=== PATIENT | male | born 1945 | race American Indian/Alaskan Native ===

== ENCOUNTER 2020-10-22 08:11 | Inpatient (IN) | payer MEDICARE ==
[2020-10-22] MEDS ORDERED: SODIUM CHLORIDE 0.9% 500 ML 500 ML IV SCH (09:00)
[2020-10-22 09:12] LABS: Basophils % (Auto) 0.3 % (0.0-1.8); Eosinophils # (Auto) 0.2 K/mm3 (0.0-0.4); Eosinophils % (Auto) 1.9 % (0.0-4.3); Hemoglobin 11.7 gm/dl (11.8-15.2); Lymphocytes # (Auto) 0.9 K/mm3 (1.2-5.4); Lymphocytes % (Auto) 7.6 % (13.4-35.0); Mean Corpuscular HGB Conc 33 % (32-34); Mean Corpuscular Volume 90 fl (84-94); Monocytes # (Auto) 0.9 K/mm3 (0.0-0.8); Monocytes % (Auto) 7.5 % (0.0-7.3); Platelet Count 417 K/mm3 (140-440); Red Blood Count 3.88 M/mm3 (3.65-5.03); Red Cell Distribution Width 15.5 % (13.2-15.2)
[2020-10-22 09:35] LABS: Calcium 10.4 mg/dL (8.4-10.2)
[2020-10-22 09:44] LABS: INR 1.1 (0.87-1.13)
[2020-10-22 09:45] LABS: Partial Thromboplastin Time 30.7 Sec. (24.2-36.6)
[2020-10-22] MEDS ORDERED: LIDOCAINE 1%/EPINEPHRINE 1:100,000 VIAL (20 ML) INFILTRATI ONE (09:55)
[2020-10-22] MEDS ORDERED: HEPARIN/NS 5000 UNIT/500ML 0 ML IR ONE (09:55)
[2020-10-22] MEDS ORDERED: HEPARIN 10,000 UNITS/10 ML VIAL ONE (09:55)
[2020-10-22] MEDS ORDERED: MIDAZOLAM 2 MG/2 ML INJ ONE (09:56)
[2020-10-22] MEDS ORDERED: fentaNYL 100 MCG/2 ML INJ ONE (09:56)
[2020-10-22] MEDS ORDERED: ONDANSETRON 4 MG/2 ML INJ IV PRN (10:30)
[2020-10-22] MEDS ORDERED: SODIUM CHLORIDE 0.9% 1000 ML 1,000 ML IV SCH (10:30)
[2020-10-22] MEDS ORDERED: ALBUTEROL 2.5 MG/3 ML NEBU IH PRN (10:30)
[2020-10-22] MEDS ORDERED: ALBUTEROL 8.5 GM MDI INHALATION IH PRN (10:40)
--- NOTE | 2020-10-22 10:54 | Consultation ---
History of Present Illness - Reason for Consult Consult date: 10/22/20 LLE Requesting physician: JENNA REED - History of Present Illness 75-year-old male with COPD, hypertension, and severe peripheral vascular disease status post bypass x2 at [facility] who has left lower extremity cellulitis/ulceration and rest pain for the last 2 weeks. Arterial ultrasound demonstrates occluded femoral-popliteal bypass. Patient presented today for thrombolysis of the left lower extremity. Unfortunately, found to have leukocytosis with acute renal failure. Admitted for hydration and antibiotics. Plan will be for revascularization tomorrow with thrombolysis of the left lower extremity. Afterwards, he will need to return to the [facility] on Thursday for thrombolytic catheter removal. Past History Past Medical History: COPD, hypertension, PVD Past Surgical History: Other (Bypasses) Social history: smoking Family history: hypertension Medications and Allergies Allergies Allergy/AdvReac Type Severity Reaction Status Date / Time No Known Allergies Allergy Verified 10/22/20 08:47 Home Medications Medication Instructions Recorded Confirmed Last Taken Type Albuterol Mdi (or & Nicu Only) 2 puff IH QID PRN #1 inhalation 08/08/15 10/22/20 Unknown Rx [ProAir HFA Inhaler] Ciprofloxacin [Ciprofloxacin ORAL 500 mg PO Q12H #14 ml 08/08/15 10/22/20 1 12/21/19 Rx LIQ] 1 tab Amoxicillin/Potassium Clav 1 each PO BID 10/22/20 10/22/20 10/21/20 History [Amox-Clav 250-125 mg Tablet] 1 tab Aspirin [Aspirin BABY CHEW TAB] 81 mg PO QDAY 10/22/20 10/22/20 10/21/20 History 1 tab AtorvaSTATin [Lipitor] 20 mg PO QHS 10/22/20 10/22/20 10/21/20 History 1 tab Clopidogrel [Plavix] 75 mg PO QDAY 10/22/20 10/22/20 10/21/20 History 1 tab Metoprolol Xl [Metoprolol 25 mg PO QDAY 10/22/20 10/22/20 10/21/20 History SUCCINATE ER TAB] 1 tab Multivit-Min/FA/Lycopen/Lutein 1 each PO DAILY 10/22/20 10/22/20 10/21/20 History [Centrum Silver Tablet] 1 tab Oxycodon-Acetaminophen 2.5-325 5 - 325 mg PO Q6HR PRN 10/22/20 10/22/20 Unknown History Pentoxifylline 400 mg PO BID 10/22/20 10/22/20 10/21/20 History 1 tab Active Meds: Active Medications Acetaminophen (Tylenol) 650 mg PO Q4H PRN PRN Reason: Pain MILD(1-3)/Fever >100.5/RUANO Albuterol (Proventil) 2.5 mg IH Q4HRT PRN PRN Reason: Shortness Of Breath Albuterol (Proair) 2 puff IH QID PRN PRN Reason: Shortness Of Breath Atorvastatin Calcium (Lipitor) 20 mg PO QHS SONYA Clopidogrel Bisulfate (Plavix) 75 mg PO QDAY SONYA Docusate Sodium (Colace) 100 mg PO BID SONYA Sodium Chloride (Nacl 0.9% 1000 Ml) 1,000 mls @ 150 mls/hr IV DIRECT SONYA Heparin Sodium/Sodium Chloride (Heparin/ 0.45% Nacl-25,000 Unit/500 Ml) 25,000 unit in 500 mls @ 12.247 mls/hr IV TITR SONYA; Protocol Metoprolol Succinate (Metoprolol Xl) 25 mg PO QDAY SONYA Miscellaneous Medication (Multivit-Min/Fa/Lycopen/Lutein [Centrum Silver Tablet]) 1 each PO DAILY SONYA Ondansetron HCl (Zofran) 4 mg IV Q8H PRN PRN Reason: Nausea Pantoprazole Sodium (Protonix) 40 mg PO QDAC SONYA Pentoxifylline (Trental) 400 mg PO BID SONYA Senna (Senokot) 8.6 mg PO Q12HR SONYA Sodium Chloride (Sodium Chloride Flush Syringe 10 Ml) 10 ml IV BID SONYA Sodium Chloride (Sodium Chloride Flush Syringe 10 Ml) 10 ml IV PRN PRN PRN Reason: LINE FLUSH Review of Systems All systems: negative (see HPI) Exam - Constitutional Vitals: Temp Pulse Resp BP Pulse Ox 97.8 F 68 16 154/98 100 10/22/20 09:16 10/22/20 09:16 10/22/20 09:43 10/22/20 09:16 10/22/20 09:16 General appearance: Present: mild distress (Left lower extremity rest pain) - EENT Eyes: Present: EOM intact ENT: hearing intact - Neck Neck: Present: supple - Respiratory Respiratory effort: labored (Baseline COPD 2 L oxygen dependence) - Extremities Extremities: abnormal (Left lower extremity rest pain) - Abdominal General gastrointestinal: Present: soft, non-tender - Psychiatric Psychiatric: appropriate mood/affect, cooperative Results - Labs CBC & Chem 7: 10/22/20 09:04 10/22/20 09:04 Labs: Abnormal lab results 10/22/20 10/22/20 10/22/20 Range/Units 09:04 09:04 09:04 WBC 12.0 H (4.5-11.0) K/mm3 Hgb 11.7 L (11.8-15.2) gm/dl Hct 35.0 L (35.5-45.6) % RDW 15.5 H (13.2-15.2) % Lymph % (Auto) 7.6 L (13.4-35.0) % [place] % (Auto) 7.5 H (0.0-7.3) % Lymph # (Auto) 0.9 L (1.2-5.4) K/mm3 [place] # (Auto) 0.9 H (0.0-0.8) K/mm3 Seg Neutrophils % 82.7 H (40.0-70.0) % Seg Neutrophils # 9.9 H (1.8-7.7) K/mm3 Fibrinogen 708 H (211-480) mg/dl BUN 29 H (9-20) mg/dL Creatinine 2.2 H (0.8-1.3) mg/dL Glucose 114 H (75-100) mg/dL Calcium 10.4 H (8.4-10.2) mg/dL Assessment and Plan 75 year old male with COPD on home oxygen, chronic anorexia and cachexia, cellulitis of the left lower extremity, and recent left lower extremity fem pop occlusion. Presented for thrombolysis but in ARF due to dehydration and cellulitis, this was cancelled for today. Hydration overnight, overnight antibiotics, heparin drip. Will plan for revascularization tomorrow. Medicine will admit. Consult ID and vascular.
[2020-10-22] MEDS ORDERED: HEPARIN/ 0.45% NACL DRIP 25,000 UNIT/500 ML BAG ONE (10:58)
[2020-10-22] MEDS ORDERED: ASPIRIN 81 MG TAB CHEW PO SCH (11:00)
[2020-10-22] MEDS ORDERED: HEPARIN/ 0.45% NACL DRIP 25,000 UNIT/500 ML BAG IV SCH (11:00)
[2020-10-22] MEDS ORDERED: CLOPIDOGREL 75 MG TAB PO SCH (11:00)
[2020-10-22] MEDS ORDERED: HEPARIN 10,000 UNIT/1 ML VIAL ONE (11:23)
[2020-10-22] MEDS ORDERED: SODIUM CHLORIDE 0.9% 1000 ML 1,000 ML ONE ×2 (11:39→17:01)
[2020-10-22] MEDS ORDERED: oxyCODONE /ACETAMINOPHEN 5-325MG TAB ONE ×2 (11:40→16:04)
[2020-10-22] MEDS: oxyCODONE /ACETAMINOPHEN 5-325MG TAB PO PRN ×3 (12:00→21:20)
[2020-10-22] MEDS ORDERED: CLOPIDOGREL 75 MG TAB ONE (12:20)
[2020-10-22] MEDS: SENNOSIDES 8.6 MG TAB PO SCH ×2 (12:36→21:20)
[2020-10-22] MEDS: PENTOXIFYLLINE ER 400 MG TAB PO SCH (12:36)
[2020-10-22] MEDS: MULTIVITAMINS,THER W-MINERALS TAB PO SCH (12:36)
[2020-10-22] MEDS: DOCUSATE SODIUM 100 MG CAP PO SCH ×2 (12:37→21:20)
[2020-10-22] MEDS: METOPROLOL SUCCINATE XL 25 MG TAB PO SCH (12:37)
[2020-10-22] MEDS: CLOPIDOGREL 75 MG TAB PO SCH (12:37)
[2020-10-22] MEDS: PANTOPRAZOLE 40 MG TAB PO SCH (12:37)
--- NOTE | 2020-10-22 17:07 | Consultation ---
History of Present Illness - Reason for Consult Consult date: 10/22/20 - History of Present Illness 75-year-old man past medical history COPD, hypertension, peripheral vascular disease admitted to the hospital by vascular surgery for thrombolysis of the left lower extremity. Patient has a history of 2 bypasses at [facility]. On presentation he was found to have a leukocytosis as well as an JOSHUA. He was admitted for treatment as such along with his planned revascularization and thrombolysis. It is noted that he had a left lower extremity cellulitis and ulceration and this has been painful for the past 2 weeks. Afebrile since admission with a white count of 12. Currently receiving daptomycin. No cultures available for review. Imaging personally reviewed: None Review of Systems: Bold if positive, otherwise negative General: fevers, chills, rigors HEENT: visual disturbance, diplopia, eye pain Respiratory: cough, sputum, hemoptysis, shortness of breath Cardiovascular: chest pain, syncope Gastrointestinal: nausea, vomiting, diarrhea, abdominal pain Genitourinary: dysuria, hematuria, flank pain Musculoskeletal: neck pain, back pain, joint pain, edema Neurologic: headaches, seizures Hematologic: easy bruising or bleeding Endocrine: night sweats, acute weight loss Skin: rash, jaundice, redness Psychiatric: suicidal, homicidal ideation Past History Past Medical History: COPD, hypertension, PVD Past Surgical History: Other (Bypasses) Social history: smoking Family history: hypertension Medications and Allergies Allergies Allergy/AdvReac Type Severity Reaction Status Date / Time No Known Allergies Allergy Verified 10/22/20 08:47 Home Medications Medication Instructions Recorded Confirmed Last Taken Type Albuterol Mdi (or & Nicu Only) 2 puff IH QID PRN #1 inhalation 08/08/15 10/22/20 Unknown Rx [ProAir HFA Inhaler] Ciprofloxacin [Ciprofloxacin ORAL 500 mg PO Q12H #14 ml 08/08/15 10/22/20 10/21/20 Rx LIQ] 1 tab Amoxicillin/Potassium Clav 1 each PO BID 10/22/20 10/22/20 10/21/20 History [Amox-Clav 250-125 mg Tablet] 1 tab Aspirin [Aspirin BABY CHEW TAB] 81 mg PO QDAY 10/22/20 10/22/20 10/21/20 History 1 tab AtorvaSTATin [Lipitor] 20 mg PO QHS 10/22/20 10/22/20 10/21/20 History 1 tab Clopidogrel [Plavix] 75 mg PO QDAY 10/22/20 10/22/20 10/21/20 History 1 tab Metoprolol Xl [Metoprolol 25 mg PO QDAY 10/22/20 10/22/20 10/21/20 History SUCCINATE ER TAB] 1 tab Multivit-Min/FA/Lycopen/Lutein 1 each PO DAILY 10/22/20 10/22/20 10/21/20 History [Centrum Silver Tablet] 1 tab Oxycodon-Acetaminophen 2.5-325 5 - 325 mg PO Q6HR PRN 10/22/20 10/22/20 Unknown History Pentoxifylline 400 mg PO BID 10/22/20 10/22/20 10/21/20 History 1 tab Active Meds: Active Medications Acetaminophen (Tylenol) 650 mg PO Q4H PRN PRN Reason: Pain MILD(1-3)/Fever >100.5/RUANO Albuterol (Proventil) 2.5 mg IH Q4HRT PRN PRN Reason: Shortness Of Breath Clopidogrel Bisulfate (Plavix) 75 mg PO QDAY [facility] Last Admin: 10/22/20 12:37 Dose: 75 mg Documented by: Docusate Sodium (Colace) 100 mg PO BID [facility] Last Admin: 10/22/20 12:37 Dose: 100 mg Documented by: Sodium Chloride (Nacl 0.9% 1000 Ml) 1,000 mls @ 150 mls/hr IV DIRECT SONYA Heparin Sodium/Sodium Chloride (Heparin/ 0.45% Nacl-25,000 Unit/500 Ml) 25,000 unit in 500 mls @ 12 mls/hr IV TITR SONYA; Protocol Last Admin: 10/22/20 11:30 Dose: 600 units/hr, 12 mls/hr Documented by: Daptomycin 250 mg/ Sodium (Chloride) 100 mls @ 200 mls/hr IV Q48H [facility]; Protocol Metoprolol Succinate (Metoprolol Xl) 25 mg PO QDAY [facility] Last Admin: 10/22/20 12:37 Dose: 25 mg Documented by: Multivitamins/Minerals (Theragran-M Tab) 1 each PO QDAY [facility] Last Admin: 10/22/20 12:36 Dose: 1 each Documented by: Ondansetron HCl (Zofran) 4 mg IV Q8H PRN PRN Reason: Nausea Oxycodone/Acetaminophen (Percocet 5/325) 1 tab PO Q4H PRN PRN Reason: Pain, Moderate (4-6) Last Admin: 10/22/20 16:08 Dose: 1 tab Documented by: Pantoprazole Sodium (Protonix) 40 mg PO QDAC [facility] Last Admin: 10/22/20 12:37 Dose: 40 mg Documented by: Pentoxifylline (Trental) 400 mg PO BID [facility] Last Admin: 10/22/20 12:36 Dose: 400 mg Documented by: Senna (Senokot) 8.6 mg PO Q12HR [facility] Last Admin: 10/22/20 12:36 Dose: 8.6 mg Documented by: Sodium Chloride (Sodium Chloride Flush Syringe 10 Ml) 10 ml IV BID [facility] Sodium Chloride (Sodium Chloride Flush Syringe 10 Ml) 10 ml IV PRN PRN PRN Reason: LINE FLUSH Physical Examination - Physical Exam Narrative exam: Physical Exam: Constitutional: Alert, cooperative. No acute distress Head, Ears, Nose: Normocephalic, atraumatic. External ears, nose normal Eyes: Conjunctivae/corneas clear. No icterus. No ptosis. Neck: Supple, no meningeal signs Oral: dentition fair, no thrush Cardiovascular: S1, S2 normal. Respiratory: Good air entry, clear to auscultation bilaterally GI: Soft, non-tender; bowel sounds normal. No peritoneal signs. Musculoskeletal: Left leg ulcer, cellulitis Skin: No rash or abscess Hem/Lymphatic: No palpable cervical or supraclavicular nodes. No lymphangitis Psych: Mood ok. Affect normal Neurological: Awake, alert, oriented. No gross abnormality - Constitutional Vitals: Vital Signs Temp Pulse Resp BP Pulse Ox 97.8 F 74 20 154/93 100 10/22/20 09:16 10/22/20 12:37 10/22/20 16:08 10/22/20 12:37 10/22/20 09:16 Temperature -Last 24 Hours Temperature 97.8 F Results - Labs CBC & Chem 7: 10/22/20 09:04 10/22/20 09:04 Labs: Abnormal lab results 10/22/20 10/22/20 10/22/20 Range/Units 09:04 09:04 09:04 WBC 12.0 H (4.5-11.0) K/mm3 Hgb 11.7 L (11.8-15.2) gm/dl Hct 35.0 L (35.5-45.6) % RDW 15.5 H (13.2-15.2) % Lymph % (Auto) 7.6 L (13.4-35.0) % [place] % (Auto) 7.5 H (0.0-7.3) % Lymph # (Auto) 0.9 L (1.2-5.4) K/mm3 [place] # (Auto) 0.9 H (0.0-0.8) K/mm3 Seg Neutrophils % 82.7 H (40.0-70.0) % Seg Neutrophils # 9.9 H (1.8-7.7) K/mm3 Fibrinogen 708 H (211-480) mg/dl BUN 29 H (9-20) mg/dL Creatinine 2.2 H (0.8-1.3) mg/dL Glucose 114 H (75-100) mg/dL Calcium 10.4 H (8.4-10.2) mg/dL Assessment and Plan Cultures: None A/P: 75-year-old man past medical history COPD, hypertension, peripheral vascular disease, found to have cellulitis #Left lower extremity cellulitis: Discussed with Dr. Palacios, treated with daptomycin for now as usually these are gram-positive. Avoiding vancomycin due to acute renal failure #JOSHUA: Renally adjust antibiotics #Peripheral vascular disease Recs: -Continue daptomycin for now, if improvement noted plan to discharge with Bactrim. -Follow renal function, adjust dosage as required -Monitor biweekly CK with daptomycin Thank you for the consult, we will continue to follow. Brisa Turjillo MD [facility], [place], [facility] O: [phone] F: [phone]
[2020-10-23] MEDS: PENTOXIFYLLINE ER 400 MG TAB PO SCH ×3 (01:43→21:43)
[2020-10-23] MEDS ORDERED: MORPHINE 2 MG/1 ML INJ IV ONE (02:42)
[2020-10-23 05:32] LABS: Basophils % (Auto) 0.3 % (0.0-1.8); Eosinophils # (Auto) 0.3 K/mm3 (0.0-0.4); Eosinophils % (Auto) 1.8 % (0.0-4.3); Hematocrit 28.7 % (35.5-45.6); Hemoglobin 9.4 gm/dl (11.8-15.2); Mean Corpuscular HGB Conc 33 % (32-34); Mean Corpuscular Volume 90 fl (84-94); Monocytes # (Auto) 1.2 K/mm3 (0.0-0.8); Monocytes % (Auto) 7.8 % (0.0-7.3); Platelet Count 403 K/mm3 (140-440); Red Cell Distribution Width 15.3 % (13.2-15.2)
[2020-10-23 06:17] LABS: Calcium 9.2 mg/dL (8.4-10.2)
[2020-10-23] MEDS: PANTOPRAZOLE 40 MG TAB PO SCH (08:07)
--- NOTE | 2020-10-23 08:08 | History and Physical Report ---
History of Present Illness Date of examination: 10/22/20 Date of admission: 10/22/20 10:30 Chief complaint: LLE pain,Ulcer and redness History of present illness: 75-year-old man past medical history COPD, hypertension, peripheral vascular disease admitted to the hospital by vascular surgery for thrombolysis of the left lower extremity. Patient has a history of 2 bypasses at [facility]. On presentation he was found to have a leukocytosis as well as an JOSHUA. He was admitted for treatment as such along with his planned revascularization and thrombolysis. It is noted that he had a left lower extremity cellulitis and ulceration and this has been painful for the past 2 weeks. Afebrile since admission with a white count of 12. Currently receiving daptomycin. No cultures available for review. Past History Past Medical History: COPD, hypertension, PVD Past Surgical History: Other (Bypasses) Social history: smoking Family history: hypertension Medications and Allergies Allergies Allergy/AdvReac Type Severity Reaction Status Date / Time No Known Allergies Allergy Verified 10/22/20 08:47 Home Medications Medication Instructions Recorded Confirmed Last Taken Type Albuterol Mdi (or & Nicu Only) 2 puff IH QID PRN #1 inhalation 08/08/15 10/22/20 Unknown Rx [ProAir HFA Inhaler] Ciprofloxacin [Ciprofloxacin ORAL 500 mg PO Q12H #14 ml 08/08/15 10/22/20 10/21/20 Rx LIQ] 1 tab Amoxicillin/Potassium Clav 1 each PO BID 10/22/20 10/22/20 10/21/20 History [Amox-Clav 250-125 mg Tablet] 1 tab Aspirin [Aspirin BABY CHEW TAB] 81 mg PO QDAY 10/22/20 10/22/20 10/21/20 History 1 tab AtorvaSTATin [Lipitor] 20 mg PO QHS 10/22/20 10/22/20 10/21/20 History 1 tab Clopidogrel [Plavix] 75 mg PO QDAY 10/22/20 10/22/20 10/21/20 History 1 tab Metoprolol Xl [Metoprolol 25 mg PO QDAY 10/22/20 10/22/20 10/21/20 History SUCCINATE ER TAB] 1 tab Multivit-Min/FA/Lycopen/Lutein 1 each PO DAILY 10/22/20 10/22/20 10/21/20 History [Centrum Silver Tablet] 1 tab Oxycodon-Acetaminophen 2.5-325 5 - 325 mg PO Q6HR PRN 10/22/20 10/22/20 Unknown History Pentoxifylline 400 mg PO BID 10/22/20 10/22/20 10/21/20 History 1 tab Active Meds: Active Medications Acetaminophen (Tylenol) 650 mg PO Q4H PRN PRN Reason: Pain MILD(1-3)/Fever >100.5/RUANO Albuterol (Proventil) 2.5 mg IH Q4HRT PRN PRN Reason: Shortness Of Breath Clopidogrel Bisulfate (Plavix) 75 mg PO QDAY [facility] Last Admin: 10/22/20 12:37 Dose: 75 mg Documented by: Docusate Sodium (Colace) 100 mg PO BID [facility] Last Admin: 10/22/20 21:20 Dose: 100 mg Documented by: Sodium Chloride (Nacl 0.9% 1000 Ml) 1,000 mls @ 150 mls/hr IV DIRECT SONYA Last Admin: 10/23/20 05:53 Dose: 150 mls/hr Documented by: Heparin Sodium/Sodium Chloride (Heparin/ 0.45% Nacl-25,000 Unit/500 Ml) 25,000 unit in 500 mls @ 12 mls/hr IV TITR SONYA; Protocol Last Titration: 10/22/20 21:00 Dose: 500 units/hr, 10 mls/hr Documented by: Daptomycin 250 mg/ Sodium (Chloride) 100 mls @ 200 mls/hr IV Q48H [facility]ONYA; Protocol Last Admin: 10/22/20 17:44 Dose: 200 mls/hr Documented by: Metoprolol Succinate (Metoprolol Xl) 25 mg PO QDAY [facility] Last Admin: 10/22/20 12:37 Dose: 25 mg Documented by: Multivitamins/Minerals (Theragran-M Tab) 1 each PO QDAY [facility] Last Admin: 10/22/20 12:36 Dose: 1 each Documented by: Ondansetron HCl (Zofran) 4 mg IV Q8H PRN PRN Reason: Nausea Oxycodone/Acetaminophen (Percocet 5/325) 1 tab PO Q4H PRN PRN Reason: Pain, Moderate (4-6) Last Admin: 10/22/20 21:20 Dose: 1 tab Documented by: Pantoprazole Sodium (Protonix) 40 mg PO QDAC [facility] Last Admin: 10/22/20 12:37 Dose: 40 mg Documented by: Pentoxifylline (Trental) 400 mg PO BID [facility] Last Admin: 10/23/20 01:43 Dose: Not Given Documented by: Senna (Senokot) 8.6 mg PO Q12HR [facility] Last Admin: 10/22/20 21:20 Dose: 8.6 mg Documented by: Sodium Chloride (Sodium Chloride Flush Syringe 10 Ml) 10 ml IV BID [facility] Last Admin: 10/23/20 01:20 Dose: 10 ml Documented by: Sodium Chloride (Sodium Chloride Flush Syringe 10 Ml) 10 ml IV PRN PRN PRN Reason: LINE FLUSH Review of Systems All systems: negative Constitutional: no weight loss, no weight gain, no fever, no chills Ears, nose, mouth and throat: no ear pain, no ear discharge, no tinnitis Cardiovascular: no chest pain, no orthopnea, no palpitations, no rapid/irregular heart beat, no edema, no syncope, no lightheadedness, no shortness of breath Respiratory: no cough, no cough with sputum, no excessive sputum, no shortness of breath, no dyspnea on exertion Gastrointestinal: no abdominal pain, no nausea, no vomiting, no diarrhea, no constipation, no change in bowel habits, no hematemesis, no coffee ground emesis Genitourinary Male: no dysuria, no hematuria, no flank pain, no nocturia Rectal: no pain Musculoskeletal: no neck stiffness, no neck pain, no shooting arm pain, no arm numbness/tingling, no low back pain, no shooting leg pain, no leg numbness/tingling, no redness of joints Integumentary: pruritis, redness, wounds Neurological: no head injury, no transient paralysis, no seizures, no syncope Psychiatric: no anxiety, no memory loss, no change in sleep habits, no sleep disturbances Endocrine: no cold intolerance, no heat intolerance, no polyphagia, no excessive thirst Hematologic/Lymphatic: no easy bruising, no easy bleeding Allergic/Immunologic: no urticaria, no allergic rhinitis, no wheezing Exam - Constitutional Vitals: Temp Pulse Resp BP Pulse Ox 97.8 F 74 19 154/93 97 10/22/20 09:16 10/22/20 12:37 10/23/20 02:30 10/22/20 12:37 10/22/20 23:11 General appearance: Present: no acute distress, well-nourished - EENT Eyes: Present: PERRL ENT: hearing intact, clear oral mucosa - Neck Neck: Present: supple, normal ROM - Respiratory Respiratory effort: normal Respiratory: bilateral: CTA - Cardiovascular Heart rate: 78 Rhythm: regular Heart Sounds: Present: S1 & S2. Absent: rub, click - Extremities Extremities: pulses symmetrical, No edema, abnormal (LLE redness) Extremity abnormal: pulses diminished (LLE), other (Ulcer) Peripheral Pulses: within normal limits - Abdominal General gastrointestinal: Present: soft, non-tender, non-distended, normal bowel sounds Male genitourinary: Present: normal - Rectal Rectal Exam: deferred - Integumentary Integumentary: Present: clear, warm, dry - Musculoskeletal Musculoskeletal: gait normal, strength equal bilaterally - Psychiatric Psychiatric: appropriate mood/affect, intact judgment & insight - Neurologic Neurologic: CNII-XII intact, moves all extremities HEART Score - HEART Score History: Moderately suspicious EKG: Non-specific Risk factors: > 3 risk factors or hx of atherosclerotic disease Troponin: < normal limit - Critical Actions Critical Actions: 4-6 pts:12-16.6% risk of adverse cardiac event. Should be admitted Results - Labs CBC & Chem 7: 10/23/20 04:18 10/23/20 04:18 Labs: Laboratory Last Values WBC 14.8 K/mm3 (4.5-11.0) H 10/23/20 04:18 RBC 3.20 M/mm3 (3.65-5.03) L 10/23/20 04:18 Hgb 9.4 gm/dl (11.8-15.2) L 10/23/20 04:18 Hct 28.7 % (35.5-45.6) L D 10/23/20 04:18 MCV 90 fl (84-94) 10/23/20 04:18 MCH 29 pg (28-32) 10/23/20 04:18 MCHC 33 % (32-34) 10/23/20 04:18 RDW 15.3 % (13.2-15.2) H 10/23/20 04:18 Plt Count 403 K/mm3 (140-440) 10/23/20 04:18 Lymph % (Auto) 7.0 % (13.4-35.0) L 10/23/20 04:18 [place] % (Auto) 7.8 % (0.0-7.3) H 10/23/20 04:18 Eos % (Auto) 1.8 % (0.0-4.3) 10/23/20 04:18 Baso % (Auto) 0.3 % (0.0-1.8) 10/23/20 04:18 Lymph # (Auto) 1.0 K/mm3 (1.2-5.4) L 10/23/20 04:18 [place] # (Auto) 1.2 K/mm3 (0.0-0.8) H 10/23/20 04:18 Eos # (Auto) 0.3 K/mm3 (0.0-0.4) 10/23/20 04:18 Baso # (Auto) 0.0 K/mm3 (0.0-0.1) 10/23/20 04:18 Seg Neutrophils % 83.1 % (40.0-70.0) H 10/23/20 04:18 Seg Neutrophils # 12.3 K/mm3 (1.8-7.7) H 10/23/20 04:18 PT 14.0 Sec. (12.2-14.9) 10/22/20 09:04 INR 1.10 (0.87-1.13) 10/22/20 09:04 APTT 30.7 Sec. (24.2-36.6) 10/22/20 09:04 Fibrinogen 708 mg/dl (211-480) H 10/22/20 09:04 Heparin Anti-Xa Level 0.46 U.I./ml (0.3-0.7) 10/23/20 04:18 Sodium 141 mmol/L (137-145) 10/23/20 04:18 Potassium 4.5 mmol/L (3.6-5.0) 10/23/20 04:18 Chloride 106.7 mmol/L (98-107) 10/23/20 04:18 Carbon Dioxide 26 mmol/L (22-30) 10/23/20 04:18 Anion Gap 13 mmol/L 10/23/20 04:18 BUN 34 mg/dL (9-20) H 10/23/20 04:18 Creatinine 1.7 mg/dL (0.8-1.3) H 10/23/20 04:18 Estimated GFR 48 ml/min 10/23/20 04:18 BUN/Creatinine Ratio 20 % 10/23/20 04:18 Glucose 85 mg/dL (75-100) 10/23/20 04:18 Calcium 9.2 mg/dL (8.4-10.2) 10/23/20 04:18 Blood Type A POSITIVE 10/22/20 09:59 Antibody Screen Negative 10/22/20 09:59 - Imaging and Cardiology EKG: report reviewed Diaz/IV: Voiding Method Urinal IV Catheter Type [Right Upper Peripheral IV arm] IV Catheter Type [Left Forearm INT / Saline Lock ] Assessment and Plan Advance Directives: Yes (Full code) VTE prophylaxis?: Chemical Plan of care discussed with patient/family: Yes - Patient Problems (1) Cellulitis of left lower extremity Current Visit: Yes Status: Acute Plan to address problem: On Daptomycin (2) JOSHUA (acute kidney injury) Current Visit: Yes Status: Acute Plan to address problem: IV fluids for now VMnN is a possibility (3) HTN (hypertension) Current Visit: No Status: Chronic Qualifiers: Hypertension type: essential hypertension Qualified Code(s): I10 - Essential (primary) hypertension Plan to address problem: Cont antihypertensives (4) Tobacco abuse counseling Current Visit: No Status: Chronic Plan to address problem: Counselled On Nicotine patch (5) COPD (chronic obstructive pulmonary disease) Current Visit: Yes Status: Chronic Qualifiers: Emphysema type: unspecified Plan to address problem: Duoonebs prn (6) PAD (peripheral artery disease) Current Visit: Yes Status: Chronic Plan to address problem: JESSY LLLE Defeer to Vascular/IR Onn Heparin drip (7) DVT prophylaxis Current Visit: No Status: Acute Plan to address problem: On Heeparin and GI prophylaxis
[2020-10-23] MEDS ORDERED: ONDANSETRON 4 MG/2 ML INJ IV PRN (08:17)
[2020-10-23] MEDS ORDERED: ACETAMINOPHEN 325 MG TAB PO PRN (08:17)
[2020-10-23] MEDS ORDERED: METOCLOPRAMIDE 10 MG/2 ML INJ IV PRN (08:17)
[2020-10-23] MEDS ORDERED: IPRATROPIUM/ALBUTEROL SULFATE 3 ML AMPUL.NEB IH PRN (08:21)
[2020-10-23] MEDS: HYDROmorphone 1 MG/1 ML INJ IV PRN ×3 (08:49→21:43)
[2020-10-23 09:02] LABS: Basophils # (Auto) 0.1 K/mm3 (0.0-0.1); Basophils % (Auto) 0.5 % (0.0-1.8); Eosinophils # (Auto) 0.1 K/mm3 (0.0-0.4); Eosinophils % (Auto) 0.7 % (0.0-4.3); Hematocrit 24.4 % (35.5-45.6); Hemoglobin 7.9 gm/dl (11.8-15.2); Lymphocytes # (Auto) 0.9 K/mm3 (1.2-5.4); Lymphocytes % (Auto) 6.1 % (13.4-35.0); Mean Corpuscular HGB Conc 32 % (32-34); Mean Corpuscular Volume 90 fl (84-94); Monocytes # (Auto) 0.8 K/mm3 (0.0-0.8); Monocytes % (Auto) 5.1 % (0.0-7.3); Platelet Count 348 K/mm3 (140-440); Red Blood Count 2.71 M/mm3 (3.65-5.03); Red Cell Distribution Width 15.2 % (13.2-15.2)
[2020-10-23] MEDS ORDERED: FAMOTIDINE 20 MG/2 ML INJ IV SCH (10:00)
[2020-10-23] MEDS ORDERED: NICOTINE 14 MG/24 HR PATCH TD SCH (10:00)
--- NOTE | 2020-10-23 10:37 | Progress Note ---
Assessment and Plan -- Cellulitis of left lower extremity On Daptomycin and levaquin Vascular surgery consulted, ID also following --Sepsis with cellulitis cont abx, follow Cx -- JOSHUA (acute kidney injury) IV fluids for now, follow daily labs likely vasomotor nephropathy -- HTN (hypertension) Cont antihypertensives -- Tobacco abuse counseling Counselled On Nicotine patch -- COPD (chronic obstructive pulmonary disease) Duoonebs prn, not in distress --Chronic respiratory failure, due to COPD On 2 L home O2, continue supplemental O2 as needed and nebulizer breathing treatment as needed -- PAD (peripheral artery disease) Defer to Vascular/IR Initially placed on Heparin drip - off now for GI bleed -- GI bleed started on PPI, GI consulted, follow h/h Brief History: 75-year-old man past medical history COPD, hypertension, peripheral vascular disease had a left lower extremity cellulitis and ulceration and this has been painful for the past 2 weeks admitted to the hospital by vascular surgery for thrombolysis of the left lower extremity. Patient has a history of 2 bypasses at [facility]. On presentation he was found to have a leukocytosis as well as an JOSHUA. Patient started on iv abx, iv heparin drip, ID consulted - admitted for further mx. He then developed bloody BM - heparin discontinued, GI consulted for EGD, PPI started. 10/23: PLANNED TO Continue daptomycin for now, if improvement noted plan to discharge with Bactrim. follow cx and monitor renal function. Hemoglobin declined on heparin drip from 11.7-7.9 with history of black diarrhea this morning. GI consulted, planned for EGD today. follow vascular recommendation. Subjective Date of service: 10/23/20 Interval history: Patient seen and examined. Medical records and medication list reviewed. patient had a bloody BM today, heparin drip discontinued Revascularization postponed it for the morning, GI consulted Discussed plan of care at bedside with patient. Objective - Exam Narrative Exam: GENERAL: Elderly malnourished male lying on bed appeared to be in no discomfort. HEENT: Normocephalic. Atraumatic. No conjunctival congestion or icterus. Patient has moist mucous membranes. NECK: Supple. Trachea midline. CHEST/LUNGS: diminished BS auscultated bilaterally, breathing nonlabored. HEART/CARDIOVASCULAR: Regular in rate and rhythm. S1 and S2 positive. ABDOMEN: Abdomen is soft, nontender. Patient has normal bowel sounds. SKIN: There is no rash. Warm and dry. NEURO: No focal motor deficit. Follows command. MUSCULOSKELETAL: No joint effusion or tenderness. EXTRIMITY: No edema, Left lower extremity with wound dressing PSYCH: Cooperative. - Constitutional Vitals: Vital Signs - 12hr 10/22/20 10/23/20 23:11 02:30 Respiratory 19 Rate O2 Sat by Pulse 97 Oximetry - Labs CBC & Chem 7: 10/25/20 08:44 10/25/20 08:44 Labs: Abnormal lab results 10/22/20 10/23/20 10/23/20 Range/Units 18:54 04:18 04:18 WBC 14.8 H (4.5-11.0) K/mm3 RBC 3.20 L (3.65-5.03) M/mm3 Hgb 9.4 L (11.8-15.2) gm/dl Hct 28.7 L D (35.5-45.6) % RDW 15.3 H (13.2-15.2) % Lymph % (Auto) 7.0 L (13.4-35.0) % [place] % (Auto) 7.8 H (0.0-7.3) % Lymph # (Auto) 1.0 L (1.2-5.4) K/mm3 [place] # (Auto) 1.2 H (0.0-0.8) K/mm3 Seg Neutrophils % 83.1 H (40.0-70.0) % Seg Neutrophils # 12.3 H (1.8-7.7) K/mm3 Heparin Anti-Xa Level 2.00 H (0.3-0.7) U.I./ml BUN 34 H (9-20) mg/dL Creatinine 1.7 H (0.8-1.3) mg/dL 10/23/20 Range/Units 08:44 WBC 14.8 H (4.5-11.0) K/mm3 RBC 2.71 L (3.65-5.03) M/mm3 Hgb 7.9 L (11.8-15.2) gm/dl Hct 24.4 L (35.5-45.6) % RDW (13.2-15.2) % Lymph % (Auto) 6.1 L (13.4-35.0) % [place] % (Auto) (0.0-7.3) % Lymph # (Auto) 0.9 L (1.2-5.4) K/mm3 [place] # (Auto) (0.0-0.8) K/mm3 Seg Neutrophils % 87.6 H (40.0-70.0) % Seg Neutrophils # 13.0 H (1.8-7.7) K/mm3 Heparin Anti-Xa Level (0.3-0.7) U.I./ml BUN (9-20) mg/dL Creatinine (0.8-1.3) mg/dL HEART Score - HEART Score EKG: Non-specific Risk factors: > 3 risk factors or hx of atherosclerotic disease Troponin: < normal limit - Critical Actions Critical Actions: 4-6 pts:12-16.6% risk of adverse cardiac event. Should be admitted
--- NOTE | 2020-10-23 10:55 | Progress Note ---
Assessment and Plan Cultures: None A/P: 75-year-old man past medical history COPD, hypertension, peripheral vascular disease, found to have cellulitis #Left lower extremity cellulitis: Discussed with Dr. Palacios, treated with daptomycin for now as usually these are gram-positive. Avoiding vancomycin due to acute renal failure #JOSHUA: Renally adjust antibiotics #Peripheral vascular disease #Anemia: perhaps dilutional with IV fluids Recs: -Continue daptomycin for now, if improvement noted plan to discharge with Bactrim. -Follow renal function, adjust dosage as required -Monitor biweekly CK with daptomycin -Continue to follow white count Thank you for the consult, we will continue to follow. Brisa Trujillo MD [facility] ([facility]) O: [phone] F: [phone] Subjective Date of service: 10/23/20 Interval history: Afebrile, white count increasing now 14.8. Hemoglobin decreased 7.9. Objective - Exam Narrative Exam: Physical Exam: Constitutional: Alert, cooperative. No acute distress Head, Ears, Nose: Normocephalic, atraumatic. Eyes: Conjunctivae/corneas clear. No icterus. No ptosis. Neck: Supple, no meningeal signs Oral: dentition fair, no thrush Cardiovascular: S1, S2 normal. Respiratory: Good air entry, clear to auscultation bilaterally GI: Soft, non-tender; bowel sounds normal. No peritoneal signs. Musculoskeletal: Left leg ulcer, cellulitis Skin: No rash or abscess Hem/Lymphatic: No palpable cervical or supraclavicular nodes. No lymphangitis Psych: Mood ok. Affect normal Neurological: Awake, alert, oriented. No gross abnormality - Constitutional Vitals: Vital Signs Temp Pulse Resp BP Pulse Ox 97.8 F 74 19 154/93 97 10/22/20 09:16 10/22/20 12:37 10/23/20 02:30 10/22/20 12:37 10/22/20 23:11 - Labs CBC & Chem 7: 10/23/20 08:44 10/23/20 04:18 Labs: Abnormal lab results 10/22/20 10/23/20 10/23/20 Range/Units 18:54 04:18 04:18 WBC 14.8 H (4.5-11.0) K/mm3 RBC 3.20 L (3.65-5.03) M/mm3 Hgb 9.4 L (11.8-15.2) gm/dl Hct 28.7 L D (35.5-45.6) % RDW 15.3 H (13.2-15.2) % Lymph % (Auto) 7.0 L (13.4-35.0) % [place] % (Auto) 7.8 H (0.0-7.3) % Lymph # (Auto) 1.0 L (1.2-5.4) K/mm3 [place] # (Auto) 1.2 H (0.0-0.8) K/mm3 Seg Neutrophils % 83.1 H (40.0-70.0) % Seg Neutrophils # 12.3 H (1.8-7.7) K/mm3 Heparin Anti-Xa Level 2.00 H (0.3-0.7) U.I./ml BUN 34 H (9-20) mg/dL Creatinine 1.7 H (0.8-1.3) mg/dL 10/23/20 Range/Units 08:44 WBC 14.8 H (4.5-11.0) K/mm3 RBC 2.71 L (3.65-5.03) M/mm3 Hgb 7.9 L (11.8-15.2) gm/dl Hct 24.4 L (35.5-45.6) % RDW (13.2-15.2) % Lymph % (Auto) 6.1 L (13.4-35.0) % [place] % (Auto) (0.0-7.3) % Lymph # (Auto) 0.9 L (1.2-5.4) K/mm3 [place] # (Auto) (0.0-0.8) K/mm3 Seg Neutrophils % 87.6 H (40.0-70.0) % Seg Neutrophils # 13.0 H (1.8-7.7) K/mm3 Heparin Anti-Xa Level (0.3-0.7) U.I./ml BUN (9-20) mg/dL Creatinine (0.8-1.3) mg/dL
[2020-10-23 10:59] LABS: Albumin 2.7 g/dL (3.9-5); Calcium 8.9 mg/dL (8.4-10.2)
--- NOTE | 2020-10-23 11:09 | Progress Note ---
Assessment and Plan 75 year old male with COPD on home oxygen, chronic anorexia and cachexia, cellulitis of the left lower extremity, and recent left lower extremity fem pop occlusion. Acute renal failure improved with IV hydration. Still has leukocytosis from left lower extremity cellulitis. On daptomycin. ID seeing patient. Wound culture sent. Hemoglobin declined on heparin drip from 11.7-7.9 with history of black diarrhea this morning. This is concerning for melena. I discontinued the heparin drip. I contacted Dr. Varela with gastroenterology. He will likely scope the patient later today. Started patient on PPI IV for now. GI issues directly impact ability to perform thrombolysis. Will reassess after GI issues addressed. Subjective Date of service: 10/23/20 Principal diagnosis: Fem-pop bypass Interval history: Hemoglobin decreased from 11.7-7.9. Reports of black foul-smelling stool this morning. Patient came in dehydrated and some element was likely hemoconcentration, but this is concerning especially in the setting of possible thrombolysis. I discontinued heparin drip. Started Protonix PPI IV for now. I contacted gastroenterology who will perform endoscopy later today. Appreciate assistance. Objective - Constitutional Vitals: Vital Signs - 12hr 10/22/20 10/23/20 23:11 02:30 Respiratory 19 Rate O2 Sat by Pulse 97 Oximetry General appearance: Present: mild distress (Left lower extremity discomfort), cachectic - EENT Eyes: EOM intact ENT: hearing intact - Respiratory Respiratory effort: labored (On baseline home oxygen) Extremities: abnormal (Left lower extremity calf cellulitis) - Psychiatric Psychiatric: appropriate mood/affect, cooperative - Labs CBC & Chem 7: 10/23/20 08:44 10/23/20 08:44 Labs: Abnormal lab results 10/22/20 10/23/20 10/23/20 Range/Units 18:54 04:18 04:18 WBC 14.8 H (4.5-11.0) K/mm3 RBC 3.20 L (3.65-5.03) M/mm3 Hgb 9.4 L (11.8-15.2) gm/dl Hct 28.7 L D (35.5-45.6) % RDW 15.3 H (13.2-15.2) % Lymph % (Auto) 7.0 L (13.4-35.0) % [place] % (Auto) 7.8 H (0.0-7.3) % Lymph # (Auto) 1.0 L (1.2-5.4) K/mm3 [place] # (Auto) 1.2 H (0.0-0.8) K/mm3 Seg Neutrophils % 83.1 H (40.0-70.0) % Seg Neutrophils # 12.3 H (1.8-7.7) K/mm3 Heparin Anti-Xa Level 2.00 H (0.3-0.7) U.I./ml Chloride (98-107) mmol/L BUN 34 H (9-20) mg/dL Creatinine 1.7 H (0.8-1.3) mg/dL Glucose (75-100) mg/dL ALT (7-56) units/L Total Protein (6.3-8.2) g/dL Albumin (3.9-5) g/dL 10/23/20 10/23/20 Range/Units 08:44 08:44 WBC 14.8 H (4.5-11.0) K/mm3 RBC 2.71 L (3.65-5.03) M/mm3 Hgb 7.9 L (11.8-15.2) gm/dl Hct 24.4 L (35.5-45.6) % RDW (13.2-15.2) % Lymph % (Auto) 6.1 L (13.4-35.0) % [place] % (Auto) (0.0-7.3) % Lymph # (Auto) 0.9 L (1.2-5.4) K/mm3 [place] # (Auto) (0.0-0.8) K/mm3 Seg Neutrophils % 87.6 H (40.0-70.0) % Seg Neutrophils # 13.0 H (1.8-7.7) K/mm3 Heparin Anti-Xa Level (0.3-0.7) U.I./ml Chloride 108.0 H (98-107) mmol/L BUN 33 H (9-20) mg/dL Creatinine 1.5 H (0.8-1.3) mg/dL Glucose 123 H (75-100) mg/dL ALT 6 L (7-56) units/L Total Protein 5.9 L (6.3-8.2) g/dL Albumin 2.7 L (3.9-5) g/dL Medications & Allergies - Medications Allergies/Adverse Reactions: Allergies No Known Allergies Allergy (Verified 10/22/20 08:47) Home Medications: Home Medications Medication Instructions Recorded Confirmed Last Taken Type Albuterol Mdi (or & Nicu Only) 2 puff IH QID PRN #1 inhalation 08/08/15 10/22/20 Unknown Rx [ProAir HFA Inhaler] Ciprofloxacin [Ciprofloxacin ORAL 500 mg PO Q12H #14 ml 08/08/15 10/22/20 10/21/20 Rx LIQ] 1 tab Amoxicillin/Potassium Clav 1 each PO BID 10/22/20 10/22/20 10/21/20 History [Amox-Clav 250-125 mg Tablet] 1 tab Aspirin [Aspirin BABY CHEW TAB] 81 mg PO QDAY 10/22/20 10/22/20 10/21/20 History 1 tab AtorvaSTATin [Lipitor] 20 mg PO QHS 10/22/20 10/22/20 10/21/20 History 1 tab Clopidogrel [Plavix] 75 mg PO QDAY 10/22/20 10/22/20 10/21/20 History 1 tab Metoprolol Xl [Metoprolol 25 mg PO QDAY 10/22/20 10/22/20 10/21/20 History SUCCINATE ER TAB] 1 tab Multivit-Min/FA/Lycopen/Lutein 1 each PO DAILY 10/22/20 10/22/20 10/21/20 H istory [Centrum Silver Tablet] 1 tab Oxycodon-Acetaminophen 2.5-325 5 - 325 mg PO Q6HR PRN 10/22/20 10/22/20 Unknown History Pentoxifylline 400 mg PO BID 10/22/20 10/22/20 10/21/20 History 1 tab Active Medications: Generic Name Dose Route Start Last Admin Trade Name Freq PRN Reason Stop Dose Admin Acetaminophen 650 mg 10/22/20 10:30 Tylenol PO Q4H PRN Pain MILD(1-3)/Fever >100.5/RUANO Albuterol 2.5 mg 10/22/20 10:30 Proventil IH Q4HRT PRN Shortness Of Breath Albuterol/Ipratropium 1 ampul 10/23/20 08:21 Duoneb *Not For Prn Use* IH Q3H PRN Wheezing Clopidogrel Bisulfate 75 mg 10/22/20 11:00 10/22/20 12:37 Plavix PO 75 mg QDAY SONYA Administration Docusate Sodium 100 mg 10/22/20 11:00 10/22/20 21:20 Colace PO 100 mg BID SONYA Administration Hydromorphone HCl 0.5 mg 10/23/20 08:17 10/23/20 08:49 Dilaudid IV 0.5 mg Q3H PRN Administration Pain , Severe (7-10) Daptomycin 250 mg/ Sodium 100 mls @ 200 mls/hr 10/22/20 17:30 10/22/20 17:44 Chloride IV 200 mls/hr Q48H SONYA Administration Protocol Sodium Chloride 1,000 mls @ 100 mls/hr 10/23/20 09:00 Nacl 0.45% 1000 Ml IV DIRECT SONYA Metoclopramide HCl 5 mg 10/23/20 08:17 Reglan IV Q6H PRN Nausea And Vomiting Metoprolol Succinate 25 mg 10/22/20 11:00 10/22/20 12:37 Metoprolol Xl PO 25 mg QDAY SONYA Administration Multivitamins/Minerals 1 each 10/22/20 12:00 10/22/20 12:36 Theragran-M Tab PO 1 each QDAY SONYA Administration Ondansetron HCl 4 mg 10/23/20 08:17 Zofran IV Q8H PRN Nausea And Vomiting Oxycodone/Acetaminophen 1 tab 10/22/20 11:32 10/22/20 21:20 Percocet 5/325 PO 1 tab Q4H PRN Administration Pain, Moderate (4-6) Pantoprazole Sodium 40 mg 10/22/20 11:00 10/23/20 08:07 Protonix PO Not Given QDAC SONYA Pentoxifylline 400 mg 10/22/20 11:00 10/23/20 01:43 Trental PO Not Given BID SONYA Senna 8.6 mg 10/22/20 11:00 10/22/20 21:20 Senokot PO 8.6 mg Q12HR SONYA Administration Sodium Chloride 10 ml 10/22/20 11:00 10/23/20 01:20 Sodium Chloride Flush Syringe 10 Ml IV 10 ml BID SONYA Administration Sodium Chloride 10 ml 11/30/20 10:30 Sodium Chloride Flush Syringe 10 Ml IV PRN PRN LINE FLUSH HEART Score - HEART Score EKG: Non-specific Risk factors: > 3 risk factors or hx of atherosclerotic disease Troponin: < normal limit - Critical Actions Critical Actions: 4-6 pts:12-16.6% risk of adverse cardiac event. Should be admitted
[2020-10-23] MEDS ORDERED: PANTOPRAZOLE 40 MG INJ IV SCH (12:00)
[2020-10-23] MEDS ORDERED: SODIUM CHLORIDE 0.9% 1000 ML 1,000 ML ONE (12:13)
[2020-10-23] MEDS ORDERED: SODIUM CHLORIDE 0.9% 1000 ML 1,000 ML IV SCH ×2 (12:15→13:00)
[2020-10-23] MEDS: DOCUSATE SODIUM 100 MG CAP PO SCH ×2 (12:20→21:44)
[2020-10-23] MEDS: SENNOSIDES 8.6 MG TAB PO SCH ×2 (12:22→21:44)
[2020-10-23] MEDS ORDERED: LIDOCAINE MPF (2%) 20 MG/1 ML VIAL 5 ML ONE (12:30)
--- NOTE | 2020-10-23 12:55 | Anesthesia Day of Surgery ---
Anesthesia Day of Surgery - Day of Surgery Patient Examined: Yes Patient H&P Reviewed: Yes Patient is NPO: Yes
--- NOTE | 2020-10-23 12:57 | Anesthesia Consultation ---
Anesthesia Consult and Med Hx Date of service: 10/23/20 - Airway Anesthetic Teeth Evaluation: Edentulous ROM Head & Neck: Adequate Mental/Hyoid Distance: Adequate Mallampati Class: Class II Intubation Access Assessment: Good - Pre-Operative Health Status ASA Pre-Surgery Classification: ASA3 Proposed Anesthetic Plan: MAC - Pulmonary Hx Smoking: Yes SOB: Yes COPD: Yes (Home O2) - Cardiovascular System Hx Hypertension: Yes Hx Peripheral Vascular Disease: Yes (Fem-pop bypass) - Central Nervous System Hx Psychiatric Problems: No - Gastrointestinal Hx Ulcer: Yes (GI Bleed) - Endocrine Hx Renal Disease: Yes Hx Non-Insulin Dependent Diabetes: No - Hematic Hx Anemia: Yes - Other Systems Hx Alcohol Use: Yes Hx Substance Use: Yes (former smoker) Hx Cancer: No
[2020-10-23] MEDS ORDERED: propofoL 200 MG/20 ML VIAL IV ONE (13:11)
--- NOTE | 2020-10-23 13:13 | Gastroenterology Consultation ---
History of Present Illness - Reason for Consult Consult date: 10/23/20 melena/GI bleed Requesting physician: ANDREW SHAH - History of Present Illness The patient is a 75 yo aam with h/o copd, cachexia, severe PVD with prior LLE bypass, who presented with LLE cellulitis and found to have occluded fem-pop bypass. Patient was started on heparin drip with plans for thrombolysis by IR. Developed black stools/melena today for which gi consulted. pt reports taking advil prior to admission. Past History Past Medical History: COPD, hypertension, PVD Past Surgical History: Other (Bypasses) Social history: smoking Family history: hypertension Medications and Allergies Allergies Allergy/AdvReac Type Severity Reaction Status Date / Time No Known Allergies Allergy Verified 10/22/20 08:47 Home Medications Medication Instructions Recorded Confirmed Last Taken Type Albuterol Mdi (or & Nicu Only) 2 puff IH QID PRN #1 inhalation 08/08/15 10/22/20 Unknown Rx [ProAir HFA Inhaler] Ciprofloxacin [Ciprofloxacin ORAL 500 mg PO Q12H #14 ml 08/08/15 10/22/20 1 12/21/19 Rx LIQ] 1 tab Amoxicillin/Potassium Clav 1 each PO BID 10/22/20 10/22/20 10/21/20 History [Amox-Clav 250-125 mg Tablet] 1 tab Aspirin [Aspirin BABY CHEW TAB] 81 mg PO QDAY 10/22/20 10/22/20 10/21/20 History 1 tab AtorvaSTATin [Lipitor] 20 mg PO QHS 10/22/20 10/22/20 10/21/20 History 1 tab Clopidogrel [Plavix] 75 mg PO QDAY 10/22/20 10/22/20 10/21/20 History 1 tab Metoprolol Xl [Metoprolol 25 mg PO QDAY 10/22/20 10/22/20 10/21/20 History SUCCINATE ER TAB] 1 tab Multivit-Min/FA/Lycopen/Lutein 1 each PO DAILY 10/22/20 10/22/20 10/21/20 History [Centrum Silver Tablet] 1 tab Oxycodon-Acetaminophen 2.5-325 5 - 325 mg PO Q6HR PRN 10/22/20 10/22/20 Unknown History Pentoxifylline 400 mg PO BID 10/22/20 10/22/20 10/21/20 History 1 tab Active Meds: Active Medications Acetaminophen (Tylenol) 650 mg PO Q4H PRN PRN Reason: Pain MILD(1-3)/Fever >100.5/URANO Albuterol (Proventil) 2.5 mg IH Q4HRT PRN PRN Reason: Shortness Of Breath Albuterol/Ipratropium (Duoneb *Not For Prn Use*) 1 ampul IH Q3H PRN PRN Reason: Wheezing Clopidogrel Bisulfate (Plavix) 75 mg PO QDAY [facility] Last Admin: 10/22/20 12:37 Dose: 75 mg Documented by: Docusate Sodium (Colace) 100 mg PO BID [facility] Last Admin: 10/23/20 12:20 Dose: Not Given Documented by: Hydromorphone HCl (Dilaudid) 0.5 mg IV Q3H PRN PRN Reason: Pain , Severe (7-10) Last Admin: 10/23/20 08:49 Dose: 0.5 mg Documented by: Daptomycin 250 mg/ Sodium (Chloride) 100 mls @ 200 mls/hr IV Q48H [facility]; Protocol Last Admin: 10/22/20 17:44 Dose: 200 mls/hr Documented by: Sodium Chloride (Nacl 0.45% 1000 Ml) 1,000 mls @ 100 mls/hr IV DIRECT SONYA Sodium Chloride (Nacl 0.9% 1000 Ml) 1,000 mls @ 50 mls/hr IV DIRECT SONYA Stop: 10/24/20 08:14 Sodium Chloride (Nacl 0.9% 1000 Ml) 1,000 mls @ 50 mls/hr IV DIRECT SONYA Metoclopramide HCl (Reglan) 5 mg IV Q6H PRN PRN Reason: Nausea And Vomiting Metoprolol Succinate (Metoprolol Xl) 25 mg PO QDAY [facility] Last Admin: 10/22/20 12:37 Dose: 25 mg Documented by: Multivitamins/Minerals (Theragran-M Tab) 1 each PO QDAY [facility] Last Admin: 10/22/20 12:36 Dose: 1 each Documented by: Ondansetron HCl (Zofran) 4 mg IV Q8H PRN PRN Reason: Nausea And Vomiting Oxycodone/Acetaminophen (Percocet 5/325) 1 tab PO Q4H PRN PRN Reason: Pain, Moderate (4-6) Last Admin: 10/22/20 21:20 Dose: 1 tab Documented by: Pantoprazole Sodium (Protonix) 40 mg IV BID [facility] Pentoxifylline (Trental) 400 mg PO BID [facility] Last Admin: 10/23/20 01:43 Dose: Not Given Documented by: Senna (Senokot) 8.6 mg PO Q12HR [facility] Last Admin: 10/23/20 12:22 Dose: Not Given Documented by: Sodium Chloride (Sodium Chloride Flush Syringe 10 Ml) 10 ml IV BID [facility] Last Admin: 10/23/20 01:20 Dose: 10 ml Documented by: Sodium Chloride (Sodium Chloride Flush Syringe 10 Ml) 10 ml IV PRN PRN PRN Reason: LINE FLUSH Reviewed/updated patient's home and current medications. Review of Systems - Review of Systems All systems: negative (lower extremity pain, sob, fatigue) Exam - Constitutional Vital Signs: Temp Pulse Resp BP Pulse Ox 97.8 F 100 H 17 129/76 98 10/23/20 12:44 10/23/20 12:44 10/23/20 12:44 10/23/20 12:44 10/23/20 12:44 General appearance: cachectic - EENT Eyes: PERRL, EOM intact - Respiratory Respiratory effort: labored Respiratory: bilateral: diminished - Cardiovascular Rhythm: regular Heart Sounds: Present: S1 & S2 Extremities: abnormal - Gastrointestinal General gastrointestinal: Present: soft, non-tender - Neurologic Neurological: alert and oriented x3 - Labs CBC & Chem 7: 10/23/20 08:44 10/23/20 08:44 Lab Results: Laboratory Results - last 24 hr 10/22/20 10/23/20 10/23/20 18:54 04:18 04:18 WBC 14.8 H RBC 3.20 L Hgb 9.4 L Hct 28.7 L D MCV 90 MCH 29 MCHC 33 RDW 15.3 H Plt Count 403 Lymph % (Auto) 7.0 L [place] % (Auto) 7.8 H Eos % (Auto) 1.8 Baso % (Auto) 0.3 Lymph # (Auto) 1.0 L [place] # (Auto) 1.2 H Eos # (Auto) 0.3 Baso # (Auto) 0.0 Seg Neutrophils % 83.1 H Seg Neutrophils # 12.3 H Heparin Anti-Xa Level 2.00 H Sodium 141 Potassium 4.5 Chloride 106.7 Carbon Dioxide 26 Anion Gap 13 BUN 34 H Creatinine 1.7 H Estimated GFR 48 BUN/Creatinine Ratio 20 Glucose 85 Hemoglobin A1c Calcium 9.2 Total Bilirubin AST ALT Alkaline Phosphatase Total Protein Albumin Albumin/Globulin Ratio 10/23/20 10/23/20 10/23/20 04:18 08:44 08:44 WBC 14.8 H RBC 2.71 L Hgb 7.9 L Hct 24.4 L MCV 90 MCH 29 MCHC 32 RDW 15.2 Plt Count 348 Lymph % (Auto) 6.1 L [place] % (Auto) 5.1 Eos % (Auto) 0.7 Baso % (Auto) 0.5 Lymph # (Auto) 0.9 L [place] # (Auto) 0.8 Eos # (Auto) 0.1 Baso # (Auto) 0.1 Seg Neutrophils % 87.6 H Seg Neutrophils # 13.0 H Heparin Anti-Xa Level 0.46 Sodium 141 Potassium 4.1 Chloride 108.0 H Carbon Dioxide 24 Anion Gap 13 BUN 33 H Creatinine 1.5 H Estimated GFR 55 BUN/Creatinine Ratio 22 Glucose 123 H Hemoglobin A1c Calcium 8.9 Total Bilirubin 0.20 AST 14 ALT 6 L Alkaline Phosphatase 47 Total Protein 5.9 L Albumin 2.7 L Albumin/Globulin Ratio 0.8 10/23/20 08:44 WBC RBC Hgb Hct MCV MCH MCHC RDW Plt Count Lymph % (Auto) [place] % (Auto) Eos % (Auto) Baso % (Auto) Lymph # (Auto) [place] # (Auto) Eos # (Auto) Baso # (Auto) Seg Neutrophils % Seg Neutrophils # Heparin Anti-Xa Level Sodium Potassium Chloride Carbon Dioxide Anion Gap BUN Creatinine Estimated GFR BUN/Creatinine Ratio Glucose Hemoglobin A1c 5.4 Calcium Total Bilirubin AST ALT Alkaline Phosphatase Total Protein Albumin Albumin/Globulin Ratio Assessment and Plan 1. Upper gi bleed - heparin stopped 2 hours ago. given occlusion of recent lower extremity bypass and anticoagulation needs, will plan for EGD to see if source of bleeding can be seen and amenable to endoscopic treatment. -cont PPI drip, monitor H/H and transfuse to keep hgb > 7-8 range
--- NOTE | 2020-10-23 13:48 | Operative Report ---
Operative Report Operative Report: Esophagogastroduodenoscopy Procedure Note Date of procedure: 10/23/2020 Endoscopist: Marquise Varela Pre-op diagnosis and post-op diagnosis: Upper GI bleed MEDICATIONS: MAC COMPLICATIONS: No immediate complications ESTIMATED BLOOD LOSS: Minimal DESCRIPTION OF PROCEDURE: After consent was obtained, the patient was placed in the left lateral decubitis position. The olympus endoscope was inserted into the patient's mouth under direct vision and advanced to the 2nd portion of the duodenum without difficulty. The patient tolerated the procedure well. The views of the mucosa were fair. The patient's vital signs were monitored continuously throughout the procedure. FINDINGS: The esophagus appeared normal. There was a large amount of fresh appearing blood with clots throughout the gastric body limiting visualization. There was an area of abnormal appearing mucosa along the lesser curvature of the body (distal portion) with overlying clots. This was irrigated with water but unable to obtain adequate views to determine if this was an ulcer or if there was a high risk bleeding lesion. There was a small adherent blood clot in the antrum of the stomach without underlying mucosa lesions or bleeding. Diffuse erythematous mucosa throughout the duodenum with friable mucosa (contact oozing of blood). IMPRESSION: 1. Fresh appearing blood with clots in gastric body. Abnormal mucosa in the body with overlying blood clots, unable to be cleared with water irrigation. No active bleeding seen at the time of procedure. RECOMMENDATIONS: -cont PPI drip, trend H/H and transfuse to keep hgb > 8 -discussed with IR, will plan to repeat EGD tomorrow to see if bleeding source can be localized and treated if possible
--- NOTE | 2020-10-23 14:44 | Post Anesthesia Evaluation ---
- Post Anesthesia Evaluation Patient Participated: Yes Airway Patent: Yes Stable Respiratory Function: Yes Nausea/Vomiting: No Temp > 96.8F: Yes Pain Manageable: Yes Adequeate Hydration: Yes Anesthesia Complications: No Block Receding Appropriately: Not Applicable Patient on Ventilator: No
[2020-10-23] MEDS: SODIUM CHLORIDE 0.45% 1000 ML 1,000 ML IV SCH (15:00)
[2020-10-23] MEDS: METOPROLOL SUCCINATE XL 25 MG TAB PO SCH (15:11)
[2020-10-23] MEDS: MULTIVITAMINS,THER W-MINERALS TAB PO SCH (15:18)
[2020-10-23] MEDS: CLOPIDOGREL 75 MG TAB PO SCH (15:20)
[2020-10-23] MEDS: PANTOPRAZOLE 80 MG in SODIUM CHLORIDE 0.9% 100 ML IV SCH (16:00)
[2020-10-24] MEDS: HYDROmorphone 1 MG/1 ML INJ IV PRN ×3 (02:17→23:45)
[2020-10-24] MEDS: PANTOPRAZOLE 80 MG in SODIUM CHLORIDE 0.9% 100 ML IV SCH ×2 (02:29→18:44)
[2020-10-24] MEDS: SODIUM CHLORIDE 0.45% 1000 ML 1,000 ML IV SCH (02:34)
[2020-10-24 06:29] LABS: Basophils % (Auto) 0.3 % (0.0-1.8); Eosinophils % (Auto) 0.2 % (0.0-4.3); Hemoglobin 6.2 gm/dl (11.8-15.2); Lymphocytes # (Auto) 1.1 K/mm3 (1.2-5.4); Mean Corpuscular HGB Conc 32 % (32-34); Mean Corpuscular Volume 90 fl (84-94); Monocytes # (Auto) 1.2 K/mm3 (0.0-0.8); Monocytes % (Auto) 7.5 % (0.0-7.3); Platelet Count 300 K/mm3 (140-440); Red Blood Count 2.13 M/mm3 (3.65-5.03); Red Cell Distribution Width 15.1 % (13.2-15.2)
[2020-10-24 06:41] LABS: Hematocrit 19.1 % (35.5-45.6)
[2020-10-24 06:56] LABS: BUN/Creatinine Ratio 22; Blood Urea Nitrogen 28 mg/dL (9-20); Calcium 9.3 mg/dL (8.4-10.2); Hemolysis Index 2
[2020-10-24] MEDS ORDERED: SODIUM CHLORIDE 0.9% 500 ML 500 ML IV NR (06:59)
[2020-10-24] MEDS ORDERED: WATER FOR IRRIG STERILE 1,000 ML BOTTLE ONE (09:38)
[2020-10-24] MEDS ORDERED: SODIUM CHLORIDE 0.9% 1000 ML 1,000 ML ONE (09:38)
[2020-10-24] MEDS ORDERED: WATER FOR IRRIG STERILE 250 ML BOTTLE IR ONE (09:38)
[2020-10-24] MEDS ORDERED: ASPIRIN EC 81 MG TAB PO SCH (10:00)
[2020-10-24] MEDS ORDERED: propofoL 200 MG/20 ML VIAL IV ONE (10:14)
[2020-10-24] MEDS ORDERED: METOCLOPRAMIDE 10 MG/2 ML INJ IV NR (10:15)
[2020-10-24] MEDS ORDERED: METOCLOPRAMIDE 10 MG/2 ML INJ ONE (10:15)
[2020-10-24] MEDS ORDERED: LORazepam 2 MG/ML VIAL IV ONE (10:17)
--- NOTE | 2020-10-24 10:19 | Anesthesia Day of Surgery ---
Anesthesia Day of Surgery - Day of Surgery Patient Examined: Yes Patient H&P Reviewed: Yes Patient is NPO: Yes
[2020-10-24] MEDS ORDERED: SODIUM CHLORIDE 0.9% 1000 ML 1,000 ML IV SCH (10:30)
[2020-10-24] MEDS ORDERED: MIDAZOLAM 2 MG/2 ML INJ ONE ×3 (10:50→11:05)
[2020-10-24] MEDS ORDERED: EPINEPHrine 1 MG/10 ML SYRINGE ONE ×2 (10:52→10:54)
[2020-10-24] MEDS ORDERED: KETAMINE/STERILE WATER 50 MG/ML SYRINGE ONE (11:05)
--- NOTE | 2020-10-24 11:31 | Operative Report ---
Operative Report Operative Report: Esophagogastroduodenoscopy Procedure Note with submucosal injection and gold probe Date of procedure: 10/24/2020 Endoscopist: Marquise Varela Pre-op diagnosis/indication: GI bleed Post-op diagnosis: Gastric ulcer with visible vessel MEDICATIONS: MAC COMPLICATIONS: No immediate complications ESTIMATED BLOOD LOSS: Minimal DESCRIPTION OF PROCEDURE: After consent was obtained, the patient was placed in the left lateral decubitis position. The olympus endoscope was inserted into the patient's mouth under direct vision and advanced to the 2nd portion of the duodenum without difficulty. The patient tolerated the procedure well. The views of the mucosa were good. The patient's vital signs were monitored continuously throughout the procedure. FINDINGS: There was a hiatal hernia, otherwise the esophagus appeared normal. There was an ~8 mm cratered ulcer with a visible vessel along the lesser curvature of the gastric body. Epinephrine was injected around the ulcer (2 cc total). Clip placement was attempted, however due to mucosal sloughing and difficult location, this was unable to safely be placed. The lesion was then treated with gold probe, however the vessel was unable to be obliterated. There was no active bleeding seen at the end of the procedure. Erythematous mucosa in duodenal bulb, the rest of the duodenum appeared normal. IMPRESSION: 1. Gastric body (lesser curvature) ulcer with visible vessel s/p epinephrine injection and gold probe. No active bleeding at end of procedure however vessel was unable to be obliterated with gold probe. RECOMMENDATIONS: -cont PPI drip, trend labs. if re-bleeds, would recommend embolization by IR. -high risk for bleeding with anticoagulation based on appearance. Can consider repeating EGD early next week for reassessment of lesion (to see if high risk stigmata has resolved) prior to restarting. discussed with IR. -okay for clear liquid diet today
[2020-10-24] MEDS ORDERED: DEXTROSE 50% IN WATER (25GM) 50 ML SYRINGE IV ONE ×2 (13:11→13:12)
--- NOTE | 2020-10-24 13:32 | Progress Note ---
Assessment and Plan Cultures: None A/P: 75-year-old man past medical history COPD, hypertension, peripheral vascular disease, found to have cellulitis #Left lower extremity cellulitis: Discussed with Dr. Palacios, treated with daptomycin for now as usually these are gram-positive. Avoiding vancomycin due to acute renal failure #JOSHUA: Renally adjust antibiotics. Improving #Peripheral vascular disease #Anemia: perhaps dilutional with IV fluids Recs: -Continue daptomycin for now, if improvement noted plan to discharge with Bactrim. -Worsening leukocytosis which may be secondary to GI bleed, however will add levofloxacin in addition for now. -Follow renal function, adjust dosage as required -Monitor biweekly CK with daptomycin -Continue to follow white count Thank you for the consult, we will continue to follow. Brisa Trujillo MD [facility] ([facility]) O: [phone] F: [phone] Subjective Date of service: 10/24/20 Principal diagnosis: Fem-pop bypass Interval history: Afebrile, white count remains elevated to 16. Status post EGD yesterday and today. Objective - Exam Narrative Exam: Physical Exam: Constitutional: Alert, cooperative. No acute distress Head, Ears, Nose: Normocephalic, atraumatic. Eyes: Conjunctivae/corneas clear. Neck: Supple, no meningeal signs Oral: dentition fair, no thrush Cardiovascular: S1, S2 normal. Respiratory: Good air entry, clear to auscultation bilaterally GI: Soft, non-tender; bowel sounds normal. No peritoneal signs. Musculoskeletal: Left leg dressed today, not undressed for this exam. Skin: No rash or abscess Hem/Lymphatic: No palpable cervical or supraclavicular nodes. No lymphangitis Psych: Mood ok. Affect normal Neurological: Awake, alert, oriented. No gross abnormality - Constitutional Vitals: Vital Signs Temp Pulse Resp BP Pulse Ox 98.7 F 80 15 157/80 100 10/24/20 10:00 10/24/20 10:00 10/24/20 10:00 10/24/20 10:00 10/24/20 10:00 Temperature -Last 24 Hours Temperature 98.7 F Temperature 98.7 F Temperature 98.3 F Temperature 97.3 F Temperature 97.0 F Temperature 97.7 F Temperature 98.3 F - Labs CBC & Chem 7: 10/24/20 05:21 10/24/20 05:21 Labs: Abnormal lab results 10/24/20 10/24/20 10/24/20 Range/Units 05:21 05:21 07:02 WBC 16.0 H (4.5-11.0) K/mm3 RBC 2.13 L (3.65-5.03) M/mm3 Hgb 6.2 L (11.8-15.2) gm/dl Hct 19.1 L* (35.5-45.6) % Lymph % (Auto) 7.0 L (13.4-35.0) % [place] % (Auto) 7.5 H (0.0-7.3) % Lymph # (Auto) 1.1 L (1.2-5.4) K/mm3 [place] # (Auto) 1.2 H (0.0-0.8) K/mm3 Seg Neutrophils % 85.0 H (40.0-70.0) % Seg Neutrophils # 13.6 H (1.8-7.7) K/mm3 Sodium 146 H (137-145) mmol/L Chloride 111.7 H (98-107) mmol/L BUN 28 H (9-20) mg/dL Crossmatch See Detail
[2020-10-24] MEDS ORDERED: levoFLOXacin 750 MG TAB PO SCH (14:00)
[2020-10-24] MEDS ORDERED: D5W/0.45% NACL 1,000 ML IV SCH (14:00)
--- NOTE | 2020-10-24 14:10 | Post Anesthesia Evaluation ---
- Post Anesthesia Evaluation Patient Participated: Yes Airway Patent: Yes Stable Respiratory Function: Yes Nausea/Vomiting: No Temp > 96.8F: Yes Pain Manageable: Yes Adequeate Hydration: Yes Anesthesia Complications: No Block Receding Appropriately: Not Applicable Patient on Ventilator: No Other Comments: Subsequent to discharge from PACU, a code "MET" was called. Pt in stable conditon.
--- NOTE | 2020-10-24 14:22 | Progress Note ---
Assessment and Plan The patient has a gastric ulcer with an exposed vessel that was partially treated. He is currently not a candidate for revascularization of his left leg which will require percutaneous mechanical thrombectomy as well as heparinization during the procedure and at a minimum antiplatelet therapy post procedure. We will continue to monitor at this time. When he recovers from his gastrointestinal bleeding and is cleared from a GI standpoint will consider his options at that time for revascularization of his left lower extremity. Subjective Date of service: 10/24/20 Principal diagnosis: Fem-pop bypass Interval history: Patient underwent EGD this morning. Per the nurse the patient had additional bleeding and was found with dark stools in the bed. After returning from his EGD a Code MET was called secondary to the patient being unresponsive. The patient is now on CPAP and continuous monitoring with the plan to move him to the MICU. He does arouse when questioned and denies any pain in his left leg. Objective - Constitutional Vitals: Vital Signs - 12hr 10/24/20 10/24/20 10/24/20 04:39 10:00 13:40 Temperature 98.3 F 98.7 F 98.5 F Pulse Rate 68 80 86 Respiratory 16 15 20 Rate Blood Pressure 114/52 157/80 135/66 O2 Sat by Pulse 59 L 100 99 Oximetry General appearance: Present: other (Somnolent) - Respiratory Respiratory effort: normal, other (On CPAP) - Cardiovascular Rhythm: regular Extremities: abnormal (Left lower extremity calf cellulitis) - Labs CBC & Chem 7: 10/24/20 05:21 10/24/20 05:21 Labs: Abnormal lab results 10/24/20 10/24/20 10/24/20 Range/Units 05:21 05:21 07:02 WBC 16.0 H (4.5-11.0) K/mm3 RBC 2.13 L (3.65-5.03) M/mm3 Hgb 6.2 L (11.8-15.2) gm/dl Hct 19.1 L* (35.5-45.6) % Lymph % (Auto) 7.0 L (13.4-35.0) % [place] % (Auto) 7.5 H (0.0-7.3) % Lymph # (Auto) 1.1 L (1.2-5.4) K/mm3 [place] # (Auto) 1.2 H (0.0-0.8) K/mm3 Seg Neutrophils % 85.0 H (40.0-70.0) % Seg Neutrophils # 13.6 H (1.8-7.7) K/mm3 Sodium 146 H (137-145) mmol/L Chloride 111.7 H (98-107) mmol/L BUN 28 H (9-20) mg/dL Crossmatch See Detail Medications & Allergies - Medications Allergies/Adverse Reactions: Allergies No Known Allergies Allergy (Verified 10/22/20 08:47) Home Medications: Home Medications Medication Instructions Recorded Confirmed Last Taken Type Albuterol Mdi (or & Nicu Only) 2 puff IH QID PRN #1 inhalation 08/08/15 10/22/20 Unknown Rx [ProAir HFA Inhaler] Ciprofloxacin [Ciprofloxacin ORAL 500 mg PO Q12H #14 ml 08/08/15 10/22/20 10/21/20 Rx LIQ] 1 tab Amoxicillin/Potassium Clav 1 each PO BID 10/22/20 10/22/20 10/21/20 History [Amox-Clav 250-125 mg Tablet] 1 tab Aspirin [Aspirin BABY CHEW TAB] 81 mg PO QDAY 10/22/20 10/22/20 10/21/20 History 1 tab AtorvaSTATin [Lipitor] 20 mg PO QHS 10/22/20 10/22/20 10/21/20 History 1 tab Clopidogrel [Plavix] 75 mg PO QDAY 10/22/20 10/22/20 10/21/20 History 1 tab Metoprolol Xl [Metoprolol 25 mg PO QDAY 10/22/20 10/22/20 10/21/20 History SUCCINATE ER TAB] 1 tab Multivit-Min/FA/Lycopen/Lutein 1 each PO DAILY 10/22/20 10/22/20 10/21/20 History [Centrum Silver Tablet] 1 tab Oxycodon-Acetaminophen 2.5-325 5 - 325 mg PO Q6HR PRN 10/22/20 10/22/20 Unknown History Pentoxifylline 400 mg PO BID 10/22/20 10/22/20 10/21/20 History 1 tab Active Medications: Generic Name Dose Route Start Last Admin Trade Name Freq PRN Reason Stop Dose Admin Acetaminophen 650 mg 10/22/20 10:30 Tylenol PO Q4H PRN Pain MILD(1-3)/Fever >100.5/RUANO Albuterol 2.5 mg 10/22/20 10:30 Proventil IH Q4HRT PRN Shortness Of Breath Albuterol/Ipratropium 1 ampul 10/23/20 08:21 Duoneb *Not For Prn Use* IH Q3H PRN Wheezing Aspirin 81 mg 10/24/20 10:00 Halfprin Ec PO QDAY SONYA Docusate Sodium 100 mg 10/22/20 11:00 10/23/20 21:44 Colace PO Not Given BID SONYA Hydromorphone HCl 0.5 mg 10/23/20 08:17 10/24/20 07:06 Dilaudid IV 0.5 mg Q3H PRN Administration Pain , Severe (7-10) Daptomycin 250 mg/ Sodium 100 mls @ 200 mls/hr 10/22/20 17:30 10/22/20 17:44 Chloride IV 200 mls/hr Q48H SONYA Administration Protocol Pantoprazole Sodium 80 mg/ 100 mls @ 10 mls/hr 10/23/20 14:00 10/24/20 02:29 Sodium Chloride IV 8 mg/hr DIRECT SONYA 10 mls/hr Administration 8 MG/HR Sodium Chloride 500 mls @ 0 mls/hr 10/24/20 06:59 Nacl 0.9% 500 Ml IV 10/25/20 06:58 ONCE NR As Directed Sodium Chloride 1,000 mls @ 50 mls/hr 10/24/20 10:30 Nacl 0.9% 1000 Ml IV 10/25/20 06:29 DIRECT SONYA Dextrose/Sodium Chloride 1,000 mls @ 100 mls/hr 10/24/20 14:00 D5/0.45ns IV DIRECT SOYNA Levofloxacin 750 mg 10/24/20 14:00 Levaquin PO Q48HR SONYA Metoclopramide HCl 5 mg 10/23/20 08:17 Reglan IV Q6H PRN Nausea And Vomiting Metoclopramide HCl 10 mg 10/24/20 10:15 Reglan IV 10/24/20 23:00 PREOP NR Metoprolol Succinate 25 mg 10/22/20 11:00 10/23/20 15:11 Metoprolol Xl PO 25 mg QDAY SONYA Administration Multivitamins/Minerals 1 each 10/22/20 12:00 10/23/20 15:18 Theragran-M Tab PO Not Given QDAY SONYA Ondansetron HCl 4 mg 10/23/20 08:17 Zofran IV Q8H PRN Nausea And Vomiting Oxycodone/Acetaminophen 1 tab 10/22/20 11:32 10/22/20 21:20 Percocet 5/325 PO 1 tab Q4H PRN Administration Pain, Moderate (4-6) Pentoxifylline 400 mg 10/22/20 11:00 10/23/20 21:43 Trental PO 400 mg BID SONYA Administration Senna 8.6 mg 10/22/20 11:00 10/23/20 21:44 Senokot PO Not Given Q12HR SONYA Sodium Chloride 10 ml 10/22/20 11:00 10/23/20 21:44 Sodium Chloride Flush Syringe 10 Ml IV 10 ml BID SONYA Administration Sodium Chloride 10 ml 10/22/20 10:30 Sodium Chloride Flush Syringe 10 Ml IV PRN PRN LINE FLUSH HEART Score - HEART Score EKG: Non-specific Risk factors: > 3 risk factors or hx of atherosclerotic disease Troponin: < normal limit - Critical Actions Critical Actions: 4-6 pts:12-16.6% risk of adverse cardiac event. Should be admitted
[2020-10-24] MEDS: METOPROLOL SUCCINATE XL 25 MG TAB PO SCH (15:42)
[2020-10-24] MEDS: DOCUSATE SODIUM 100 MG CAP PO SCH ×2 (15:42→22:37)
[2020-10-24] MEDS: PENTOXIFYLLINE ER 400 MG TAB PO SCH ×2 (15:43→22:38)
[2020-10-24] MEDS: SENNOSIDES 8.6 MG TAB PO SCH ×2 (15:43→22:38)
[2020-10-24] MEDS: MULTIVITAMINS,THER W-MINERALS TAB PO SCH (15:43)
[2020-10-24] MEDS: AMPICILLIN/SULBACTA 3GM/100ML 3 GM/100 ML BAG IV SCH ×2 (17:03→19:45)
[2020-10-24] MEDS: D5W/0.9% NACL 1,000 ML IV SCH (18:46)
[2020-10-24 18:50] LABS: Hematocrit 23.6 % (35.5-45.6); Hemoglobin 7.8 gm/dl (11.8-15.2)
--- NOTE | 2020-10-24 19:34 | Progress Note ---
Assessment and Plan -- GI bleed due to gastric ulcer started on PPI, GI consulted, follow h/h. s/p EGD x2 EGD 10/23: 1. Fresh appearing blood with clots in gastric body. Abnormal mucosa in the body with overlying blood clots, unable to be cleared with water irrigation. No active bleeding seen at the time of procedure. EGD 10/24: 1. Gastric body (lesser curvature) ulcer with visible vessel s/p epinephrine injection and gold probe. No active bleeding at end of procedure however vessel was unable to be obliterated with gold probe. -- Cellulitis of left lower extremity On Daptomycin and levaquin Vascular surgery consulted, ID also following --Sepsis with cellulitis cont abx, follow Cx -- JOSHUA (acute kidney injury) IV fluids for now, follow daily labs likely vasomotor nephropathy --Severe anemia due to acute GI bleed Transfuse, follow H&H, continue PPI -- HTN (hypertension) Cont antihypertensives --hypernatremia, cont iv fluid -- Tobacco abuse counseling Counselled On Nicotine patch -- COPD (chronic obstructive pulmonary disease) place on Duoonebs scheduled, --Acute on Chronic respiratory failure, due to COPD and severe anemia On 2 L home O2, now on Bipap continue supplemental O2 as needed and nebulizer breathing treatment as needed -- PAD (peripheral artery disease) Defer to Vascular/IR Initially placed on Heparin drip - off now for GI bleed --hypoglycemia, s/p d50, started on D5Ns iv --Severe protein calorie malnutrition will consult dietary, start on dietary supplements as tolerated --DVT Px, scd Brief History: 75-year-old man past medical history COPD, hypertension, peripheral vascular disease had a left lower extremity cellulitis and ulceration and this has been painful for the past 2 weeks admitted to the hospital by vascular surgery for thrombolysis of the left lower extremity. Patient has a history of 2 bypasses at [facility]. On presentation he was found to have a leukocytosis as well as an JOSHUA. Patient started on iv abx, iv heparin drip, ID consulted -admitted for further mx. He then developed bloody BM - heparin discontinued, GI consulted for EGD, PPI started. 10/23: PLANNED TO Continue daptomycin for now, if improvement noted plan to discharge with Bactrim. follow cx and monitor renal function. Hemoglobin declined on heparin drip from 11.7-7.9 with history of black diarrhea this morning. GI consulted, planned for EGD today. follow vascular recommendation. 10/24: s/p EGD today. following EGD he bacame lethargic with respiratory distress , called code med- placed on bipap. Hb 6.7 -ordered PRBC. BG noted at 60s - D50 given and started on D5Ns drip and transferred to [facility]. Subjective Date of service: 10/24/20 Principal diagnosis: Fem-pop bypass Interval history: Patient seen and examined. Medical records and medication list reviewed. patient had EGD today and had another bloody BM today, hemoglobin dropped to 6.7 Patient became lethargic and developed respiratory distress following EGD procedure Placed on BiPAP, transfuse 1 unit and transfer to [facility] Objective - Exam Narrative Exam: GENERAL: Elderly malnourished male lying on bed appeared to be in moderate discomfort. Lethargic HEENT: Normocephalic. Atraumatic. No conjunctival congestion or icterus. Patient has moist mucous membranes. NECK: Supple. Trachea midline. CHEST/LUNGS: diminished BS auscultated bilaterally, breathing labored. on Bipap HEART/CARDIOVASCULAR: Regular in rate and rhythm. S1 and S2 positive. ABDOMEN: Abdomen is soft, nontender. Patient has normal bowel sounds. SKIN: There is no rash. Warm and dry. NEURO: No focal motor deficit. Follows command but Lethargic. MUSCULOSKELETAL: No joint effusion or tenderness. EXTRIMITY: No edema, Left lower extremity with wound dressing PSYCH: Lethargic - Constitutional Vitals: Vital Signs - 12hr 10/24/20 10/24/20 10/24/20 08:00 10:00 11:20 Temperature 98.7 F 98.1 F Pulse Rate 80 72 Respiratory 20 15 22 Rate Blood Pressure 157/80 139/60 O2 Sat by Pulse 100 89 Oximetry 10/24/20 10/24/20 10/24/20 11:25 11:30 11:35 Temperature Pulse Rate 87 94 H 91 H Respiratory 20 22 21 Rate Blood Pressure 131/59 112/52 103/59 O2 Sat by Pulse 100 100 100 Oximetry 10/24/20 10/24/20 10/24/20 11:40 11:45 12:00 Temperature Pulse Rate 93 H 92 H 93 H Respiratory 21 21 21 Rate Blood Pressure 94/44 112/56 122/56 O2 Sat by Pulse 100 100 100 Oximetry 10/24/20 10/24/20 10/24/20 12:15 13:40 14:22 Temperature 97.7 F Pulse Rate 91 H 78 90 Respiratory 21 20 14 Rate Blood Pressure 132/63 137/68 O2 Sat by Pulse 98 99 100 Oximetry 10/24/20 10/24/20 10/24/20 14:25 14:55 15:25 Temperature 97.5 F L 97.7 F 967.7 F H Pulse Rate 88 88 85 Respiratory 20 20 20 Rate Blood Pressure 121/61 121/61 135/66 O2 Sat by Pulse 96 Oximetry - Labs CBC & Chem 7: 10/25/20 08:44 10/25/20 08:44 Labs: Abnormal lab results 10/24/20 10/24/20 10/24/20 Range/Units 05:21 05:21 07:02 WBC 16.0 H (4.5-11.0) K/mm3 RBC 2.13 L (3.65-5.03) M/mm3 Hgb 6.2 L (11.8-15.2) gm/dl Hct 19.1 L* (35.5-45.6) % Lymph % (Auto) 7.0 L (13.4-35.0) % [place] % (Auto) 7.5 H (0.0-7.3) % Lymph # (Auto) 1.1 L (1.2-5.4) K/mm3 [place] # (Auto) 1.2 H (0.0-0.8) K/mm3 Seg Neutrophils % 85.0 H (40.0-70.0) % Seg Neutrophils # 13.6 H (1.8-7.7) K/mm3 Sodium 146 H (137-145) mmol/L Chloride 111.7 H (98-107) mmol/L BUN 28 H (9-20) mg/dL Crossmatch See Detail 10/24/20 Range/Units 18:26 WBC (4.5-11.0) K/mm3 RBC (3.65-5.03) M/mm3 Hgb 7.8 L (11.8-15.2) gm/dl Hct 23.6 L (35.5-45.6) % Lymph % (Auto) (13.4-35.0) % [place] % (Auto) (0.0-7.3) % Lymph # (Auto) (1.2-5.4) K/mm3 [place] # (Auto) (0.0-0.8) K/mm3 Seg Neutrophils % (40.0-70.0) % Seg Neutrophils # (1.8-7.7) K/mm3 Sodium (137-145) mmol/L Chloride (98-107) mmol/L BUN (9-20) mg/dL Crossmatch HEART Score - HEART Score EKG: Non-specific Risk factors: > 3 risk factors or hx of atherosclerotic disease Troponin: < normal limit - Critical Actions Critical Actions: 4-6 pts:12-16.6% risk of adverse cardiac event. Should be admitted
[2020-10-25] MEDS: AMPICILLIN/SULBACTA 3GM/100ML 3 GM/100 ML BAG IV SCH ×2 (00:30→06:25)
[2020-10-25] MEDS: PANTOPRAZOLE 80 MG in SODIUM CHLORIDE 0.9% 100 ML IV SCH ×2 (02:16→17:04)
[2020-10-25] MEDS ORDERED: METOPROLOL TARTRATE 5 MG/5 ML INJ IV PRN (07:27)
[2020-10-25] MEDS ORDERED: AMIODARONE 900 MG in DEXTROSE 5% IN WATER 482 ML IV SCH (08:00)
[2020-10-25 08:59] LABS: Basophils # (Auto) 0.1 K/mm3 (0.0-0.1); Basophils % (Auto) 0.4 % (0.0-1.8); Eosinophils # (Auto) 0.1 K/mm3 (0.0-0.4); Eosinophils % (Auto) 0.3 % (0.0-4.3); Hematocrit 24.2 % (35.5-45.6); Hemoglobin 7.8 gm/dl (11.8-15.2); Lymphocytes # (Auto) 0.5 K/mm3 (1.2-5.4); Lymphocytes % (Auto) 3.2 % (13.4-35.0); Mean Corpuscular HGB Conc 33 % (32-34); Mean Corpuscular Volume 89 fl (84-94); Monocytes # (Auto) 1.4 K/mm3 (0.0-0.8); Monocytes % (Auto) 8.1 % (0.0-7.3); Platelet Count 306 K/mm3 (140-440); Red Blood Count 2.72 M/mm3 (3.65-5.03)
[2020-10-25 09:18] LABS: BUN/Creatinine Ratio 15; Blood Urea Nitrogen 17 mg/dL (9-20); Calcium 9.6 mg/dL (8.4-10.2); Hemolysis Index 8
--- NOTE | 2020-10-25 10:54 | Gastroenterology Progress Note ---
Assessment and Plan 1. UGI bleed - gastric body (lesser curvature) ulcer with visible vessel s/p epi and gold probe (unable to obliterate vessel however). H/h stable overnight. cont IV PPI drip, okay for clears from gi stand point. may need to consider rep eat endoscopy next week prior to restarting anticoagulation. will follow. Subjective Date of service: 10/25/20 Principal diagnosis: UGI bleed Interval history: pt transferred to [facility] yesterday; awake/alert. denies abd pain. no overt bleeding overnight. Objective - Constitutional Vitals: Temp Pulse Resp BP Pulse Ox 97.9 F 167 H 25 H 140/87 100 10/25/20 08:00 10/25/20 08:40 10/25/20 08:40 10/25/20 08:40 10/25/20 08:40 General appearance: cachectic - Respiratory Respiratory: bilateral: diminished - Cardiovascular Rhythm: regular Heart Sounds: Present: S1 & S2 - Gastrointestinal General gastrointestinal: Present: soft, non-tender - Labs CBC & Chem 7: 10/25/20 08:44 10/25/20 08:44 Labs: Laboratory Results - last 24 hr 10/24/20 10/24/20 10/25/20 07:02 18:26 08:44 WBC 16.9 H RBC 2.72 L Hgb 7.8 L 7.8 L Hct 23.6 L 24.2 L MCV 89 MCH 29 MCHC 33 RDW 17.0 H Plt Count 306 Lymph % (Auto) 3.2 L [place] % (Auto) 8.1 H Eos % (Auto) 0.3 Baso % (Auto) 0.4 Lymph # (Auto) 0.5 L [place] # (Auto) 1.4 H Eos # (Auto) 0.1 Baso # (Auto) 0.1 Seg Neutrophils % 88.0 H Seg Neutrophils # 14.8 H Sodium Potassium Chloride Carbon Dioxide Anion Gap BUN Creatinine Estimated GFR BUN/Creatinine Ratio Glucose Calcium Blood Type A POSITIVE Antibody Screen Negative Crossmatch See Detail 10/25/20 08:44 WBC RBC Hgb Hct MCV MCH MCHC RDW Plt Count Lymph % (Auto) [place] % (Auto) Eos % (Auto) Baso % (Auto) Lymph # (Auto) [place] # (Auto) Eos # (Auto) Baso # (Auto) Seg Neutrophils % Seg Neutrophils # Sodium 148 H Potassium 4.1 Chloride 114.4 H Carbon Dioxide 25 Anion Gap 13 BUN 17 Creatinine 1.1 Estimated GFR > 60 BUN/Creatinine Ratio 15 Glucose 100 Calcium 9.6 Blood Type Antibody Screen Crossmatch
--- NOTE | 2020-10-25 11:19 | Progress Note ---
Assessment and Plan Patient is doing well following his GI intervention. Ultimately, the patient will need treatment of his failed left femoral-popliteal bypass graft however, his ulcer will need to be stable and he will need to be able to tolerate some degree of anticoagulation. Will continue to follow Subjective Date of service: 10/25/20 Principal diagnosis: UGI bleed, left leg PVD with tissue loss Interval history: Patient appears to be much improved. Sitting up in bed at time of examination requesting food. Patient is alert mentally. He complains of pain to his left calf. He does not complain of pain to his left foot. Patient is able to move his foot. Objective - Constitutional Vitals: Vital Signs - 12hr 10/24/20 10/24/20 10/24/20 23:20 23:30 23:40 Temperature Pulse Rate 103 H 99 H 99 H Pulse Rate [ From Monitor] Respiratory 22 23 26 H Rate Blood Pressure 117/57 117/57 117/57 O2 Sat by Pulse Oximetry 10/24/20 10/24/20 10/25/20 23:45 23:50 00:00 Temperature 97.8 F Pulse Rate 96 H 94 H Pulse Rate [ 91 H From Monitor] Respiratory 26 H 21 16 Rate Blood Pressure 117/57 116/54 O2 Sat by Pulse 97 Oximetry 10/25/20 10/25/20 10/25/20 00:10 00:20 00:30 Temperature Pulse Rate 91 H 93 H 101 H Pulse Rate [ From Monitor] Respiratory 15 14 18 Rate Blood Pressure 116/54 116/54 116/54 O2 Sat by Pulse Oximetry 10/25/20 10/25/20 10/25/20 00:40 00:50 01:00 Temperature Pulse Rate 97 H 102 H 92 H Pulse Rate [ From Monitor] Respiratory 13 18 14 Rate Blood Pressure 116/54 116/54 125/54 O2 Sat by Pulse Oximetry 10/25/20 10/25/20 10/25/20 01:10 01:20 01:30 Temperature Pulse Rate 95 H 108 H 91 H Pulse Rate [ From Monitor] Respiratory 19 18 15 Rate Blood Pressure 125/54 125/54 125/54 O2 Sat by Pulse Oximetry 10/25/20 10/25/20 10/25/20 01:40 01:50 02:00 Temperature Pulse Rate 96 H 101 H 93 H Pulse Rate [ From Monitor] Respiratory 16 17 17 Rate Blood Pressure 125/54 125/54 124/63 O2 Sat by Pulse Oximetry 10/25/20 10/25/20 10/25/20 02:10 02:20 02:30 Temperature Pulse Rate 105 H 97 H 98 H Pulse Rate [ From Monitor] Respiratory 20 17 17 Rate Blood Pressure 124/63 124/63 124/63 O2 Sat by Pulse Oximetry 10/25/20 10/25/20 10/25/20 02:40 02:50 03:00 Temperature Pulse Rate 102 H 100 H 96 H Pulse Rate [ From Monitor] Respiratory 17 25 H 17 Rate Blood Pressure 124/63 124/63 O2 Sat by Pulse 100 Oximetry 10/25/20 10/25/20 10/25/20 03:10 03:20 03:30 Temperature Pulse Rate 115 H 106 H 103 H Pulse Rate [ From Monitor] Respiratory 21 20 21 Rate Blood Pressure 157/79 157/79 157/79 O2 Sat by Pulse 97 89 Oximetry 10/25/20 10/25/20 10/25/20 03:40 03:50 03:59 Temperature 98.0 F Pulse Rate 108 H 106 H Pulse Rate [ From Monitor] Respiratory 24 21 Rate Blood Pressure 157/79 157/79 O2 Sat by Pulse 100 85 Oximetry 10/25/20 10/25/20 10/25/20 04:00 04:10 04:20 Temperature Pulse Rate 101 H 100 H 102 H Pulse Rate [ 100 H From Monitor] Respiratory 22 20 19 Rate Blood Pressure 157/79 161/83 161/83 O2 Sat by Pulse 99 58 L 100 Oximetry 10/25/20 10/25/20 10/25/20 04:30 04:40 04:50 Temperature Pulse Rate 114 H 105 H 112 H Pulse Rate [ From Monitor] Respiratory 22 19 21 Rate Blood Pressure 161/83 161/83 161/83 O2 Sat by Pulse 94 98 85 Oximetry 10/25/20 10/25/20 10/25/20 05:00 05:10 05:20 Temperature Pulse Rate 107 H 113 H Pulse Rate [ From Monitor] Respiratory 25 H 25 H 29 H Rate Blood Pressure 161/83 148/73 148/73 O2 Sat by Pulse 100 100 Oximetry 10/25/20 10/25/20 10/25/20 05:30 05:40 05:50 Temperature Pulse Rate 110 H 105 H 107 H Pulse Rate [ From Monitor] Respiratory 32 H 18 19 Rate Blood Pressure 148/73 148/73 148/73 O2 Sat by Pulse 94 94 98 Oximetry 10/25/20 10/25/20 10/25/20 06:00 06:10 06:20 Temperature Pulse Rate 108 H 123 H Pulse Rate [ From Monitor] Respiratory 22 26 H 20 Rate Blood Pressure 159/75 159/75 159/75 O2 Sat by Pulse 73 L Oximetry 10/25/20 10/25/20 10/25/20 06:30 06:40 06:50 Temperature Pulse Rate 172 H 170 H 174 H Pulse Rate [ From Monitor] Respiratory 24 29 H 30 H Rate Blood Pressure 159/75 159/75 159/75 O2 Sat by Pulse 91 81 L Oximetry 10/25/20 10/25/20 10/25/20 07:00 07:03 07:10 Temperature Pulse Rate 173 H 176 H 178 H Pulse Rate [ From Monitor] Respiratory 21 22 22 Rate Blood Pressure 133/89 138/88 138/88 O2 Sat by Pulse 100 93 Oximetry 10/25/20 10/25/20 10/25/20 07:20 07:30 07:40 Temperature Pulse Rate 171 H 176 H 170 H Pulse Rate [ From Monitor] Respiratory 22 23 16 Rate Blood Pressure 138/88 133/89 133/89 O2 Sat by Pulse 69 L 80 L Oximetry 10/25/20 10/25/20 10/25/20 07:50 08:00 08:10 Temperature 97.9 F Pulse Rate 174 H 166 H 170 H Pulse Rate [ From Monitor] Respiratory 19 15 15 Rate Blood Pressure 133/89 133/89 140/87 O2 Sat by Pulse Oximetry 10/25/20 10/25/20 10/25/20 08:20 08:24 08:30 Temperature Pulse Rate 168 H 167 H 126 H Pulse Rate [ From Monitor] Respiratory 18 17 Rate Blood Pressure 140/87 140/87 140/87 O2 Sat by Pulse 95 Oximetry 10/25/20 10/25/20 10/25/20 08:40 08:50 09:00 Temperature Pulse Rate 133 H 84 83 Pulse Rate [ From Monitor] Respiratory 22 23 16 Rate Blood Pressure 140/87 140/87 147/80 O2 Sat by Pulse 100 82 L 100 Oximetry 10/25/20 10/25/20 10/25/20 09:10 09:20 09:30 Temperature Pulse Rate 80 86 80 Pulse Rate [ From Monitor] Respiratory 19 33 H 36 H Rate Blood Pressure 144/76 144/76 144/76 O2 Sat by Pulse 100 Oximetry 10/25/20 10/25/20 10/25/20 09:40 09:50 10:00 Temperature Pulse Rate 87 84 Pulse Rate [ From Monitor] Respiratory 27 H 30 H 22 Rate Blood Pressure 144/76 144/76 144/76 O2 Sat by Pulse 78 L Oximetry 10/25/20 10/25/20 10/25/20 10:10 10:20 10:30 Temperature Pulse Rate 89 91 H 92 H Pulse Rate [ From Monitor] Respiratory 20 16 18 Rate Blood Pressure 139/76 139/76 139/76 O2 Sat by Pulse 80 L 92 Oximetry 10/25/20 10/25/20 10:40 10:50 Temperature Pulse Rate 91 H 94 H Pulse Rate [ From Monitor] Respiratory 19 22 Rate Blood Pressure 139/76 139/76 O2 Sat by Pulse 92 Oximetry General appearance: Present: no acute distress - EENT Eyes: EOM intact ENT: hearing intact - Neck Neck: supple, normal ROM - Respiratory Respiratory effort: normal Extremities: abnormal - Gastrointestinal General gastrointestinal: Present: deferred Rectal Exam: deferred - Genitourinary Male genitourinary: deferred - Psychiatric Psychiatric: appropriate mood/affect, cooperative - Labs CBC & Chem 7: 10/25/20 08:44 10/25/20 08:44 Labs: Abnormal lab results 10/24/20 10/24/20 10/25/20 Range/Units 07:02 18:26 08:44 WBC 16.9 H (4.5-11.0) K/mm3 RBC 2.72 L (3.65-5.03) M/mm3 Hgb 7.8 L 7.8 L (11.8-15.2) gm/dl Hct 23.6 L 24.2 L (35.5-45.6) % RDW 17.0 H (13.2-15.2) % Lymph % (Auto) 3.2 L (13.4-35.0) % [place] % (Auto) 8.1 H (0.0-7.3) % Lymph # (Auto) 0.5 L (1.2-5.4) K/mm3 [place] # (Auto) 1.4 H (0.0-0.8) K/mm3 Seg Neutrophils % 88.0 H (40.0-70.0) % Seg Neutrophils # 14.8 H (1.8-7.7) K/mm3 Sodium (137-145) mmol/L Chloride (98-107) mmol/L Crossmatch See Detail 10/25/20 Range/Units 08:44 WBC (4.5-11.0) K/mm3 RBC (3.65-5.03) M/mm3 Hgb (11.8-15.2) gm/dl Hct (35.5-45.6) % RDW (13.2-15.2) % Lymph % (Auto) (13.4-35.0) % [place] % (Auto) (0.0-7.3) % Lymph # (Auto) (1.2-5.4) K/mm3 [place] # (Auto) (0.0-0.8) K/mm3 Seg Neutrophils % (40.0-70.0) % Seg Neutrophils # (1.8-7.7) K/mm3 Sodium 148 H (137-145) mmol/L Chloride 114.4 H (98-107) mmol/L Crossmatch Medications & Allergies - Medications Allergies/Adverse Reactions: Allergies No Known Allergies Allergy (Verified 10/22/20 08:47) Home Medications: Home Medications Medication Instructions Recorded Confirmed Last Taken Type Albuterol Mdi (or & Nicu Only) 2 puff IH QID PRN #1 inhalation 08/08/15 10/22/20 Unknown Rx [ProAir HFA Inhaler] Ciprofloxacin [Ciprofloxacin ORAL 500 mg PO Q12H #14 ml 08/08/15 10/22/20 10/21/20 Rx LIQ] 1 tab Amoxicillin/Potassium Clav 1 each PO BID 10/22/20 10/22/20 10/21/20 History [Amox-Clav 250-125 mg Tablet] 1 tab Aspirin [Aspirin BABY CHEW TAB] 81 mg PO QDAY 10/22/20 10/22/20 10/21/20 History 1 tab AtorvaSTATin [Lipitor] 20 mg PO QHS 10/22/20 10/22/20 10/21/20 History 1 tab Clopidogrel [Plavix] 75 mg PO QDAY 10/22/20 10/22/20 10/21/20 History 1 tab Metoprolol Xl [Metoprolol 25 mg PO QDAY 10/22/20 10/22/20 10/21/20 History SUCCINATE ER TAB] 1 tab Multivit-Min/FA/Lycopen/Lutein 1 each PO DAILY 10/22/20 10/22/20 10/21/20 History [Centrum Silver Tablet] 1 tab Oxycodon-Acetaminophen 2.5-325 5 - 325 mg PO Q6HR PRN 10/22/20 10/22/20 Unknown History Pentoxifylline 400 mg PO BID 10/22/20 10/22/20 10/21/20 History 1 tab Active Medications: Generic Name Dose Route Start Last Admin Trade Name Freq PRN Reason Stop Dose Admin Acetaminophen 650 mg 10/22/20 10:30 Tylenol PO Q4H PRN Pain MILD(1-3)/Fever >100.5/RUANO Albuterol 2.5 mg 10/22/20 10:30 Proventil IH Q4HRT PRN Shortness Of Breath Albuterol/Ipratropium 1 ampul 10/23/20 08:21 Duoneb *Not For Prn Use* IH Q3H PRN Wheezing Docusate Sodium 100 mg 10/22/20 11:00 10/24/20 22:37 Colace PO Not Given BID SONYA Hydromorphone HCl 0.5 mg 10/23/20 08:17 10/24/20 23:45 Dilaudid IV 0.5 mg Q3H PRN Administration Pain , Severe (7-10) Daptomycin 250 mg/ Sodium 100 mls @ 200 mls/hr 10/22/20 17:30 10/24/20 18:48 Chloride IV 200 mls/hr Q48H SONYA Administration Protocol Pantoprazole Sodium 80 mg/ 100 mls @ 10 mls/hr 10/23/20 14:00 10/25/20 02:16 Sodium Chloride IV 8 mg/hr DIRECT SONYA 10 mls/hr Administration 8 MG/HR Dextrose/Sodium Chloride 1,000 mls @ 75 mls/hr 10/24/20 16:00 10/24/20 18:46 D5ns IV 75 mls/hr DIRECT SONYA Administration Ampicillin Sodium/Sulbactam Sodium 3 gm in 100 mls @ 200 mls/hr 10/25/20 14:00 Unasyn/Ns 3 Gm/100 Ml IV Q8HR SONYA Protocol Amiodarone HCl 900 mg/ 500 mls @ 33.333 mls/hr 10/25/20 08:00 Dextrose IV DIRECT SONYA Protocol 1 MG/MIN Levofloxacin 750 mg 10/24/20 14:00 10/24/20 17:02 Levaquin PO 750 mg Q48HR SONYA Administration Metoclopramide HCl 5 mg 10/23/20 08:17 Reglan IV Q6H PRN Nausea And Vomiting Metoprolol Succinate 25 mg 10/22/20 11:00 10/24/20 15:42 Metoprolol Xl PO Not Given QDAY SONYA Metoprolol Tartrate 5 mg 10/25/20 07:27 10/25/20 08:24 Metoprolol IV 5 mg Q6HR PRN Administration tachycardia Multivitamins/Minerals 1 each 10/22/20 12:00 10/24/20 15:43 Theragran-M Tab PO Not Given QDAY SONYA Ondansetron HCl 4 mg 10/23/20 08:17 Zofran IV Q8H PRN Nausea And Vomiting Oxycodone/Acetaminophen 1 tab 10/22/20 11:32 10/22/20 21:20 Percocet 5/325 PO 1 tab Q4H PRN Administration Pain, Moderate (4-6) Pentoxifylline 400 mg 10/22/20 11:00 10/24/20 22:38 Trental PO 400 mg BID SONYA Administration Senna 8.6 mg 10/22/20 11:00 10/24/20 22:38 Senokot PO Not Given Q12HR SONYA Sodium Chloride 10 ml 10/22/20 11:00 10/24/20 22:38 Sodium Chloride Flush Syringe 10 Ml IV 10 ml BID SONYA Administration Sodium Chloride 10 ml 10/22/20 10:30 Sodium Chloride Flush Syringe 10 Ml IV PRN PRN LINE FLUSH HEART Score - HEART Score EKG: Non-specific Risk factors: > 3 risk factors or hx of atherosclerotic disease Troponin: < normal limit - Critical Actions Critical Actions: 4-6 pts:12-16.6% risk of adverse cardiac event. Should be admitted
--- NOTE | 2020-10-25 11:39 | Progress Note ---
Assessment and Plan Cultures: None A/P: 75-year-old man past medical history COPD, hypertension, peripheral vascular disease, found to have cellulitis #Left lower extremity cellulitis: With leukocytosis, patient with pain to the calf. #JOSHUA: Resolved #Peripheral vascular disease #Anemia: s/p Transfusion Recs: -Continue daptomycin for now, if improvement noted plan to discharge with Bactrim. -Worsening leukocytosis which may be secondary to GI bleed, however can continue levofloxacin for now increased dose to 24 hours based on improved renal functio n. -Follow renal function, adjust dosage as required -Monitor biweekly CK with daptomycin -Continue to follow white count Thank you for the consult, we will continue to follow. Brisa Trujillo MD [facility] ([facility]) O: [phone] F: [phone] Subjective Date of service: 10/25/20 Principal diagnosis: UGI bleed, left leg PVD with tissue loss Interval history: Afebrile, white count remains elevated at 17. Patient now on Unasyn and vancomycin Objective - Exam Narrative Exam: Physical Exam: Constitutional: Alert, cooperative. No acute distress Head, Ears, Nose: Normocephalic, atraumatic. Eyes: Conjunctivae/corneas clear. Neck: Supple, no meningeal signs Oral: dentition fair, no thrush Cardiovascular: S1, S2 normal. Respiratory: Good air entry, clear to auscultation bilaterally GI: Soft, non-tender; bowel sounds normal. No peritoneal signs. Musculoskeletal: Left leg dressed today, not undressed for this exam. Skin: No rash or abscess Hem/Lymphatic: No palpable cervical or supraclavicular nodes. Psych: Mood ok. Affect normal Neurological: Awake, alert, oriented. No gross abnormality - Constitutional Vitals: Vital Signs Temp Pulse Resp BP Pulse Ox 97.9 F 94 H 22 139/76 92 10/25/20 08:00 10/25/20 10:50 10/25/20 10:50 10/25/20 10:50 10/25/20 10:40 Temperature -Last 24 Hours Temperature 97.9 F Temperature 98.0 F Temperature 97.8 F Temperature 98 F Temperature 967.7 F Temperature 97.7 F Temperature 97.5 F Temperature 97.7 F Temperature 98.5 F - Labs CBC & Chem 7: 10/25/20 08:44 10/25/20 08:44 Labs: Abnormal lab results 10/24/20 10/24/20 10/25/20 Range/Units 07:02 18:26 08:44 WBC 16.9 H (4.5-11.0) K/mm3 RBC 2.72 L (3.65-5.03) M/mm3 Hgb 7.8 L 7.8 L (11.8-15.2) gm/dl Hct 23.6 L 24.2 L (35.5-45.6) % RDW 17.0 H (13.2-15.2) % Lymph % (Auto) 3.2 L (13.4-35.0) % [place] % (Auto) 8.1 H (0.0-7.3) % Lymph # (Auto) 0.5 L (1.2-5.4) K/mm3 [place] # (Auto) 1.4 H (0.0-0.8) K/mm3 Seg Neutrophils % 88.0 H (40.0-70.0) % Seg Neutrophils # 14.8 H (1.8-7.7) K/mm3 Sodium (137-145) mmol/L Chloride (98-107) mmol/L Crossmatch See Detail 10/25/20 Range/Units 08:44 WBC (4.5-11.0) K/mm3 RBC (3.65-5.03) M/mm3 Hgb (11.8-15.2) gm/dl Hct (35.5-45.6) % RDW (13.2-15.2) % Lymph % (Auto) (13.4-35.0) % [place] % (Auto) (0.0-7.3) % Lymph # (Auto) (1.2-5.4) K/mm3 [place] # (Auto) (0.0-0.8) K/mm3 Seg Neutrophils % (40.0-70.0) % Seg Neutrophils # (1.8-7.7) K/mm3 Sodium 148 H (137-145) mmol/L Chloride 114.4 H (98-107) mmol/L Crossmatch
[2020-10-25] MEDS: SENNOSIDES 8.6 MG TAB PO SCH (11:40)
[2020-10-25] MEDS: PENTOXIFYLLINE ER 400 MG TAB PO SCH ×2 (11:40→21:41)
[2020-10-25] MEDS: MULTIVITAMINS,THER W-MINERALS TAB PO SCH (11:41)
[2020-10-25] MEDS: HYDROmorphone 1 MG/1 ML INJ IV PRN (11:51)
[2020-10-25] MEDS: DOCUSATE SODIUM 100 MG CAP PO SCH (11:58)
[2020-10-25] MEDS: D5W/0.9% NACL 1,000 ML IV SCH (12:06)
[2020-10-25] MEDS ORDERED: AMPICILLIN/SULBACTA 3GM/100ML 3 GM/100 ML BAG IV SCH (14:00)
[2020-10-25] MEDS: METOPROLOL SUCCINATE XL 25 MG TAB PO SCH (17:12)
--- NOTE | 2020-10-25 17:40 | Progress Note ---
Assessment and Plan -- GI bleed due to gastric ulcer started on PPI, GI consulted, follow h/h. s/p EGD x2 EGD 10/23: 1. Fresh appearing blood with clots in gastric body. Abnormal mucosa in the body with overlying blood clots, unable to be cleared with water irrigation. No active bleeding seen at the time of procedure. EGD 10/24: 1. Gastric body (lesser curvature) ulcer with visible vessel s/p epinephrine injection and gold probe. No active bleeding at end of procedure however vessel was unable to be obliterated with gold probe. --SVT, metoprolol iv q6 as needed placed on amio drip, ordered 2d echo, consult cardiology -- Cellulitis of left lower extremity On Daptomycin and levaquin Vascular surgery consulted, ID also following --Sepsis with cellulitis cont abx, follow Cx -- JOSHUA (acute kidney injury) IV fluids for now, follow daily labs likely vasomotor nephropathy --Severe anemia due to acute GI bleed s/p transfusion, follow H&H, continue PPI -- HTN (hypertension) Cont antihypertensives --hypernatremia, cont iv fluid -- Tobacco abuse counseling Counselled On Nicotine patch -- COPD (chronic obstructive pulmonary disease) place on Duoonebs scheduled, --Acute on Chronic respiratory failure on 2L home O2, due to COPD and severe anemia s/p Bipap continue supplemental O2 as needed and nebulizer breathing treatment as needed -- PAD (peripheral artery disease) Defer to Vascular/IR Initially placed on Heparin drip - off now for GI bleed --hypoglycemia, s/p d50, started on D5Ns iv --Severe protein calorie malnutrition will consult dietary, start on dietary supplements as tolerated --DVT Px, scd The high probability of a clinically significant, sudden or life threatening deterioration of the [CVS, GI, respiratory] system(s) required my full and direct attention, intervention and personal management. The aggregate critical care time was [34] minutes. This time is in addition to time spent performing reported procedures but includes the following: [x] Data Review and interpretation [x] Patient assessment and monitoring of vital signs [x] Documentation [x] Medication orders and management Brief History: 75-year-old man past medical history COPD, hypertension, peripheral vascular disease had a left lower extremity cellulitis and ulceration and this has been painful for the past 2 weeks admitted to the hospital by vascular surgery for thrombolysis of the left lower extremity. Patient has a history of 2 bypasses at [facility]. On presentation he was found to have a leukocytosis as well as an JOSHUA. Patient started on iv abx, iv heparin drip, ID consulted -admitted for further mx. He then developed bloody BM - heparin discontinued, GI consulted for EGD, PPI started. 10/23: PLANNED TO Continue daptomycin for now, if improvement noted plan to discharge with Bactrim. follow cx and monitor renal function. Hemoglobin declined on heparin drip from 11.7-7.9 with history of black diarrhea this morning. GI consulted, planned for EGD today. follow vascular recommendation. 10/24: s/p repeat EGD today. following EGD he bacame lethargic with respiratory distress , called code med- placed on bipap. Hb 6.7 -ordered PRBC. BG noted at 60s - D50 given and started on D5Ns drip and transferred to IMCU. 10/25: patient noted to have HR of 160s this am which improved after iv metoprolol and now placed on amio drip, ordered 2d echo, consult cardiology. off Bipap since this am, repeat h/h stable. He is tolerating clear liquid diet. cont to monitor h/h. Subjective Date of service: 10/25/20 Principal diagnosis: Fem-pop bypass Interval history: Patient seen and examined. Medical records and medication list reviewed. patient noted to have HR of 160s this am which improved after iv metoprolol and now on amioderone drip off Bipap since this am, repeat h/h stable He is tolerating clear liquid diet He denies any chest pain or abdominal pain Breathing much improved Objective - Exam Narrative Exam: GENERAL: Elderly malnourished male lying on bed appeared to be in no discomfort. HEENT: Normocephalic. Atraumatic. No conjunctival congestion or icterus. Patient has moist mucous membranes. NECK: Supple. Trachea midline. CHEST/LUNGS: diminished BS auscultated bilaterally, breathing nonlabored. on n/c O2 HEART/CARDIOVASCULAR: Regular in rate and rhythm. S1 and S2 positive. ABDOMEN: Abdomen is soft, nontender. Patient has normal bowel sounds. SKIN: There is no rash. Warm and dry. NEURO: No focal motor deficit. Follows command MUSCULOSKELETAL: No joint effusion or tenderness. EXTRIMITY: No edema, Left lower extremity with wound dressing PSYCH: cooperative - Constitutional Vitals: Vital Signs - 12hr 10/25/20 10/25/20 10/25/20 05:50 06:00 06:10 Temperature Pulse Rate 107 H 108 H Pulse Rate [ From Monitor] Respiratory 19 22 26 H Rate Blood Pressure 148/73 159/75 159/75 O2 Sat by Pulse 98 73 L Oximetry 10/25/20 10/25/20 10/25/20 06:20 06:30 06:40 Temperature Pulse Rate 123 H 172 H 170 H Pulse Rate [ From Monitor] Respiratory 20 24 29 H Rate Blood Pressure 159/75 159/75 159/75 O2 Sat by Pulse 91 81 L Oximetry 10/25/20 10/25/20 10/25/20 06:50 07:00 07:03 Temperature Pulse Rate 174 H 173 H 176 H Pulse Rate [ From Monitor] Respiratory 30 H 21 22 Rate Blood Pressure 159/75 133/89 138/88 O2 Sat by Pulse 100 Oximetry 10/25/20 10/25/20 10/25/20 07:10 07:20 07:30 Temperature Pulse Rate 178 H 171 H 176 H Pulse Rate [ From Monitor] Respiratory 22 22 23 Rate Blood Pressure 138/88 138/88 133/89 O2 Sat by Pulse 93 69 L Oximetry 10/25/20 10/25/20 10/25/20 07:40 07:50 08:00 Temperature 97.9 F Pulse Rate 170 H 174 H 166 H Pulse Rate [ 100 H From Monitor] Respiratory 16 19 21 Rate Blood Pressure 133/89 133/89 133/89 O2 Sat by Pulse 80 L 100 Oximetry 10/25/20 10/25/20 10/25/20 08:10 08:20 08:24 Temperature Pulse Rate 170 H 168 H 167 H Pulse Rate [ From Monitor] Respiratory 15 18 Rate Blood Pressure 140/87 140/87 140/87 O2 Sat by Pulse Oximetry 10/25/20 10/25/20 10/25/20 08:30 08:40 08:50 Temperature Pulse Rate 126 H 133 H 84 Pulse Rate [ From Monitor] Respiratory 17 22 23 Rate Blood Pressure 140/87 140/87 140/87 O2 Sat by Pulse 95 100 82 L Oximetry 10/25/20 10/25/20 10/25/20 09:00 09:10 09:20 Temperature Pulse Rate 83 80 86 Pulse Rate [ From Monitor] Respiratory 16 19 33 H Rate Blood Pressure 147/80 144/76 144/76 O2 Sat by Pulse 100 100 Oximetry 10/25/20 10/25/20 10/25/20 09:30 09:40 09:50 Temperature Pulse Rate 80 87 Pulse Rate [ From Monitor] Respiratory 36 H 27 H 30 H Rate Blood Pressure 144/76 144/76 144/76 O2 Sat by Pulse Oximetry 10/25/20 10/25/20 10/25/20 10:00 10:10 10:20 Temperature Pulse Rate 84 89 91 H Pulse Rate [ From Monitor] Respiratory 22 20 16 Rate Blood Pressure 144/76 139/76 139/76 O2 Sat by Pulse 78 L 80 L Oximetry 10/25/20 10/25/20 10/25/20 10:30 10:40 10:50 Temperature Pulse Rate 92 H 91 H 94 H Pulse Rate [ From Monitor] Respiratory 18 19 22 Rate Blood Pressure 139/76 139/76 139/76 O2 Sat by Pulse 92 92 Oximetry 10/25/20 10/25/20 10/25/20 11:00 11:10 11:20 Temperature Pulse Rate 95 H 92 H 90 Pulse Rate [ From Monitor] Respiratory 21 18 19 Rate Blood Pressure 139/76 151/64 151/64 O2 Sat by Pulse 100 100 Oximetry 10/25/20 10/25/20 10/25/20 11:30 11:40 11:50 Temperature Pulse Rate 100 H 96 H 93 H Pulse Rate [ From Monitor] Respiratory 23 20 24 Rate Blood Pressure 151/64 151/64 151/64 O2 Sat by Pulse 81 L 88 89 Oximetry 10/25/20 10/25/20 10/25/20 11:51 12:00 12:10 Temperature 97.9 F Pulse Rate 94 H 93 H Pulse Rate [ 100 H From Monitor] Respiratory 26 H 19 24 Rate Blood Pressure 151/64 139/75 O2 Sat by Pulse 95 98 Oximetry 10/25/20 10/25/20 10/25/20 12:20 12:30 12:40 Temperature Pulse Rate 94 H 90 90 Pulse Rate [ From Monitor] Respiratory 22 21 20 Rate Blood Pressure 139/75 139/75 139/75 O2 Sat by Pulse 96 100 100 Oximetry 10/25/20 10/25/20 10/25/20 12:50 13:00 13:10 Temperature Pulse Rate 89 96 H 133 H Pulse Rate [ From Monitor] Respiratory 19 20 19 Rate Blood Pressure 139/75 139/75 115/61 O2 Sat by Pulse 82 L 91 100 Oximetry 10/25/20 10/25/20 10/25/20 13:20 13:30 13:40 Temperature Pulse Rate 161 H 161 H Pulse Rate [ From Monitor] Respiratory 26 H 17 22 Rate Blood Pressure 115/61 115/61 115/61 O2 Sat by Pulse 93 100 81 L Oximetry 10/25/20 10/25/20 10/25/20 13:50 14:00 14:10 Temperature Pulse Rate 160 H 158 H 155 H Pulse Rate [ From Monitor] Respiratory 18 20 16 Rate Blood Pressure 115/61 122/81 120/95 O2 Sat by Pulse 100 95 100 Oximetry 10/25/20 10/25/20 10/25/20 14:20 14:30 14:31 Temperature Pulse Rate 157 H 155 H Pulse Rate [ From Monitor] Respiratory 18 15 Rate Blood Pressure 120/95 120/95 O2 Sat by Pulse 89 67 L 99 Oximetry 10/25/20 10/25/20 10/25/20 14:40 16:00 17:12 Temperature 98.0 F Pulse Rate 157 H 111 H Pulse Rate [ From Monitor] Respiratory 35 H Rate Blood Pressure 120/95 141/74 O2 Sat by Pulse 73 L Oximetry - Labs CBC & Chem 7: 10/26/20 07:02 10/26/20 07:02 Labs: Abnormal lab results 10/24/20 10/25/20 10/25/20 Range/Units 18:26 08:44 08:44 WBC 16.9 H (4.5-11.0) K/mm3 RBC 2.72 L (3.65-5.03) M/mm3 Hgb 7.8 L 7.8 L (11.8-15.2) gm/dl Hct 23.6 L 24.2 L (35.5-45.6) % RDW 17.0 H (13.2-15.2) % Lymph % (Auto) 3.2 L (13.4-35.0) % [place] % (Auto) 8.1 H (0.0-7.3) % Lymph # (Auto) 0.5 L (1.2-5.4) K/mm3 [place] # (Auto) 1.4 H (0.0-0.8) K/mm3 Seg Neutrophils % 88.0 H (40.0-70.0) % Seg Neutrophils # 14.8 H (1.8-7.7) K/mm3 Sodium 148 H (137-145) mmol/L Chloride 114.4 H (98-107) mmol/L HEART Score - HEART Score EKG: Non-specific Risk factors: > 3 risk factors or hx of atherosclerotic disease Troponin: < normal limit - Critical Actions Critical Actions: 4-6 pts:12-16.6% risk of adverse cardiac event. Should be admitted
[2020-10-25] MEDS: oxyCODONE /ACETAMINOPHEN 5-325MG TAB PO PRN (21:43)
[2020-10-26] MEDS: D5W/0.45% NACL 1,000 ML IV SCH ×2 (03:05→17:10)
[2020-10-26] MEDS: PANTOPRAZOLE 80 MG in SODIUM CHLORIDE 0.9% 100 ML IV SCH (03:05)
[2020-10-26] MEDS: oxyCODONE /ACETAMINOPHEN 5-325MG TAB PO PRN ×2 (06:38→14:16)
[2020-10-26 07:23] LABS: Basophils # (Auto) 0.1 K/mm3 (0.0-0.1); Basophils % (Auto) 0.3 % (0.0-1.8); Eosinophils # (Auto) 0.1 K/mm3 (0.0-0.4); Eosinophils % (Auto) 0.9 % (0.0-4.3); Hematocrit 24.2 % (35.5-45.6); Hemoglobin 7.7 gm/dl (11.8-15.2); Lymphocytes # (Auto) 0.7 K/mm3 (1.2-5.4); Lymphocytes % (Auto) 4.5 % (13.4-35.0); Mean Corpuscular HGB Conc 32 % (32-34); Mean Corpuscular Volume 88 fl (84-94); Monocytes # (Auto) 1.5 K/mm3 (0.0-0.8); Monocytes % (Auto) 9.2 % (0.0-7.3); Platelet Count 329 K/mm3 (140-440); Red Blood Count 2.76 M/mm3 (3.65-5.03); Red Cell Distribution Width 16.8 % (13.2-15.2)
[2020-10-26] MEDS: DOCUSATE SODIUM 100 MG CAP PO SCH ×3 (08:38→21:50)
[2020-10-26] MEDS: SENNOSIDES 8.6 MG TAB PO SCH ×3 (08:38→21:50)
[2020-10-26 09:01] LABS: BUN/Creatinine Ratio 11; Blood Urea Nitrogen 12 mg/dL (9-20); Calcium 9.6 mg/dL (8.4-10.2); Hemolysis Index 5
[2020-10-26] MEDS ORDERED: levoFLOXacin 750 MG TAB PO SCH (10:00)
--- NOTE | 2020-10-26 10:20 | Gastroenterology Progress Note ---
Assessment and Plan Upper gi bleed - no overt bleeding since endoscopy. can switch to PPI BID dosing. cont diet as tolerated. consider repeat egd to assess for bleeding risk if thrombolysis/anticoagulation is an option next week per IR. Subjective Date of service: 10/26/20 Principal diagnosis: Fem-pop bypass Interval history: no overt gi bleeding overnight; denies abd pain Objective - Constitutional Vitals: Temp Pulse Resp BP Pulse Ox 98.0 F 87 18 148/78 100 10/26/20 08:00 10/26/20 08:00 10/26/20 08:00 10/26/20 08:00 10/26/20 08:00 General appearance: cachectic - Respiratory Respiratory: bilateral: wheezing - Gastrointestinal General gastrointestinal: Present: soft, non-tender - Labs CBC & Chem 7: 10/26/20 07:02 10/26/20 07:02 Labs: Laboratory Results - last 24 hr 10/25/20 10/26/20 10/26/20 23:27 07:02 07:02 WBC 16.2 H RBC 2.76 L Hgb 7.7 L Hct 24.2 L MCV 88 MCH 28 MCHC 32 RDW 16.8 H Plt Count 329 Lymph % (Auto) 4.5 L Falls % (Auto) 9.2 H Eos % (Auto) 0.9 Baso % (Auto) 0.3 Lymph # (Auto) 0.7 L [place] # (Auto) 1.5 H Eos # (Auto) 0.1 Baso # (Auto) 0.1 Seg Neutrophils % 85.1 H Seg Neutrophils # 13.8 H Sodium 147 H Potassium 3.8 Chloride 116.7 H Carbon Dioxide 19 L Anion Gap 15 BUN 12 Creatinine 1.1 Estimated GFR > 60 BUN/Creatinine Ratio 11 Glucose 120 H POC Glucose 80 Calcium 9.6
[2020-10-26] MEDS: PENTOXIFYLLINE ER 400 MG TAB PO SCH ×2 (10:25→21:50)
[2020-10-26] MEDS: METOPROLOL SUCCINATE XL 25 MG TAB PO SCH (10:25)
[2020-10-26] MEDS: MULTIVITAMINS,THER W-MINERALS TAB PO SCH (10:25)
--- NOTE | 2020-10-26 10:58 | Consultation ---
History of Present Illness Consult date: 10/26/20 Consult reason: other (SVT) History of present illness: This is a frail, cachectic 75-year old male only weighing 40.8 kg. Patient has a history of peripheral vascular disease, COPD on home oxygen, and hypertension. He was admitted 5 days ago for IV hydration prior to planned thrombolysis of left lower extremity. Hospital course complicated with acute GI bleed and severe anemia. Vascular workup has been deferred. The patient has been on telemetry monitoring through his hospitalization. Yesterday, he developed rapid atrial fibrillation but is currently in sinus rhythm. An ECG done showed no acute ST or T wave changes. Patient denies chest pain, denies palpitations but shortness of breath continues. No prior cardiac history and patient denies recent cardiac workup. Past History Past Medical History: COPD, hypertension, PVD Past Surgical History: Other (PVD fem-pop bypass) Social history: smoking Family history: hypertension Medications and Allergies Allergies Allergy/AdvReac Type Severity Reaction Status Date / Time No Known Allergies Allergy Verified 10/22/20 08:47 Home Medications Medication Instructions Recorded Confirmed Last Taken Type Albuterol Mdi (or & Nicu Only) 2 puff IH QID PRN #1 inhalation 08/08/15 10/22/20 Unknown Rx [ProAir HFA Inhaler] Ciprofloxacin [Ciprofloxacin ORAL 500 mg PO Q12H #14 ml 08/08/15 10/22/20 10/21/20 Rx LIQ] 1 tab Amoxicillin/Potassium Clav 1 each PO BID 10/22/20 10/22/20 10/21/20 History [Amox-Clav 250-125 mg Tablet] 1 tab Aspirin [Aspirin BABY CHEW TAB] 81 mg PO QDAY 10/22/20 10/22/20 10/21/20 History 1 tab AtorvaSTATin [Lipitor] 20 mg PO QHS 10/22/20 10/22/20 10/21/20 History 1 tab Clopidogrel [Plavix] 75 mg PO QDAY 10/22/20 10/22/20 10/21/20 History 1 tab Metoprolol Xl [Metoprolol 25 mg PO QDAY 10/22/20 10/22/20 10/21/20 History SUCCINATE ER TAB] 1 tab Multivit-Min/FA/Lycopen/Lutein 1 each PO DAILY 10/22/20 10/22/20 10/21/20 History [Centrum Silver Tablet] 1 tab Oxycodon-Acetaminophen 2.5-325 5 - 325 mg PO Q6HR PRN 10/22/20 10/22/20 Unknown History Pentoxifylline 400 mg PO BID 10/22/20 10/22/20 10/21/20 History 1 tab Active Meds: Active Medications Acetaminophen (Tylenol) 650 mg PO Q4H PRN PRN Reason: Pain MILD(1-3)/Fever >100.5/RUANO Albuterol (Proventil) 2.5 mg IH Q4HRT PRN PRN Reason: Shortness Of Breath Albuterol/Ipratropium (Duoneb *Not For Prn Use*) 1 ampul IH Q3H PRN PRN Reason: Wheezing Docusate Sodium (Colace) 100 mg PO BID [facility] Last Admin: 10/26/20 10:24 Dose: 100 mg Documented by: Hydromorphone HCl (Dilaudid) 0.5 mg IV Q3H PRN PRN Reason: Pain , Severe (7-10) Last Admin: 10/25/20 11:51 Dose: 0.5 mg Documented by: Daptomycin 250 mg/ Sodium (Chloride) 100 mls @ 200 mls/hr IV Q48H SONYA; Protocol Last Admin: 10/24/20 18:48 Dose: 200 mls/hr Documented by: Pantoprazole Sodium 80 mg/ (Sodium Chloride) 100 mls @ 10 mls/hr IV DIRECT S CH Stop: 10/26/20 13:59 Last Admin: 10/26/20 03:05 Dose: 8 mg/hr, 10 mls/hr Documented by: Amiodarone HCl 900 mg/ (Dextrose) 500 mls @ 33.333 mls/hr IV DIRECT SONYA; Protocol Dextrose/Sodium Chloride (D5/0.45ns) 1,000 mls @ 75 mls/hr IV DIRECT SONYA Last Admin: 10/26/20 03:05 Dose: 75 mls/hr Documented by: Levofloxacin (Levaquin) 750 mg PO Q48HR SONYA Last Admin: 10/26/20 10:24 Dose: 750 mg Documented by: Metoclopramide HCl (Reglan) 5 mg IV Q6H PRN PRN Reason: Nausea And Vomiting Metoprolol Succinate (Metoprolol Xl) 25 mg PO QDAY [facility] Last Admin: 10/26/20 10:25 Dose: 25 mg Documented by: Metoprolol Tartrate (Metoprolol) 5 mg IV Q6HR PRN PRN Reason: tachycardia Last Admin: 10/25/20 08:24 Dose: 5 mg Documented by: Multivitamins/Minerals (Theragran-M Tab) 1 each PO QDAY [facility] Last Admin: 10/26/20 10:25 Dose: 1 each Documented by: Ondansetron HCl (Zofran) 4 mg IV Q8H PRN PRN Reason: Nausea And Vomiting Oxycodone/Acetaminophen (Percocet 5/325) 1 tab PO Q4H PRN PRN Reason: Pain, Moderate (4-6) Last Admin: 10/26/20 06:38 Dose: 1 tab Documented by: Pantoprazole Sodium (Protonix) 40 mg IV BID [facility] Pentoxifylline (Trental) 400 mg PO BID [facility] Last Admin: 10/26/20 10:25 Dose: 400 mg Documented by: Senna (Senokot) 8.6 mg PO Q12HR [facility] Last Admin: 10/26/20 10:25 Dose: 8.6 mg Documented by: Sodium Chloride (Sodium Chloride Flush Syringe 10 Ml) 10 ml IV BID [facility] Last Admin: 10/26/20 10:24 Dose: 10 ml Documented by: Sodium Chloride (Sodium Chloride Flush Syringe 10 Ml) 10 ml IV PRN PRN PRN Reason: LINE FLUSH Review of Systems Cardiovascular: no chest pain, no palpitations, no edema, no syncope, no lightheadedness Respiratory: shortness of breath, home oxygen Physical Examination Vital Signs Temp Pulse Resp BP Pulse Ox 97.8 F 68 16 154/98 100 10/22/20 09:16 10/22/20 09:16 10/22/20 09:16 10/22/20 09:16 10/22/20 09:16 General appearance: mild distress, cachectic HEENT: Positive: PERRL Cardiac: Positive: Reg Rate and Rhythm Lungs: Positive: Decreased Breath Sounds Results 10/26/20 07:02 10/26/20 07:02 CBC 10/26/20 Range/Units 07:02 WBC 16.2 H (4.5-11.0) K/mm3 RBC 2.76 L (3.65-5.03) M/mm3 Hgb 7.7 L (11.8-15.2) gm/dl Hct 24.2 L (35.5-45.6) % Plt Count 329 (140-440) K/mm3 Lymph # (Auto) 0.7 L (1.2-5.4) K/mm3 [place] # (Auto) 1.5 H (0.0-0.8) K/mm3 Eos # (Auto) 0.1 (0.0-0.4) K/mm3 Baso # (Auto) 0.1 (0.0-0.1) K/mm3 Comprehensive Metabolic Panel 10/26/20 Range/Units 07:02 Sodium 147 H (137-145) mmol/L Potassium 3.8 (3.6-5.0) mmol/L Chloride 116.7 H (98-107) mmol/L Carbon Dioxide 19 L (22-30) mmol/L BUN 12 (9-20) mg/dL Creatinine 1.1 (0.8-1.3) mg/dL Glucose 120 H (75-100) mg/dL Calcium 9.6 (8.4-10.2) mg/dL Assessment and Plan Transient atrial fibrillation currently in sinus rhythm PVD with cellulitis of the left lower extremity, and recent left lower extremity fem-pop occlusion. Acute GI bleed with severe anemia s/p transfusion of PRBCs COPD on home oxygen Cachexia Echocardiogram for LVEF assessment. Will check a TSH and magnesium. Will increase beta blockers for suppression of paroxysmal atrial fibrillation. Due to multiple co morbidities including acute GI bleed and severe anemia, patient is not a candidate for oral anticoagulation.
[2020-10-26] MEDS: PANTOPRAZOLE 40 MG INJ IV SCH ×2 (14:16→21:50)
--- NOTE | 2020-10-26 15:49 | Consultation ---
History of Present Illness Consult date: 10/26/20 Requesting physician: GAYLA MALDONADO Reason for consult: other (Acute Hypoxemic Respiratory Failure) History of present illness: PCCM CONSULT NOTE (Full dictation # [id number]) Please see dictated notes for full details Past History Past Medical History: COPD, hypertension, PVD Past Surgical History: Other (PVD fem-pop bypass) Social history: smoking Family history: hypertension Medications and Allergies Allergies Allergy/AdvReac Type Severity Reaction Status Date / Time No Known Allergies Allergy Verified 10/22/20 08:47 Home Medications Medication Instructions Recorded Confirmed Last Taken Type Albuterol Mdi (or & Nicu Only) 2 puff IH QID PRN #1 inhalation 08/08/15 10/22/20 Unknown Rx [ProAir HFA Inhaler] Ciprofloxacin [Ciprofloxacin ORAL 500 mg PO Q12H #14 ml 08/08/15 10/22/20 10/21/20 Rx LIQ] 1 tab Amoxicillin/Potassium Clav 1 each PO BID 10/22/20 10/22/20 10/21/20 History [Amox-Clav 250-125 mg Tablet] 1 tab Aspirin [Aspirin BABY CHEW TAB] 81 mg PO QDAY 10/22/20 10/22/20 10/21/20 History 1 tab AtorvaSTATin [Lipitor] 20 mg PO QHS 10/22/20 10/22/20 10/21/20 History 1 tab Clopidogrel [Plavix] 75 mg PO QDAY 10/22/20 10/22/20 10/21/20 History 1 tab Metoprolol Xl [Metoprolol 25 mg PO QDAY 10/22/20 10/22/20 10/21/20 History SUCCINATE ER TAB] 1 tab Multivit-Min/FA/Lycopen/Lutein 1 each PO DAILY 10/22/20 10/22/20 10/21/20 H istory [Centrum Silver Tablet] 1 tab Oxycodon-Acetaminophen 2.5-325 5 - 325 mg PO Q6HR PRN 10/22/20 10/22/20 Unknown History Pentoxifylline 400 mg PO BID 10/22/20 10/22/20 10/21/20 History 1 tab Active Meds: Active Medications Acetaminophen (Tylenol) 650 mg PO Q4H PRN PRN Reason: Pain MILD(1-3)/Fever >100.5/RUANO Albuterol (Proventil) 2.5 mg IH Q4HRT PRN PRN Reason: Shortness Of Breath Albuterol/Ipratropium (Duoneb *Not For Prn Use*) 1 ampul IH Q3H PRN PRN Reason: Wheezing Docusate Sodium (Colace) 100 mg PO BID [facility] Last Admin: 10/26/20 10:24 Dose: 100 mg Documented by: Hydromorphone HCl (Dilaudid) 0.5 mg IV Q3H PRN PRN Reason: Pain , Severe (7-10) Last Admin: 10/25/20 11:51 Dose: 0.5 mg Documented by: Daptomycin 250 mg/ Sodium (Chloride) 100 mls @ 200 mls/hr IV Q48H [facility]; Protocol Last Admin: 10/24/20 18:48 Dose: 200 mls/hr Documented by: Amiodarone HCl 900 mg/ (Dextrose) 500 mls @ 33.333 mls/hr IV DIRECT SONYA; Protocol Dextrose/Sodium Chloride (D5/0.45ns) 1,000 mls @ 75 mls/hr IV DIRECT SONYA Last Admin: 10/26/20 03:05 Dose: 75 mls/hr Documented by: Levofloxacin (Levaquin) 750 mg PO Q48HR [facility] Last Admin: 10/26/20 10:24 Dose: 750 mg Documented by: Metoclopramide HCl (Reglan) 5 mg IV Q6H PRN PRN Reason: Nausea And Vomiting Metoprolol Tartrate (Metoprolol) 5 mg IV Q6HR PRN PRN Reason: tachycardia Last Admin: 10/25/20 08:24 Dose: 5 mg Documented by: Metoprolol Tartrate (Metoprolol) 25 mg PO BID [facility] Multivitamins/Minerals (Theragran-M Tab) 1 each PO QDAY [facility] Last Admin: 10/26/20 10:25 Dose: 1 each Documented by: Ondansetron HCl (Zofran) 4 mg IV Q8H PRN PRN Reason: Nausea And Vomiting Oxycodone/Acetaminophen (Percocet 5/325) 1 tab PO Q4H PRN PRN Reason: Pain, Moderate (4-6) Last Admin: 10/26/20 14:16 Dose: 1 tab Documented by: Pantoprazole Sodium (Protonix) 40 mg IV BID [facility] Last Admin: 10/26/20 14:16 Dose: 40 mg Documented by: Pentoxifylline (Trental) 400 mg PO BID [facility] Last Admin: 10/26/20 10:25 Dose: 400 mg Documented by: Kenan (Senokot) 8.6 mg PO Q12HR [facility] Last Admin: 10/26/20 10:25 Dose: 8.6 mg Documented by: Sodium Chloride (Sodium Chloride Flush Syringe 10 Ml) 10 ml IV BID [facility] Last Admin: 10/26/20 10:24 Dose: 10 ml Documented by: Sodium Chloride (Sodium Chloride Flush Syringe 10 Ml) 10 ml IV PRN PRN PRN Reason: LINE FLUSH Physical Examination Vital signs: Vital Signs Temp Pulse Resp BP Pulse Ox 97.8 F 68 16 154/98 100 10/22/20 09:16 10/22/20 09:16 10/22/20 09:16 10/22/20 09:16 10/22/20 09:16 Results - Laboratory Findings CBC and BMP: 10/26/20 07:02 10/26/20 07:02 PT/INR, D-dimer PT 14.0 Sec. (12.2-14.9) 10/22/20 09:04 INR 1.10 (0.87-1.13) 10/22/20 09:04 Abnormal lab findings: Abnormal Labs 10/22/20 10/22/20 10/22/20 09:04 09:04 09:04 WBC 12.0 H RBC Hgb 11.7 L Hct 35.0 L RDW 15.5 H Lymph % (Auto) 7.6 L [place] % (Auto) 7.5 H Lymph # (Auto) 0.9 L [place] # (Auto) 0.9 H Seg Neutrophils % 82.7 H Seg Neutrophils # 9.9 H Fibrinogen 708 H Heparin Anti-Xa Level Sodium Chloride Carbon Dioxide BUN 29 H Creatinine 2.2 H Glucose 114 H Calcium 10.4 H ALT Total Protein Albumin Crossmatch 10/22/20 10/23/20 10/23/20 18:54 04:18 04:18 WBC 14.8 H RBC 3.20 L Hgb 9.4 L Hct 28.7 L D RDW 15.3 H Lymph % (Auto) 7.0 L [place] % (Auto) 7.8 H Lymph # (Auto) 1.0 L [place] # (Auto) 1.2 H Seg Neutrophils % 83.1 H Seg Neutrophils # 12.3 H Fibrinogen Heparin Anti-Xa Level 2.00 H Sodium Chloride Carbon Dioxide BUN 34 H Creatinine 1.7 H Glucose Calcium ALT Total Protein Albumin Crossmatch 10/23/20 10/23/20 10/24/20 08:44 08:44 05:21 WBC 14.8 H 16.0 H RBC 2.71 L 2.13 L Hgb 7.9 L 6.2 L Hct 24.4 L 19.1 L* RDW Lymph % (Auto) 6.1 L 7.0 L [place] % (Auto) 7.5 H Lymph # (Auto) 0.9 L 1.1 L [place] # (Auto) 1.2 H Seg Neutrophils % 87.6 H 85.0 H Seg Neutrophils # 13.0 H 13.6 H Fibrinogen Heparin Anti-Xa Level Sodium Chloride 108.0 H Carbon Dioxide BUN 33 H Creatinine 1.5 H Glucose 123 H Calcium ALT 6 L Total Protein 5.9 L Albumin 2.7 L Crossmatch 10/24/20 10/24/20 10/24/20 05:21 07:02 18:26 WBC RBC Hgb 7.8 L Hct 23.6 L RDW Lymph % (Auto) [place] % (Auto) Lymph # (Auto) [place] # (Auto) Seg Neutrophils % Seg Neutrophils # Fibrinogen Heparin Anti-Xa Level Sodium 146 H Chloride 111.7 H Carbon Dioxide BUN 28 H Creatinine Glucose Calcium ALT Total Protein Albumin Crossmatch See Detail 10/25/20 10/25/20 10/26/20 08:44 08:44 07:02 WBC 16.9 H 16.2 H RBC 2.72 L 2.76 L Hgb 7.8 L 7.7 L Hct 24.2 L 24.2 L RDW 17.0 H 16.8 H Lymph % (Auto) 3.2 L 4.5 L [place] % (Auto) 8.1 H 9.2 H Lymph # (Auto) 0.5 L 0.7 L [place] # (Auto) 1.4 H 1.5 H Seg Neutrophils % 88.0 H 85.1 H Seg Neutrophils # 14.8 H 13.8 H Fibrinogen Heparin Anti-Xa Level Sodium 148 H Chloride 114.4 H Carbon Dioxide BUN Creatinine Glucose Calcium ALT Total Protein Albumin Crossmatch 10/26/20 07:02 WBC RBC Hgb Hct RDW Lymph % (Auto) [place] % (Auto) Lymph # (Auto) [place] # (Auto) Seg Neutrophils % Seg Neutrophils # Fibrinogen Heparin Anti-Xa Level Sodium 147 H Chloride 116.7 H Carbon Dioxide 19 L BUN Creatinine Glucose 120 H Calcium ALT Total Protein Albumin Crossmatch
--- NOTE | 2020-10-26 16:03 | Progress Note ---
Assessment and Plan -- GI bleed due to gastric ulcer started on PPI, GI consulted, follow h/h. s/p EGD x2 EGD 10/23: 1. Fresh appearing blood with clots in gastric body. Abnormal mucosa in the body with overlying blood clots, unable to be cleared with water irrigation. No active bleeding seen at the time of procedure. EGD 10/24: 1. Gastric body (lesser curvature) ulcer with visible vessel s/p epinephrine injection and gold probe. No active bleeding at end of procedure however vessel was unable to be obliterated with gold probe. --SVT, metoprolol iv q6 as needed s/p amio drip, ordered 2d echo, consulted cardiology -- Cellulitis of left lower extremity On Daptomycin and levaquin Vascular surgery consulted, ID also following --Sepsis with cellulitis cont abx, follow Cx -- JOSHUA (acute kidney injury) IV fluids for now, follow daily labs likely vasomotor nephropathy --Severe anemia due to acute GI bleed s/p transfusion, follow H&H, continue PPI -- HTN (hypertension) Cont antihypertensives --hypernatremia, cont iv fluid -- Tobacco abuse counseling Counselled On Nicotine patch -- COPD (chronic obstructive pulmonary disease) place on Duoonebs scheduled, --Acute on Chronic respiratory failure on 2L home O2, due to COPD and severe anemia s/p Bipap continue supplemental O2 as needed and nebulizer breathing treatment as needed -- PAD (peripheral artery disease) Defer to Vascular/IR Initially placed on Heparin drip - off now for GI bleed need angioplasty/angiogram --hypoglycemia, resolved s/p d50, started on D5Ns iv --Severe protein calorie malnutrition will consult dietary, start on dietary supplements as tolerated --DVT Px, scd --transfer to tele chapis if clinically stable Brief History: 75-year-old man past medical history COPD, hypertension, peripheral vascular disease had a left lower extremity cellulitis and ulceration and this has been painful for the past 2 weeks admitted to the hospital by vascular surgery for thrombolysis of the left lower extremity. Patient has a history of 2 bypasses at [facility]. On presentation he was found to have a leukocytosis as well as an JOSHUA. Patient started on iv abx, iv heparin drip, ID consulted - admitted for further mx. He then developed bloody BM - heparin discontinued, GI consulted for EGD, PPI started. 10/23: PLANNED TO Continue daptomycin for now, if improvement noted plan to discharge with Bactrim. follow cx and monitor renal function. Hemoglobin declined on heparin drip from 11.7-7.9 with history of black diarrhea this morning. GI consulted, planned for EGD today. follow vascular recommendation. 10/24: s/p repeat EGD today. following EGD he bacame lethargic with respiratory distress , called code med- placed on bipap. Hb 6.7 -ordered PRBC. BG noted at 60s - D50 given and started on D5Ns drip and transferred to IMCU. 10/25: patient noted to have HR of 160s this am which improved after iv metoprolol and now placed on amio drip, ordered 2d echo, consult cardiology. off Bipap since this am, repeat h/h stable. He is tolerating clear liquid diet. cont to monitor h/h. 10/26: clinically improved, off bipap, off amioderone. getting 2d echo at bedside. cont supportive care. h/h stable. f/u with vascular for possible angiogram. monitor cbc/bmp Subjective Date of service: 10/26/20 Principal diagnosis: Fem-pop bypass Interval history: Patient seen and examined. Medical records and medication list reviewed. off amioderone drip off Bipap, repeat h/h stable He is tolerating diet He denies any chest pain or abdominal pain Breathing much improved Objective - Exam Narrative Exam: GENERAL: Elderly malnourished male lying on bed appeared to be in no discomfort. HEENT: Normocephalic. Atraumatic. No conjunctival congestion or icterus. Deanna ent has moist mucous membranes. NECK: Supple. Trachea midline. CHEST/LUNGS: diminished BS auscultated bilaterally, breathing nonlabored. on n/c O2 HEART/CARDIOVASCULAR: Regular in rate and rhythm. S1 and S2 positive. ABDOMEN: Abdomen is soft, nontender. Patient has normal bowel sounds. SKIN: There is no rash. Warm and dry. NEURO: No focal motor deficit. Follows command MUSCULOSKELETAL: No joint effusion or tenderness. EXTRIMITY: No edema, Left lower extremity with wound dressing PSYCH: cooperative - Constitutional Vitals: Vital Signs - 12hr 10/26/20 10/26/20 10/26/20 04:11 04:21 04:31 Temperature Pulse Rate 99 H 94 H 93 H Pulse Rate [ From Monitor] Respiratory 23 19 20 Rate Blood Pressure 157/79 157/79 157/79 O2 Sat by Pulse 100 100 100 Oximetry 10/26/20 10/26/20 10/26/20 04:41 04:51 05:01 Temperature Pulse Rate 101 H 106 H 97 H Pulse Rate [ From Monitor] Respiratory 19 17 14 Rate Blood Pressure 157/79 157/79 155/81 O2 Sat by Pulse 89 100 100 Oximetry 10/26/20 10/26/20 10/26/20 05:11 05:20 05:31 Temperature Pulse Rate 100 H 104 H 92 H Pulse Rate [ From Monitor] Respiratory 18 15 15 Rate Blood Pressure 155/81 155/81 O2 Sat by Pulse 100 100 100 Oximetry 10/26/20 10/26/20 10/26/20 05:41 05:51 06:01 Temperature Pulse Rate 93 H 103 H 96 H Pulse Rate [ From Monitor] Respiratory 21 12 14 Rate Blood Pressure 155/81 155/81 160/88 O2 Sat by Pulse 100 100 100 Oximetry 10/26/20 10/26/20 10/26/20 06:11 06:21 06:31 Temperature Pulse Rate 89 101 H 111 H Pulse Rate [ From Monitor] Respiratory 14 20 19 Rate Blood Pressure 160/88 160/88 160/88 O2 Sat by Pulse 100 100 100 Oximetry 10/26/20 10/26/20 10/26/20 06:41 06:51 07:00 Temperature Pulse Rate 94 H 94 H 90 Pulse Rate [ From Monitor] Respiratory 14 16 19 Rate Blood Pressure 160/88 160/88 170/82 O2 Sat by Pulse 97 100 98 Oximetry 10/26/20 10/26/20 10/26/20 07:11 07:21 07:31 Temperature Pulse Rate 97 H 95 H 86 Pulse Rate [ From Monitor] Respiratory 13 22 16 Rate Blood Pressure 170/82 170/82 170/82 O2 Sat by Pulse 100 100 100 Oximetry 10/26/20 10/26/20 10/26/20 07:41 07:51 08:00 Temperature 98.0 F Pulse Rate 94 H 87 86 Pulse Rate [ 86 From Monitor] Respiratory 13 19 20 Rate Blood Pressure 170/82 170/82 148/78 O2 Sat by Pulse 100 100 100 Oximetry 10/26/20 10/26/20 10/26/20 08:11 08:21 08:31 Temperature Pulse Rate 85 87 98 H Pulse Rate [ From Monitor] Respiratory 18 21 14 Rate Blood Pressure 148/78 170/82 170/82 O2 Sat by Pulse 100 Oximetry 10/26/20 10/26/20 10/26/20 08:41 08:51 09:01 Temperature Pulse Rate 93 H 91 H 98 H Pulse Rate [ From Monitor] Respiratory 17 16 Rate Blood Pressure 170/82 148/78 143/75 O2 Sat by Pulse Oximetry 10/26/20 10/26/20 10/26/20 09:11 09:21 09:31 Temperature Pulse Rate 97 H 90 94 H Pulse Rate [ From Monitor] Respiratory Rate Blood Pressure 143/75 143/75 143/75 O2 Sat by Pulse Oximetry 10/26/20 10/26/20 10/26/20 09:41 09:51 10:00 Temperature Pulse Rate 91 H 86 87 Pulse Rate [ From Monitor] Respiratory Rate Blood Pressure 143/75 143/75 147/78 O2 Sat by Pulse Oximetry 10/26/20 10/26/20 10/26/20 10:11 10:21 10:25 Temperature Pulse Rate 86 87 87 Pulse Rate [ From Monitor] Respiratory Rate Blood Pressure 147/78 147/78 147/78 O2 Sat by Pulse Oximetry 10/26/20 10/26/20 10/26/20 10:31 10:41 10:51 Temperature Pulse Rate 108 H 125 H Pulse Rate [ From Monitor] Respiratory 17 15 Rate Blood Pressure 147/78 147/78 147/78 O2 Sat by Pulse Oximetry 10/26/20 10/26/20 10/26/20 11:00 11:11 11:21 Temperature Pulse Rate 106 H 90 89 Pulse Rate [ From Monitor] Respiratory 15 23 16 Rate Blood Pressure 149/81 149/81 149/81 O2 Sat by Pulse Oximetry 10/26/20 10/26/20 10/26/20 11:31 11:41 11:51 Temperature Pulse Rate 87 88 90 Pulse Rate [ From Monitor] Respiratory 22 19 15 Rate Blood Pressure 149/81 149/81 149/81 O2 Sat by Pulse Oximetry 10/26/20 10/26/20 10/26/20 12:00 12:11 12:21 Temperature 97.9 F Pulse Rate 90 91 H 91 H Pulse Rate [ From Monitor] Respiratory 15 18 18 Rate Blood Pressure 149/87 149/87 149/87 O2 Sat by Pulse Oximetry 10/26/20 10/26/20 10/26/20 12:31 12:41 12:51 Temperature Pulse Rate 99 H 102 H 102 H Pulse Rate [ From Monitor] Respiratory 27 H Rate Blood Pressure 149/87 149/87 149/87 O2 Sat by Pulse Oximetry 10/26/20 10/26/20 10/26/20 13:01 13:11 13:21 Temperature Pulse Rate 98 H 91 H 91 H Pulse Rate [ From Monitor] Respiratory Rate Blood Pressure 149/87 149/87 149/87 O2 Sat by Pulse Oximetry 10/26/20 10/26/20 10/26/20 13:30 13:41 13:51 Temperature Pulse Rate 92 H 95 H 87 Pulse Rate [ From Monitor] Respiratory 20 19 Rate Blood Pressure 149/87 149/87 149/87 O2 Sat by Pulse Oximetry 10/26/20 10/26/20 10/26/20 14:01 14:11 14:16 Temperature Pulse Rate 88 89 Pulse Rate [ From Monitor] Respiratory 15 21 18 Rate Blood Pressure 141/82 169/71 O2 Sat by Pulse 100 Oximetry - Labs CBC & Chem 7: 10/26/20 07:02 10/26/20 07:02 Labs: Abnormal lab results 10/26/20 10/26/20 Range/Units 07:02 07:02 WBC 16.2 H (4.5-11.0) K/mm3 RBC 2.76 L (3.65-5.03) M/mm3 Hgb 7.7 L (11.8-15.2) gm/dl Hct 24.2 L (35.5-45.6) % RDW 16.8 H (13.2-15.2) % Lymph % (Auto) 4.5 L (13.4-35.0) % [place]cd[place]ough % (Auto) 9.2 H (0.0-7.3) % Lymph # (Auto) 0.7 L (1.2-5.4) K/mm3 [place] # (Auto) 1.5 H (0.0-0.8) K/mm3 Seg Neutrophils % 85.1 H (40.0-70.0) % Seg Neutrophils # 13.8 H (1.8-7.7) K/mm3 Sodium 147 H (137-145) mmol/L Chloride 116.7 H (98-107) mmol/L Carbon Dioxide 19 L (22-30) mmol/L Glucose 120 H (75-100) mg/dL HEART Score - HEART Score EKG: Non-specific Risk factors: > 3 risk factors or hx of atherosclerotic disease Troponin: < normal limit - Critical Actions Critical Actions: 4-6 pts:12-16.6% risk of adverse cardiac event. Should be admitted
--- NOTE | 2020-10-26 17:09 | Progress Note ---
Assessment and Plan Cultures: None A/P: 75-year-old man past medical history COPD, hypertension, peripheral vascular disease, found to have cellulitis #Left lower extremity cellulitis: With leukocytosis, patient with pain to the calf. #JOSHUA: Resolved #Peripheral vascular disease #Anemia: s/p Transfusion Recs: -Continue daptomycin for now, if improvement noted plan to discharge with Bactrim. -Worsening leukocytosis which may be secondary to GI bleed, however can continue levofloxacin for now increased dose to 24 hours based on improved renal functio n. -Follow renal function, adjust dosage as required -Monitor biweekly CK with daptomycin -Given the nonresponse of the leukocytosis to antibiotics there may be other elements causing it to remain elevated. He remains afebrile. -Continue to follow white count Dr. Gonzalez taking over tomorrow Thank you for the consult, we will continue to follow. Brisa Trujillo MD [facility] ([facility]) O: [phone] F: [phone] Subjective Date of service: 10/26/20 Principal diagnosis: Fem-pop bypass Interval history: Afebrile, white count approximately stable 16.2. He is refusing BiPAP, requiring 4 L nasal cannula. Objective - Exam Narrative Exam: Physical Exam: Constitutional: Alert, cooperative. No acute distress Head, Ears, Nose: Normocephalic, atraumatic. Eyes: Conjunctivae/corneas clear. Neck: Supple, no meningeal signs Oral: dentition fair, no thrush Cardiovascular: S1, S2 normal. Respiratory: Good air entry, clear to auscultation bilaterally GI: Soft, non-tender; bowel sounds normal. No peritoneal signs. Musculoskeletal: Left leg dressed today, not undressed for this exam. Skin: No rash or abscess Psych: Mood ok. Affect normal Neurological: Awake, alert, oriented. No gross abnormality - Constitutional Vitals: Vital Signs Temp Pulse Resp BP Pulse Ox 97.9 F 87 18 133/66 97 10/26/20 12:00 10/26/20 16:41 10/26/20 16:41 10/26/20 16:41 10/26/20 16:00 Temperature -Last 24 Hours Temperature 97.9 F Temperature 98.0 F Temperature 98.3 F Temperature 97.2 F - Labs CBC & Chem 7: 10/26/20 07:02 10/26/20 07:02 Labs: Abnormal lab results 10/26/20 10/26/20 Range/Units 07:02 07:02 WBC 16.2 H (4.5-11.0) K/mm3 RBC 2.76 L (3.65-5.03) M/mm3 Hgb 7.7 L (11.8-15.2) gm/dl Hct 24.2 L (35.5-45.6) % RDW 16.8 H (13.2-15.2) % Lymph % (Auto) 4.5 L (13.4-35.0) % [place] % (Auto) 9.2 H (0.0-7.3) % Lymph # (Auto) 0.7 L (1.2-5.4) K/mm3 [place] # (Auto) 1.5 H (0.0-0.8) K/mm3 Seg Neutrophils % 85.1 H (40.0-70.0) % Seg Neutrophils # 13.8 H (1.8-7.7) K/mm3 Sodium 147 H (137-145) mmol/L Chloride 116.7 H (98-107) mmol/L Carbon Dioxide 19 L (22-30) mmol/L Glucose 120 H (75-100) mg/dL
--- NOTE | 2020-10-26 21:06 | XRay Report ---
CHEST 1 VIEW 7:25 PM INDICATION / CLINICAL INFORMATION: COPD and pneumonia. COMPARISON: 08/07/15. FINDINGS: SUPPORT DEVICES: None. HEART / MEDIASTINUM: The heart size is normal. There is mild prominence of the central pulmonary vess els. LUNGS / PLEURA: The lungs are hyperinflated. There is mild diffuse interstitial lung disease, most pr ominent in the perihilar regions and mid to lower lung zones. A trace amount of pleural fluid is pres ent bilaterally. No pneumothorax. ADDITIONAL FINDINGS: No significant additional findings. IMPRESSION: Mild congestive heart failure superimposed on emphysema. Signer Name: Mickey See MD Signed: 10/26/2020 9:01 PM Workstation Name: [id number]
[2020-10-26] MEDS: METOPROLOL TARTRATE 25 MG TAB PO SCH (21:50)
[2020-10-27] MEDS: oxyCODONE /ACETAMINOPHEN 5-325MG TAB PO PRN (01:51)
[2020-10-27 05:43] LABS: Basophils % (Auto) 0.1 % (0.0-1.8); Eosinophils # (Auto) 0.1 K/mm3 (0.0-0.4); Eosinophils % (Auto) 0.4 % (0.0-4.3); Hematocrit 22.7 % (35.5-45.6); Hemoglobin 7.3 gm/dl (11.8-15.2); Lymphocytes # (Auto) 0.7 K/mm3 (1.2-5.4); Lymphocytes % (Auto) 4.2 % (13.4-35.0); Mean Corpuscular HGB Conc 32 % (32-34); Mean Corpuscular Volume 89 fl (84-94); Monocytes # (Auto) 1.3 K/mm3 (0.0-0.8); Monocytes % (Auto) 7.7 % (0.0-7.3); Platelet Count 357 K/mm3 (140-440); Red Blood Count 2.57 M/mm3 (3.65-5.03); Red Cell Distribution Width 16.9 % (13.2-15.2)
[2020-10-27 06:01] LABS: BUN/Creatinine Ratio 8; Blood Urea Nitrogen 9 mg/dL (9-20); Calcium 9.2 mg/dL (8.4-10.2); Hemolysis Index 0
[2020-10-27] MEDS: D5W/0.45% NACL 1,000 ML IV SCH ×2 (08:28→22:04)
[2020-10-27] MEDS: DOCUSATE SODIUM 100 MG CAP PO SCH ×2 (09:25→22:02)
[2020-10-27] MEDS: METOPROLOL TARTRATE 25 MG TAB PO SCH ×2 (09:25→22:03)
[2020-10-27] MEDS: MULTIVITAMINS,THER W-MINERALS TAB PO SCH (09:26)
[2020-10-27] MEDS: SENNOSIDES 8.6 MG TAB PO SCH ×2 (09:26→22:02)
[2020-10-27] MEDS: PANTOPRAZOLE 40 MG INJ IV SCH ×2 (09:26→22:02)
[2020-10-27] MEDS: PENTOXIFYLLINE ER 400 MG TAB PO SCH ×2 (09:27→22:02)
--- NOTE | 2020-10-27 10:16 | Progress Note ---
Subjective Date of service: 10/27/20 Principal diagnosis: Fem-pop bypass Interval history: NO CV C/O Objective Vital Signs Temp Pulse Pulse Resp Resp BP Pulse Ox 10/27/20 10:00 78 144/78 10/27/20 09:51 80 145/68 99 10/27/20 09:41 80 29 H 145/68 96 10/27/20 09:31 81 19 145/68 97 10/27/20 09:25 78 145/68 10/27/20 09:21 83 19 145/68 98 10/27/20 09:11 77 16 145/68 81 L 10/27/20 09:01 75 15 145/68 98 10/27/20 08:51 75 14 138/73 10/27/20 08:41 75 19 138/73 95 10/27/20 08:31 77 14 138/73 10/27/20 08:21 77 18 138/73 96 10/27/20 08:11 79 15 138/73 10/27/20 08:01 79 15 139/74 10/27/20 08:00 97.4 F L 77 77 17 100 10/27/20 07:41 80 19 139/74 10/27/20 07:31 88 18 139/74 10/27/20 07:21 78 14 139/74 10/27/20 07:11 79 15 139/74 10/27/20 07:01 78 22 92/65 10/27/20 06:51 77 21 92/65 10/27/20 06:41 77 23 92/65 10/27/20 06:31 76 18 92/65 10/27/20 06:21 75 20 92/65 10/27/20 06:11 77 25 H 92/65 10/27/20 06:00 76 22 92/65 10/27/20 05:51 80 19 117/73 10/27/20 05:41 77 16 117/73 100 10/27/20 05:31 78 18 117/73 100 10/27/20 05:21 77 21 117/73 100 10/27/20 05:11 79 17 117/73 100 10/27/20 05:00 77 18 117/73 100 10/27/20 04:51 76 18 134/61 100 10/27/20 04:41 74 20 134/61 100 10/27/20 04:31 73 16 134/61 100 10/27/20 04:21 75 16 134/61 100 10/27/20 04:11 73 22 134/61 99 10/27/20 04:00 97.6 F 73 75 19 134/61 72 L 10/27/20 03:51 77 15 133/60 100 10/27/20 03:41 75 15 133/60 100 10/27/20 03:31 77 18 133/60 98 10/27/20 03:21 79 22 133/60 98 10/27/20 03:11 76 16 133/60 80 L 10/27/20 03:01 80 25 H 153/64 10/27/20 02:51 76 20 153/64 95 10/27/20 02:41 76 27 H 153/64 100 10/27/20 02:31 80 22 153/64 98 10/27/20 02:21 80 25 H 153/64 100 10/27/20 02:11 80 20 153/64 100 10/27/20 02:00 83 18 153/64 78 L 10/27/20 01:51 79 21 150/54 100 10/27/20 01:41 77 19 150/54 98 10/27/20 01:31 76 17 150/54 91 10/27/20 01:21 82 20 150/54 91 10/27/20 01:11 79 16 150/54 98 10/27/20 01:01 76 20 150/54 100 10/27/20 00:51 74 21 150/126 100 10/27/20 00:41 82 20 150/126 99 10/27/20 00:31 76 20 150/126 98 10/27/20 00:21 85 22 150/126 93 10/27/20 00:11 75 18 150/126 100 10/27/20 00:01 74 16 150/126 100 10/27/20 00:00 97.3 F L 79 79 21 99 10/26/20 23:51 74 18 156/76 100 10/26/20 23:49 73 21 156/76 98 10/26/20 23:41 74 20 156/76 77 L 10/26/20 23:40 98 10/26/20 23:31 77 14 156/76 10/26/20 23:21 77 22 156/76 10/26/20 23:11 79 14 156/76 10/26/20 23:01 84 15 156/76 10/26/20 22:51 82 21 164/85 100 10/26/20 22:41 88 16 164/85 97 10/26/20 22:31 91 H 17 164/85 10/26/20 22:21 87 17 164/85 10/26/20 22:11 90 17 164/85 10/26/20 22:00 84 20 164/85 10/26/20 21:51 87 22 150/66 10/26/20 21:50 84 133/64 10/26/20 21:41 90 18 150/66 10/26/20 21:31 90 22 150/66 10/26/20 21:21 82 15 150/66 10/26/20 21:11 88 19 150/66 10/26/20 21:01 88 17 133/69 10/26/20 20:51 85 14 133/69 10/26/20 20:41 90 17 133/69 10/26/20 20:31 94 H 22 133/69 92 10/26/20 20:21 90 16 133/69 98 10/26/20 20:11 86 20 133/69 10/26/20 20:00 97.7 F 83 81 14 133/69 100 10/26/20 19:51 82 18 130/66 100 10/26/20 19:41 84 15 130/66 10/26/20 19:31 87 21 126/73 10/26/20 19:21 85 18 126/73 10/26/20 19:11 82 18 126/73 10/26/20 19:01 80 19 130/66 10/26/20 19:00 97.7 F 10/26/20 18:51 81 19 126/73 10/26/20 18:41 81 18 126/73 10/26/20 18:31 83 17 126/73 10/26/20 18:21 84 17 126/73 10/26/20 18:11 82 13 126/73 10/26/20 18:00 81 18 126/73 10/26/20 17:51 81 15 123/63 10/26/20 17:41 86 15 123/63 10/26/20 17:31 81 20 123/63 10/26/20 17:21 85 16 123/63 10/26/20 17:11 85 18 123/63 10/26/20 17:00 79 18 123/63 10/26/20 16:51 81 19 133/66 10/26/20 16:41 87 18 133/66 10/26/20 16:31 82 17 133/66 10/26/20 16:21 83 19 133/66 10/26/20 16:11 83 13 133/66 10/26/20 16:01 87 17 133/66 10/26/20 16:00 98.2 F 87 87 18 20 97 10/26/20 15:51 82 22 144/85 10/26/20 15:41 82 12 144/85 10/26/20 15:31 85 16 144/85 10/26/20 15:21 82 16 144/85 10/26/20 15:11 86 15 144/85 10/26/20 15:01 83 17 144/85 10/26/20 14:51 86 14 169/71 10/26/20 14:41 91 H 19 169/71 10/26/20 14:31 93 H 20 169/71 10/26/20 14:21 88 25 H 169/71 10/26/20 14:16 18 10/26/20 14:11 89 21 169/71 100 10/26/20 14:01 88 15 141/82 10/26/20 13:51 87 19 149/87 10/26/20 13:41 95 H 20 149/87 10/26/20 13:30 92 H 149/87 10/26/20 13:21 91 H 149/87 10/26/20 13:11 91 H 149/87 10/26/20 13:01 98 H 149/87 10/26/20 12:51 102 H 149/87 10/26/20 12:41 102 H 149/87 10/26/20 12:31 99 H 27 H 149/87 10/26/20 12:21 91 H 18 149/87 10/26/20 12:11 91 H 18 149/87 10/26/20 12:00 97.9 F 91 H 91 H 13 149/87 94 10/26/20 11:51 90 15 149/81 10/26/20 11:41 88 19 149/81 10/26/20 11:31 87 22 149/81 10/26/20 11:21 89 16 149/81 10/26/20 11:11 90 23 149/81 10/26/20 11:00 106 H 15 149/81 10/26/20 10:51 125 H 15 147/78 10/26/20 10:41 108 H 17 147/78 10/26/20 10:31 147/78 10/26/20 10:25 87 147/78 10/26/20 10:21 87 147/78 - Physical Examination HEENT: Positive: PERRL Neck: Positive: neck supple Cardiac: Positive: Reg Rate and Rhythm Lungs: Positive: Rhonchi Abdomen: Positive: Soft Extremities: Present: edema (NO) - Labs and Meds CBC 10/27/20 Range/Units 05:09 WBC 16.4 H (4.5-11.0) K/mm3 RBC 2.57 L (3.65-5.03) M/mm3 Hgb 7.3 L (11.8-15.2) gm/dl Hct 22.7 L (35.5-45.6) % Plt Count 357 (140-440) K/mm3 Lymph # (Auto) 0.7 L (1.2-5.4) K/mm3 [place] # (Auto) 1.3 H (0.0-0.8) K/mm3 Eos # (Auto) 0.1 (0.0-0.4) K/mm3 Baso # (Auto) 0.0 (0.0-0.1) K/mm3 Comprehensive Metabolic Panel 10/27/20 Range/Units 05:09 Sodium 145 (137-145) mmol/L Potassium 3.7 (3.6-5.0) mmol/L Chloride 113.5 H (98-107) mmol/L Carbon Dioxide 22 (22-30) mmol/L BUN 9 (9-20) mg/dL Creatinine 1.1 (0.8-1.3) mg/dL Glucose 114 H (75-100) mg/dL Calcium 9.2 (8.4-10.2) mg/dL - Imaging and Cardiology EKG: report reviewed
--- NOTE | 2020-10-27 14:18 | Progress Note ---
Assessment and Plan Acute possibly on chronic hypoxemic respiratory failure. Acute chronic obstructive pulmonary disease exacerbation. Acute G.I. Bleed Left lower extremity cellulitis. Peripheral vascular disease. History of tobacco abuse. Acute kidney injury. Anemia that is normocytic. [id number] protein-calorie malnutrition. Adult failure to thrive. Mild metabolic acidosis with a hyperchloremic element - continue to wean supplemental oxygen to keep O2 sats > 88-90% acutely (restrictive oxygen therapy) - BIPAP scheduled qhs with prn daytime use - continue Bronchodilators ([place] & LABA) with pulm hygiene per RT - continue systemic steroids with slow taper - continue inhaled corticosteroids - avoid nephrotoxins, renally dose all medications - continue antiplatelet therapy per vascular team - mobility protocols to prevent pressure ulcers - PT/OT as tolerated - Wound care per RN/WCT - prn analgesia per pain score - accuchecks with glycemic control per SSI for target blood glucose < 180 mg/dL - continued tobacco abstinence strongly counseled at the bedside - home oxygen evaluation at discharge - GI & VTE prophylaxis - Flu & pneumovax per protocol - Pulmonary out patient follow up for PFTs and optimization of respiratory status - continue other care per attending / other consultants ... re-evaluate in am & prn Subjective Date of service: 10/27/20 Principal diagnosis: AE-COPD; Acute G.I. Bleed; Cellulitis; HTN Interval history: Patient is seen today for: Acute possibly on chronic hypoxemic respiratory failure; AE-COPD; Acuite G.I. Bleed; L. lower extremity cellulitis; PVD; JOSHUA; Anemia Seen and examined at bedside; 24hour events reviewed; nursing and respiratory care staff consulted; no adverse overnight events reported to me; resting peacefully in bed; denies acute chest pains or SOB above baseline; feels a little better today; No N/V/F/C Objective Vital Signs - 12hr 10/27/20 10/27/20 10/27/20 02:21 02:31 02:41 Temperature Pulse Rate 80 80 76 Pulse Rate [ From Monitor] Respiratory 25 H 22 27 H Rate Blood Pressure 153/64 153/64 153/64 O2 Sat by Pulse 100 98 100 Oximetry 10/27/20 10/27/20 10/27/20 02:51 03:01 03:11 Temperature Pulse Rate 76 80 76 Pulse Rate [ From Monitor] Respiratory 20 25 H 16 Rate Blood Pressure 153/64 153/64 133/60 O2 Sat by Pulse 95 80 L Oximetry 10/27/20 10/27/20 10/27/20 03:21 03:31 03:41 Temperature Pulse Rate 79 77 75 Pulse Rate [ From Monitor] Respiratory 22 18 15 Rate Blood Pressure 133/60 133/60 133/60 O2 Sat by Pulse 98 98 100 Oximetry 10/27/20 10/27/20 10/27/20 03:51 04:00 04:11 Temperature 97.6 F Pulse Rate 77 73 73 Pulse Rate [ 75 From Monitor] Respiratory 15 19 22 Rate Blood Pressure 133/60 134/61 134/61 O2 Sat by Pulse 100 72 L 99 Oximetry 10/27/20 10/27/20 10/27/20 04:21 04:31 04:41 Temperature Pulse Rate 75 73 74 Pulse Rate [ From Monitor] Respiratory 16 16 20 Rate Blood Pressure 134/61 134/61 134/61 O2 Sat by Pulse 100 100 100 Oximetry 10/27/20 10/27/20 10/27/20 04:51 05:00 05:11 Temperature Pulse Rate 76 77 79 Pulse Rate [ From Monitor] Respiratory 18 18 17 Rate Blood Pressure 134/61 117/73 117/73 O2 Sat by Pulse 100 100 100 Oximetry 10/27/20 10/27/20 10/27/20 05:21 05:31 05:41 Temperature Pulse Rate 77 78 77 Pulse Rate [ From Monitor] Respiratory 21 18 16 Rate Blood Pressure 117/73 117/73 117/73 O2 Sat by Pulse 100 100 100 Oximetry 10/27/20 10/27/20 10/27/20 05:51 06:00 06:11 Temperature Pulse Rate 80 76 77 Pulse Rate [ From Monitor] Respiratory 19 22 25 H Rate Blood Pressure 117/73 92/65 92/65 O2 Sat by Pulse Oximetry 10/27/20 10/27/20 10/27/20 06:21 06:31 06:41 Temperature Pulse Rate 75 76 77 Pulse Rate [ From Monitor] Respiratory 20 18 23 Rate Blood Pressure 92/65 92/65 92/65 O2 Sat by Pulse Oximetry 10/27/20 10/27/20 10/27/20 06:51 07:01 07:11 Temperature Pulse Rate 77 78 79 Pulse Rate [ From Monitor] Respiratory 21 22 15 Rate Blood Pressure 92/65 92/65 139/74 O2 Sat by Pulse Oximetry 10/27/20 10/27/20 10/27/20 07:21 07:31 07:41 Temperature Pulse Rate 78 88 80 Pulse Rate [ From Monitor] Respiratory 14 18 19 Rate Blood Pressure 139/74 139/74 139/74 O2 Sat by Pulse Oximetry 10/27/20 10/27/20 10/27/20 08:00 08:01 08:11 Temperature 97.4 F L Pulse Rate 77 79 79 Pulse Rate [ 77 From Monitor] Respiratory 17 15 15 Rate Blood Pressure 139/74 138/73 O2 Sat by Pulse 100 Oximetry 10/27/20 10/27/20 10/27/20 08:21 08:31 08:41 Temperature Pulse Rate 77 77 75 Pulse Rate [ From Monitor] Respiratory 18 14 19 Rate Blood Pressure 138/73 138/73 138/73 O2 Sat by Pulse 96 95 Oximetry 10/27/20 10/27/20 10/27/20 08:51 09:01 09:11 Temperature Pulse Rate 75 75 77 Pulse Rate [ From Monitor] Respiratory 14 15 16 Rate Blood Pressure 138/73 145/68 145/68 O2 Sat by Pulse 98 81 L Oximetry 10/27/20 10/27/20 10/27/20 09:21 09:25 09:31 Temperature Pulse Rate 83 78 81 Pulse Rate [ From Monitor] Respiratory 19 19 Rate Blood Pressure 145/68 145/68 145/68 O2 Sat by Pulse 98 97 Oximetry 10/27/20 10/27/20 10/27/20 09:41 09:51 10:00 Temperature Pulse Rate 80 80 78 Pulse Rate [ From Monitor] Respiratory 29 H Rate Blood Pressure 145/68 145/68 144/78 O2 Sat by Pulse 96 99 Oximetry 10/27/20 12:00 Temperature 98.3 F Pulse Rate Pulse Rate [ From Monitor] Respiratory Rate Blood Pressure O2 Sat by Pulse Oximetry Constitutional: no acute distress, other (elderly chronically ill looking male with mildly increased respiratory effort at rest) Eyes: non-icteric ENT: oropharynx moist Neck: supple, no lymphadenopathy, no JVD Effort: mildly labored Ascultation: Bilateral: diminished breath sounds, rhonchi, other (prolonged expiratory phase) Percussion: Bilateral: not dull Cardiovascular: regular rate and rhythm Gastrointestinal: normoactive bowel sounds, soft, non-tender, non-distended Integumentary: cellulitis (L. lower extremity) Extremities: no cyanosis, no edema, no ischemia or petechiae, other (weak pulses) Neurologic: normal mental status, non-focal exam, pupils equal and round, CN II- XII normal, motor strength normal and Psychiatric: mood appropriate, affect normal CBC and BMP: 10/27/20 05:09 10/27/20 05:09 ABG, PT/INR, D-dimer: PT/INR, D-dimer PT 14.0 Sec. (12.2-14.9) 10/22/20 09:04 INR 1.10 (0.87-1.13) 10/22/20 09:04 Abnormal lab findings: Abnormal Labs 10/22/20 10/22/20 10/22/20 09:04 09:04 09:04 WBC 12.0 H RBC Hgb 11.7 L Hct 35.0 L RDW 15.5 H Lymph % (Auto) 7.6 L [place] % (Auto) 7.5 H Lymph # (Auto) 0.9 L [place] # (Auto) 0.9 H Seg Neutrophils % 82.7 H Seg Neutrophils # 9.9 H Fibrinogen 708 H Heparin Anti-Xa Level Sodium Chloride Carbon Dioxide BUN 29 H Creatinine 2.2 H Glucose 114 H Calcium 10.4 H ALT Total Protein Albumin Crossmatch 10/22/20 10/23/20 10/23/20 18:54 04:18 04:18 WBC 14.8 H RBC 3.20 L Hgb 9.4 L Hct 28.7 L D RDW 15.3 H Lymph % (Auto) 7.0 L [place] % (Auto) 7.8 H Lymph # (Auto) 1.0 L [place] # (Auto) 1.2 H Seg Neutrophils % 83.1 H Seg Neutrophils # 12.3 H Fibrinogen Heparin Anti-Xa Level 2.00 H Sodium Chloride Carbon Dioxide BUN 34 H Creatinine 1.7 H Glucose Calcium ALT Total Protein Albumin Crossmatch 10/23/20 10/23/20 10/24/20 08:44 08:44 05:21 WBC 14.8 H 16.0 H RBC 2.71 L 2.13 L Hgb 7.9 L 6.2 L Hct 24.4 L 19.1 L* RDW Lymph % (Auto) 6.1 L 7.0 L [place] % (Auto) 7.5 H Lymph # (Auto) 0.9 L 1.1 L [place] # (Auto) 1.2 H Seg Neutrophils % 87.6 H 85.0 H Seg Neutrophils # 13.0 H 13.6 H Fibrinogen Heparin Anti-Xa Level Sodium Chloride 108.0 H Carbon Dioxide BUN 33 H Creatinine 1.5 H Glucose 123 H Calcium ALT 6 L Total Protein 5.9 L Albumin 2.7 L Crossmatch 10/24/20 10/24/20 10/24/20 05:21 07:02 18:26 WBC RBC Hgb 7.8 L Hct 23.6 L RDW Lymph % (Auto) [place] % (Auto) Lymph # (Auto) [place] # (Auto) Seg Neutrophils % Seg Neutrophils # Fibrinogen Heparin Anti-Xa Level Sodium 146 H Chloride 111.7 H Carbon Dioxide BUN 28 H Creatinine Glucose Calcium ALT Total Protein Albumin Crossmatch See Detail 10/25/20 10/25/20 10/26/20 08:44 08:44 07:02 WBC 16.9 H 16.2 H RBC 2.72 L 2.76 L Hgb 7.8 L 7.7 L Hct 24.2 L 24.2 L RDW 17.0 H 16.8 H Lymph % (Auto) 3.2 L 4.5 L [place] % (Auto) 8.1 H 9.2 H Lymph # (Auto) 0.5 L 0.7 L [place] # (Auto) 1.4 H 1.5 H Seg Neutrophils % 88.0 H 85.1 H Seg Neutrophils # 14.8 H 13.8 H Fibrinogen Heparin Anti-Xa Level Sodium 148 H Chloride 114.4 H Carbon Dioxide BUN Creatinine Glucose Calcium ALT Total Protein Albumin Crossmatch 10/26/20 10/27/20 10/27/20 07:02 05:09 05:09 WBC 16.4 H RBC 2.57 L Hgb 7.3 L Hct 22.7 L RDW 16.9 H Lymph % (Auto) 4.2 L [place] % (Auto) 7.7 H Lymph # (Auto) 0.7 L [place] # (Auto) 1.3 H Seg Neutrophils % 87.6 H Seg Neutrophils # 14.4 H Fibrinogen Heparin Anti-Xa Level Sodium 147 H Chloride 116.7 H 113.5 H Carbon Dioxide 19 L BUN Creatinine Glucose 120 H 114 H Calcium ALT Total Protein Albumin Crossmatch Chest x-ray: image reviewed (severe emphysema) Allied health notes reviewed: nursing
--- NOTE | 2020-10-27 16:39 | Progress Note ---
Assessment and Plan GI bleed due to gastric ulcer started on PPI, GI consulted, follow h/h. s/p EGD x2 EGD 10/23: 1. Fresh appearing blood with clots in gastric body. Abnormal mucosa in the body with overlying blood clots, unable to be cleared with water irrigation. No active bleeding seen at the time of procedure. EGD 10/24: 1. Gastric body (lesser curvature) ulcer with visible vessel s/p epinephrine injection and gold probe. No active bleeding at end of procedure however vessel was unable to be obliterated with gold probe. No further episode of bleeding. Possible IR intervention --SVT, metoprolol iv q6 as needed Amiodarone discontinued Echocardiogram pending , consulted cardiology -- Cellulitis of left lower extremity Much improved clinically. Decreased erythema decrease pain. On Daptomycin and levaquin Vascular surgery consulted, ID also following --Sepsis with cellulitis resolving cont abx, follow Cx -- JOSHUA (acute kidney injury) IV fluids for now, follow daily labs likely vasomotor nephropathy --Severe anemia due to acute GI bleed --Hemoglobin hematocrit stable after transfusion. s/p transfusion, follow H&H, continue PPI -- HTN (hypertension) Cont antihypertensives --hypernatremia, resolved. -- Tobacco abuse counseling Patient has advanced COPD. Would require home O2 Counselled On Nicotine patch -- COPD (chronic obstructive pulmonary disease) Duo nebs home O2 place on Duoonebs scheduled, --Acute on Chronic respiratory failure on 2L home O2, due to COPD and severe anemia s/p Bipap continue supplemental O2 as needed and nebulizer breathing treatment as needed -- PAD (peripheral artery disease) Defer to Vascular/IR Initially placed on Heparin drip - off now for GI bleed need angioplasty/angiogram --hypoglycemia, resolved s/p d50, started on D5Ns iv --Severe protein calorie malnutrition will consult dietary, start on dietary supplements as tolerated Subjective Date of service: 10/27/20 Principal diagnosis: AE-COPD; Acute G.I. Bleed; Cellulitis; HTN Interval history: 75-year-old man past medical history COPD, hypertension, peripheral vascular disease had a left lower extremity cellulitis and ulceration and this has been painful for the past 2 weeks admitted to the hospital by vascular surgery for th rombolysis of the left lower extremity. Patient has a history of 2 bypasses at [facility]. On presentation he was found to have a leukocytosis as well as an JOSHUA. Patient started on iv abx, iv heparin drip, ID consulted - admitted for further mx. He then developed bloody BM - heparin discontinued, GI consulted for EGD, PPI started. 10/23: PLANNED TO Continue daptomycin for now, if improvement noted plan to discharge with Bactrim. follow cx and monitor renal function. Hemoglobin decl ined on heparin drip from 11.7-7.9 with history of black diarrhea this morning. GI consulted, planned for EGD today. follow vascular recommendation. 10/24: s/p repeat EGD today. following EGD he bacame lethargic with respiratory distress , called code med- placed on bipap. Hb 6.7 -ordered PRBC. BG noted at 60s - D50 given and started on D5Ns drip and transferred to IMCU. 10/25: patient noted to have HR of 160s this am which improved after iv metoprolol and now placed on amio drip, ordered 2d echo, consult cardiology. off Bipap since this am, repeat h/h stable. He is tolerating clear liquid diet. cont to monitor h/h. 10/26: clinically improved, off bipap, off amioderone. getting 2d echo at bedside. cont supportive care. h/h stable. f/u with vascular for possible angiogram. monitor cbc/bmp 10/27 patient no new concerns. Heart rate controlled with beta-frederic. Stable with nasal cannula. Follow-up hemoglobin hematocrit stable at 7.5/22. Still has poor appetite. Encouraged to drink supplement In addition to meals. Objective - Constitutional Vitals: Vital Signs - 12hr 10/27/20 10/27/20 10/27/20 04:41 04:51 05:00 Temperature Pulse Rate 74 76 77 Pulse Rate [ From Monitor] Respiratory 20 18 18 Rate Blood Pressure 134/61 134/61 117/73 O2 Sat by Pulse 100 100 100 Oximetry 10/27/20 10/27/20 10/27/20 05:11 05:21 05:31 Temperature Pulse Rate 79 77 78 Pulse Rate [ From Monitor] Respiratory 17 21 18 Rate Blood Pressure 117/73 117/73 117/73 O2 Sat by Pulse 100 100 100 Oximetry 10/27/20 10/27/20 10/27/20 05:41 05:51 06:00 Temperature Pulse Rate 77 80 76 Pulse Rate [ From Monitor] Respiratory 16 19 22 Rate Blood Pressure 117/73 117/73 92/65 O2 Sat by Pulse 100 Oximetry 10/27/20 10/27/20 10/27/20 06:11 06:21 06:31 Temperature Pulse Rate 77 75 76 Pulse Rate [ From Monitor] Respiratory 25 H 20 18 Rate Blood Pressure 92/65 92/65 92/65 O2 Sat by Pulse Oximetry 10/27/20 10/27/20 10/27/20 06:41 06:51 07:01 Temperature Pulse Rate 77 77 78 Pulse Rate [ From Monitor] Respiratory 23 21 22 Rate Blood Pressure 92/65 92/65 92/65 O2 Sat by Pulse Oximetry 10/27/20 10/27/20 10/27/20 07:11 07:21 07:31 Temperature Pulse Rate 79 78 88 Pulse Rate [ From Monitor] Respiratory 15 14 18 Rate Blood Pressure 139/74 139/74 139/74 O2 Sat by Pulse Oximetry 10/27/20 10/27/20 10/27/20 07:41 08:00 08:01 Temperature 97.4 F L Pulse Rate 80 77 79 Pulse Rate [ 77 From Monitor] Respiratory 19 17 15 Rate Blood Pressure 139/74 139/74 O2 Sat by Pulse 100 Oximetry 10/27/20 10/27/20 10/27/20 08:11 08:21 08:31 Temperature Pulse Rate 79 77 77 Pulse Rate [ From Monitor] Respiratory 15 18 14 Rate Blood Pressure 138/73 138/73 138/73 O2 Sat by Pulse 96 Oximetry 10/27/20 10/27/20 10/27/20 08:41 08:51 09:01 Temperature Pulse Rate 75 75 75 Pulse Rate [ From Monitor] Respiratory 19 14 15 Rate Blood Pressure 138/73 138/73 145/68 O2 Sat by Pulse 95 98 Oximetry 10/27/20 10/27/20 10/27/20 09:11 09:21 09:25 Temperature Pulse Rate 77 83 78 Pulse Rate [ From Monitor] Respiratory 16 19 Rate Blood Pressure 145/68 145/68 145/68 O2 Sat by Pulse 81 L 98 Oximetry 10/27/20 10/27/20 10/27/20 09:31 09:41 09:51 Temperature Pulse Rate 81 80 80 Pulse Rate [ From Monitor] Respiratory 19 29 H Rate Blood Pressure 145/68 145/68 145/68 O2 Sat by Pulse 97 96 99 Oximetry 10/27/20 10/27/20 10/27/20 10:00 12:00 16:00 Temperature 98.3 F 98.7 F Pulse Rate 78 Pulse Rate [ From Monitor] Respiratory Rate Blood Pressure 144/78 O2 Sat by Pulse Oximetry General appearance: Present: cachectic - EENT Eyes: PERRL, EOM intact - Respiratory Respiratory effort: normal Respiratory: right: wheezing (Bilaterally but good air entry.), bilateral: CTA - Cardiovascular Rhythm: regularly irregular Extremities: pulses intact, No edema, normal color, Full ROM Extremity abnormal: other (Thin deconditioned) - Gastrointestinal General gastrointestinal: Present: soft, non-tender, non-distended, normal bowel sounds - Musculoskeletal Musculoskeletal: generalized weakness - Neurologic Neurologic: moves all extremities - Psychiatric Psychiatric: memory intact, appropriate mood/affect, intact judgment & insight - Labs CBC & Chem 7: 10/27/20 05:09 10/27/20 05:09 Labs: Abnormal lab results 10/27/20 10/27/20 Range/Units 05:09 05:09 WBC 16.4 H (4.5-11.0) K/mm3 RBC 2.57 L (3.65-5.03) M/mm3 Hgb 7.3 L (11.8-15.2) gm/dl Hct 22.7 L (35.5-45.6) % RDW 16.9 H (13.2-15.2) % Lymph % (Auto) 4.2 L (13.4-35.0) % Hettinger % (Auto) 7.7 H (0.0-7.3) % Lymph # (Auto) 0.7 L (1.2-5.4) K/mm3 Hettinger # (Auto) 1.3 H (0.0-0.8) K/mm3 Seg Neutrophils % 87.6 H (40.0-70.0) % Seg Neutrophils # 14.4 H (1.8-7.7) K/mm3 Chloride 113.5 H (98-107) mmol/L Glucose 114 H (75-100) mg/dL HEART Score - HEART Score EKG: Non-specific Risk factors: > 3 risk factors or hx of atherosclerotic disease Troponin: < normal limit - Critical Actions Critical Actions: 4-6 pts:12-16.6% risk of adverse cardiac event. Should be admitted
--- NOTE | 2020-10-27 16:56 | Gastroenterology Progress Note ---
Assessment and Plan 1. GI: UGI bleed s/p bleeding therapy - no further signs bleeding overnight - follow h/h, transfuse as needed - ok to advance to soft diet - repeat EGD next week especially if plans for IR intervention - will follow Subjective Date of service: 10/27/20 Principal diagnosis: AE-COPD; Acute G.I. Bleed; Cellulitis; HTN Interval history: - no signs bleeding overnight per staff Objective - Constitutional Vitals: Temp Pulse Resp BP Pulse Ox 98.7 F 78 29 H 144/78 99 10/27/20 16:00 10/27/20 10:00 10/27/20 09:41 10/27/20 10:00 10/27/20 09:51 General appearance: no acute distress - EENT Eyes: PERRL - Respiratory Respiratory: bilateral: CTA - Cardiovascular Rhythm: regular Heart Sounds: Present: S1 & S2 - Gastrointestinal General gastrointestinal: Present: soft, non-tender, non-distended - Labs CBC & Chem 7: 10/27/20 05:09 10/27/20 05:09 Labs: Laboratory Results - last 24 hr 10/27/20 10/27/20 05:09 05:09 WBC 16.4 H RBC 2.57 L Hgb 7.3 L Hct 22.7 L MCV 89 MCH 28 MCHC 32 RDW 16.9 H Plt Count 357 Lymph % (Auto) 4.2 L Rankin % (Auto) 7.7 H Eos % (Auto) 0.4 Baso % (Auto) 0.1 Lymph # (Auto) 0.7 L Rankin # (Auto) 1.3 H Eos # (Auto) 0.1 Baso # (Auto) 0.0 Seg Neutrophils % 87.6 H Seg Neutrophils # 14.4 H Sodium 145 Potassium 3.7 Chloride 113.5 H Carbon Dioxide 22 Anion Gap 13 BUN 9 Creatinine 1.1 Estimated GFR > 60 BUN/Creatinine Ratio 8 Glucose 114 H Calcium 9.2
[2020-10-27] MEDS: levoFLOXacin 750 MG TAB PO SCH (17:07)
--- NOTE | 2020-10-27 18:51 | Consultation ---
PULMONARY CRITICAL CARE NOTE CONSULTING PHYSICIAN: Dr. Hull. REASON FOR CONSULTATION: Acute respiratory failure. CHIEF COMPLAINT AND HISTORY OF PRESENT ILLNESS: The patient is a 75-year-old male. According to him, past medical history significant for home oxygen dependent COPD that was due to a 30+ pack year tobacco smoking history for which he is seen by primary care physician in [facility], also with a history of peripheral vascular disease. He was admitted to the hospital by the Vascular Surgery initially for thrombolytic therapy of the left lower extremity. He does have a history of 2 bypasses at ____ [facility]. On arrival, he was found to have a leukocytosis and acute kidney injury and also had left lower extremity cellulitis and ulceration that has been painful for about a couple of weeks. Of note, he also was complaining of shortness of breath, increased work of breathing that had been going on for about 2-3 days. He denied any sick contacts at home. He states he no longer smokes since 2018. He denies any history of known COVID-19 exposure. He denied any new lower extremity swelling either unilaterally or bilaterally or any suggestion of a DVT and he denies running out of his oxygen at home, but he says he is not on any inhalers at home. He was evaluated in the hospital and we are asked to assist with management. When I stopped by to see him, he was resting in bed, stated he was feeling better, no longer using his BiPAP machine. Of note, he was not wearing his oxygen and I did advise him to put his supplemental oxygen back. This really is as much of the history of presentation as I have. PAST MEDICAL HISTORY: Again, home oxygen dependent COPD, hypertension, peripheral vascular disease, adult failure to thrive, protein-calorie malnutrition. PAST SURGICAL HISTORY: He has had a bypass surgery I believe to the lower extremities x 2. MEDICATIONS: He was on at the time I stopped by to see him were reviewed, pertinent medications include the following: Tylenol 650 mg p.o. q.4 hours p.r.n. mild pain or fevers, DuoNeb nebulizer treatments nebulized q.3 hours p.r.n., amiodarone drip had been going at 1 mg per minute earlier. He is on daptomycin 250 mg IV q.48 hours, docusate sodium 100 mg p.o. b.i.d., Dilaudid 0.5 mg IV q.3 hours p.r.n. severe pain, Levaquin 750 mg p.o. q.48 hours, Reglan 5 mg IV q.6 hours p.r.n. nausea and vomiting, metoprolol 5 mg IV q.6 hours p.r.n. tachycardia. He is also on metoprolol 25 mg p.o. b.i.d., daily multivitamin, Zofran 4 mg IV q.8 hours p.r.n. nausea and vomiting, Protonix 40 mg IV b.i.d., Trental 400 mg p.o. b.i.d. and Senokot 8.6 mg p.o. q.12 hours. ALLERGIES: No known drug allergies. DIET: Thin really cachectic gentleman. Denies acute weight loss or gain in the preceding few weeks to months. FAMILY AND SOCIAL HISTORY: Lives in the community, has a 30+ pack year tobacco smoking history, quit smoking 2 years ago. Denies alcohol or illicit drug use or abuse. Family history is otherwise significant for hypertension. REVIEW OF SYSTEMS: No loss of consciousness. No new onset seizures. No new onset focal weakness. No gross hematochezia or melena. No gross hematuria or dysuria. No hematemesis. No hemoptysis. He complained of the left lower extremity pain at the site of the ulceration. He denies a history of seizures. He denies polydipsia or polyuria. Denies heat or cold intolerance. Complete 13-system review of systems was obtained. Pertinent positives and/or negatives as in body of history above, otherwise, they are noncontributory. PHYSICAL EXAMINATION: VITAL SIGNS: At presentation, he was afebrile, temperature 97.8 degrees Fahrenheit, pulse of 68, respiratory rate was 16, blood pressure 154/98, O2 sats 100%, inspired oxygen concentration at that time was not recorded. When I stopped by to see him, his O2 sats were 97% that was on 4 liters nasal cannula, which he had just taken off and I have asked him to put right back on. GENERAL: Again, elderly looking male. Normocephalic, atraumatic, talking to me with mildly increased respiratory effort at rest. HEAD, EYES, EARS, NOSE AND THROAT: Anicteric. No conjunctival erythema. Oropharynx was moist. Mallampati #2. No gross jugular venous distention, no thyromegaly. He does have some supraclavicular and temporal wasting. NECK: Grossly, there were no palpable lymph nodes in the supraclavicular or submandibular lymph node chains. LUNGS: Auscultation of both lung nayak significant for diminished bilateral breath sounds, prolonged expiratory phase, faint inspiratory left lower lobe crackles, no wheezing. HEART: Heart sounds 1 and 2 are heard at the time of my evaluation. Regular rate and rhythm without overt rubs or murmurs. ABDOMEN: Soft, flat. Bowel sounds are positive, nontender, no palpable hepatosplenomegaly. EXTREMITIES: Without overt digital clubbing, no cyanosis, no pedal edema. He has loss of hair to the lower extremities. He has a dressing to the left lower leg. Pedal pulses palpable, but weak. NEUROLOGIC: Pupils equal, round, about 4 mm, reactive to light. Extraocular muscle movements are intact. He moves all 4 extremities spontaneously. SKIN: Poor turgor; however, without overt rash. He does have the cellulitis of the left leg. Please see the wound care nurse's notes for full description of the skin. PSYCHIATRIC: Mood was normal. Affect was appropriate. LABORATORY DATA: From my review are as follows: Admission white cell count 12,000, hemoglobin 11.7, hematocrit 35.0, platelet count was 417. No manual differential. INR 1.10. Serum sodium 139, potassium 4.4, chloride 99, bicarbonate 30, BUN 29, creatinine 2.2, glucose was 114. Hemoglobin A1c 5.4. White cell count is 16,200 today. Serum sodium 147. TSH within normal limits. Wound culture growing gram-negative rods. I do not have a chest x-ray to review. A 2D echocardiogram has been done, the report is pending. ASSESSMENT: 1. Acute possibly on chronic hypoxemic respiratory failure. 2. Acute chronic obstructive pulmonary disease exacerbation. 3. Left lower extremity cellulitis. 4. Peripheral vascular disease. 5. History of tobacco abuse. 6. Acute kidney injury. 7. Anemia that is normocytic. 8. Ynwf-[id number] protein-calorie malnutrition. 9. Adult failure to thrive. 10. Mild metabolic acidosis with a hyperchloremic element. PLAN: I will get an arterial blood gas to better understand his ventilatory status and evaluate for hypercapnia. I have advised him 2 years ago on his bilevel positive air pressure ventilation therapy at bedtime and I will change that out to bedtime with p.r.n. daytime use. He will be put on long-acting bronchodilators as well as inhaled corticosteroids. I will hold on systemic steroids. I will schedule DuoNeb b.i.d. in the short-term. I have advised him he needs a referral to a heating repair technician as I doubt his primary care physician will be able to manage this degree of clinical emphysema. I will go ahead and get a chest x-ray just to better evaluate the pulmonary status better. He is on full anticoagulation. He is appropriately on GI prophylaxis. I will defer to the vascular team for further management. I will defer to Infectious Disease for further management. Flu and pneumonia vaccination will be addressed per protocol. Thank you very much for the consult. We will follow along and make further recommendations as picture progresses/becomes clearer. I should mention, continued tobacco abstinence and the benefits of continued tobacco abstinence have been discussed at length with the patient. JOB# [id number] JINNY/MIGUEL NELSON
[2020-10-27] MEDS: BUDESONIDE 0.5 MG/2 ML NEBU IH SCH ×3 (20:10→20:36)
[2020-10-27] MEDS: ARFORMOTEROL 15 MCG/2 ML NEBU IH SCH ×3 (20:10→20:37)
[2020-10-27] MEDS: IPRATROPIUM/ALBUTEROL SULFATE 3 ML AMPUL.NEB IH SCH ×2 (20:36→20:57)
[2020-10-27 20:50] LABS: ABG Base Excess -5.3 mmol/L (-2.0-3.0); ABG HCO3 22.7 mmol/L (20.0-26.0); ABG Methemoglobin 0.5 % (0.0-1.5); ABG PO2 129.2 mm Hg (80.0-90.0)
[2020-10-27 20:55] LABS: ABG PH 7.189 pH Units (7.350-7.450)
[2020-10-27] MEDS: ACETAMINOPHEN 325 MG TAB PO PRN (22:03)
[2020-10-28] MEDS: D5W/0.45% NACL 1,000 ML IV SCH ×2 (06:41→21:05)
[2020-10-28] MEDS: ARFORMOTEROL 15 MCG/2 ML NEBU IH SCH ×2 (08:13→20:39)
[2020-10-28] MEDS: IPRATROPIUM/ALBUTEROL SULFATE 3 ML AMPUL.NEB IH SCH ×2 (08:14→20:39)
[2020-10-28] MEDS: BUDESONIDE 0.5 MG/2 ML NEBU IH SCH ×2 (08:14→20:39)
[2020-10-28] MEDS: PANTOPRAZOLE 40 MG INJ IV SCH ×2 (09:58→21:05)
[2020-10-28] MEDS: DOCUSATE SODIUM 100 MG CAP PO SCH ×2 (09:58→21:07)
[2020-10-28] MEDS: METOPROLOL TARTRATE 25 MG TAB PO SCH ×2 (09:58→21:06)
[2020-10-28] MEDS: SENNOSIDES 8.6 MG TAB PO SCH ×2 (09:58→21:07)
[2020-10-28] MEDS: MULTIVITAMINS,THER W-MINERALS TAB PO SCH (09:58)
[2020-10-28] MEDS: HYDROmorphone 1 MG/1 ML INJ IV PRN (10:02)
[2020-10-28] MEDS: PENTOXIFYLLINE ER 400 MG TAB PO SCH ×2 (10:03→21:07)
--- NOTE | 2020-10-28 11:26 | Progress Note ---
Assessment and Plan - Patient Problems (1) Paroxysmal SVT (supraventricular tachycardia) Current Visit: Yes Status: Acute (2) COPD (chronic obstructive pulmonary disease) Current Visit: Yes Status: Chronic Qualifiers: Emphysema type: unspecified Subjective Date of service: 10/28/20 Principal diagnosis: AE-COPD; Acute G.I. Bleed; Cellulitis; HTN Interval history: NO CV C/O Objective Vital Signs Temp Pulse Pulse Resp Resp Resp BP 10/28/20 10:00 82 23 148/67 10/28/20 09:58 85 148/67 10/28/20 09:00 85 25 H 148/67 10/28/20 08:14 80 24 10/28/20 08:00 97.8 F 75 28 H 143/65 10/28/20 07:00 79 23 138/72 10/28/20 06:00 73 21 123/68 10/28/20 05:00 68 22 123/68 10/28/20 04:39 68 10/28/20 04:00 97.7 F 68 16 117/57 10/28/20 03:00 67 22 98/57 10/28/20 02:00 71 22 101/55 10/28/20 01:00 65 20 101/55 10/28/20 00:28 67 22 103/50 10/28/20 00:02 67 10/28/20 00:00 97.9 F 67 25 H 103/50 10/27/20 23:41 24 10/27/20 23:18 70 12 95/40 10/27/20 23:03 20 10/27/20 23:00 73 21 135/73 10/27/20 22:03 76 25 H 135/73 10/27/20 22:00 77 21 110/55 10/27/20 21:00 79 16 130/50 10/27/20 20:50 76 20 130/50 10/27/20 20:46 77 20 130/50 10/27/20 20:40 76 22 130/50 10/27/20 20:30 77 21 130/50 10/27/20 20:21 77 10/27/20 20:20 77 19 130/50 10/27/20 20:18 10/27/20 20:17 76 21 10/27/20 20:10 78 22 130/50 12/05/20 20:00 97.5 F L 76 21 130/50 120520 19:50 80 21 106/71 0520 19:40 76 19 106/71 20 19:30 75 21 106/71 0520 19:20 78 21 106/71 0520 19:10 77 21 106/71 0520 19:00 78 23 106/71 0520 18:50 83 21 106/71 20 18:40 78 19 106/71 20 18:30 78 15 106/71 10/27/20 18:20 76 23 106/71 10/27/20 18:10 76 22 106/71 10/27/20 18:00 78 18 143/68 10/27/20 17:50 77 21 143/68 10/27/20 17:40 81 15 143/68 10/27/20 17:30 80 26 H 143/68 10/27/20 17:20 78 20 143/68 10/27/20 17:10 78 21 143/68 10/27/20 17:00 78 14 179/110 10/27/20 16:50 77 25 H 179/110 10/27/20 16:40 78 22 179/110 10/27/20 16:30 76 20 179/110 10/27/20 16:20 77 21 179/110 10/27/20 16:10 73 18 179/110 10/27/20 16:00 98.7 F 76 20 149/63 10/27/20 15:50 75 17 149/63 10/27/20 15:40 76 21 149/63 10/27/20 15:30 77 14 149/63 10/27/20 15:20 74 20 149/63 10/27/20 15:10 71 21 149/63 10/27/20 15:00 72 19 149/63 10/27/20 14:50 72 22 150/82 10/27/20 14:40 74 24 150/82 10/27/20 14:30 73 21 150/82 10/27/20 14:20 73 20 150/82 10/27/20 14:10 73 22 150/82 10/27/20 14:00 75 20 144/73 10/27/20 13:50 76 18 144/73 10/27/20 13:40 72 18 144/73 10/27/20 13:30 73 19 144/73 10/27/20 13:20 75 144/73 10/27/20 13:10 76 24 144/73 10/27/20 13:00 70 19 144/73 10/27/20 12:50 75 24 156/78 10/27/20 12:40 68 17 133/65 10/27/20 12:30 69 23 133/65 10/27/20 12:22 133/65 10/27/20 12:12 133/65 10/27/20 12:00 98.3 F 18 133/65 10/27/20 11:50 156/78 10/27/20 11:40 156/78 10/27/20 11:32 70 156/78 Pulse Ox 10/28/20 10:00 10/28/20 09:58 10/28/20 09:00 97 10/28/20 08:14 100 10/28/20 08:00 100 10/28/20 07:00 100 10/28/20 06:00 100 10/28/20 05:00 100 10/28/20 04:39 10/28/20 04:00 100 10/28/20 03:00 100 10/28/20 02:00 80 L 10/28/20 01:00 100 10/28/20 00:28 100 10/28/20 00:02 10/28/20 00:00 100 10/27/20 23:41 10/27/20 23:18 100 10/27/20 23:03 10/27/20 23:00 100 10/27/20 22:03 10/27/20 22:00 100 10/27/20 21:00 100 10/27/20 20:50 100 10/27/20 20:46 100 10/27/20 20:40 100 10/27/20 20:30 100 10/27/20 20:21 10/27/20 20:20 94 10/27/20 20:18 96 10/27/20 20:17 10/27/20 20:10 100 10/27/20 20:00 10/27/20 19:50 93 10/27/20 19:40 10/27/20 19:30 10/27/20 19:20 10/27/20 19:10 100 12/05/20 19:00 10/27/20 18:50 87 10/27/20 18:40 100 10/27/20 18:30 10/27/20 18:20 97 10/27/20 18:10 84 10/27/20 18:00 10/27/20 17:50 10/27/20 17:40 10/27/20 17:30 10/27/20 17:20 10/27/20 17:10 10/27/20 17:00 10/27/20 16:50 10/27/20 16:40 10/27/20 16:30 10/27/20 16:20 10/27/20 16:10 10/27/20 16:00 98 10/27/20 15:50 10/27/20 15:40 82 L 10/27/20 15:30 10/27/20 15:20 91 10/27/20 15:10 10/27/20 15:00 10/27/20 14:50 10/27/20 14:40 100 10/27/20 14:30 10/27/20 14:20 10/27/20 14:10 10/27/20 14:00 10/27/20 13:50 10/27/20 13:40 10/27/20 13:30 100 10/27/20 13:20 93 10/27/20 13:10 10/27/20 13:00 83 L 10/27/20 12:50 73 L 10/27/20 12:40 83 L 10/27/20 12:30 10/27/20 12:22 100 10/27/20 12:12 92 10/27/20 12:00 98 10/27/20 11:50 10/27/20 11:40 90 10/27/20 11:32 - Physical Examination HEENT: Positive: PERRL, Other (THIN) Neck: Positive: neck supple Cardiac: Positive: Reg Rate and Rhythm Lungs: Positive: clear to auscultation Neuro: Positive: Grossly Intact Abdomen: Positive: Soft Extremities: Present: edema (NO,,,DIM. PULSES) - Imaging and Cardiology EKG: report reviewed
--- NOTE | 2020-10-28 12:56 | Progress Note ---
Assessment and Plan Acute possibly on chronic hypoxemic respiratory failure. Acute chronic obstructive pulmonary disease exacerbation. Left lower extremity cellulitis. Peripheral vascular disease. History of tobacco abuse. Acute kidney injury. Anemia that is normocytic. [id number] protein-calorie malnutrition. Adult failure to thrive. Mild metabolic acidosis with a hyperchloremic element - continue to wean supplemental oxygen to keep O2 sats > 88-90% acutely (restrictive oxygen therapy) - BIPAP scheduled qhs with prn daytime use - continue Bronchodilators ([place] & LABA) with pulm hygiene per RT - continue systemic steroids with slow taper - continue inhaled corticosteroids - avoid nephrotoxins, renally dose all medications - continue antiplatelet therapy per vascular team - mobility protocols to prevent pressure ulcers - PT/OT as tolerated - Wound care per RN/WCT - prn analgesia per pain score - accuchecks with glycemic control per SSI for target blood glucose < 180 mg/dL - continued tobacco abstinence strongly counseled at the bedside - home oxygen evaluation at discharge - GI & VTE prophylaxis - Flu & pneumovax per protocol - Pulmonary out patient follow up for PFTs and optimization of respiratory status - continue other care per attending / other consultants ... re-evaluate in am & prn Subjective Date of service: 10/28/20 Principal diagnosis: AE-COPD; Acute G.I. Bleed; Cellulitis; HTN Interval history: Patient is seen today for: Acute possibly on chronic hypoxemic respiratory failure; AE-COPD; L. lower extremity cellulitis; PVD; JOSHUA; Anemia Seen and examined at bedside; 24hour events reviewed; nursing and respiratory care staff consulted; no adverse overnight events reported to me; sitting in bed; states he feels a little better; still SOB; no N/V/F/C Objective Vital Signs - 12hr 10/28/20 10/28/20 10/28/20 01:00 02:00 03:00 Temperature Pulse Rate 65 71 67 Pulse Rate [ Anterior Bilateral] Respiratory 20 22 22 Rate Respiratory Rate [Anterior Bilateral] Blood Pressure 101/55 101/55 98/57 O2 Sat by Pulse 100 80 L 100 Oximetry 10/28/20 10/28/20 10/28/20 04:00 04:39 05:00 Temperature 97.7 F Pulse Rate 68 68 68 Pulse Rate [ Anterior Bilateral] Respiratory 16 22 Rate Respiratory Rate [Anterior Bilateral] Blood Pressure 117/57 123/68 O2 Sat by Pulse 100 100 Oximetry 10/28/20 10/28/20 10/28/20 06:00 07:00 08:00 Temperature 97.8 F Pulse Rate 73 79 75 Pulse Rate [ Anterior Bilateral] Respiratory 21 23 28 H Rate Respiratory Rate [Anterior Bilateral] Blood Pressure 123/68 138/72 143/65 O2 Sat by Pulse 100 100 100 Oximetry 10/28/20 10/28/20 10/28/20 08:14 09:00 09:58 Temperature Pulse Rate 85 85 Pulse Rate [ 80 Anterior Bilateral] Respiratory 25 H Rate Respiratory 24 Rate [Anterior Bilateral] Blood Pressure 148/67 148/67 O2 Sat by Pulse 100 97 Oximetry 10/28/20 10:00 Temperature Pulse Rate 82 Pulse Rate [ Anterior Bilateral] Respiratory 23 Rate Respiratory Rate [Anterior Bilateral] Blood Pressure 148/67 O2 Sat by Pulse Oximetry Constitutional: no acute distress, other (elderly chronically ill looking male with mildly increased respiratory effort at rest) Eyes: non-icteric ENT: oropharynx moist, other (mallampati 2) Neck: supple, no lymphadenopathy, no JVD Effort: mildly labored Ascultation: Bilateral: diminished breath sounds, rhonchi (scant), other (prolonged expiratory phase) Percussion: Bilateral: not dull Cardiovascular: regular rate and rhythm Gastrointestinal: normoactive bowel sounds, soft, non-tender, non-distended Integumentary: cellulitis (left leg) Extremities: no cyanosis, no edema, no ischemia or petechiae, other (weak pulses) Neurologic: normal mental status, non-focal exam (grossly), pupils equal and round, motor strength normal and Psychiatric: mood appropriate, affect normal CBC and BMP: 10/27/20 05:09 10/27/20 05:09 ABG, PT/INR, D-dimer: ABG ABG pH 7.189 pH Units (7.350-7.450) L* 10/27/20 20:35 ABG pCO2 61.0 mm Hg 10/27/20 20:35 ABG pO2 129.2 mm Hg (80.0-90.0) H 10/27/20 20:35 ABG O2 Saturation 98.0 % (95.0-99.0) 10/27/20 20:35 PT/INR, D-dimer PT 14.0 Sec. (12.2-14.9) 10/22/20 09:04 INR 1.10 (0.87-1.13) 10/22/20 09:04 Abnormal lab findings: Abnormal Labs 10/22/20 10/22/20 10/22/20 09:04 09:04 09:04 WBC 12.0 H RBC Hgb 11.7 L Hct 35.0 L RDW 15.5 H Lymph % (Auto) 7.6 L [place] % (Auto) 7.5 H Lymph # (Auto) 0.9 L [place] # (Auto) 0.9 H Seg Neutrophils % 82.7 H Seg Neutrophils # 9.9 H Fibrinogen 708 H Heparin Anti-Xa Level ABG pH ABG pO2 ABG Base Excess ABG Hemoglobin Sodium Chloride Carbon Dioxide BUN 29 H Creatinine 2.2 H Glucose 114 H Calcium 10.4 H ALT Total Protein Albumin Crossmatch 10/22/20 10/23/20 10/23/20 18:54 04:18 04:18 WBC 14.8 H RBC 3.20 L Hgb 9.4 L Hct 28.7 L D RDW 15.3 H Lymph % (Auto) 7.0 L [place] % (Auto) 7.8 H Lymph # (Auto) 1.0 L [place] # (Auto) 1.2 H Seg Neutrophils % 83.1 H Seg Neutrophils # 12.3 H Fibrinogen Heparin Anti-Xa Level 2.00 H ABG pH ABG pO2 ABG Base Excess ABG Hemoglobin Sodium Chloride Carbon Dioxide BUN 34 H Creatinine 1.7 H Glucose Calcium ALT Total Protein Albumin Crossmatch 10/23/20 10/23/20 10/24/20 08:44 08:44 05:21 WBC 14.8 H 16.0 H RBC 2.71 L 2.13 L Hgb 7.9 L 6.2 L Hct 24.4 L 19.1 L* RDW Lymph % (Auto) 6.1 L 7.0 L [place] % (Auto) 7.5 H Lymph # (Auto) 0.9 L 1.1 L [place] # (Auto) 1.2 H Seg Neutrophils % 87.6 H 85.0 H Seg Neutrophils # 13.0 H 13.6 H Fibrinogen Heparin Anti-Xa Level ABG pH ABG pO2 ABG Base Excess ABG Hemoglobin Sodium Chloride 108.0 H Carbon Dioxide BUN 33 H Creatinine 1.5 H Glucose 123 H Calcium ALT 6 L Total Protein 5.9 L Albumin 2.7 L Crossmatch 10/24/20 10/24/20 10/24/20 05:21 07:02 18:26 WBC RBC Hgb 7.8 L Hct 23.6 L RDW Lymph % (Auto) [place] % (Auto) Lymph # (Auto) [place] # (Auto) Seg Neutrophils % Seg Neutrophils # Fibrinogen Heparin Anti-Xa Level ABG pH ABG pO2 ABG Base Excess ABG Hemoglobin Sodium 146 H Chloride 111.7 H Carbon Dioxide BUN 28 H Creatinine Glucose Calcium ALT Total Protein Albumin Crossmatch See Detail 10/25/20 10/25/20 10/26/20 08:44 08:44 07:02 WBC 16.9 H 16.2 H RBC 2.72 L 2.76 L Hgb 7.8 L 7.7 L Hct 24.2 L 24.2 L RDW 17.0 H 16.8 H Lymph % (Auto) 3.2 L 4.5 L [place] % (Auto) 8.1 H 9.2 H Lymph # (Auto) 0.5 L 0.7 L [place] # (Auto) 1.4 H 1.5 H Seg Neutrophils % 88.0 H 85.1 H Seg Neutrophils # 14.8 H 13.8 H Fibrinogen Heparin Anti-Xa Level ABG pH ABG pO2 ABG Base Excess ABG Hemoglobin Sodium 148 H Chloride 114.4 H Carbon Dioxide BUN Creatinine Glucose Calcium ALT Total Protein Albumin Crossmatch 10/26/20 10/27/20 10/27/20 07:02 05:09 05:09 WBC 16.4 H RBC 2.57 L Hgb 7.3 L Hct 22.7 L RDW 16.9 H Lymph % (Auto) 4.2 L [place] % (Auto) 7.7 H Lymph # (Auto) 0.7 L [place] # (Auto) 1.3 H Seg Neutrophils % 87.6 H Seg Neutrophils # 14.4 H Fibrinogen Heparin Anti-Xa Level ABG pH ABG pO2 ABG Base Excess ABG Hemoglobin Sodium 147 H Chloride 116.7 H 113.5 H Carbon Dioxide 19 L BUN Creatinine Glucose 120 H 114 H Calcium ALT Total Protein Albumin Crossmatch 10/27/20 20:35 WBC RBC Hgb Hct RDW Lymph % (Auto) [place] % (Auto) Lymph # (Auto) [place] # (Auto) Seg Neutrophils % Seg Neutrophils # Fibrinogen Heparin Anti-Xa Level ABG pH 7.189 L* ABG pO2 129.2 H ABG Base Excess -5.3 L ABG Hemoglobin 7.4 L Sodium Chloride Carbon Dioxide BUN Creatinine Glucose Calcium ALT Total Protein Albumin Crossmatch Chest x-ray: image reviewed (severe emphysema) Allied health notes reviewed: nursing
--- NOTE | 2020-10-28 13:09 | Progress Note ---
Assessment and Plan Acute possibly on chronic hypoxemic respiratory failure. Acute chronic obstructive pulmonary disease exacerbation. Acute G.I. Bleed Left lower extremity cellulitis. Peripheral vascular disease. History of tobacco abuse. Acute kidney injury. Anemia that is normocytic. [id number] protein-calorie malnutrition. Adult failure to thrive. Mild metabolic acidosis with a hyperchloremic element - continue to wean supplemental oxygen to keep O2 sats > 88-90% acutely (restrictive oxygen therapy) - BIPAP scheduled qhs with prn daytime use - continue Bronchodilators ([place] & LABA) with pulm hygiene per RT - continue systemic steroids with slow taper - continue inhaled corticosteroids - avoid nephrotoxins, renally dose all medications - continue antiplatelet therapy per vascular team - mobility protocols to prevent pressure ulcers - PT/OT as tolerated - Wound care per RN/WCT - prn analgesia per pain score - accuchecks with glycemic control per SSI for target blood glucose < 180 mg/dL - continued tobacco abstinence strongly counseled at the bedside - home oxygen evaluation at discharge - GI & VTE prophylaxis (double dose PPI therapy re: GI bleed) - Flu & pneumovax per protocol - Pulmonary out patient follow up for PFTs and optimization of respiratory status - continue other care per attending / other consultants ... re-evaluate in am & prn Subjective Date of service: 10/28/20 Principal diagnosis: AE-COPD; Acute G.I. Bleed; Cellulitis; HTN Interval history: Patient is seen today for: Acute possibly on chronic hypoxemic respiratory failure; AE-COPD; Ac[place]ite G.I. Bleed; L. lower extremity cellulitis; PVD; JOSHUA; Anemia Seen and examined at bedside; 24hour events reviewed; nursing and respiratory care staff consulted; no adverse overnight events reported to me; resting peacefully in bed; Objective Vital Signs - 12hr 10/28/20 10/28/20 10/28/20 02:00 03:00 04:00 Temperature 97.7 F Pulse Rate 71 67 68 Pulse Rate [ Anterior Bilateral] Respiratory 22 22 16 Rate Respiratory Rate [Anterior Bilateral] Blood Pressure 101/55 98/57 117/57 O2 Sat by Pulse 80 L 100 100 Oximetry 10/28/20 10/28/20 10/28/20 04:39 05:00 06:00 Temperature Pulse Rate 68 68 73 Pulse Rate [ Anterior Bilateral] Respiratory 22 21 Rate Respiratory Rate [Anterior Bilateral] Blood Pressure 123/68 123/68 O2 Sat by Pulse 100 100 Oximetry 10/28/20 10/28/20 10/28/20 07:00 08:00 08:14 Temperature 97.8 F Pulse Rate 79 75 Pulse Rate [ 80 Anterior Bilateral] Respiratory 23 28 H Rate Respiratory 24 Rate [Anterior Bilateral] Blood Pressure 138/72 143/65 O2 Sat by Pulse 100 100 100 Oximetry 10/28/20 10/28/20 10/28/20 09:00 09:58 10:00 Temperature Pulse Rate 85 85 82 Pulse Rate [ Anterior Bilateral] Respiratory 25 H 23 Rate Respiratory Rate [Anterior Bilateral] Blood Pressure 148/67 148/67 148/67 O2 Sat by Pulse 97 Oximetry Constitutional: no acute distress, other (elderly chronically ill looking male with mildly increased respiratory effort at rest) Eyes: non-icteric ENT: oropharynx moist Neck: supple, no lymphadenopathy, no JVD Effort: mildly labored Ascultation: Bilateral: diminished breath sounds, rhonchi, other (prolonged expiratory phase) Percussion: Bilateral: not dull Cardiovascular: regular rate and rhythm Gastrointestinal: normoactive bowel sounds, soft, non-tender, non-distended Integumentary: cellulitis (L. lower extremity) Extremities: no cyanosis, no edema, no ischemia or petechiae, other (weak pulses) Neurologic: normal mental status, non-focal exam, pupils equal and round, CN II- XII normal, motor strength normal and Psychiatric: mood appropriate, affect normal CBC and BMP: 10/27/20 05:09 10/27/20 05:09 ABG, PT/INR, D-dimer: ABG ABG pH 7.189 pH Units (7.350-7.450) L* 10/27/20 20:35 ABG pCO2 61.0 mm Hg 10/27/20 20:35 ABG pO2 129.2 mm Hg (80.0-90.0) H 10/27/20 20:35 ABG O2 Saturation 98.0 % (95.0-99.0) 10/27/20 20:35 PT/INR, D-dimer PT 14.0 Sec. (12.2-14.9) 10/22/20 09:04 INR 1.10 (0.87-1.13) 11/30/20 09:04 Abnormal lab findings: Abnormal Labs 10/22/20 10/22/20 10/22/20 09:04 09:04 09:04 WBC 12.0 H RBC Hgb 11.7 L Hct 35.0 L RDW 15.5 H Lymph % (Auto) 7.6 L [place] % (Auto) 7.5 H Lymph # (Auto) 0.9 L [place] # (Auto) 0.9 H Seg Neutrophils % 82.7 H Seg Neutrophils # 9.9 H Fibrinogen 708 H Heparin Anti-Xa Level ABG pH ABG pO2 ABG Base Excess ABG Hemoglobin Sodium Chloride Carbon Dioxide BUN 29 H Creatinine 2.2 H Glucose 114 H Calcium 10.4 H ALT Total Protein Albumin Crossmatch 10/22/20 10/23/20 10/23/20 18:54 04:18 04:18 WBC 14.8 H RBC 3.20 L Hgb 9.4 L Hct 28.7 L D RDW 15.3 H Lymph % (Auto) 7.0 L [place] % (Auto) 7.8 H Lymph # (Auto) 1.0 L [place] # (Auto) 1.2 H Seg Neutrophils % 83.1 H Seg Neutrophils # 12.3 H Fibrinogen Heparin Anti-Xa Level 2.00 H ABG pH ABG pO2 ABG Base Excess ABG Hemoglobin Sodium Chloride Carbon Dioxide BUN 34 H Creatinine 1.7 H Glucose Calcium ALT Total Protein Albumin Crossmatch 10/23/20 10/23/20 10/24/20 08:44 08:44 05:21 WBC 14.8 H 16.0 H RBC 2.71 L 2.13 L Hgb 7.9 L 6.2 L Hct 24.4 L 19.1 L* RDW Lymph % (Auto) 6.1 L 7.0 L [place] % (Auto) 7.5 H Lymph # (Auto) 0.9 L 1.1 L [place] # (Auto) 1.2 H Seg Neutrophils % 87.6 H 85.0 H Seg Neutrophils # 13.0 H 13.6 H Fibrinogen Heparin Anti-Xa Level ABG pH ABG pO2 ABG Base Excess ABG Hemoglobin Sodium Chloride 108.0 H Carbon Dioxide BUN 33 H Creatinine 1.5 H Glucose 123 H Calcium ALT 6 L Total Protein 5.9 L Albumin 2.7 L Crossmatch 10/24/20 10/24/20 10/24/20 05:21 07:02 18:26 WBC RBC Hgb 7.8 L Hct 23.6 L RDW Lymph % (Auto) [place] % (Auto) Lymph # (Auto) [place] # (Auto) Seg Neutrophils % Seg Neutrophils # Fibrinogen Heparin Anti-Xa Level ABG pH ABG pO2 ABG Base Excess ABG Hemoglobin Sodium 146 H Chloride 111.7 H Carbon Dioxide BUN 28 H Creatinine Glucose Calcium ALT Total Protein Albumin Crossmatch See Detail 10/25/20 10/25/20 10/26/20 08:44 08:44 07:02 WBC 16.9 H 16.2 H RBC 2.72 L 2.76 L Hgb 7.8 L 7.7 L Hct 24.2 L 24.2 L RDW 17.0 H 16.8 H Lymph % (Auto) 3.2 L 4.5 L [place] % (Auto) 8.1 H 9.2 H Lymph # (Auto) 0.5 L 0.7 L [place] # (Auto) 1.4 H 1.5 H Seg Neutrophils % 88.0 H 85.1 H Seg Neutrophils # 14.8 H 13.8 H Fibrinogen Heparin Anti-Xa Level ABG pH ABG pO2 ABG Base Excess ABG Hemoglobin Sodium 148 H Chloride 114.4 H Carbon Dioxide BUN Creatinine Glucose Calcium ALT Total Protein Albumin Crossmatch 10/26/20 10/27/20 10/27/20 07:02 05:09 05:09 WBC 16.4 H RBC 2.57 L Hgb 7.3 L Hct 22.7 L RDW 16.9 H Lymph % (Auto) 4.2 L [place] % (Auto) 7.7 H Lymph # (Auto) 0.7 L [place] # (Auto) 1.3 H Seg Neutrophils % 87.6 H Seg Neutrophils # 14.4 H Fibrinogen Heparin Anti-Xa Level ABG pH ABG pO2 ABG Base Excess ABG Hemoglobin Sodium 147 H Chloride 116.7 H 113.5 H Carbon Dioxide 19 L BUN Creatinine Glucose 120 H 114 H Calcium ALT Total Protein Albumin Crossmatch 10/27/20 20:35 WBC RBC Hgb Hct RDW Lymph % (Auto) [place] % (Auto) Lymph # (Auto) [place] # (Auto) Seg Neutrophils % Seg Neutrophils # Fibrinogen Heparin Anti-Xa Level ABG pH 7.189 L* ABG pO2 129.2 H ABG Base Excess -5.3 L ABG Hemoglobin 7.4 L Sodium Chloride Carbon Dioxide BUN Creatinine Glucose Calcium ALT Total Protein Albumin Crossmatch Allied health notes reviewed: nursing
[2020-10-28 14:55] LABS: Hematocrit 23.6 % (35.5-45.6); Hemoglobin 7.5 gm/dl (11.8-15.2); Mean Corpuscular HGB Conc 32 % (32-34); Mean Corpuscular Volume 90 fl (84-94); Platelet Count 391 K/mm3 (140-440); Red Blood Count 2.62 M/mm3 (3.65-5.03)
[2020-10-28] MEDS: levoFLOXacin 750 MG TAB PO SCH (14:57)
[2020-10-28 15:03] LABS: Alanine Aminotransferase 16 units/L (7-56); Albumin 2.7 g/dL (3.9-5); BUN/Creatinine Ratio 8; Blood Urea Nitrogen 9 mg/dL (9-20); Calcium 9.5 mg/dL (8.4-10.2); Hemolysis Index 34
--- NOTE | 2020-10-28 15:11 | Progress Note ---
Assessment and Plan GI bleed due to gastric ulcer started on PPI, GI consulted, follow h/h. s/p EGD x2 EGD 10/23: 1. Fresh appearing blood with clots in gastric body. Abnormal mucosa in the body with overlying blood clots, unable to be cleared with water irrigation. No active bleeding seen at the time of procedure. EGD 10/24: 1. Gastric body (lesser curvature) ulcer with visible vessel s/p epinephrine injection and gold probe. No active bleeding at end of procedure however vessel was unable to be obliterated with gold probe. No further episode of bleeding. Possible IR intervention --SVT, metoprolol iv q6 as needed Amiodarone and metoprolol. Echocardiogram pending Patient not a candidate for anticoagulation secondary to bleeding Cardiology consulted -- Cellulitis of left lower extremity Continues to improve clinically. Decreased erythema decrease pain. On Daptomycin and levaquin Vascular surgery consulted, ID also following --Sepsis with cellulitis resolving cont abx, follow Cx -- JOSHUA (acute kidney injury) IV fluids for now, follow daily labs likely vasomotor nephropathy --Severe anemia due to acute GI bleed --Hemoglobin hematocrit stable after transfusion. s/p transfusion, follow H&H, continue PPI Stable for transfer to floor -- HTN (hypertension) --Heart rate blood pressure optimal control with metoprolol. Cont antihypertensives --hypernatremia, resolved. -- Tobacco abuse counseling Patient has advanced COPD. Would require home O2 Counselled On Nicotine patch -- COPD (chronic obstructive pulmonary disease) [facility] Upon [facility]. --Acute on Chronic respiratory failure on 2L home O2, due to COPD and severe anemia s/p Bipap continue supplemental O2 as needed and nebulizer breathing treatment as needed -- PAD (peripheral artery disease) Defer to Vascular/IR Initially placed on Heparin drip - off now for GI bleed Patient currently on [place] need angioplasty/angiogram --hypoglycemia, resolved s/p d50, started on D5Ns iv --Severe protein calorie malnutrition will consult dietary, start on dietary supplements as tolerated Subjective Date of service: 10/28/20 Principal diagnosis: AE-COPD; Acute G.I. Bleed; Cellulitis; HTN Interval history: 75-year-old man past medical history COPD, hypertension, peripheral vascular disease had a left lower extremity cellulitis and ulceration and this has been painful for the past 2 weeks admitted to the hospital by vascular surgery for thrombolysis of the left lower extremity. Patient has a history of 2 bypasses at [facility]. On presentation he was found to have a leukocytosis as well as an JOSHUA. Patient started on iv abx, iv heparin drip, ID consulted - admitted for further mx. He then developed bloody BM - heparin discontinued, GI consulted for EGD, PPI started. 10/23: PLANNED TO Continue daptomycin for now, if improvement noted plan to discharge with Bactrim. follow cx and monitor renal function. Hemoglobin declined on heparin drip from 11.7-7.9 with history of black diarrhea this morning. GI consulted, planned for EGD today. follow vascular recommendation. 10/24: s/p repeat EGD today. following EGD he bacame lethargic with respiratory distress , called code med- placed on bipap. Hb 6.7 -ordered PRBC. BG noted at 60s - D50 given and started on D5Ns drip and transferred to [facility]. 10/25: patient noted to have HR of 160s this am which improved after iv metoprolol and now placed on amio drip, ordered 2d echo, consult cardiology. off Bipap since this am, repeat h/h stable. He is tolerating clear liquid diet. cont to monitor h/h. 10/26: clinically improved, off bipap, off amioderone. getting 2d echo at bedside. cont supportive care. h/h stable. f/u with vascular for possible angiogram. monitor cbc/bmp 10/27 patient no new concerns. Heart rate controlled with beta-frederic. Stable with nasal cannula. Follow-up hemoglobin hematocrit stable at 7.5/22. Still has poor appetite. Encouraged to drink supplement In addition to meals. 10/28 patient doing much better has made attempts to eat more. Hemoglobin hematocrit stable no additional bleeding. Stable for transfer to floor. Objective - Constitutional Vitals: Vital Signs - 12hr 10/28/20 10/28/20 10/28/20 04:00 04:39 05:00 Temperature 97.7 F Pulse Rate 68 68 68 Pulse Rate [ Anterior Bilateral] Respiratory 16 22 Rate Respiratory Rate [Anterior Bilateral] Blood Pressure 117/57 123/68 O2 Sat by Pulse 100 100 Oximetry 10/28/20 10/28/20 10/28/20 06:00 07:00 08:00 Temperature 97.8 F Pulse Rate 73 79 75 Pulse Rate [ Anterior Bilateral] Respiratory 21 23 28 H Rate Respiratory Rate [Anterior Bilateral] Blood Pressure 123/68 138/72 143/65 O2 Sat by Pulse 100 100 100 Oximetry 10/28/20 10/28/20 10/28/20 08:14 09:00 09:58 Temperature Pulse Rate 85 85 Pulse Rate [ 80 Anterior Bilateral] Respiratory 25 H Rate Respiratory 24 Rate [Anterior Bilateral] Blood Pressure 148/67 148/67 O2 Sat by Pulse 100 97 Oximetry 10/28/20 10/28/20 10/28/20 10:00 11:01 12:00 Temperature 98.0 F Pulse Rate 82 73 Pulse Rate [ Anterior Bilateral] Respiratory 23 24 Rate Respiratory Rate [Anterior Bilateral] Blood Pressure 148/67 156/60 125/65 O2 Sat by Pulse Oximetry 10/28/20 10/28/20 13:00 14:00 Temperature Pulse Rate 74 72 Pulse Rate [ Anterior Bilateral] Respiratory 26 H 25 H Rate Respiratory Rate [Anterior Bilateral] Blood Pressure 156/60 123/72 O2 Sat by Pulse Oximetry General appearance: Present: no acute distress, cachectic - EENT Eyes: PERRL, EOM intact ENT: hearing intact, clear oral mucosa - Respiratory Respiratory: bilateral: CTA - Cardiovascular Rhythm: regularly irregular Extremities: No edema, normal color, Full ROM Extremity abnormal: cyanosis, pulses diminished, other - Gastrointestinal General gastrointestinal: Present: soft, non-tender, non-distended, normal bowel sounds, other (Scaphoid). Absent: hepatomegaly, splenomegaly - Musculoskeletal Musculoskeletal: generalized weakness, other (Improving cellulitis) - Neurologic Neurologic: moves all extremities - Psychiatric Psychiatric: memory intact, appropriate mood/affect, intact judgment & insight - Labs CBC & Chem 7: 10/28/20 14:24 10/27/20 05:09 Labs: Abnormal lab results 10/27/20 10/28/20 Range/Units 20:35 14:24 WBC 17.6 H (4.5-11.0) K/mm3 RBC 2.62 L (3.65-5.03) M/mm3 Hgb 7.5 L (11.8-15.2) gm/dl Hct 23.6 L (35.5-45.6) % RDW 17.0 H (13.2-15.2) % ABG pH 7.189 L* (7.350-7.450) pH Units ABG pO2 129.2 H (80.0-90.0) mm Hg ABG Base Excess -5.3 L (-2.0-3.0) mmol/L ABG Hemoglobin 7.4 L (14.0-18.0) gm/dl HEART Score - HEART Score EKG: Non-specific Risk factors: > 3 risk factors or hx of atherosclerotic disease Troponin: < normal limit - Critical Actions Critical Actions: 4-6 pts:12-16.6% risk of adverse cardiac event. Should be admitted
[2020-10-28 16:51] LABS: Basophils % (Manual) 0 % (0.0-1.8); Platelet Estimate Consistent w Auto; Schistocytes Rare; Total Cells Counted 100
--- NOTE | 2020-10-28 17:48 | Gastroenterology Progress Note ---
Assessment and Plan GI: UGI bleed s/p bleeding therapy - stable h/h without further signs bleeding - continue PPI iv bid - tolerating soft diet - if IR intervention for failed fem-pop graft will consider repeat EGD - no changes at this time, will follow Subjective Date of service: 10/28/20 Principal diagnosis: AE-COPD; Acute G.I. Bleed; Cellulitis; HTN Interval history: - no signs bleeding overnight per staff. No GI complaints Objective - Constitutional Vitals: Temp Pulse Resp BP Pulse Ox 98.2 F 72 24 134/62 78 L 10/28/20 16:00 10/28/20 16:00 10/28/20 16:00 10/28/20 16:00 10/28/20 15:00 General appearance: no acute distress - EENT Eyes: PERRL - Respiratory Respiratory: bilateral: CTA - Cardiovascular Rhythm: regular Heart Sounds: Present: S1 & S2 - Gastrointestinal General gastrointestinal: Present: soft, non-tender, non-distended - Labs CBC & Chem 7: 10/28/20 14:24 10/28/20 14:24 Labs: Laboratory Results - last 24 hr 10/27/20 10/28/20 10/28/20 20:35 14:24 14:24 WBC 17.6 H RBC 2.62 L Hgb 7.5 L Hct 23.6 L MCV 90 MCH 29 MCHC 32 RDW 17.0 H Plt Count 391 Add Manual Diff Complete Total Counted 100 Seg Neutrophils % Artist Blacksmith Seg Neuts % (Manual) 95.0 H Band Neutrophils % 0 Lymphocytes % (Manual) 2.0 L Reactive Lymphs % (Man) 0 Monocytes % (Manual) 2.0 Eosinophils % (Manual) 1.0 Basophils % (Manual) 0 Metamyelocytes % 0 Myelocytes % 0 Promyelocytes % 0 Blast Cells % 0 Nucleated RBC % 1.0 H Seg Neutrophils # Man 16.7 H Band Neutrophils # 0.0 Lymphocytes # (Manual) 0.4 L Abs React Lymphs (Man) 0.0 Monocytes # (Manual) 0.4 Eosinophils # (Manual) 0.2 Basophils # (Manual) 0.0 Metamyelocytes # 0.0 Myelocytes # 0.0 Promyelocytes # 0.0 Blast Cells # 0.0 WBC Morphology Not Reportable Hypersegmented Neuts Not Reportable Hyposegmented Neuts Not Reportable Hypogranular Neuts Not Reportable Smudge Cells Not Reportable Toxic Granulation Not Reportable Toxic Vacuolation Not Reportable Dohle Bodies Not Reportable Pelger-Huet Anomaly Not Reportable Eleazar Rods Not Reportable Platelet Estimate Consistent w auto Clumped Platelets Not Reportable Plt Clumps, EDTA Not Reportable Large Platelets Not Reportable Giant Platelets Not Reportable Platelet Satelliting Not Reportable Plt Morphology Comment Not Reportable RBC Morphology Not Reportable Dimorphic RBCs Not Reportable Polychromasia Not Reportable Hypochromasia Not Reportable Poikilocytosis Not Reportable Anisocytosis Not Reportable Microcytosis Not Reportable Macrocytosis Not Reportable Spherocytes Not Reportable Pappenheimer Bodies Not Reportable Sickle Cells Not Reportable Target Cells Not Reportable Tear Drop Cells Not Reportable Ovalocytes Not Reportable Helmet Cells Not Reportable Gro[place] Bodies Not Reportable Naches Rings Not Reportable João Cells Not Reportable Bite Cells Not Reportable Crenated Cell Not Reportable Elliptocytes Few Acanthocytes (Spur) Not Reportable Rouleaux Not Reportable Hemoglobin C Crystals Not Reportable Schistocytes Rare Malaria parasites Not Reportable Lai Bodies Not Reportable Hem Pathologist Commnt No ABG pH 7.189 L* ABG pCO2 61.0 ABG pO2 129.2 H ABG HCO3 22.7 ABG O2 Saturation 98.0 ABG O2 Content 10.3 ABG Base Excess -5.3 L ABG Hemoglobin 7.4 L ABG Carboxyhemoglobin 1.1 ABG Methemoglobin 0.5 Oxyhemoglobin 96.3 FiO2 32 Sodium 142 Potassium 4.8 D Chloride 112.2 H Carbon Dioxide 19 L Anion Gap 16 BUN 9 Creatinine 1.2 Estimated GFR > 60 BUN/Creatinine Ratio 8 Glucose 133 H Calcium 9.5 Total Bilirubin < 0.20 AST 35 ALT 16 Alkaline Phosphatase 52 Total Protein 5.7 L Albumin 2.7 L Albumin/Globulin Ratio 0.9 10/28/20 14:24 WBC RBC Hgb Hct MCV MCH MCHC RDW Plt Count Add Manual Diff Total Counted Seg Neutrophils % Seg Neuts % (Manual) Band Neutrophils % Lymphocytes % (Manual) Reactive Lymphs % (Man) Monocytes % (Manual) Eosinophils % (Manual) Basophils % (Manual) Metamyelocytes % Myelocytes % Promyelocytes % Blast Cells % Nucleated RBC % Seg Neutrophils # Man Band Neutrophils # Lymphocytes # (Manual) Abs React Lymphs (Man) Monocytes # (Manual) Eosinophils # (Manual) Basophils # (Manual) Metamyelocytes # Myelocytes # Promyelocytes # Blast Cells # WBC Morphology TNR Hypersegmented Neuts Hyposegmented Neuts Hypogranular Neuts Smudge Cells Toxic Granulation Toxic Vacuolation Dohle Bodies Pelger-Huet Anomaly Eleazar Rods Platelet Estimate Clumped Platelets Plt Clumps, EDTA Large Platelets Giant Platelets Platelet Satelliting Plt Morphology Comment RBC Morphology Dimorphic RBCs Polychromasia Hypochromasia Poikilocytosis Anisocytosis Microcytosis Macrocytosis Spherocytes Pappenheimer Bodies Sickle Cells Target Cells Tear Drop Cells Ovalocytes Helmet Cells Groves-[place]ead Bodies Naches Rings João Cells Bite Cells Crenated Cell Elliptocytes Acanthocytes (Spur) Rouleaux Hemoglobin C Crystals Schistocytes Malaria parasites Lai Bodies Hem Pathologist Commnt ABG pH ABG pCO2 ABG pO2 ABG HCO3 ABG O2 Saturation ABG O2 Content ABG Base Excess ABG Hemoglobin ABG Carboxyhemoglobin ABG Methemoglobin Oxyhemoglobin FiO2 Sodium Potassium Chloride Carbon Dioxide Anion Gap BUN Creatinine Estimated GFR BUN/Creatinine Ratio Glucose Calcium Total Bilirubin AST ALT Alkaline Phosphatase Total Protein Albumin Albumin/Globulin Ratio
[2020-10-28] MEDS: ACETAMINOPHEN 325 MG TAB PO PRN (21:07)
[2020-10-29 07:43] LABS: Hematocrit 21.5 % (35.5-45.6); Hemoglobin 7.2 gm/dl (11.8-15.2); Mean Corpuscular HGB Conc 34 % (32-34); Mean Corpuscular Volume 89 fl (84-94); Platelet Count 383 K/mm3 (140-440); Red Blood Count 2.41 M/mm3 (3.65-5.03)
[2020-10-29 08:05] LABS: BUN/Creatinine Ratio 9; Blood Urea Nitrogen 11 mg/dL (9-20); Calcium 9.3 mg/dL (8.4-10.2); Hemolysis Index 0
[2020-10-29] MEDS: BUDESONIDE 0.5 MG/2 ML NEBU IH SCH ×2 (08:42→21:28)
[2020-10-29] MEDS: ARFORMOTEROL 15 MCG/2 ML NEBU IH SCH ×2 (08:42→21:28)
[2020-10-29] MEDS: IPRATROPIUM/ALBUTEROL SULFATE 3 ML AMPUL.NEB IH SCH ×2 (08:43→21:28)
[2020-10-29] MEDS: D5W/0.45% NACL 1,000 ML IV SCH ×2 (08:45→23:19)
[2020-10-29] MEDS: MULTIVITAMINS,THER W-MINERALS TAB PO SCH ×2 (09:02→12:16)
[2020-10-29] MEDS: METOPROLOL TARTRATE 25 MG TAB PO SCH ×3 (09:02→22:29)
[2020-10-29] MEDS: PANTOPRAZOLE 40 MG INJ IV SCH ×2 (09:02→22:23)
[2020-10-29] MEDS: PENTOXIFYLLINE ER 400 MG TAB PO SCH ×2 (09:02→12:16)
[2020-10-29] MEDS: DOCUSATE SODIUM 100 MG CAP PO SCH ×2 (09:03→12:15)
[2020-10-29] MEDS: SENNOSIDES 8.6 MG TAB PO SCH ×2 (09:03→12:16)
--- NOTE | 2020-10-29 10:21 | Progress Note ---
<WARREN ANGELES - Last Filed: 10/29/20 10:18> Assessment and Plan Transient atrial fibrillation currently in sinus rhythm on metoprolol for suppression due to acute GI bleed and severe anemia, patient is not a candidate for oral anticoagulation. normal LVEF 60-65% by echo TSH of 1.4 PVD with cellulitis of the left lower extremity, and recent left lower extremity fem-pop occlusion. Acute GI bleed with severe anemia s/p transfusion of PRBCs COPD on home oxygen Cachexia Continue beta blockers for suppression of paroxysmal atrial fibrillation. Subjective Date of service: 10/29/20 Principal diagnosis: AE-COPD; Acute G.I. Bleed; Cellulitis; HTN Interval history: Stable sinus rhythm on telemetry. Objective Vital Signs Temp Pulse Pulse Pulse Resp Resp Resp 10/29/20 09:02 74 10/29/20 09:00 74 31 H 10/29/20 08:43 80 24 10/29/20 08:00 97.5 F L 80 80 29 H 10/29/20 07:00 82 28 H 10/29/20 06:00 80 28 H 10/29/20 05:00 79 25 H 10/29/20 04:47 77 77 24 22 10/29/20 04:00 75 30 H 10/29/20 03:28 98.8 F 10/29/20 03:15 72 10/29/20 03:00 69 27 H 10/29/20 02:00 72 30 H 10/29/20 01:00 71 29 H 10/29/20 00:06 73 32 H 10/29/20 00:03 70 10/29/20 00:00 72 31 H 10/28/20 23:58 98.2 F 10/28/20 23:00 69 30 H 10/28/20 22:07 32 H 10/28/20 22:00 80 26 H 10/28/20 21:07 25 H 10/28/20 21:06 80 10/28/20 21:00 83 31 H 10/28/20 20:40 10/28/20 20:28 81 10/28/20 20:00 97.8 F 79 28 H 10/28/20 19:00 77 28 H 10/28/20 18:00 77 26 H 10/28/20 17:00 78 28 H 10/28/20 16:00 98.2 F 75 27 H 24 10/28/20 15:00 73 22 10/28/20 14:00 72 25 H 10/28/20 13:00 74 26 H 10/28/20 12:00 98.0 F 73 24 10/28/20 11:01 BP Pulse Ox 10/29/20 09:02 135/68 10/29/20 09:00 133/80 96 10/29/20 08:43 100 10/29/20 08:00 133/80 100 10/29/20 07:00 125/75 99 10/29/20 06:00 142/52 100 10/29/20 05:00 133/61 100 10/29/20 04:47 133/61 98 10/29/20 04:00 112/61 100 10/29/20 03:28 10/29/20 03:15 10/29/20 03:00 108/54 100 10/29/20 02:00 108/54 100 10/29/20 01:00 108/54 100 10/29/20 00:06 119/62 99 10/29/20 00:03 10/29/20 00:00 119/62 99 10/28/20 23:58 10/28/20 23:00 103/45 91 10/28/20 22:07 10/28/20 22:00 114/86 10/28/20 21:07 10/28/20 21:06 114/86 10/28/20 21:00 127/59 83 L 10/28/20 20:40 100 10/28/20 20:28 10/28/20 20:00 127/59 100 10/28/20 19:00 129/70 81 L 10/28/20 18:00 112/55 100 10/28/20 17:00 112/55 97 10/28/20 16:00 134/62 10/28/20 15:00 123/72 78 L 10/28/20 14:00 123/72 10/28/20 13:00 156/60 10/28/20 12:00 125/65 10/28/20 11:01 156/60 - Physical Examination General: Cachectic, Other (SOB with mild distress) HEENT: Positive: PERRL Neck: Positive: neck supple Cardiac: Positive: Reg Rate and Rhythm Lungs: Positive: Decreased Breath Sounds, Wheezes Neuro: Positive: Grossly Intact - Labs and Meds Cardiac Enzymes 10/28/20 Range/Units 14:24 AST 35 (5-40) units/L CBC 10/28/20 10/29/20 Range/Units 14:24 06:44 WBC 17.6 H 19.6 H (4.5-11.0) K/mm3 RBC 2.62 L 2.41 L (3.65-5.03) M/mm3 Hgb 7.5 L 7.2 L (11.8-15.2) gm/dl Hct 23.6 L 21.5 L (35.5-45.6) % Plt Count 391 383 (140-440) K/mm3 Comprehensive Metabolic Panel 10/28/20 10/29/20 Range/Units 14:24 06:44 Sodium 142 142 (137-145) mmol/L Potassium 4.8 D 3.8 D (3.6-5.0) mmol/L Chloride 112.2 H 110.6 H (98-107) mmol/L Carbon Dioxide 19 L 25 (22-30) mmol/L BUN 9 11 (9-20) mg/dL Creatinine 1.2 1.2 (0.8-1.3) mg/dL Glucose 133 H 120 H (75-100) mg/dL Calcium 9.5 9.3 (8.4-10.2) mg/dL AST 35 (5-40) units/L ALT 16 (7-56) units/L Alkaline Phosphatase 52 (35-129) units/L Total Protein 5.7 L (6.3-8.2) g/dL Albumin 2.7 L (3.9-5) g/dL - Allied health notes Allied health notes reviewed: nursing <ANNY DEXTER - Last Filed: 10/30/20 07:50> Assessment and Plan - Patient Problems (1) Paroxysmal SVT (supraventricular tachycardia) Current Visit: Yes Status: Acute Subjective Interval history: I SAW THIS PT & AGREE WITH THE Dx & Tx PLAN. Objective Vital Signs Temp Pulse Pulse Pulse Resp Resp BP 10/30/20 04:00 98 F 10/30/20 01:38 85 21 132/64 10/30/20 01:00 82 15 106/53 10/30/20 00:00 98 F 85 82 23 113/56 10/29/20 23:00 87 23 132/64 10/29/20 22:29 81 127/68 10/29/20 22:00 81 21 122/61 10/29/20 21:30 82 21 122/61 10/29/20 21:29 77 20 10/29/20 21:04 74 20 117/57 10/29/20 21:00 76 19 117/57 10/29/20 20:00 97.3 F L 76 79 15 127/63 10/29/20 19:00 80 21 127/63 10/29/20 18:00 84 15 111/59 10/29/20 17:49 77 21 111/59 10/29/20 17:00 111/59 10/29/20 16:00 98.4 F 83 83 25 H 116/66 10/29/20 15:00 83 32 H 131/68 10/29/20 14:00 83 25 H 134/73 10/29/20 13:00 83 29 H 141/73 10/29/20 12:19 83 25 H 145/77 10/29/20 12:00 97.7 F 86 85 28 H 145/77 10/29/20 11:00 78 38 H 133/70 10/29/20 10:00 87 34 H 140/78 10/29/20 09:00 74 31 H 133/80 10/29/20 08:43 80 24 10/29/20 08:00 97.5 F L 80 80 29 H 133/80 Pulse Ox 10/30/20 04:00 10/30/20 01:38 100 10/30/20 01:00 10/30/20 00:00 100 10/29/20 23:00 10/29/20 22:29 10/29/20 22:00 84 10/29/20 21:30 10/29/20 21:29 10/29/20 21:04 10/29/20 21:00 10/29/20 20:00 97 10/29/20 19:00 10/29/20 18:00 100 10/29/20 17:49 100 10/29/20 17:00 100 10/29/20 16:00 100 10/29/20 15:00 100 10/29/20 14:00 98 10/29/20 13:00 100 10/29/20 12:19 100 10/29/20 12:00 100 10/29/20 11:00 88 10/29/20 10:00 98 10/29/20 09:00 96 10/29/20 08:43 100 10/29/20 08:00 100 - Labs and Meds CBC 10/30/20 Range/Units 05:27 Hgb 6.5 L (11.8-15.2) gm/dl Hct 20.2 L (35.5-45.6) % Plt Count 394 (140-440) K/mm3 Comprehensive Metabolic Panel 10/29/20 10/30/20 Range/Units 06:44 05:27 Sodium 142 138 (137-145) mmol/L Potassium 3.8 D 3.8 (3.6-5.0) mmol/L Chloride 110.6 H 107.3 H (98-107) mmol/L Carbon Dioxide 25 22 (22-30) mmol/L BUN 11 14 (9-20) mg/dL Creatinine 1.2 1.8 H (0.8-1.3) mg/dL Glucose 120 H 79 (75-100) mg/dL Calcium 9.3 9.2 (8.4-10.2) mg/dL
[2020-10-29 11:30] LABS: Anisocytosis 2+; Basophils % (Manual) 0 % (0.0-1.8); Eosinophils % (Manual) 0 % (0.0-4.3); Hypochromasia 1+; Macrocytosis Few; Platelet Estimate Consistent w Auto; Total Cells Counted 100
--- NOTE | 2020-10-29 12:51 | Progress Note ---
Assessment and Plan Cultures: Wound culture 10/22/2020 Pseudomonas intermediate to independent, sensitive to Levaquin A/P: 75-year-old man past medical history COPD, hypertension, peripheral vascular disease, found to have cellulitis #Left lower extremity cellulitis/skin sloughing: Per wound care evaluation on ulcer measures 22 x 18 x 0.1 cm circumferential, with a black eschar #Malnutrition #JOSHUA: Resolved #Peripheral vascular disease #Anemia: s/p Transfusion #GI bleed s/p epinephrine injection and gold probe. #Acute hypoxia: Chest x-ray with emphysema and pulmonary edema, now with desatur ation down to 88%, patient is tachypnea currently on 2 L nasal cannula Recs: -Obtain chest x-ray PA and lateral -worsening tachypnea and hypoxia -Obtain left leg tibial x-ray -Stop daptomycin day 8 - no MRSA or VRE -continue levaquin day 6 of 10 -wound care reeval Discussed with pharmacy will follow Sloane Gonzalez MD [facility] ([facility]) Office [phone] Subjective Date of service: 10/29/20 Principal diagnosis: AE-COPD; Acute G.I. Bleed; Cellulitis; HTN Interval history: Patient reports he feels okay, tachycardic on monitor, tachypnea too, no fever Objective - Exam Narrative Exam: General appearance: Alert in mild shortness of breath Eyes: anicteric sclerae, moist conjunctivae; no lid-lag; PERRLA HENT: Normocephalic, Atraumatic; normal external ears, nares open, oropharynx limited NG tube in place Neck: supple, tracheal midline, no JVD Lungs: Bilateral scattered rhonchi CV: RRR no murmur Abdomen: Soft, non-tender; no masses or hepatosplenomegaly Extremities: no edema, no cyanosis Skin: + Left leg covered with dressing Psych: no agitated Neuro: alert and oriented x 3. Moving all extermities - Constitutional Vitals: Vital Signs Temp Pulse Resp BP Pulse Ox 97.7 F 86 28 H 145/77 100 10/29/20 12:00 10/29/20 12:00 10/29/20 12:00 10/29/20 12:00 10/29/20 12:00 Temperature -Last 24 Hours Temperature 97.7 F Temperature 97.5 F Temperature 98.8 F Temperature 98.2 F Temperature 97.8 F Temperature 98.2 F - Labs CBC & Chem 7: 10/29/20 06:44 10/29/20 06:44 Labs: Abnormal lab results 10/28/20 10/28/20 10/29/20 Range/Units 14:24 14:24 06:44 WBC 17.6 H 19.6 H (4.5-11.0) K/mm3 RBC 2.62 L 2.41 L (3.65-5.03) M/mm3 Hgb 7.5 L 7.2 L (11.8-15.2) gm/dl Hct 23.6 L 21.5 L (35.5-45.6) % RDW 17.0 H 17.0 H (13.2-15.2) % Seg Neuts % (Manual) 95.0 H 98.0 H (40.0-70.0) % Lymphocytes % (Manual) 2.0 L 0 L (13.4-35.0) % Nucleated RBC % 1.0 H (0.0-0.9) % Seg Neutrophils # Man 16.7 H 19.2 H (1.8-7.7) K/mm3 Lymphocytes # (Manual) 0.4 L 0.0 L (1.2-5.4) K/mm3 Chloride 112.2 H (98-107) mmol/L Carbon Dioxide 19 L (22-30) mmol/L Glucose 133 H (75-100) mg/dL Total Protein 5.7 L (6.3-8.2) g/dL Albumin 2.7 L (3.9-5) g/dL 10/29/20 Range/Units 06:44 WBC (4.5-11.0) K/mm3 RBC (3.65-5.03) M/mm3 Hgb (11.8-15.2) gm/dl Hct (35.5-45.6) % RDW (13.2-15.2) % Seg Neuts % (Manual) (40.0-70.0) % Lymphocytes % (Manual) (13.4-35.0) % Nucleated RBC % (0.0-0.9) % Seg Neutrophils # Man (1.8-7.7) K/mm3 Lymphocytes # (Manual) (1.2-5.4) K/mm3 Chloride 110.6 H (98-107) mmol/L Carbon Dioxide (22-30) mmol/L Glucose 120 H (75-100) mg/dL Total Protein (6.3-8.2) g/dL Albumin (3.9-5) g/dL
--- NOTE | 2020-10-29 13:48 | Progress Note ---
Assessment and Plan Patient weak, sleepy and lethergic. and resting on BIPAP. Patient is on BIPAP 18/5, rate 20, FIO2 25% and O2 saturation running 100%. Patient has ABGs this morning. ABG on FIO2 32%. ABG pH 7.189 pH Units (7.350-7.450) L* 10/27/20 20:35 ABG pCO2 61.0 mm Hg 10/27/20 20:35 ABG pO2 129.2 mm Hg (80.0-90.0) H 10/27/20 20:35 ABG O2 Saturation 98.0 % (95.0-99.0) 10/27/20 20:35 After this blood gases, patient placed on BIPAP with above setting. Recommend to repeat blood gases on BIPAP. Patient afebrile . Patient has leukocytosis. Chest xray done to day 10/29/20 reported Lungs are again hyperinflated. There appear to be minimal bilateral pleural effusions. No definite acute pulmonary disease. Patient is on levaquin and Brovanna/Budesonide aerosol treatments q 12 hours. Patient is on protonix. Recommend SCDs I spent critical care time of 40 minutes, review the chart, examining the patient , review the labs, chest xray, talking to the nursing staff and respiratory therapy and work out plan of treatment in this critically ill Patient. - Patient Problems (1) Acute exacerbation of chronic obstructive airways disease Current Visit: Yes Status: Acute Plan to address problem: Continue BIPAP 18/5, rate 20, FIO2 25%. ABGs on BIPAP Brovanna/Budesonide aerosol treatments q 12 hours. Continue Levaquine. Continue Protonix. SCDs (2) Bronchitis, acute Current Visit: No Status: Acute Qualifiers: Bronchitis organism: unspecified organism Qualified Code(s): J20.9 - Acute bronchitis, unspecified Plan to address problem: Patient is on Levaquin. (3) Cellulitis of left lower extremity Current Visit: Yes Status: Acute Plan to address problem: Patient is on Levaquine. Management as per primary care and infectious diseases. (4) Femoral-popliteal bypass graft occlusion, left Current Visit: Yes Status: Acute Plan to address problem: Management as per vascular surgery. (5) GI bleed requiring more than 4 units of blood in 24 hours, ICU, or surgery Current Visit: Yes Status: Acute Plan to address problem: Management as per primary care and gastro enterology. (6) JOSHUA (acute kidney injury) Current Visit: Yes Status: Acute Plan to address problem: Management as per nephrology. (7) HTN (hypertension) Current Visit: No Status: Chronic Qualifiers: Hypertension type: essential hypertension Qualified Code(s): I10 - Essential (primary) hypertension Plan to address problem: Management as per primary care. (8) Tobacco abuse counseling Current Visit: No Status: Chronic Plan to address problem: Will executive assistant to general counsel to stop smoking when patient more awake and oriented. Subjective Date of service: 10/29/20 Principal diagnosis: AE-COPD; Acute G.I. Bleed; Cellulitis; HTN Interval history: Patient weak, sleepy and lethergic, and resting on BIPAP. Patient is on BIPAP 18/5, rate 20, FIO2 25% and O2 saturation running 100%. Patient has ABGs this morning. ABG on FIO2 32%. ABG pH 7.189 pH Units (7.350-7.450) L* 10/27/20 20:35 ABG pCO2 61.0 mm Hg 10/27/20 20:35 ABG pO2 129.2 mm Hg (80.0-90.0) H 10/27/20 20:35 ABG O2 Saturation 98.0 % (95.0-99.0) 10/27/20 20:35 After this blood gases, patient placed on BIPAP with above setting. Recommend to repeat blood gases on BIPAP. Patient afebrile . Patient has leukocytosis. Chest xray done to day 10/29/20 reported Lungs are again hyperinflated. There appear to be minimal bilateral pleural effusions. No definite acute pulmonary disease. Patient is on levaquin and Brovanna/Budesonide aerosol treatments q 12 hours. Patient is on protonix. Recommend SCDs Objective Vital Signs - 12hr 10/29/20 10/29/20 10/29/20 02:00 03:00 03:15 Temperature Pulse Rate 72 69 72 Pulse Rate [ Anterior Bilateral] Pulse Rate [ From Monitor] Respiratory 30 H 27 H Rate Respiratory Rate [Anterior Bilateral] Blood Pressure 108/54 108/54 O2 Sat by Pulse 100 100 Oximetry 10/29/20 10/29/20 10/29/20 03:28 04:00 04:47 Temperature 98.8 F Pulse Rate 75 77 Pulse Rate [ 77 Anterior Bilateral] Pulse Rate [ From Monitor] Respiratory 30 H 24 Rate Respiratory 22 Rate [Anterior Bilateral] Blood Pressure 112/61 133/61 O2 Sat by Pulse 100 98 Oximetry 10/29/20 10/29/20 10/29/20 05:00 06:00 07:00 Temperature Pulse Rate 79 80 82 Pulse Rate [ Anterior Bilateral] Pulse Rate [ From Monitor] Respiratory 25 H 28 H 28 H Rate Respiratory Rate [Anterior Bilateral] Blood Pressure 133/61 142/52 125/75 O2 Sat by Pulse 100 100 99 Oximetry 10/29/20 10/29/20 10/29/20 08:00 08:43 09:00 Temperature 97.5 F L Pulse Rate 80 74 Pulse Rate [ 80 Anterior Bilateral] Pulse Rate [ 80 From Monitor] Respiratory 29 H 31 H Rate Respiratory 24 Rate [Anterior Bilateral] Blood Pressure 133/80 133/80 O2 Sat by Pulse 100 100 96 Oximetry 10/29/20 10/29/20 10/29/20 10:00 11:00 12:00 Temperature 97.7 F Pulse Rate 87 78 86 Pulse Rate [ Anterior Bilateral] Pulse Rate [ 85 From Monitor] Respiratory 34 H 38 H 28 H Rate Respiratory Rate [Anterior Bilateral] Blood Pressure 140/78 133/70 145/77 O2 Sat by Pulse 98 88 100 Oximetry 10/29/20 10/29/20 12:19 13:00 Temperature Pulse Rate 83 83 Pulse Rate [ Anterior Bilateral] Pulse Rate [ From Monitor] Respiratory 25 H 29 H Rate Respiratory Rate [Anterior Bilateral] Blood Pressure 145/77 141/73 O2 Sat by Pulse 100 100 Oximetry Constitutional: no acute distress, lethargic, other (elderly chronically ill looking male with mildly increased respiratory effort at rest) Eyes: non-icteric ENT: oropharynx moist Neck: supple, no lymphadenopathy, no JVD Effort: mildly labored Ascultation: Bilateral: diminished breath sounds, rhonchi, other (prolonged expiratory phase) Percussion: Bilateral: not dull Cardiovascular: regular rate and rhythm Gastrointestinal: normoactive bowel sounds, soft, non-tender, non-distended Integumentary: cellulitis (L. lower extremity) Extremities: no cyanosis, no edema, no ischemia or petechiae, other (weak pulses) Neurologic: non-focal exam, pupils equal and round, CN II-XII normal Psychiatric: other (Patient sleepy and lethergic.) CBC and BMP: 10/29/20 06:44 10/29/20 06:44 ABG, PT/INR, D-dimer: ABG ABG pH 7.189 pH Units (7.350-7.450) L* 10/27/20 20:35 ABG pCO2 61.0 mm Hg 10/27/20 20:35 ABG pO2 129.2 mm Hg (80.0-90.0) H 10/27/20 20:35 ABG O2 Saturation 98.0 % (95.0-99.0) 10/27/20 20:35 PT/INR, D-dimer PT 14.0 Sec. (12.2-14.9) 10/22/20 09:04 INR 1.10 (0.87-1.13) 10/22/20 09:04 Abnormal lab findings: Abnormal Labs 10/22/20 10/22/20 10/22/20 09:04 09:04 09:04 WBC 12.0 H RBC Hgb 11.7 L Hct 35.0 L RDW 15.5 H Lymph % (Auto) 7.6 L Cass % (Auto) 7.5 H Lymph # (Auto) 0.9 L Cass # (Auto) 0.9 H Seg Neutrophils % 82.7 H Seg Neuts % (Manual) Lymphocytes % (Manual) Nucleated RBC % Seg Neutrophils # 9.9 H Seg Neutrophils # Man Lymphocytes # (Manual) Fibrinogen 708 H Heparin Anti-Xa Level ABG pH ABG pO2 ABG Base Excess ABG Hemoglobin Sodium Chloride Carbon Dioxide BUN 29 H Creatinine 2.2 H Glucose 114 H Calcium 10.4 H ALT Total Protein Albumin Crossmatch 10/22/20 10/23/20 10/23/20 18:54 04:18 04:18 WBC 14.8 H RBC 3.20 L Hgb 9.4 L Hct 28.7 L D RDW 15.3 H Lymph % (Auto) 7.0 L Cass % (Auto) 7.8 H Lymph # (Auto) 1.0 L Cass # (Auto) 1.2 H Seg Neutrophils % 83.1 H Seg Neuts % (Manual) Lymphocytes % (Manual) Nucleated RBC % Seg Neutrophils # 12.3 H Seg Neutrophils # Man Lymphocytes # (Manual) Fibrinogen Heparin Anti-Xa Level 2.00 H ABG pH ABG pO2 ABG Base Excess ABG Hemoglobin Sodium Chloride Carbon Dioxide BUN 34 H Creatinine 1.7 H Glucose Calcium ALT Total Protein Albumin Crossmatch 10/23/20 10/23/20 10/24/20 08:44 08:44 05:21 WBC 14.8 H 16.0 H RBC 2.71 L 2.13 L Hgb 7.9 L 6.2 L Hct 24.4 L 19.1 L* RDW Lymph % (Auto) 6.1 L 7.0 L Cass % (Auto) 7.5 H Lymph # (Auto) 0.9 L 1.1 L Cass # (Auto) 1.2 H Seg Neutrophils % 87.6 H 85.0 H Seg Neuts % (Manual) Lymphocytes % (Manual) Nucleated RBC % Seg Neutrophils # 13.0 H 13.6 H Seg Neutrophils # Man Lymphocytes # (Manual) Fibrinogen Heparin Anti-Xa Level ABG pH ABG pO2 ABG Base Excess ABG Hemoglobin Sodium Chloride 108.0 H Carbon Dioxide BUN 33 H Creatinine 1.5 H Glucose 123 H Calcium ALT 6 L Total Protein 5.9 L Albumin 2.7 L Crossmatch 10/24/20 10/24/20 10/24/20 05:21 07:02 18:26 WBC RBC Hgb 7.8 L Hct 23.6 L RDW Lymph % (Auto) Cass % (Auto) Lymph # (Auto) Cass # (Auto) Seg Neutrophils % Seg Neuts % (Manual) Lymphocytes % (Manual) Nucleated RBC % Seg Neutrophils # Seg Neutrophils # Man Lymphocytes # (Manual) Fibrinogen Heparin Anti-Xa Level ABG pH ABG pO2 ABG Base Excess ABG Hemoglobin Sodium 146 H Chloride 111.7 H Carbon Dioxide BUN 28 H Creatinine Glucose Calcium ALT Total Protein Albumin Crossmatch See Detail 10/25/20 10/25/20 10/26/20 08:44 08:44 07:02 WBC 16.9 H 16.2 H RBC 2.72 L 2.76 L Hgb 7.8 L 7.7 L Hct 24.2 L 24.2 L RDW 17.0 H 16.8 H Lymph % (Auto) 3.2 L 4.5 L Cass % (Auto) 8.1 H 9.2 H Lymph # (Auto) 0.5 L 0.7 L Cass # (Auto) 1.4 H 1.5 H Seg Neutrophils % 88.0 H 85.1 H Seg Neuts % (Manual) Lymphocytes % (Manual) Nucleated RBC % Seg Neutrophils # 14.8 H 13.8 H Seg Neutrophils # Man Lymphocytes # (Manual) Fibrinogen Heparin Anti-Xa Level ABG pH ABG pO2 ABG Base Excess ABG Hemoglobin Sodium 148 H Chloride 114.4 H Carbon Dioxide BUN Creatinine Glucose Calcium ALT Total Protein Albumin Crossmatch 10/26/20 10/27/20 10/27/20 07:02 05:09 05:09 WBC 16.4 H RBC 2.57 L Hgb 7.3 L Hct 22.7 L RDW 16.9 H Lymph % (Auto) 4.2 L Cass % (Auto) 7.7 H Lymph # (Auto) 0.7 L Cass # (Auto) 1.3 H Seg Neutrophils % 87.6 H Seg Neuts % (Manual) Lymphocytes % (Manual) Nucleated RBC % Seg Neutrophils # 14.4 H Seg Neutrophils # Man Lymphocytes # (Manual) Fibrinogen Heparin Anti-Xa Level ABG pH ABG pO2 ABG Base Excess ABG Hemoglobin Sodium 147 H Chloride 116.7 H 113.5 H Carbon Dioxide 19 L BUN Creatinine Glucose 120 H 114 H Calcium ALT Total Protein Albumin Crossmatch 10/27/20 10/28/20 10/28/20 20:35 14:24 14:24 WBC 17.6 H RBC 2.62 L Hgb 7.5 L Hct 23.6 L RDW 17.0 H Lymph % (Auto) Cass % (Auto) Lymph # (Auto) Cass # (Auto) Seg Neutrophils % Seg Neuts % (Manual) 95.0 H Lymphocytes % (Manual) 2.0 L Nucleated RBC % 1.0 H Seg Neutrophils # Seg Neutrophils # Man 16.7 H Lymphocytes # (Manual) 0.4 L Fibrinogen Heparin Anti-Xa Level ABG pH 7.189 L* ABG pO2 129.2 H ABG Base Excess -5.3 L ABG Hemoglobin 7.4 L Sodium Chloride 112.2 H Carbon Dioxide 19 L BUN Creatinine Glucose 133 H Calcium ALT Total Protein 5.7 L Albumin 2.7 L Crossmatch 10/29/20 10/29/20 06:44 06:44 WBC 19.6 H RBC 2.41 L Hgb 7.2 L Hct 21.5 L RDW 17.0 H Lymph % (Auto) Cass % (Auto) Lymph # (Auto) Cass # (Auto) Seg Neutrophils % Seg Neuts % (Manual) 98.0 H Lymphocytes % (Manual) 0 L Nucleated RBC % Seg Neutrophils # Seg Neutrophils # Man 19.2 H Lymphocytes # (Manual) 0.0 L Fibrinogen Heparin Anti-Xa Level ABG pH ABG pO2 ABG Base Excess ABG Hemoglobin Sodium Chloride 110.6 H Carbon Dioxide BUN Creatinine Glucose 120 H Calcium ALT Total Protein Albumin Crossmatch Chest x-ray: report reviewed, image reviewed Additional Studies: CHEST 1 VIEW 10/29/20 INDICATION: shortness of breath COMPARISON: 10/26/2020 FINDINGS: Support devices: None Heart: Normal and unchanged Lungs/Pleura: Lungs are again hyperinflated. There appear to be minimal bilateral pleural effusions. No definite acute pulmonary disease. IMPRESSION: 1. No significant change. CHEST 1 VIEW 7:25 PM 10/26/20 INDICATION / CLINICAL INFORMATION: COPD and pneumonia. COMPARISON: 08/07/15. FINDINGS: SUPPORT DEVICES: None. HEART / MEDIASTINUM: The heart size is normal. There is mild prominence of the central pulmonary vessels. LUNGS / PLEURA: The lungs are hyperinflated. There is mild diffuse interstitial lung disease, most prominent in the perihilar regions and mid to lower lung zones. A trace amount of pleural fluid is present bilaterally. No pneumothorax. ADDITIONAL FINDINGS: No significant additional findings. IMPRESSION: Mild congestive heart failure superimposed on emphysema. Allied health notes reviewed: nursing
--- NOTE | 2020-10-29 14:16 | XRay Report ---
CHEST 1 VIEW INDICATION: shortness of breath COMPARISON: 10/26/2020 FINDINGS: Support devices: None Heart: Normal and unchanged Lungs/Pleura: Lungs are again hyperinflated. There appear to be minimal bilateral pleural effusions. No definite acute pulmonary disease. IMPRESSION: 1. No significant change. Signer Name: Nadir Boateng MD Signed: 10/29/2020 2:12 PM Workstation Name: [id number]
--- NOTE | 2020-10-29 14:36 | Progress Note ---
Assessment and Plan --Acute on Chronic respiratory failure on 2L home O2, due to COPD and severe anemia placed back on Bipap today continue supplemental O2 as needed and nebulizer breathing treatment as needed --Acute metabolic encephalopathy, ordered CT head today Likely due to profound hypoxia, continue to monitor clinically -- GI bleed due to gastric ulcer started on PPI, GI consulted, follow h/h. s/p EGD x2 EGD 10/23: 1. Fresh appearing blood with clots in gastric body. Abnormal mucosa in the body with overlying blood clots, unable to be cleared with water irrigation. No active bleeding seen at the time of procedure. EGD 10/24: 1. Gastric body (lesser curvature) ulcer with visible vessel s/p epinephrine injection and gold probe. No active bleeding at end of procedure however vessel was unable to be obliterated with gold probe. --SVT, metoprolol iv q6 as needed s/p amio drip, ordered 2d echo, consulted cardiology --Atrial fibrillation, noted on telemetry Continue beta-frederic to control heart rate, cardiology on board Not a candidate for anticoagulation due to recent severe GI bleed -- Cellulitis of left lower extremity On Daptomycin and levaquin Vascular surgery consulted, ID also following --Sepsis with cellulitis cont abx, follow Cx -- JOSHUA (acute kidney injury) IV fluids for now, follow daily labs likely vasomotor nephropathy --Severe anemia due to acute GI bleed s/p transfusion, follow H&H, continue PPI -- HTN (hypertension) Cont antihypertensives --hypernatremia, cont iv fluid -- Tobacco abuse counseling Counselled On Nicotine patch -- COPD (chronic obstructive pulmonary disease) place on Duoonebs scheduled, bipap as needed -- PAD (peripheral artery disease) Defer to Vascular/IR Initially placed on Heparin drip - off now for GI bleed need angioplasty/angiogram --hypoglycemia, resolved s/p d50, started on D5Ns iv --Severe protein calorie malnutrition will consult dietary, start on dietary supplements as tolerated --DVT Px, scd --transfer to tele chapis if clinically stable Brief History: 75-year-old man past medical history COPD, hypertension, peripheral vascular di sloan had a left lower extremity cellulitis and ulceration and this has been painful for the past 2 weeks admitted to the hospital by vascular surgery for thrombolysis of the left lower extremity. Patient has a history of 2 bypasses at [facility]. On presentation he was found to have a leukocytosis as well as an JOSHUA. Patient started on iv abx, iv heparin drip, ID consulted - admitted for further mx. He then developed bloody BM - heparin discontinued, GI consulted for EGD, PPI started. 10/23: PLANNED TO Continue daptomycin for now, if improvement noted plan to discharge with Bactrim. follow cx and monitor renal function. Hemoglobin declined on heparin drip from 11.7-7.9 with history of black diarrhea this morning. GI consulted, planned for EGD today. follow vascular recommendation. 10/24: s/p repeat EGD today. following EGD he bacame lethargic with respiratory distress , called code med- placed on bipap. Hb 6.7 -ordered PRBC. BG noted at 60s - D50 given and started on D5Ns drip and transferred to IMCU. 10/25: patient noted to have HR of 160s this am which improved after iv metoprolol and now placed on amio drip, ordered 2d echo, consult cardiology. off Bipap since this am, repeat h/h stable. He is tolerating clear liquid diet. cont to monitor h/h. 10/26: clinically improved, off bipap, off amioderone. getting 2d echo at bedside. cont supportive care. h/h stable. f/u with vascular for possible angiogram. monitor cbc/bmp 10/27 patient remains intubated NG tube in place. No new changes overnight. Prognosis remains extremely poor. 10/28 patient remains intubated no new recommendations per neurology. Unable to wean patient at this time. Currently on tube feedings prognosis remains extremely poor. 10/29; became lathergic thia am, placed on bipap, abg obtained, discussed with pulmonary, cxr no infiltrates, tele showed atrial fib but not a candidate for AC for recent GI bleed, cont rate control for now. supportive care, CT head ordered. Subjective Date of service: 10/29/20 Principal diagnosis: AE-COPD; Acute G.I. Bleed; Cellulitis; HTN Interval history: Patient seen and examined. Medical records and medication list reviewed. started on Bipap, h/h slightly trended down Patient noted lethargic with severe respiratory distress Discussed plan of care with critical care attending and with RN at bedside Family updated Objective - Exam Narrative Exam: GENERAL: Elderly malnourished male lying on bed appeared to be in moderate discomfort. HEENT: Normocephalic. Atraumatic. No conjunctival congestion or icterus. Patient has moist mucous membranes. NECK: Supple. Trachea midline. CHEST/LUNGS: diminished BS auscultated bilaterally, breathing labored. on BiPAP HEART/CARDIOVASCULAR: Tachycardic with irregular rhythm. S1 and S2 positive. ABDOMEN: Abdomen is soft, nontender. Patient has normal bowel sounds. SKIN: There is no rash. Warm and dry. NEURO: No focal motor deficit. Follows command MUSCULOSKELETAL: No joint effusion or tenderness. EXTRIMITY: No edema, Left lower extremity with wound dressing PSYCH: cooperative but lethargic - Constitutional Vitals: Vital Signs - 12hr 10/29/20 10/29/20 10/29/20 03:00 03:15 03:28 Temperature 98.8 F Pulse Rate 69 72 Pulse Rate [ Anterior Bilateral] Pulse Rate [ From Monitor] Respiratory 27 H Rate Respiratory Rate [Anterior Bilateral] Blood Pressure 108/54 O2 Sat by Pulse 100 Oximetry 10/29/20 10/29/20 10/29/20 04:00 04:47 05:00 Temperature Pulse Rate 75 77 79 Pulse Rate [ 77 Anterior Bilateral] Pulse Rate [ From Monitor] Respiratory 30 H 24 25 H Rate Respiratory 22 Rate [Anterior Bilateral] Blood Pressure 112/61 133/61 133/61 O2 Sat by Pulse 100 98 100 Oximetry 10/29/20 10/29/20 10/29/20 06:00 07:00 08:00 Temperature 97.5 F L Pulse Rate 80 82 80 Pulse Rate [ Anterior Bilateral] Pulse Rate [ 80 From Monitor] Respiratory 28 H 28 H 29 H Rate Respiratory Rate [Anterior Bilateral] Blood Pressure 142/52 125/75 133/80 O2 Sat by Pulse 100 99 100 Oximetry 10/29/20 10/29/20 10/29/20 08:43 09:00 10:00 Temperature Pulse Rate 74 87 Pulse Rate [ 80 Anterior Bilateral] Pulse Rate [ From Monitor] Respiratory 31 H 34 H Rate Respiratory 24 Rate [Anterior Bilateral] Blood Pressure 133/80 140/78 O2 Sat by Pulse 100 96 98 Oximetry 10/29/20 10/29/20 10/29/20 11:00 12:00 12:19 Temperature 97.7 F Pulse Rate 78 86 83 Pulse Rate [ Anterior Bilateral] Pulse Rate [ 85 From Monitor] Respiratory 38 H 28 H 25 H Rate Respiratory Rate [Anterior Bilateral] Blood Pressure 133/70 145/77 145/77 O2 Sat by Pulse 88 100 100 Oximetry 10/29/20 13:00 Temperature Pulse Rate 83 Pulse Rate [ Anterior Bilateral] Pulse Rate [ From Monitor] Respiratory 29 H Rate Respiratory Rate [Anterior Bilateral] Blood Pressure 141/73 O2 Sat by Pulse 100 Oximetry - Labs CBC & Chem 7: 11/01/20 12:17 11/01/20 12:17 Labs: Abnormal lab results 10/28/20 10/28/20 10/29/20 Range/Units 14:24 14:24 06:44 WBC 17.6 H 19.6 H (4.5-11.0) K/mm3 RBC 2.62 L 2.41 L (3.65-5.03) M/mm3 Hgb 7.5 L 7.2 L (11.8-15.2) gm/dl Hct 23.6 L 21.5 L (35.5-45.6) % RDW 17.0 H 17.0 H (13.2-15.2) % Seg Neuts % (Manual) 95.0 H 98.0 H (40.0-70.0) % Lymphocytes % (Manual) 2.0 L 0 L (13.4-35.0) % Nucleated RBC % 1.0 H (0.0-0.9) % Seg Neutrophils # Man 16.7 H 19.2 H (1.8-7.7) K/mm3 Lymphocytes # (Manual) 0.4 L 0.0 L (1.2-5.4) K/mm3 Chloride 112.2 H (98-107) mmol/L Carbon Dioxide 19 L (22-30) mmol/L Glucose 133 H (75-100) mg/dL Total Protein 5.7 L (6.3-8.2) g/dL Albumin 2.7 L (3.9-5) g/dL 10/29/20 Range/Units 06:44 WBC (4.5-11.0) K/mm3 RBC (3.65-5.03) M/mm3 Hgb (11.8-15.2) gm/dl Hct (35.5-45.6) % RDW (13.2-15.2) % Seg Neuts % (Manual) (40.0-70.0) % Lymphocytes % (Manual) (13.4-35.0) % Nucleated RBC % (0.0-0.9) % Seg Neutrophils # Man (1.8-7.7) K/mm3 Lymphocytes # (Manual) (1.2-5.4) K/mm3 Chloride 110.6 H (98-107) mmol/L Carbon Dioxide (22-30) mmol/L Glucose 120 H (75-100) mg/dL Total Protein (6.3-8.2) g/dL Albumin (3.9-5) g/dL HEART Score - HEART Score EKG: Non-specific Risk factors: > 3 risk factors or hx of atherosclerotic disease Troponin: < normal limit - Critical Actions Critical Actions: 4-6 pts:12-16.6% risk of adverse cardiac event. Should be admitted
[2020-10-29] MEDS: HYDROmorphone 1 MG/1 ML INJ IV PRN (14:37)
--- NOTE | 2020-10-29 15:28 | XRay Report ---
LEFT LOWER LEG 4 VIEWS INDICATION / CLINICAL INFORMATION: Eval for osteomyelitis. COMPARISON: None available. FINDINGS: Vascular calcification. Osteopenia. No bone destruction or deep soft tissue gas accumulation to indicate osteomyelitis. Signer Name: Nadir Boateng MD Signed: 10/29/2020 3:24 PM Workstation Name: [id number]
--- NOTE | 2020-10-29 15:39 | Gastroenterology Progress Note ---
Assessment and Plan GI: s/p bleeding therapy for UGI bleed - h/h stable without further signs bleeding - continue PPI bid - advance diet as tolerated - repeat EGD if further signs bleeding or deemed needed by IR prior to any intervention - from GI standpoint ok to restart hepatrin if needed and watch for signs recurrent bleeding - no changes at this time, will sign off for now, call if needed Subjective Date of service: 10/29/20 Principal diagnosis: AE-COPD; Acute G.I. Bleed; Cellulitis; HTN Interval history: - no signs bleeding overnight Objective - Constitutional Vitals: Temp Pulse Resp BP Pulse Ox 97.7 F 83 29 H 141/73 100 10/29/20 12:00 10/29/20 13:00 10/29/20 13:00 10/29/20 13:00 10/29/20 13:00 General appearance: no acute distress - EENT Eyes: PERRL - Respiratory Respiratory: bilateral: CTA - Cardiovascular Rhythm: regular Heart Sounds: Present: S1 & S2 - Gastrointestinal General gastrointestinal: Present: soft, non-tender, non-distended - Labs CBC & Chem 7: 10/29/20 06:44 10/29/20 06:44 Labs: Laboratory Results - last 24 hr 10/28/20 10/28/20 10/29/20 14:24 14:24 06:44 WBC 19.6 H RBC 2.41 L Hgb 7.2 L Hct 21.5 L MCV 89 MCH 30 MCHC 34 RDW 17.0 H Plt Count 383 Add Manual Diff Complete Complete Total Counted 100 100 Seg Neutrophils % Technologist Development Seg Neuts % (Manual) 95.0 H 98.0 H Band Neutrophils % 0 0 Lymphocytes % (Manual) 2.0 L 0 L Reactive Lymphs % (Man) 0 0 Monocytes % (Manual) 2.0 2.0 Eosinophils % (Manual) 1.0 0 Basophils % (Manual) 0 0 Metamyelocytes % 0 0 Myelocytes % 0 0 Promyelocytes % 0 0 Blast Cells % 0 0 Nucleated RBC % 1.0 H Not Reportable Seg Neutrophils # Man 16.7 H 19.2 H Band Neutrophils # 0.0 0.0 Lymphocytes # (Manual) 0.4 L 0.0 L Abs React Lymphs (Man) 0.0 0.0 Monocytes # (Manual) 0.4 0.4 Eosinophils # (Manual) 0.2 0.0 Basophils # (Manual) 0.0 0.0 Metamyelocytes # 0.0 0.0 Myelocytes # 0.0 0.0 Promyelocytes # 0.0 0.0 Blast Cells # 0.0 0.0 WBC Morphology Not Reportable TNR Not Reportable Hypersegmented Neuts Not Reportable Not Reportable Hyposegmented Neuts Not Reportable Not Reportable Hypogranular Neuts Not Reportable Not Reportable Smudge Cells Not Reportable Not Reportable Toxic Granulation Not Reportable Not Reportable Toxic Vacuolation Not Reportable Not Reportable Dohle Bodies Not Reportable Not Reportable Pelger-Huet Anomaly Not Reportable Not Reportable Eleazar Rods Not Reportable Not Reportable Platelet Estimate Consistent w auto Consistent w auto Clumped Platelets Not Reportable Not Reportable Plt Clumps, EDTA Not Reportable Not Reportable Large Platelets Not Reportable Not Reportable Giant Platelets Not Reportable Not Reportable Platelet Satelliting Not Reportable Not Reportable Plt Morphology Comment Not Reportable Not Reportable RBC Morphology Not Reportable Not Reportable Dimorphic RBCs Not Reportable Not Reportable Polychromasia Not Reportable Not Reportable Hypochromasia Not Reportable 1+ Poikilocytosis Not Reportable Not Reportable Anisocytosis Not Reportable 2+ Microcytosis Not Reportable Not Reportable Macrocytosis Not Reportable Few Spherocytes Not Reportable Not Reportable Pappenheimer Bodies Not Reportable Not Reportable Sickle Cells Not Reportable Not Reportable Target Cells Not Reportable Not Reportable Tear Drop Cells Not Reportable Not Reportable Ovalocytes Not Reportable Not Reportable Helmet Cells Not Reportable Not Reportable [place] Bodies Not Reportable Not Reportable [place] Rings Not Reportable Not Reportable João Cells Not Reportable Not Reportable Bite Cells Not Reportable Not Reportable Crenated Cell Not Reportable Not Reportable Elliptocytes Few Not Reportable Acanthocytes (Spur) Not Reportable Not Reportable Rouleaux Not Reportable Not Reportable Hemoglobin C Crystals Not Reportable Not Reportable Schistocytes Rare Not Reportable Malaria parasites Not Reportable Not Reportable Lai Bodies Not Reportable Not Reportable Hem Pathologist Commnt No No Sodium Potassium Chloride Carbon Dioxide Anion Gap BUN Creatinine Estimated GFR BUN/Creatinine Ratio Glucose POC Glucose Calcium 10/29/20 10/29/20 06:44 11:39 WBC RBC Hgb Hct MCV MCH MCHC RDW Plt Count Add Manual Diff Total Counted Seg Neutrophils % Seg Neuts % (Manual) Band Neutrophils % Lymphocytes % (Manual) Reactive Lymphs % (Man) Monocytes % (Manual) Eosinophils % (Manual) Basophils % (Manual) Metamyelocytes % Myelocytes % Promyelocytes % Blast Cells % Nucleated RBC % Seg Neutrophils # Man Band Neutrophils # Lymphocytes # (Manual) Abs React Lymphs (Man) Monocytes # (Manual) Eosinophils # (Manual) Basophils # (Manual) Metamyelocytes # Myelocytes # Promyelocytes # Blast Cells # WBC Morphology Hypersegmented Neuts Hyposegmented Neuts Hypogranular Neuts Smudge Cells Toxic Granulation Toxic Vacuolation Dohle Bodies Pelger-Huet Anomaly Eleazar Rods Platelet Estimate Clumped Platelets Plt Clumps, EDTA Large Platelets Giant Platelets Platelet Satelliting Plt Morphology Comment RBC Morphology Dimorphic RBCs Polychromasia Hypochromasia Poikilocytosis Anisocytosis Microcytosis Macrocytosis Spherocytes Pappenheimer Bodies Sickle Cells Target Cells Tear Drop Cells Ovalocytes Helmet Cells [place] Bodies [place] Rings João Cells Bite Cells Crenated Cell Elliptocytes Acanthocytes (Spur) Rouleaux Hemoglobin C Crystals Schistocytes Malaria parasites Lai Bodies Hem Pathologist Commnt Sodium 142 Potassium 3.8 D Chloride 110.6 H Carbon Dioxide 25 Anion Gap 10 BUN 11 Creatinine 1.2 Estimated GFR > 60 BUN/Creatinine Ratio 9 Glucose 120 H POC Glucose 101 Calcium 9.3
--- NOTE | 2020-10-29 16:57 | Progress Note ---
Assessment and Plan 75 year old male with COPD on home oxygen, chronic anorexia and cachexia, cellulitis of the left lower extremity, and recent left lower extremity fem pop occlusion. Acute renal failure improved with IV hydration. White blood cell count rising. ? Leukemoid reaction. Has left lower extremity cellulitis. On daptomycin. ID seeing patient. Wound culture sent. Hemoglobin stable. Not on anticoagulation. GI not anticipating further endoscopy given respiratory decline. On BiPAP. Respiratory status tenuous. Unclear what to do about thrombosed left lower extremity femoropopliteal bypass given the multitude of other medical issues. May consider endovascular reconstruction of the minto SFA Subjective Date of service: 10/29/20 Principal diagnosis: AE-COPD; Acute G.I. Bleed; Cellulitis; HTN Interval history: Hemoglobin is stable. Patient on BiPAP. Patient is talking to me when I ask him questions, but I was told he was altered earlier today and confused. He appears to be improving. Vitals are stable. No melena or hematochezia. White blood cell count is increasing. Objective - Constitutional Vitals: Vital Signs - 12hr 10/29/20 10/29/20 10/29/20 05:00 06:00 07:00 Temperature Pulse Rate 79 80 82 Pulse Rate [ Anterior Bilateral] Pulse Rate [ From Monitor] Respiratory 25 H 28 H 28 H Rate Respiratory Rate [Anterior Bilateral] Blood Pressure 133/61 142/52 125/75 O2 Sat by Pulse 100 100 99 Oximetry 10/29/20 10/29/20 10/29/20 08:00 08:43 09:00 Temperature 97.5 F L Pulse Rate 80 74 Pulse Rate [ 80 Anterior Bilateral] Pulse Rate [ 80 From Monitor] Respiratory 29 H 31 H Rate Respiratory 24 Rate [Anterior Bilateral] Blood Pressure 133/80 133/80 O2 Sat by Pulse 100 100 96 Oximetry 10/29/20 10/29/20 10/29/20 10:00 11:00 12:00 Temperature 97.7 F Pulse Rate 87 78 86 Pulse Rate [ Anterior Bilateral] Pulse Rate [ 85 From Monitor] Respiratory 34 H 38 H 28 H Rate Respiratory Rate [Anterior Bilateral] Blood Pressure 140/78 133/70 145/77 O2 Sat by Pulse 98 88 100 Oximetry 10/29/20 10/29/20 12:19 13:00 Temperature Pulse Rate 83 83 Pulse Rate [ Anterior Bilateral] Pulse Rate [ From Monitor] Respiratory 25 H 29 H Rate Respiratory Rate [Anterior Bilateral] Blood Pressure 145/77 141/73 O2 Sat by Pulse 100 100 Oximetry General appearance: Present: other (On BiPAP) - EENT Eyes: EOM intact ENT: hearing intact - Respiratory Respiratory effort: labored (On BiPAP) Extremities: abnormal (Left lower extremity ulcerations noted) Extremity abnormal: pulses diminished - Psychiatric Psychiatric: appropriate mood/affect, other (Slightly altered) - Labs CBC & Chem 7: 10/29/20 06:44 10/29/20 06:44 Labs: Abnormal lab results 10/29/20 10/29/20 Range/Units 06:44 06:44 WBC 19.6 H (4.5-11.0) K/mm3 RBC 2.41 L (3.65-5.03) M/mm3 Hgb 7.2 L (11.8-15.2) gm/dl Hct 21.5 L (35.5-45.6) % RDW 17.0 H (13.2-15.2) % Seg Neuts % (Manual) 98.0 H (40.0-70.0) % Lymphocytes % (Manual) 0 L (13.4-35.0) % Seg Neutrophils # Man 19.2 H (1.8-7.7) K/mm3 Lymphocytes # (Manual) 0.0 L (1.2-5.4) K/mm3 Chloride 110.6 H (98-107) mmol/L Glucose 120 H (75-100) mg/dL Medications & Allergies - Medications Allergies/Adverse Reactions: Allergies No Known Allergies Allergy (Verified 10/22/20 08:47) Home Medications: Home Medications Medication Instructions Recorded Confirmed Last Taken Type Albuterol Mdi (or & Nicu Only) 2 puff IH QID PRN #1 inhalation 08/08/15 10/22/20 Unknown Rx [ProAir HFA Inhaler] Ciprofloxacin [Ciprofloxacin ORAL 500 mg PO Q12H #14 ml 08/08/15 10/22/20 10/21/20 Rx LIQ] 1 tab Amoxicillin/Potassium Clav 1 each PO BID 10/22/20 10/22/20 10/21/20 History [Amox-Clav 250-125 mg Tablet] 1 tab Aspirin [Aspirin BABY CHEW TAB] 81 mg PO QDAY 10/22/20 10/22/20 10/21/20 History 1 tab AtorvaSTATin [Lipitor] 20 mg PO QHS 10/22/20 10/22/20 10/21/20 History 1 tab Clopidogrel [Plavix] 75 mg PO QDAY 10/22/20 10/22/20 10/21/20 History 1 tab Metoprolol Xl [Metoprolol 25 mg PO QDAY 10/22/20 10/22/20 10/21/20 History SUCCINATE ER TAB] 1 tab Multivit-Min/FA/Lycopen/Lutein 1 each PO DAILY 10/22/20 10/22/20 10/21/20 History [Centrum Silver Tablet] 1 tab Oxycodon-Acetaminophen 2.5-325 5 - 325 mg PO Q6HR PRN 10/22/20 10/22/20 Unknown History Pentoxifylline 400 mg PO BID 10/22/20 10/22/20 10/21/20 History 1 tab Active Medications: Generic Name Dose Route Start Last Admin Trade Name Freq PRN Reason Stop Dose Admin Acetaminophen 650 mg 10/22/20 10:30 10/28/20 21:07 Tylenol PO 650 mg Q4H PRN Administration Pain MILD(1-3)/Fever >100.5/RUANO Albuterol 2.5 mg 10/22/20 10:30 10/29/20 04:34 Proventil IH 2.5 mg Q4HRT PRN Administration Shortness Of Breath Albuterol/Ipratropium 1 ampul 10/26/20 20:00 10/29/20 08:43 Duoneb *Not For Prn Use* IH 1 ampul BIDRT SONYA Administration Arformoterol Tartrate 15 mcg 10/26/20 20:00 10/29/20 08:42 Brovana Nebu IH 15 mcg Q12HRT SONYA Administration Budesonide 0.5 mg 10/26/20 20:00 10/29/20 08:42 Pulmicort IH 0.5 mg Q12HRT SONYA Administration Docusate Sodium 100 mg 10/22/20 11:00 10/29/20 12:15 Colace PO Not Given BID SONYA Hydromorphone HCl 0.5 mg 10/23/20 08:17 10/29/20 14:37 Dilaudid IV 0.5 mg Q3H PRN Administration Pain , Severe (7-10) Amiodarone HCl 900 mg/ 500 mls @ 33.333 mls/hr 10/25/20 08:00 Dextrose IV DIRECT SONYA Protocol 1 MG/MIN Dextrose/Sodium Chloride 1,000 mls @ 75 mls/hr 10/25/20 18:00 10/29/20 08:45 D5/0.45ns IV 75 mls/hr DIRECT SONYA Administration Levofloxacin/Dextrose 750 mg in 150 mls @ 100 mls/hr 10/29/20 15:00 10/29/20 15:18 Levaquin 750mg/150ml IV 11/03/20 14:59 100 mls/hr Q48H SONYA Administration Protocol Metoclopramide HCl 5 mg 10/23/20 08:17 Reglan IV Q6H PRN Nausea And Vomiting Metoprolol Tartrate 5 mg 10/25/20 07:27 10/25/20 08:24 Metoprolol IV 5 mg Q6HR PRN Administration tachycardia Metoprolol Tartrate 25 mg 10/26/20 22:00 10/29/20 12:16 Metoprolol PO Not Given BID [facility] Multivitamins/Minerals 1 each 10/22/20 12:00 10/29/20 12:16 Theragran-M Tab PO Not Given QDAY SONYA Ondansetron HCl 4 mg 10/23/20 08:17 Zofran IV Q8H PRN Nausea And Vomiting Oxycodone/Acetaminophen 1 tab 10/22/20 11:32 10/27/20 01:51 Percocet 5/325 PO 1 tab Q4H PRN Administration Pain, Moderate (4-6) Pantoprazole Sodium 40 mg 10/26/20 12:00 10/29/20 09:02 Protonix IV 40 mg BID SONYA Administration Pentoxifylline 400 mg 10/22/20 11:00 10/29/20 12:16 Trental PO Not Given BID SONYA Senna 8.6 mg 10/22/20 11:00 10/29/20 12:16 Senokot PO Not Given Q12HR SONYA Sodium Chloride 10 ml 10/22/20 11:00 10/29/20 09:03 Sodium Chloride Flush Syringe 10 Ml IV 10 ml BID SONYA Administration Sodium Chloride 10 ml 10/22/20 10:30 Sodium Chloride Flush Syringe 10 Ml IV PRN PRN LINE FLUSH HEART Score - HEART Score EKG: Non-specific Risk factors: > 3 risk factors or hx of atherosclerotic disease Troponin: < normal limit - Critical Actions Critical Actions: 4-6 pts:12-16.6% risk of adverse cardiac event. Should be admitted
[2020-10-30] MEDS: SENNOSIDES 8.6 MG TAB PO SCH ×3 (00:40→22:49)
[2020-10-30] MEDS: DOCUSATE SODIUM 100 MG CAP PO SCH ×3 (00:40→22:46)
[2020-10-30] MEDS: PENTOXIFYLLINE ER 400 MG TAB PO SCH ×3 (00:40→22:49)
[2020-10-30] MEDS ORDERED: DEXTROSE 50% IN WATER (25GM) 50 ML SYRINGE IV ONE (00:43)
[2020-10-30 05:50] LABS: Hematocrit 20.2 % (35.5-45.6); Hemoglobin 6.5 gm/dl (11.8-15.2)
[2020-10-30 06:10] LABS: Calcium 9.2 mg/dL (8.4-10.2)
[2020-10-30] MEDS: BUDESONIDE 0.5 MG/2 ML NEBU IH SCH ×2 (08:09→19:42)
[2020-10-30] MEDS: ARFORMOTEROL 15 MCG/2 ML NEBU IH SCH ×2 (08:09→19:42)
[2020-10-30] MEDS: IPRATROPIUM/ALBUTEROL SULFATE 3 ML AMPUL.NEB IH SCH ×2 (08:35→19:42)
--- NOTE | 2020-10-30 09:06 | Gastroenterology Progress Note ---
Assessment and Plan GI: no further signs GI bleeding - continue PPI qd - follow h/h - no plans to rescope at this time - will sign off, call if needed Subjective Date of service: 10/30/20 Principal diagnosis: AE-COPD; Acute G.I. Bleed; Cellulitis; HTN Interval history: - no signs bleeding overnight. Pulmonary issues noted Objective - Constitutional Vitals: Temp Pulse Resp BP Pulse Ox 98.0 F 96 H 30 H 104/67 100 10/30/20 08:00 10/30/20 08:09 10/30/20 08:09 10/30/20 08:05 10/30/20 08:05 General appearance: no acute distress - EENT Eyes: PERRL - Respiratory Respiratory: bilateral: rhonchi - Cardiovascular Rhythm: regular Heart Sounds: Present: S1 & S2 - Gastrointestinal General gastrointestinal: Present: soft, non-tender, non-distended - Labs CBC & Chem 7: 10/30/20 05:27 10/30/20 05:27 Labs: Laboratory Results - last 24 hr 10/29/20 10/29/20 10/29/20 06:44 06:44 11:39 Hgb Hct Plt Count Add Manual Diff Complete Total Counted 100 Seg Neuts % (Manual) 98.0 H Band Neutrophils % 0 Lymphocytes % (Manual) 0 L Reactive Lymphs % (Man) 0 Monocytes % (Manual) 2.0 Eosinophils % (Manual) 0 Basophils % (Manual) 0 Metamyelocytes % 0 Myelocytes % 0 Promyelocytes % 0 Blast Cells % 0 Nucleated RBC % Not Reportable Seg Neutrophils # Man 19.2 H Band Neutrophils # 0.0 Lymphocytes # (Manual) 0.0 L Abs React Lymphs (Man) 0.0 Monocytes # (Manual) 0.4 Eosinophils # (Manual) 0.0 Basophils # (Manual) 0.0 Metamyelocytes # 0.0 Myelocytes # 0.0 Promyelocytes # 0.0 Blast Cells # 0.0 WBC Morphology Not Reportable Hypersegmented Neuts Not Reportable Hyposegmented Neuts Not Reportable Hypogranular Neuts Not Reportable Smudge Cells Not Reportable Toxic Granulation Not Reportable Toxic Vacuolation Not Reportable Dohle Bodies Not Reportable Pelger-Huet Anomaly Not Reportable Eleazar Rods Not Reportable Platelet Estimate Consistent w auto Clumped Platelets Not Reportable Plt Clumps, EDTA Not Reportable Large Platelets Not Reportable Giant Platelets Not Reportable Platelet Satelliting Not Reportable Plt Morphology Comment Not Reportable RBC Morphology Not Reportable Dimorphic RBCs Not Reportable Polychromasia Not Reportable Hypochromasia 1+ Poikilocytosis Not Reportable Anisocytosis 2+ Microcytosis Not Reportable Macrocytosis Few Spherocytes Not Reportable Pappenheimer Bodies Not Reportable Sickle Cells Not Reportable Target Cells Not Reportable Tear Drop Cells Not Reportable Ovalocytes Not Reportable Helmet Cells Not Reportable [place] Bodies Not Reportable [place] Rings Not Reportable João Cells Not Reportable Bite Cells Not Reportable Crenated Cell Not Reportable Elliptocytes Not Reportable Acanthocytes (Spur) Not Reportable Rouleaux Not Reportable Hemoglobin C Crystals Not Reportable Schistocytes Not Reportable Malaria parasites Not Reportable Lai Bodies Not Reportable Hem Pathologist Commnt No ABG pH POC ABG pCO2 POC ABG pO2 POC ABG HCO3 POC ABG Base Excess ABG Hemoglobin ABG Oxyhemoglobin ABG Methemoglobin ABG Sodium ABG Potassium ABG Chloride ABG Glucose Carboxyhemoglobin FiO2 Sodium Potassium Chloride Carbon Dioxide Anion Gap BUN Creatinine Estimated GFR BUN/Creatinine Ratio Glucose 120 H POC Glucose 101 Calcium Arterial Blood Glucose Arterial Blood Ionized Calcium 10/29/20 10/29/20 10/29/20 12:19 17:17 17:49 Hgb Hct Plt Count Add Manual Diff Total Counted Seg Neuts % (Manual) Band Neutrophils % Lymphocytes % (Manual) Reactive Lymphs % (Man) Monocytes % (Manual) Eosinophils % (Manual) Basophils % (Manual) Metamyelocytes % Myelocytes % Promyelocytes % Blast Cells % Nucleated RBC % Seg Neutrophils # Man Band Neutrophils # Lymphocytes # (Manual) Abs React Lymphs (Man) Monocytes # (Manual) Eosinophils # (Manual) Basophils # (Manual) Metamyelocytes # Myelocytes # Promyelocytes # Blast Cells # WBC Morphology Hypersegmented Neuts Hyposegmented Neuts Hypogranular Neuts Smudge Cells Toxic Granulation Toxic Vacuolation Dohle Bodies Pelger-Huet Anomaly Eleazar Rods Platelet Estimate Clumped Platelets Plt Clumps, EDTA Large Platelets Giant Platelets Platelet Satelliting Plt Morphology Comment RBC Morphology Dimorphic RBCs Polychromasia Hypochromasia Poikilocytosis Anisocytosis Microcytosis Macrocytosis Spherocytes Pappenheimer Bodies Sickle Cells Target Cells Tear Drop Cells Ovalocytes Helmet Cells [place] Bodies [place] Rings [place] Cells Bite Cells Crenated Cell Elliptocytes Acanthocytes (Spur) Rouleaux Hemoglobin C Crystals Schistocytes Malaria parasites Lai Bodies Hem Pathologist Commnt ABG pH 7.009 L 7.23 L POC ABG pCO2 94.4 H 53.5 H POC ABG pO2 141.3 H 86.1 POC ABG HCO3 23.2 21.9 POC ABG Base Excess -8.2 -5.5 ABG Hemoglobin 8.5 L 8.5 L ABG Oxyhemoglobin 97.6 96.0 ABG Methemoglobin 0.1 0.3 ABG Sodium 137.8 136.1 ABG Potassium 3.5 3.7 ABG Chloride 109.0 H 110.0 H ABG Glucose 151 H 112 H Carboxyhemoglobin 0.9 0.6 FiO2 32 25 Sodium Potassium Chloride Carbon Dioxide Anion Gap BUN Creatinine Estimated GFR BUN/Creatinine Ratio Glucose POC Glucose 103 Calcium Arterial Blood Glucose 151 H 112 H Arterial Blood Ionized Calcium 5.5 H 5.3 10/29/20 10/30/20 10/30/20 23:43 02:57 05:27 Hgb 6.5 L Hct 20.2 L Plt Count 394 Add Manual Diff Total Counted Seg Neuts % (Manual) Band Neutrophils % Lymphocytes % (Manual) Reactive Lymphs % (Man) Monocytes % (Manual) Eosinophils % (Manual) Basophils % (Manual) Metamyelocytes % Myelocytes % Promyelocytes % Blast Cells % Nucleated RBC % Seg Neutrophils # Man Band Neutrophils # Lymphocytes # (Manual) Abs React Lymphs (Man) Monocytes # (Manual) Eosinophils # (Manual) Basophils # (Manual) Metamyelocytes # Myelocytes # Promyelocytes # Blast Cells # WBC Morphology Hypersegmented Neuts Hyposegmented Neuts Hypogranular Neuts Smudge Cells Toxic Granulation Toxic Vacuolation Dohle Bodies Pelger-Huet Anomaly Eleazar Rods Platelet Estimate Clumped Platelets Plt Clumps, EDTA Large Platelets Giant Platelets Platelet Satelliting Plt Morphology Comment RBC Morphology Dimorphic RBCs Polychromasia Hypochromasia Poikilocytosis Anisocytosis Microcytosis Macrocytosis Spherocytes Pappenheimer Bodies Sickle Cells Target Cells Tear Drop Cells Ovalocytes Helmet Cells [place] Bodies [place] Rings João Cells Bite Cells Crenated Cell Elliptocytes Acanthocytes (Spur) Rouleaux Hemoglobin C Crystals Schistocytes Malaria parasites Lai Bodies Hem Pathologist Commnt ABG pH POC ABG pCO2 POC ABG pO2 POC ABG HCO3 POC ABG Base Excess ABG Hemoglobin ABG Oxyhemoglobin ABG Methemoglobin ABG Sodium ABG Potassium ABG Chloride ABG Glucose Carboxyhemoglobin FiO2 Sodium Potassium Chloride Carbon Dioxide Anion Gap BUN Creatinine Estimated GFR BUN/Creatinine Ratio Glucose POC Glucose 72 86 Calcium Arterial Blood Glucose Arterial Blood Ionized Calcium 10/30/20 05:27 Hgb Hct Plt Count Add Manual Diff Total Counted Seg Neuts % (Manual) Band Neutrophils % Lymphocytes % (Manual) Reactive Lymphs % (Man) Monocytes % (Manual) Eosinophils % (Manual) Basophils % (Manual) Metamyelocytes % Myelocytes % Promyelocytes % Blast Cells % Nucleated RBC % Seg Neutrophils # Man Band Neutrophils # Lymphocytes # (Manual) Abs React Lymphs (Man) Monocytes # (Manual) Eosinophils # (Manual) Basophils # (Manual) Metamyelocytes # Myelocytes # Promyelocytes # Blast Cells # WBC Morphology Hypersegmented Neuts Hyposegmented Neuts Hypogranular Neuts Smudge Cells Toxic Granulation Toxic Vacuolation Dohle Bodies Pelger-Huet Anomaly Eleazar Rods Platelet Estimate Clumped Platelets Plt Clumps, EDTA Large Platelets Giant Platelets Platelet Satelliting Plt Morphology Comment RBC Morphology Dimorphic RBCs Polychromasia Hypochromasia Poikilocytosis Anisocytosis Microcytosis Macrocytosis Spherocytes Pappenheimer Bodies Sickle Cells Target Cells Tear Drop Cells Ovalocytes Helmet Cells [place] Bodies [place] Rings [place] Cells Bite Cells Crenated Cell Elliptocytes Acanthocytes (Spur) Rouleaux Hemoglobin C Crystals Schistocytes Malaria parasites Lai Bodies Hem Pathologist Commnt ABG pH POC ABG pCO2 POC ABG pO2 POC ABG HCO3 POC ABG Base Excess ABG Hemoglobin ABG Oxyhemoglobin ABG Methemoglobin ABG Sodium ABG Potassium ABG Chloride ABG Glucose Carboxyhemoglobin FiO2 Sodium 138 Potassium 3.8 Chloride 107.3 H Carbon Dioxide 22 Anion Gap 13 BUN 14 Creatinine 1.8 H Estimated GFR 45 BUN/Creatinine Ratio 8 Glucose 79 POC Glucose Calcium 9.2 Arterial Blood Glucose Arterial Blood Ionized Calcium
--- NOTE | 2020-10-30 10:23 | Progress Note ---
<WARREN ANGELES - Last Filed: 10/30/20 10:20> Assessment and Plan Transient atrial fibrillation currently in sinus rhythm on metoprolol for suppression patient is considered not a candidate for oral anticoagulation due to acute GI bleed and severe anemia. normal LVEF 60-65% by echo TSH of 1.4 PVD with cellulitis of the left lower extremity, and recent left lower extremity fem-pop occlusion. Acute GI bleed with severe anemia s/p transfusion of PRBCs COPD on home oxygen Cachexia Continue beta blockers for suppression of paroxysmal atrial fibrillation. Subjective Date of service: 10/30/20 Principal diagnosis: AE-COPD; Acute G.I. Bleed; Cellulitis; HTN Interval history: On Bipap therapy. Sinus rhythm on telemetry. Objective Vital Signs Temp Pulse Pulse Pulse Resp Resp BP 10/30/20 08:09 96 H 30 H 10/30/20 08:05 102 H 26 H 104/67 10/30/20 08:00 98.0 F 95 H 18 107/59 10/30/20 07:00 93 H 23 107/59 10/30/20 06:00 84 18 117/57 10/30/20 05:00 87 18 126/108 10/30/20 04:00 98 F 97 H 87 11 L 114/56 10/30/20 03:00 89 15 114/56 10/30/20 02:00 134 H 26 H 101/65 10/30/20 01:38 85 21 132/64 10/30/20 01:00 82 15 106/53 10/30/20 00:00 98 F 85 82 23 113/56 10/29/20 23:00 87 23 132/64 10/29/20 22:29 81 127/68 10/29/20 22:00 81 21 122/61 10/29/20 21:30 82 21 122/61 10/29/20 21:29 77 20 10/29/20 21:04 74 20 117/57 10/29/20 21:00 76 19 117/57 10/29/20 20:00 97.3 F L 76 79 15 127/63 10/29/20 19:00 80 21 127/63 10/29/20 18:00 84 15 111/59 10/29/20 17:49 77 21 111/59 10/29/20 17:00 111/59 10/29/20 16:00 98.4 F 83 83 25 H 116/66 10/29/20 15:00 83 32 H 131/68 10/29/20 14:00 83 25 H 134/73 10/29/20 13:00 83 29 H 141/73 10/29/20 12:19 83 25 H 145/77 10/29/20 12:00 97.7 F 86 85 28 H 145/77 10/29/20 11:00 78 38 H 133/70 Pulse Ox 10/30/20 08:09 10/30/20 08:05 100 10/30/20 08:00 99 10/30/20 07:00 99 10/30/20 06:00 91 10/30/20 05:00 10/30/20 04:00 99 10/30/20 03:00 100 10/30/20 02:00 10/30/20 01:38 100 10/30/20 01:00 10/30/20 00:00 100 10/29/20 23:00 10/29/20 22:29 10/29/20 22:00 84 10/29/20 21:30 10/29/20 21:29 10/29/20 21:04 10/29/20 21:00 10/29/20 20:00 97 10/29/20 19:00 10/29/20 18:00 100 10/29/20 17:49 100 10/29/20 17:00 100 10/29/20 16:00 100 10/29/20 15:00 100 10/29/20 14:00 98 10/29/20 13:00 100 10/29/20 12:19 100 10/29/20 12:00 100 10/29/20 11:00 88 - Physical Examination General: Cachectic, Other (on Bipap) HEENT: Positive: PERRL Cardiac: Positive: Reg Rate and Rhythm Neuro: Positive: Grossly Intact Extremities: Present: edema ( cellulitis of the left lower extremity) - Labs and Meds CBC 10/30/20 Range/Units 05:27 Hgb 6.5 L (11.8-15.2) gm/dl Hct 20.2 L (35.5-45.6) % Plt Count 394 (140-440) K/mm3 Comprehensive Metabolic Panel 10/30/20 Range/Units 05:27 Sodium 138 (137-145) mmol/L Potassium 3.8 (3.6-5.0) mmol/L Chloride 107.3 H (98-107) mmol/L Carbon Dioxide 22 (22-30) mmol/L BUN 14 (9-20) mg/dL Creatinine 1.8 H (0.8-1.3) mg/dL Glucose 79 (75-100) mg/dL Calcium 9.2 (8.4-10.2) mg/dL - Allied health notes Allied health notes reviewed: nursing <ANNY DEXTER - Last Filed: 11/01/20 07:09> Assessment and Plan - Patient Problems (1) Paroxysmal SVT (supraventricular tachycardia) Current Visit: Yes Status: Acute Subjective Interval history: I saw this pt & agree with the Dx & Tx plan. Objective Vital Signs Temp Pulse Pulse Pulse Resp Resp Resp 11/01/20 04:00 98.2 F 11/01/20 03:30 20 11/01/20 03:00 93 H 23 11/01/20 02:46 93 H 24 11/01/20 02:00 94 H 21 11/01/20 01:00 94 H 18 11/01/20 00:43 88 11/01/20 00:00 99.1 F 100 H 24 10/31/20 23:00 92 H 18 10/31/20 22:00 88 24 10/31/20 21:00 100 H 22 10/31/20 20:09 94 H 31 H 10/31/20 20:01 99 H 30 H 10/31/20 20:00 97.9 F 10/31/20 19:45 100 H 34 H 10/31/20 19:44 10/31/20 19:09 109 H 10/31/20 19:03 103 H 37 H 10/31/20 19:00 104 H 32 H 10/31/20 18:01 105 H 30 H 10/31/20 17:01 96 H 25 H 10/31/20 16:00 97.8 F 92 H 89 25 H 10/31/20 15:00 95 H 33 H 10/31/20 14:59 87 24 10/31/20 14:00 95 H 32 H 10/31/20 13:00 93 H 29 H 10/31/20 12:00 97.8 F 88 88 29 H 10/31/20 11:08 170 H 10/31/20 11:01 170 H 33 H 10/31/20 10:00 106 H 33 H 10/31/20 09:00 105 H 34 H 10/31/20 08:01 113 H 28 H 10/31/20 08:00 98.3 F 82 104 H 24 10/31/20 07:48 10/31/20 07:47 98 H 32 H BP Pulse Ox 11/01/20 04:00 11/01/20 03:30 11/01/20 03:00 104/51 100 11/01/20 02:46 101/52 100 11/01/20 02:00 93/48 100 11/01/20 01:00 84/45 100 11/01/20 00:43 11/01/20 00:00 92 10/31/20 23:00 99/43 100 10/31/20 22:00 98/51 100 10/31/20 21:00 111/65 100 10/31/20 20:09 10/31/20 20:01 106/83 99 10/31/20 20:00 10/31/20 19:45 109/58 100 10/31/20 19:44 94 10/31/20 19:09 10/31/20 19:03 106/58 63 L 10/31/20 19:00 106/58 86 10/31/20 18:01 115/69 99 10/31/20 17:01 122/68 87 10/31/20 16:00 119/63 96 10/31/20 15:00 119/59 99 10/31/20 14:59 115/70 100 10/31/20 14:00 123/58 100 10/31/20 13:00 116/61 100 10/31/20 12:00 115/70 100 10/31/20 11:08 127/70 10/31/20 11:01 127/70 95 10/31/20 10:00 135/64 100 10/31/20 09:00 131/73 100 10/31/20 08:01 104/81 100 10/31/20 08:00 100 10/31/20 07:48 100 10/31/20 07:47 - Labs and Meds CBC 10/31/20 Range/Units 10:21 WBC 19.4 H (4.5-11.0) K/mm3 RBC 3.32 L (3.65-5.03) M/mm3 Hgb 9.9 L D (11.8-15.2) gm/dl Hct 30.5 L D (35.5-45.6) % Plt Count 412 (140-440) K/mm3 Comprehensive Metabolic Panel 10/31/20 Range/Units 10:21 Sodium 134 L (137-145) mmol/L Potassium 3.9 (3.6-5.0) mmol/L Chloride 103.0 (98-107) mmol/L Carbon Dioxide 23 (22-30) mmol/L BUN 20 (9-20) mg/dL Creatinine 2.0 H (0.8-1.3) mg/dL Glucose 109 H (75-100) mg/dL Calcium 9.2 (8.4-10.2) mg/dL
--- NOTE | 2020-10-30 10:43 | Progress Note ---
Assessment and Plan Patient weak, sleepy and lethergic, and resting on BIPAP. Patient is on BIPAP 18/5, rate 20, FIO2 35% and O2 saturation running 93%. Patient has ABGs this morning. ABG on above BIPAP settings. ABG pH 7.23 (7.320-7.450) L 10/29/20 17:49 POC ABG pCO2 53.5 mmHg (32.0-48.0) H 10/29/20 17:49 ABG pCO2 61.0 mm Hg 10/27/20 20:35 POC ABG pO2 86.1 mmHg (83-108) 10/29/20 17:49 ABG pO2 129.2 mm Hg (80.0-90.0) H 10/27/20 20:35 POC ABG HCO3 21.9 10/29/20 17:49 ABG O2 Saturation 98.0 % (95.0-99.0) 10/27/20 20:35 Continue present BIPAP settings. Patient afebrile . Patient has leukocytosis. Chest xray done to day 10/29/20 reported Lungs are again hyperinflated. There appear to be minimal bilateral pleural effusions. No definite acute pulmonary disease. Patient is on levaquin and Brovanna/Budesonide aerosol treatments q 12 hours. Patient is on protonix. Recommend SCDs I spent critical care time of 37 minutes on this patient reviewing the chart, examining the patient, review labs, talking to the respiratory therapy and nursing staff and work out plan of treatment in this critically ill patient. - Patient Problems (1) Acute exacerbation of chronic obstructive airways disease Current Visit: Yes Status: Acute Plan to address problem: Continue BIPAP 18/5, rate 20, FIO2 35%. Brovanna/Budesonide aerosol treatments q 12 hours. Continue Levaquine. Continue Protonix. SCDs (2) Bronchitis, acute Current Visit: No Status: Acute Qualifiers: Bronchitis organism: unspecified organism Qualified Code(s): J20.9 - Acute bronchitis, unspecified Plan to address problem: Patient is on Levaquin. (3) Cellulitis of left lower extremity Current Visit: Yes Status: Acute Plan to address problem: Patient is on Levaquine. Management as per primary care and infectious diseases. (4) Femoral-popliteal bypass graft occlusion, left Current Visit: Yes Status: Acute Plan to address problem: Management as per vascular surgery. (5) GI bleed requiring more than 4 units of blood in 24 hours, ICU, or surgery Current Visit: Yes Status: Acute Plan to address problem: Management as per primary care and gastro enterology. (6) JOSHUA (acute kidney injury) Current Visit: Yes Status: Acute Plan to address problem: Management as per nephrology. (7) HTN (hypertension) Current Visit: No Status: Chronic Qualifiers: Hypertension type: essential hypertension Qualified Code(s): I10 - Essential (primary) hypertension Plan to address problem: Management as per primary care. (8) Tobacco abuse counseling Current Visit: No Status: Chronic Plan to address problem: Will vocational rehabilitation counselor to stop smoking when patient more awake and oriented. Subjective Date of service: 10/30/20 Principal diagnosis: AE-COPD; Acute G.I. Bleed; Cellulitis; HTN Interval history: Patient weak, sleepy and lethergic, and resting on BIPAP. Patient is on BIPAP 18/5, rate 20, FIO2 35% and O2 saturation running 93%. Patient has ABGs this morning. ABG on above BIPAP settings. ABG pH 7.23 (7.320-7.450) L 10/29/20 17:49 POC ABG pCO2 53.5 mmHg (32.0-48.0) H 10/29/20 17:49 ABG pCO2 61.0 mm Hg 10/27/20 20:35 POC ABG pO2 86.1 mmHg (83-108) 10/29/20 17:49 ABG pO2 129.2 mm Hg (80.0-90.0) H 10/27/20 20:35 POC ABG HCO3 21.9 10/29/20 17:49 ABG O2 Saturation 98.0 % (95.0-99.0) 10/27/20 20:35 Continue present BIPAP settings. Patient afebrile . Patient has leukocytosis. Chest xray done to day 10/29/20 reported Lungs are again hyperinflated. There appear to be minimal bilateral pleural effusions. No definite acute pulmonary disease. Patient is on levaquin and Brovanna/Budesonide aerosol treatments q 12 hours. Patient is on protonix. Recommend SCDs Objective Vital Signs - 12hr 10/29/20 10/30/20 10/30/20 23:00 00:00 01:00 Temperature 98 F Pulse Rate 87 85 82 Pulse Rate [ Anterior Bilateral] Pulse Rate [ 82 From Monitor] Respiratory 23 23 15 Rate Respiratory Rate [Anterior Bilateral] Blood Pressure 132/64 113/56 106/53 O2 Sat by Pulse 100 Oximetry 10/30/20 10/30/20 10/30/20 01:38 02:00 03:00 Temperature Pulse Rate 85 134 H 89 Pulse Rate [ Anterior Bilateral] Pulse Rate [ From Monitor] Respiratory 21 26 H 15 Rate Respiratory Rate [Anterior Bilateral] Blood Pressure 132/64 101/65 114/56 O2 Sat by Pulse 100 100 Oximetry 10/30/20 10/30/20 10/30/20 04:00 05:00 06:00 Temperature 98 F Pulse Rate 97 H 87 84 Pulse Rate [ Anterior Bilateral] Pulse Rate [ 87 From Monitor] Respiratory 11 L 18 18 Rate Respiratory Rate [Anterior Bilateral] Blood Pressure 114/56 126/108 117/57 O2 Sat by Pulse 99 91 Oximetry 10/30/20 10/30/20 10/30/20 07:00 08:00 08:05 Temperature 98.0 F Pulse Rate 93 H 95 H 102 H Pulse Rate [ Anterior Bilateral] Pulse Rate [ From Monitor] Respiratory 23 18 26 H Rate Respiratory Rate [Anterior Bilateral] Blood Pressure 107/59 107/59 104/67 O2 Sat by Pulse 99 99 100 Oximetry 10/30/20 10/30/20 10/30/20 08:09 09:00 10:00 Temperature Pulse Rate 145 H Pulse Rate [ 96 H Anterior Bilateral] Pulse Rate [ From Monitor] Respiratory 18 16 Rate Respiratory 30 H Rate [Anterior Bilateral] Blood Pressure 104/67 125/66 O2 Sat by Pulse 88 100 Oximetry Constitutional: no acute distress, lethargic, other (elderly chronically ill looking male with mildly increased respiratory effort at rest) Eyes: non-icteric ENT: oropharynx moist Neck: supple, no lymphadenopathy, no JVD Effort: mildly labored Ascultation: Bilateral: diminished breath sounds, rhonchi, other (prolonged expiratory phase) Percussion: Bilateral: not dull Cardiovascular: regular rate and rhythm Gastrointestinal: normoactive bowel sounds, soft, non-tender, non-distended Integumentary: cellulitis (L. lower extremity) Extremities: no cyanosis, no edema, no ischemia or petechiae, other (weak pulses) Neurologic: non-focal exam, pupils equal and round, CN II-XII normal Psychiatric: other (Patient sleepy and lethergic.) CBC and BMP: 10/30/20 05:27 10/30/20 05:27 ABG, PT/INR, D-dimer: ABG ABG pH 7.23 (7.320-7.450) L 10/29/20 17:49 POC ABG pCO2 53.5 mmHg (32.0-48.0) H 10/29/20 17:49 ABG pCO2 61.0 mm Hg 10/27/20 20:35 POC ABG pO2 86.1 mmHg (83-108) 10/29/20 17:49 ABG pO2 129.2 mm Hg (80.0-90.0) H 10/27/20 20:35 POC ABG HCO3 21.9 10/29/20 17:49 ABG O2 Saturation 98.0 % (95.0-99.0) 10/27/20 20:35 PT/INR, D-dimer PT 14.0 Sec. (12.2-14.9) 10/22/20 09:04 INR 1.10 (0.87-1.13) 10/22/20 09:04 Abnormal lab findings: Abnormal Labs 10/22/20 10/22/20 10/22/20 09:04 09:04 09:04 WBC 12.0 H RBC Hgb 11.7 L Hct 35.0 L RDW 15.5 H Lymph % (Auto) 7.6 L [place] % (Auto) 7.5 H Lymph # (Auto) 0.9 L [place] # (Auto) 0.9 H Seg Neutrophils % 82.7 H Seg Neuts % (Manual) Lymphocytes % (Manual) Nucleated RBC % Seg Neutrophils # 9.9 H Seg Neutrophils # Man Lymphocytes # (Manual) Fibrinogen 708 H Heparin Anti-Xa Level ABG pH POC ABG pCO2 POC ABG pO2 ABG pO2 ABG Base Excess ABG Hemoglobin ABG Chloride ABG Glucose Sodium Chloride Carbon Dioxide BUN 29 H Creatinine 2.2 H Glucose 114 H Calcium 10.4 H ALT Total Protein Albumin Arterial Blood Glucose Arterial Blood Ionized Calcium Crossmatch 10/22/20 10/23/20 10/23/20 18:54 04:18 04:18 WBC 14.8 H RBC 3.20 L Hgb 9.4 L Hct 28.7 L D RDW 15.3 H Lymph % (Auto) 7.0 L [place] % (Auto) 7.8 H Lymph # (Auto) 1.0 L [place] # (Auto) 1.2 H Seg Neutrophils % 83.1 H Seg Neuts % (Manual) Lymphocytes % (Manual) Nucleated RBC % Seg Neutrophils # 12.3 H Seg Neutrophils # Man Lymphocytes # (Manual) Fibrinogen Heparin Anti-Xa Level 2.00 H ABG pH POC ABG pCO2 POC ABG pO2 ABG pO2 ABG Base Excess ABG Hemoglobin ABG Chloride ABG Glucose Sodium Chloride Carbon Dioxide BUN 34 H Creatinine 1.7 H Glucose Calcium ALT Total Protein Albumin Arterial Blood Glucose Arterial Blood Ionized Calcium Crossmatch 10/23/20 10/23/20 10/24/20 08:44 08:44 05:21 WBC 14.8 H 16.0 H RBC 2.71 L 2.13 L Hgb 7.9 L 6.2 L Hct 24.4 L 19.1 L* RDW Lymph % (Auto) 6.1 L 7.0 L [place] % (Auto) 7.5 H Lymph # (Auto) 0.9 L 1.1 L [place] # (Auto) 1.2 H Seg Neutrophils % 87.6 H 85.0 H Seg Neuts % (Manual) Lymphocytes % (Manual) Nucleated RBC % Seg Neutrophils # 13.0 H 13.6 H Seg Neutrophils # Man Lymphocytes # (Manual) Fibrinogen Heparin Anti-Xa Level ABG pH POC ABG pCO2 POC ABG pO2 ABG pO2 ABG Base Excess ABG Hemoglobin ABG Chloride ABG Glucose Sodium Chloride 108.0 H Carbon Dioxide BUN 33 H Creatinine 1.5 H Glucose 123 H Calcium ALT 6 L Total Protein 5.9 L Albumin 2.7 L Arterial Blood Glucose Arterial Blood Ionized Calcium Crossmatch 10/24/20 10/24/20 10/24/20 05:21 07:02 18:26 WBC RBC Hgb 7.8 L Hct 23.6 L RDW Lymph % (Auto) [place] % (Auto) Lymph # (Auto) [place] # (Auto) Seg Neutrophils % Seg Neuts % (Manual) Lymphocytes % (Manual) Nucleated RBC % Seg Neutrophils # Seg Neutrophils # Man Lymphocytes # (Manual) Fibrinogen Heparin Anti-Xa Level ABG pH POC ABG pCO2 POC ABG pO2 ABG pO2 ABG Base Excess ABG Hemoglobin ABG Chloride ABG Glucose Sodium 146 H Chloride 111.7 H Carbon Dioxide BUN 28 H Creatinine Glucose Calcium ALT Total Protein Albumin Arterial Blood Glucose Arterial Blood Ionized Calcium Crossmatch See Detail 10/25/20 10/25/20 10/26/20 08:44 08:44 07:02 WBC 16.9 H 16.2 H RBC 2.72 L 2.76 L Hgb 7.8 L 7.7 L Hct 24.2 L 24.2 L RDW 17.0 H 16.8 H Lymph % (Auto) 3.2 L 4.5 L [place] % (Auto) 8.1 H 9.2 H Lymph # (Auto) 0.5 L 0.7 L [place] # (Auto) 1.4 H 1.5 H Seg Neutrophils % 88.0 H 85.1 H Seg Neuts % (Manual) Lymphocytes % (Manual) Nucleated RBC % Seg Neutrophils # 14.8 H 13.8 H Seg Neutrophils # Man Lymphocytes # (Manual) Fibrinogen Heparin Anti-Xa Level ABG pH POC ABG pCO2 POC ABG pO2 ABG pO2 ABG Base Excess ABG Hemoglobin ABG Chloride ABG Glucose Sodium 148 H Chloride 114.4 H Carbon Dioxide BUN Creatinine Glucose Calcium ALT Total Protein Albumin Arterial Blood Glucose Arterial Blood Ionized Calcium Crossmatch 10/26/20 10/27/20 10/27/20 07:02 05:09 05:09 WBC 16.4 H RBC 2.57 L Hgb 7.3 L Hct 22.7 L RDW 16.9 H Lymph % (Auto) 4.2 L [place] % (Auto) 7.7 H Lymph # (Auto) 0.7 L [place] # (Auto) 1.3 H Seg Neutrophils % 87.6 H Seg Neuts % (Manual) Lymphocytes % (Manual) Nucleated RBC % Seg Neutrophils # 14.4 H Seg Neutrophils # Man Lymphocytes # (Manual) Fibrinogen Heparin Anti-Xa Level ABG pH POC ABG pCO2 POC ABG pO2 ABG pO2 ABG Base Excess ABG Hemoglobin ABG Chloride ABG Glucose Sodium 147 H Chloride 116.7 H 113.5 H Carbon Dioxide 19 L BUN Creatinine Glucose 120 H 114 H Calcium ALT Total Protein Albumin Arterial Blood Glucose Arterial Blood Ionized Calcium Crossmatch 10/27/20 10/28/20 10/28/20 20:35 14:24 14:24 WBC 17.6 H RBC 2.62 L Hgb 7.5 L Hct 23.6 L RDW 17.0 H Lymph % (Auto) [place] % (Auto) Lymph # (Auto) [place] # (Auto) Seg Neutrophils % Seg Neuts % (Manual) 95.0 H Lymphocytes % (Manual) 2.0 L Nucleated RBC % 1.0 H Seg Neutrophils # Seg Neutrophils # Man 16.7 H Lymphocytes # (Manual) 0.4 L Fibrinogen Heparin Anti-Xa Level ABG pH 7.189 L* POC ABG pCO2 POC ABG pO2 ABG pO2 129.2 H ABG Base Excess -5.3 L ABG Hemoglobin 7.4 L ABG Chloride ABG Glucose Sodium Chloride 112.2 H Carbon Dioxide 19 L BUN Creatinine Glucose 133 H Calcium ALT Total Protein 5.7 L Albumin 2.7 L Arterial Blood Glucose Arterial Blood Ionized Calcium Crossmatch 10/29/20 10/29/20 10/29/20 06:44 06:44 12:19 WBC 19.6 H RBC 2.41 L Hgb 7.2 L Hct 21.5 L RDW 17.0 H Lymph % (Auto) [place] % (Auto) Lymph # (Auto) [place] # (Auto) Seg Neutrophils % Seg Neuts % (Manual) 98.0 H Lymphocytes % (Manual) 0 L Nucleated RBC % Seg Neutrophils # Seg Neutrophils # Man 19.2 H Lymphocytes # (Manual) 0.0 L Fibrinogen Heparin Anti-Xa Level ABG pH 7.009 L POC ABG pCO2 94.4 H POC ABG pO2 141.3 H ABG pO2 ABG Base Excess ABG Hemoglobin 8.5 L ABG Chloride 109.0 H ABG Glucose 151 H Sodium Chloride 110.6 H Carbon Dioxide BUN Creatinine Glucose 120 H Calcium ALT Total Protein Albumin Arterial Blood Glucose 151 H Arterial Blood Ionized Calcium 5.5 H Crossmatch 10/29/20 10/30/20 10/30/20 17:49 05:27 05:27 WBC RBC Hgb 6.5 L Hct 20.2 L RDW Lymph % (Auto) [place] % (Auto) Lymph # (Auto) [place] # (Auto) Seg Neutrophils % Seg Neuts % (Manual) Lymphocytes % (Manual) Nucleated RBC % Seg Neutrophils # Seg Neutrophils # Man Lymphocytes # (Manual) Fibrinogen Heparin Anti-Xa Level ABG pH 7.23 L POC ABG pCO2 53.5 H POC ABG pO2 ABG pO2 ABG Base Excess ABG Hemoglobin 8.5 L ABG Chloride 110.0 H ABG Glucose 112 H Sodium Chloride 107.3 H Carbon Dioxide BUN Creatinine 1.8 H Glucose Calcium ALT Total Protein Albumin Arterial Blood Glucose 112 H Arterial Blood Ionized Calcium Crossmatch Allied health notes reviewed: nursing
[2020-10-30] MEDS: PANTOPRAZOLE 40 MG INJ IV SCH ×2 (10:52→22:48)
[2020-10-30] MEDS: HYDROmorphone 1 MG/1 ML INJ IV PRN (10:52)
--- NOTE | 2020-10-30 11:17 | Progress Note ---
Assessment and Plan Cultures: Wound culture 10/22/2020 Pseudomonas intermediate to independent, sensitive to Levaquin A/P: 75-year-old man past medical history COPD, hypertension, peripheral vascular disease, found to have cellulitis #Leukocytosis: worsening ?reactive due to severe anemia #Left lower extremity cellulitis/skin sloughing: Per wound care evaluation on 10/23/2020 ulcer measures 22 x 18 x 0.1 cm circumferential, with a black eschar #Malnutrition #JOSHUA: creat up #Peripheral vascular disease #Anemia: s/p Transfusion, worsening #GI bleed s/p epinephrine injection and gold probe. #Acute hypoxemic resp failure: Chest x-ray with emphysema and pulmonary edema, now with desaturation down to 88%, now on BIPAP. unclear etiology Recs: -continue levaquin day 7 of 10 -wound care reeval -close monitoring, guarded prognosis d/w Dr Hull will follow MD [facility] ([facility]) Office [phone] Subjective Date of service: 10/30/20 Principal diagnosis: AE-COPD; Acute G.I. Bleed; Cellulitis; HTN Interval history: Patient is now on BIPAP, tachycardic, tachypneic. He does not feel well. No fever Objective - Exam Narrative Exam: General appearance: Alert in mild shortness of breath Eyes: anicteric sclerae, moist conjunctivae; no lid-lag; PERRLA HENT: Normocephalic, Atraumatic; normal external ears, nares open, oropharynx limited NG tube in place Neck: supple, tracheal midline, no JVD Lungs: Bilateral scattered rhonchi CV: RRR no murmur Abdomen: Soft, non-tender; no masses or hepatosplenomegaly Extremities: no edema, no cyanosis Skin: + Left leg covered with dressing Psych: no agitated Neuro: alert and oriented x 3. Moving all extermities - Constitutional Vitals: Vital Signs Temp Pulse Resp BP Pulse Ox 98.0 F 145 H 16 125/66 100 10/30/20 08:00 10/30/20 10:00 10/30/20 10:00 10/30/20 10:00 10/30/20 10:00 Temperature -Last 24 Hours Temperature 98.0 F Temperature 98 F Temperature 98 F Temperature 97.3 F Temperature 98.4 F Temperature 97.7 F - Labs CBC & Chem 7: 10/30/20 05:27 10/30/20 05:27 Labs: Abnormal lab results 10/29/20 10/29/20 10/29/20 Range/Units 06:44 12:19 17:49 Hgb (11.8-15.2) gm/dl Hct (35.5-45.6) % Seg Neuts % (Manual) 98.0 H (40.0-70.0) % Lymphocytes % (Manual) 0 L (13.4-35.0) % Seg Neutrophils # Man 19.2 H (1.8-7.7) K/mm3 Lymphocytes # (Manual) 0.0 L (1.2-5.4) K/mm3 ABG pH 7.009 L 7.23 L (7.320-7.450) POC ABG pCO2 94.4 H 53.5 H (32.0-48.0) mmHg POC ABG pO2 141.3 H (83-108) mmHg ABG Hemoglobin 8.5 L 8.5 L (12.0-17.5) ABG Chloride 109.0 H 110.0 H (98-107) mmol/L ABG Glucose 151 H 112 H (65-95) mg/dL Chloride (98-107) mmol/L Creatinine (0.8-1.3) mg/dL Arterial Blood Glucose 151 H 112 H (65-95) mg/dL Arterial Blood Ionized Calcium 5.5 H (4.6-5.3) mg/dL 10/30/20 10/30/20 Range/Units 05:27 05:27 Hgb 6.5 L (11.8-15.2) gm/dl Hct 20.2 L (35.5-45.6) % Seg Neuts % (Manual) (40.0-70.0) % Lymphocytes % (Manual) (13.4-35.0) % Seg Neutrophils # Man (1.8-7.7) K/mm3 Lymphocytes # (Manual) (1.2-5.4) K/mm3 ABG pH (7.320-7.450) POC ABG pCO2 (32.0-48.0) mmHg POC ABG pO2 (83-108) mmHg ABG Hemoglobin (12.0-17.5) ABG Chloride (98-107) mmol/L ABG Glucose (65-95) mg/dL Chloride 107.3 H (98-107) mmol/L Creatinine 1.8 H (0.8-1.3) mg/dL Arterial Blood Glucose (65-95) mg/dL Arterial Blood Ionized Calcium (4.6-5.3) mg/dL
[2020-10-30] MEDS ORDERED: SODIUM CHLORIDE 0.9% 500 ML 500 ML IV NR (11:23)
[2020-10-30] MEDS: DEXTROSE 50% IN WATER (25GM) 50 ML SYRINGE IV PRN ×2 (13:02→18:22)
[2020-10-30] MEDS: DEXTROSE 10% IN WATER 1,000 ML IV SCH (13:03)
[2020-10-30] MEDS: METOPROLOL TARTRATE 25 MG TAB PO SCH (13:03)
[2020-10-30] MEDS: MULTIVITAMINS,THER W-MINERALS TAB PO SCH (13:04)
[2020-10-30] MEDS: METOPROLOL TARTRATE 5 MG/5 ML INJ IV PRN ×2 (13:07→20:35)
--- NOTE | 2020-10-30 15:29 | Progress Note ---
Assessment and Plan 75 year old male with COPD on home oxygen, chronic anorexia and cachexia, cellulitis of the left lower extremity, and recent left lower extremity fem pop occlusion. Acute renal failure improved with IV hydration. Acute renal failure has worsened again with BiPAP requirement. Has left lower extremity cellulitis. On daptomycin. ID seeing patient. Wound culture sent. Hemoglobin declined. not on anticoagulation. Requiring another unit of packed red blood cells. On BiPAP. Respiratory status tenuous. ?COPD exacerbation. Unclear what to do about thrombosed left lower extremity femoropopliteal bypass given the multitude of other medical issues. May consider endovascular recon struction of the [place] SFA Subjective Date of service: 10/30/20 Principal diagnosis: AE-COPD; Acute G.I. Bleed; Cellulitis; HTN Interval history: Hemoglobin declined and patient requires 1 unit packed red blood cell. Patient on BiPAP. Patient is talking to me when I ask him questions, but according to staff he is otherwise confused. Vitals are stable. No melena or hematochezia. Objective - Constitutional Vitals: Vital Signs - 12hr 10/30/20 10/30/20 10/30/20 04:00 05:00 06:00 Temperature 98 F Pulse Rate 97 H 87 84 Pulse Rate [ Anterior Bilateral] Pulse Rate [ 87 From Monitor] Respiratory 11 L 18 18 Rate Respiratory Rate [Anterior Bilateral] Blood Pressure 114/56 126/108 117/57 O2 Sat by Pulse 99 91 Oximetry 10/30/20 10/30/20 10/30/20 07:00 08:00 08:05 Temperature 98.0 F Pulse Rate 93 H 95 H 102 H Pulse Rate [ Anterior Bilateral] Pulse Rate [ From Monitor] Respiratory 23 18 26 H Rate Respiratory Rate [Anterior Bilateral] Blood Pressure 107/59 107/59 104/67 O2 Sat by Pulse 99 99 100 Oximetry 10/30/20 10/30/20 10/30/20 08:09 09:00 10:00 Temperature Pulse Rate 145 H Pulse Rate [ 96 H Anterior Bilateral] Pulse Rate [ From Monitor] Respiratory 18 16 Rate Respiratory 30 H Rate [Anterior Bilateral] Blood Pressure 104/67 125/66 O2 Sat by Pulse 88 100 Oximetry 10/30/20 10/30/20 12:00 13:07 Temperature 98.1 F Pulse Rate 155 H Pulse Rate [ Anterior Bilateral] Pulse Rate [ From Monitor] Respiratory Rate Respiratory Rate [Anterior Bilateral] Blood Pressure O2 Sat by Pulse Oximetry General appearance: Present: mild distress (Respiratory), other (On BiPAP) - EENT Eyes: EOM intact ENT: hearing intact - Respiratory Respiratory effort: labored (On BiPAP) Extremities: abnormal (Left lower extremity wounds.) Extremity abnormal: pulses diminished (Bilaterally nonpalpable pedal pulses) - Gastrointestinal General gastrointestinal: Present: soft, non-tender - Psychiatric Psychiatric: cooperative - Labs CBC & Chem 7: 10/30/20 05:27 10/30/20 05:27 Labs: Abnormal lab results 10/29/20 10/29/20 10/30/20 Range/Units 12:19 17:49 05:27 Hgb 6.5 L (11.8-15.2) gm/dl Hct 20.2 L (35.5-45.6) % ABG pH 7.009 L 7.23 L (7.320-7.450) POC ABG pCO2 94.4 H 53.5 H (32.0-48.0) mmHg POC ABG pO2 141.3 H (83-108) mmHg ABG Hemoglobin 8.5 L 8.5 L (12.0-17.5) ABG Chloride 109.0 H 110.0 H (98-107) mmol/L ABG Glucose 151 H 112 H (65-95) mg/dL Chloride (98-107) mmol/L Creatinine (0.8-1.3) mg/dL Arterial Blood Glucose 151 H 112 H (65-95) mg/dL Arterial Blood Ionized Calcium 5.5 H (4.6-5.3) mg/dL 10/30/20 Range/Units 05:27 Hgb (11.8-15.2) gm/dl Hct (35.5-45.6) % ABG pH (7.320-7.450) POC ABG pCO2 (32.0-48.0) mmHg POC ABG pO2 (83-108) mmHg ABG Hemoglobin (12.0-17.5) ABG Chloride (98-107) mmol/L ABG Glucose (65-95) mg/dL Chloride 107.3 H (98-107) mmol/L Creatinine 1.8 H (0.8-1.3) mg/dL Arterial Blood Glucose (65-95) mg/dL Arterial Blood Ionized Calcium (4.6-5.3) mg/dL Medications & Allergies - Medications Allergies/Adverse Reactions: Allergies No Known Allergies Allergy (Verified 10/22/20 08:47) Home Medications: Home Medications Medication Instructions Recorded Confirmed Last Taken Type Albuterol Mdi (or & Nicu Only) 2 puff IH QID PRN #1 inhalation 08/08/15 10/22/20 Unknown Rx [ProAir HFA Inhaler] Ciprofloxacin [Ciprofloxacin ORAL 500 mg PO Q12H #14 ml 08/08/15 10/22/20 10/21/20 Rx LIQ] 1 tab Amoxicillin/Potassium Clav 1 each PO BID 10/22/20 10/22/20 10/21/20 History [Amox-Clav 250-125 mg Tablet] 1 tab Aspirin [Aspirin BABY CHEW TAB] 81 mg PO QDAY 10/22/20 10/22/20 10/21/20 History 1 tab AtorvaSTATin [Lipitor] 20 mg PO QHS 10/22/20 10/22/20 10/21/20 History 1 tab Clopidogrel [Plavix] 75 mg PO QDAY 10/22/20 10/22/20 10/21/20 History 1 tab Metoprolol Xl [Metoprolol 25 mg PO QDAY 10/22/20 10/22/20 10/21/20 History SUCCINATE ER TAB] 1 tab Multivit-Min/FA/Lycopen/Lutein 1 each PO DAILY 10/22/20 10/22/20 10/21/20 History [Centrum Silver Tablet] 1 tab Oxycodon-Acetaminophen 2.5-325 5 - 325 mg PO Q6HR PRN 10/22/20 10/22/20 Unknown History Pentoxifylline 400 mg PO BID 10/22/20 10/22/20 10/21/20 History 1 tab Active Medications: Generic Name Dose Route Start Last Admin Trade Name Freq PRN Reason Stop Dose Admin Acetaminophen 650 mg 10/22/20 10:30 10/28/20 21:07 Tylenol PO 650 mg Q4H PRN Administration Pain MILD(1-3)/Fever >100.5/RUANO Albuterol 2.5 mg 10/22/20 10:30 10/29/20 04:34 Proventil IH 2.5 mg Q4HRT PRN Administration Shortness Of Breath Albuterol/Ipratropium 1 ampul 10/26/20 20:00 10/30/20 08:35 Duoneb *Not For Prn Use* IH Not Given BIDRT SONYA Arformoterol Tartrate 15 mcg 10/26/20 20:00 10/30/20 08:09 Juan Kumar IH 15 mcg Q12HRT SONYA Administration Budesonide 0.5 mg 10/26/20 20:00 10/30/20 08:09 Pulmicort IH 0.5 mg Q12HRT SNOYA Administration Dextrose 0 ml 10/30/20 13:00 10/30/20 13:02 D50w (25gm) Syringe IV 50 ml Q30MIN PRN Administration Hypoglycemia Protocol Docusate Sodium 100 mg 10/22/20 11:00 10/30/20 13:04 Colace PO Not Given BID SONYA Hydromorphone HCl 0.5 mg 10/23/20 08:17 10/30/20 10:52 Dilaudid IV 0.5 mg Q3H PRN Administration Pain , Severe (7-10) Levofloxacin/Dextrose 750 mg in 150 mls @ 100 mls/hr 10/29/20 15:00 10/29/20 15:18 Levaquin 750mg/150ml IV 11/03/20 14:59 100 mls/hr Q48H SONYA Administration Protocol Sodium Chloride 500 mls @ 0 mls/hr 10/30/20 11:23 Nacl 0.9% 500 Ml IV 10/30/20 23:59 ONCE NR As Directed Dextrose 1,000 mls @ 75 mls/hr 10/30/20 13:00 10/30/20 13:03 D10w IV 75 mls/hr DIRECT SONYA Administration Metoclopramide HCl 5 mg 10/23/20 08:17 Reglan IV Q6H PRN Nausea And Vomiting Metoprolol Tartrate 5 mg 10/30/20 12:00 10/30/20 13:07 Metoprolol IV 5 mg Q6HR PRN Administration HEART RATE >120 Multivitamins/Minerals 1 each 10/22/20 12:00 10/30/20 13:04 Theragran-M Tab PO Not Given QDAY SONYA Ondansetron HCl 4 mg 10/23/20 08:17 Zofran IV Q8H PRN Nausea And Vomiting Oxycodone/Acetaminophen 1 tab 10/22/20 11:32 10/27/20 01:51 Percocet 5/325 PO 1 tab Q4H PRN Administration Pain, Moderate (4-6) Pantoprazole Sodium 40 mg 10/26/20 12:00 10/30/20 10:52 Protonix IV 40 mg BID SONYA Administration Pentoxifylline 400 mg 10/22/20 11:00 10/30/20 13:04 Trental PO Not Given BID SONYA Senna 8.6 mg 10/22/20 11:00 10/30/20 13:04 Senokot PO Not Given Q12HR SONYA Sodium Chloride 10 ml 10/22/20 11:00 10/30/20 10:53 Sodium Chloride Flush Syringe 10 Ml IV 10 ml BID SONYA Administration Sodium Chloride 10 ml 10/22/20 10:30 Sodium Chloride Flush Syringe 10 Ml IV PRN PRN LINE FLUSH Sodium Hypochlorite 1 applic 10/30/20 10:00 Dakin's Half Strength TP BID SONYA HEART Score - HEART Score EKG: Non-specific Risk factors: > 3 risk factors or hx of atherosclerotic disease Troponin: < normal limit - Critical Actions Critical Actions: 4-6 pts:12-16.6% risk of adverse cardiac event. Should be admitted
[2020-10-30] MEDS ORDERED: MORPHINE 2 MG/1 ML INJ IV PRN (16:00)
[2020-10-30] MEDS ORDERED: SODIUM BICARBONATE 325 MG TAB FEEDTUBE PRN (17:50)
[2020-10-30] MEDS ORDERED: LIPASE 10,500/PROTEASE 25,000/AMYLASE 43,750 (UNITS) DR CAP FEEDTUBE PRN (17:50)
[2020-10-30] MEDS ORDERED: SIMPLE SYRUP 15 ML FEEDTUBE PRN ×2 (17:50)
[2020-10-30] MEDS: SODIUM HYPOCHLORITE, DAKIN'S 1/2 STRENGTH (0.25%) 473 ML TOPICAL SOLN TP SCH ×2 (17:52→22:47)
--- NOTE | 2020-10-30 19:29 | Progress Note ---
Assessment and Plan --Acute on Chronic respiratory failure on 2L home O2, due to COPD and severe anemia placed back on Bipap continue supplemental O2 as needed and nebulizer breathing treatment as needed --Acute metabolic encephalopathy, ordered CT head but patient is too unstable to get the test done Likely due to profound hypoxia, continue to monitor clinically -- GI bleed due to gastric ulcer started on PPI, GI consulted, follow h/h. s/p EGD x2 EGD 10/23: 1. Fresh appearing blood with clots in gastric body. Abnormal mucosa in the body with overlying blood clots, unable to be cleared with water irrigation. No active bleeding seen at the time of procedure. EGD 10/24: 1. Gastric body (lesser curvature) ulcer with visible vessel s/p epinephrine injection and gold probe. No active bleeding at end of procedure however vessel was unable to be obliterated with gold probe. --SVT, metoprolol iv q6 as needed s/p amio drip, preserved EF on 2d echo, consulted cardiology --Atrial fibrillation, noted on telemetry Continue beta-frederic to control heart rate, cardiology on board Not a candidate for anticoagulation due to recent severe GI bleed -- Cellulitis of left lower extremity On Daptomycin and levaquin Vascular surgery consulted, ID also following --Sepsis with cellulitis cont abx, follow Cx -- JOSHUA (acute kidney injury) IV fluids for now, follow daily labs likely vasomotor nephropathy --Severe anemia due to acute GI bleed s/p 1 unit transfusion, follow H&H, continue PPI Order another unit of packed RBC transfusion today -- HTN (hypertension) Cont antihypertensives --hypernatremia, cont iv fluid -- Tobacco abuse counseling Counselled On Nicotine patch -- COPD (chronic obstructive pulmonary disease) place on Duoonebs scheduled, bipap as needed -- PAD (peripheral artery disease) Defer to Vascular/IR Initially placed on Heparin drip - off now for GI bleed need angioplasty/angiogram --hypoglycemia, recurrent As needed d50, started on D5Ns iv --Severe protein calorie malnutrition consulted dietary, start on dietary supplements as tolerated --DVT Px, scd --transfer to tele chapis if clinically stable Brief History: 75-year-old man past medical history COPD, hypertension, peripheral vascular disease had a left lower extremity cellulitis and ulceration and this has been painful for the past 2 weeks admitted to the hospital by vascular surgery for thrombolysis of the left lower extremity. Patient has a history of 2 bypasses at [facility]. On presentation he was found to have a leukocytosis as well as an JOSHUA. Patient started on iv abx, iv heparin drip, ID consulted -ad mitted for further mx. He then developed bloody BM - heparin discontinued, GI consulted for EGD, PPI started. 10/23: PLANNED TO Continue daptomycin for now, if improvement noted plan to discharge with Bactrim. follow cx and monitor renal function. Hemoglobin declined on heparin drip from 11.7-7.9 with history of black diarrhea this morning. GI consulted, planned for EGD today. follow vascular recommendation. 10/24: s/p repeat EGD today. following EGD he bacame lethargic with respiratory distress , called code med- placed on bipap. Hb 6.7 -ordered PRBC. BG noted at 60s - D50 given and started on D5Ns drip and transferred to [facility]. 10/25: patient noted to have HR of 160s this am which improved after iv metoprolol and now placed on amio drip, ordered 2d echo, consult cardiology. off Bipap since this am, repeat h/h stable. He is tolerating clear liquid diet. cont to monitor h/h. 10/26: clinically improved, off bipap, off amioderone. getting 2d echo at bedside. cont supportive care. h/h stable. f/u with vascular for possible angiogram. monitor cbc/bmp 10/27 patient remains intubated NG tube in place. No new changes overnight. Prognosis remains extremely poor. 10/28 patient remains intubated no new recommendations per neurology. Unable to wean patient at this time. Currently on tube feedings prognosis remains extremely poor. 10/29; became lathergic thia am, placed on bipap, abg obtained, discussed with pulmonary, cxr no infiltrates, tele showed atrial fib but not a candidate for AC for recent GI bleed, cont rate control for now. supportive care, CT head ordered. 10/30: Hb 6.5 -transfuse one unit of PRBC. patient remains on BIPAP. BG dropping even with D10W, ordered for dobhoff and TF Subjective Date of service: 10/30/20 Principal diagnosis: AE-COPD; Acute G.I. Bleed; Cellulitis; HTN Interval history: Patient seen and examined. Medical records and medication list reviewed. Remains on Bipap, h/h further trended down Patient noted lethargic with severe respiratory distress Discussed plan of care with critical care attending and with RN at bedside Order for packed RBC transfusion Objective - Exam Narrative Exam: GENERAL: Elderly malnourished male lying on bed appeared to be in moderate discomfort. HEENT: Normocephalic. Atraumatic. No conjunctival congestion or icterus. Patient has moist mucous membranes. NECK: Supple. Trachea midline. CHEST/LUNGS: diminished BS auscultated bilaterally, breathing labored. on BiPAP HEART/CARDIOVASCULAR: Tachycardic with irregular rhythm. S1 and S2 positive. ABDOMEN: Abdomen is soft, nontender. Patient has normal bowel sounds. SKIN: There is no rash. Warm and dry. NEURO: No focal motor deficit. Follows command MUSCULOSKELETAL: No joint effusion or tenderness. EXTRIMITY: No edema, Left lower extremity with wound dressing PSYCH: cooperative but lethargic - Constitutional Vitals: Vital Signs - 12hr 10/30/20 10/30/20 10/30/20 08:00 08:05 08:09 Temperature 98.0 F Pulse Rate 95 H 102 H Pulse Rate [ 96 H Anterior Bilateral] Respiratory 18 26 H Rate Respiratory 30 H Rate [Anterior Bilateral] Blood Pressure 107/59 104/67 O2 Sat by Pulse 99 100 Oximetry 10/30/20 10/30/20 10/30/20 09:00 10:00 11:00 Temperature Pulse Rate 145 H 161 H Pulse Rate [ Anterior Bilateral] Respiratory 18 16 24 Rate Respiratory Rate [Anterior Bilateral] Blood Pressure 104/67 125/66 106/61 O2 Sat by Pulse 88 100 Oximetry 10/30/20 10/30/20 10/30/20 12:00 13:00 13:07 Temperature 98.1 F Pulse Rate 100 H 162 H 155 H Pulse Rate [ Anterior Bilateral] Respiratory 27 H 21 Rate Respiratory Rate [Anterior Bilateral] Blood Pressure 102/69 102/69 O2 Sat by Pulse Oximetry 10/30/20 10/30/20 10/30/20 13:10 14:00 15:00 Temperature Pulse Rate 156 H 85 86 Pulse Rate [ Anterior Bilateral] Respiratory 36 H 16 29 H Rate Respiratory Rate [Anterior Bilateral] Blood Pressure 125/81 125/81 118/59 O2 Sat by Pulse 100 100 100 Oximetry 10/30/20 10/30/20 10/30/20 16:00 17:00 17:07 Temperature 98.1 F Pulse Rate 105 H 119 H 94 H Pulse Rate [ Anterior Bilateral] Respiratory 25 H 25 H 26 H Rate Respiratory Rate [Anterior Bilateral] Blood Pressure 124/61 124/61 85/66 O2 Sat by Pulse 100 100 100 Oximetry - Labs CBC & Chem 7: 11/01/20 12:17 11/01/20 12:17 Labs: Abnormal lab results 10/30/20 10/30/20 10/30/20 Range/Units 05:27 05:27 15:56 Hgb 6.5 L (11.8-15.2) gm/dl Hct 20.2 L (35.5-45.6) % Chloride 107.3 H (98-107) mmol/L Creatinine 1.8 H (0.8-1.3) mg/dL POC Glucose 25 L (70-105) mg/dL Crossmatch 10/30/20 10/30/20 Range/Units 17:20 17:39 Hgb (11.8-15.2) gm/dl Hct (35.5-45.6) % Chloride (98-107) mmol/L Creatinine (0.8-1.3) mg/dL POC Glucose 49 L (70-105) mg/dL Crossmatch See Detail HEART Score - HEART Score EKG: Non-specific Risk factors: > 3 risk factors or hx of atherosclerotic disease Troponin: < normal limit - Critical Actions Critical Actions: 4-6 pts:12-16.6% risk of adverse cardiac event. Should be admitted
--- NOTE | 2020-10-30 20:39 | XRay Report ---
XR abdomen 1V ap INDICATION / CLINICAL INFORMATION: Feeding tube placement for hypoglycemia. COMPARISON: None FINDINGS/IMPRESSION: Weighted tip feeding tube with guidewire in place projects within the stomach. Partially imaged bowel gas pattern is nonobstructive. Signer Name: Dwaine Mauricio MD Signed: 10/30/2020 8:34 PM Workstation Name: [id number]
[2020-10-30] MEDS ORDERED: FUROSEMIDE 40 MG/4 ML INJ IV ONE (23:50)
[2020-10-31] MEDS: DEXTROSE 50% IN WATER (25GM) 50 ML SYRINGE IV PRN ×2 (00:45→18:16)
[2020-10-31] MEDS: oxyCODONE /ACETAMINOPHEN 5-325MG TAB PO PRN (02:02)
[2020-10-31] MEDS: DEXTROSE 10% IN WATER 1,000 ML IV SCH ×2 (05:02→22:34)
--- NOTE | 2020-10-31 07:33 | Progress Note ---
Assessment and Plan Cultures: Wound culture 10/22/2020 Pseudomonas intermediate to independent, sensitive to Levaquin A/P: 75-year-old man past medical history COPD, hypertension, peripheral vascular disease, found to have cellulitis #Leukocytosis: worsening ?reactive due to severe anemia #Left lower extremity cellulitis/skin sloughing: Per wound care evaluation on 10/23/2020 ulcer measures 22 x 18 x 0.1 cm circumferential, with a black eschar #Malnutrition #JOSHUA: creat up #Peripheral vascular disease: thrombosed left lower extremity femoropopliteal bypass ? vascular considering endovascular reconstruction #Anemia: s/p Transfusion, worsening #GI bleed s/p epinephrine injection and gold probe. #Acute hypoxemic resp failure: Chest x-ray with emphysema and pulmonary edema, now with desaturation down to 88%, now on BIPAP. unclear etiology #PVD Recs: -continue levaquin day 8 of 10 -Obtain blood cultures, UA -Continue wound care -close monitoring due to worsening respiratory failure, guarded prognosis d/w Dr Hull will follow MD Guy [facility] ([facility]) Office [phone] Subjective Date of service: 10/31/20 Principal diagnosis: AE-COPD; Acute G.I. Bleed; Cellulitis; HTN Interval history: Patient remains anxious, tachypneic, on high flow, no fever Objective - Exam Narrative Exam: General appearance: Alert in mild shortness of breath on high flow nasal cannula Eyes: anicteric sclerae, moist conjunctivae; no lid-lag; PERRLA HENT: Normocephalic, Atraumatic; normal external ears, nares open, oropharynx limited NG tube in place Neck: supple, tracheal midline, no JVD Lungs: Bilateral scattered rhonchi CV: RRR no murmur Abdomen: Soft, non-tender; no masses or hepatosplenomegaly Extremities: no edema, no cyanosis Skin: + Left leg covered with dressing Psych: Anxious Neuro: Alert, confused - Constitutional Vitals: Vital Signs Temp Pulse Resp BP Pulse Ox 98.1 F 83 21 101/51 100 10/31/20 04:57 10/31/20 04:57 10/31/20 04:57 10/31/20 04:57 10/31/20 04:57 Temperature -Last 24 Hours Temperature 98.1 F Temperature 98.1 F Temperature 98.1 F Temperature 99.3 F Temperature 98.4 F Temperature 97.8 F Temperature 97.9 F Temperature 98.0 F Temperature 98 F Temperature 97.4 F Temperature 98.1 F Temperature 98.1 F Temperature 98.0 F - Labs CBC & Chem 7: 10/31/20 10:21 10/31/20 10:21 Labs: Abnormal lab results 10/24/20 10/30/20 10/30/20 Range/Units 07:02 15:56 17:20 POC Glucose 25 L (70-105) mg/dL Crossmatch See Detail See Detail 10/30/20 Range/Units 17:39 POC Glucose 49 L (70-105) mg/dL Crossmatch
[2020-10-31] MEDS: BUDESONIDE 0.5 MG/2 ML NEBU IH SCH ×2 (07:44→20:09)
[2020-10-31] MEDS: IPRATROPIUM/ALBUTEROL SULFATE 3 ML AMPUL.NEB IH SCH ×2 (07:44→20:09)
[2020-10-31] MEDS: ARFORMOTEROL 15 MCG/2 ML NEBU IH SCH ×2 (07:44→20:34)
[2020-10-31] MEDS: SENNOSIDES 8.6 MG TAB PO SCH ×2 (09:22→22:36)
[2020-10-31] MEDS: MULTIVITAMINS 5 ML ORAL LIQUID PO SCH (09:22)
[2020-10-31] MEDS: PENTOXIFYLLINE ER 400 MG TAB PO SCH ×2 (09:22→22:36)
[2020-10-31] MEDS: PANTOPRAZOLE 40 MG INJ IV SCH ×2 (09:22→22:28)
[2020-10-31] MEDS: DOCUSATE SODIUM 100 MG/10 ML ORAL LIQD FEEDTUBE SCH ×2 (09:22→22:43)
[2020-10-31] MEDS: SODIUM HYPOCHLORITE, DAKIN'S 1/2 STRENGTH (0.25%) 473 ML TOPICAL SOLN TP SCH ×2 (09:23→22:40)
--- NOTE | 2020-10-31 09:50 | Progress Note ---
<WARREN ANGELES - Last Filed: 10/31/20 09:53> Assessment and Plan Transient atrial fibrillation currently in sinus rhythm patient is considered not a candidate for oral anticoagulation due to acute GI bleed and severe anemia. normal LVEF 60-65% by echo TSH of 1.4 PVD with cellulitis of the left lower extremity, and recent left lower extremity fem-pop occlusion. Acute GI bleed with severe anemia s/p transfusion of PRBCs COPD on home oxygen Cachexia Conservative cardiac management. Subjective Date of service: 10/31/20 Principal diagnosis: AE-COPD; Acute G.I. Bleed; Cellulitis; HTN Interval history: No interval cardiac change. Metoprolol discontinued for unclear reasons. Mild sinus tachycardia on telemetry. Objective Vital Signs Temp Pulse Pulse Resp Resp BP Pulse Ox 10/31/20 07:48 100 10/31/20 07:47 98 H 32 H 10/31/20 04:57 98.1 F 83 21 101/51 100 10/31/20 04:48 98.1 F 81 20 93/52 99 10/31/20 04:18 98.1 F 80 18 113/82 100 10/31/20 04:00 99.3 F 10/31/20 03:48 98.4 F 80 16 109/58 100 10/31/20 03:18 97.8 F 97 H 22 107/48 100 10/31/20 02:48 97.9 F 86 21 98/46 99 10/31/20 02:18 98.0 F 107 H 22 125/45 94 10/31/20 02:02 22 10/31/20 01:48 98 F 95 H 22 121/52 91 10/31/20 01:33 97.4 F L 97 H 19 116/70 99 10/31/20 01:01 92 H 15 122/86 82 L 10/31/20 00:01 25 H 119/83 100 10/31/20 00:00 93 H 33 H 125/45 96 10/30/20 23:01 84 27 H 103/67 100 10/30/20 22:01 81 22 105/68 78 L 10/30/20 21:00 84 15 105/68 96 10/30/20 20:35 151 H 137/117 10/30/20 20:28 149 H 25 H 137/114 98 10/30/20 20:00 143 H 23 137/114 100 10/30/20 19:44 130 H 17 10/30/20 19:10 91 H 21 142/71 100 10/30/20 19:00 91 H 20 142/71 96 10/30/20 18:00 95 H 16 85/66 100 10/30/20 17:07 94 H 26 H 85/66 100 10/30/20 17:00 119 H 25 H 124/61 100 10/30/20 16:00 98.1 F 105 H 25 H 124/61 100 10/30/20 15:00 86 29 H 118/59 100 10/30/20 14:00 85 16 125/81 100 10/30/20 13:10 156 H 36 H 125/81 100 10/30/20 13:07 155 H 10/30/20 13:00 162 H 21 102/69 10/30/20 12:00 98.1 F 100 H 27 H 102/69 10/30/20 11:00 161 H 24 106/61 10/30/20 10:00 145 H 16 125/66 100 - Physical Examination General: Cachectic, Other (mild distress on high flow oxygen) Cardiac: Positive: Tachycardia Lungs: Positive: Rales Neuro: Positive: Grossly Intact Extremities: Present: edema ( cellulitis of the left lower extremity) - Allied health notes Allied health notes reviewed: nursing <ANNY DEXTER - Last Filed: 11/01/20 07:05> Assessment and Plan - Patient Problems (1) Paroxysmal SVT (supraventricular tachycardia) Current Visit: Yes Status: Acute Subjective Interval history: I saw this pt & agree with the Dx & Tx plan. Objective Vital Signs Temp Pulse Pulse Pulse Resp Resp Resp 11/01/20 04:00 98.2 F 11/01/20 03:30 20 11/01/20 03:00 93 H 23 11/01/20 02:46 93 H 24 11/01/20 02:00 94 H 21 11/01/20 01:00 94 H 18 11/01/20 00:43 88 11/01/20 00:00 99.1 F 100 H 24 10/31/20 23:00 92 H 18 10/31/20 22:00 88 24 10/31/20 21:00 100 H 22 10/31/20 20:09 94 H 31 H 10/31/20 20:01 99 H 30 H 10/31/20 20:00 97.9 F 10/31/20 19:45 100 H 34 H 10/31/20 19:44 10/31/20 19:09 109 H 10/31/20 19:03 103 H 37 H 10/31/20 19:00 104 H 32 H 10/31/20 18:01 105 H 30 H 10/31/20 17:01 96 H 25 H 10/31/20 16:00 97.8 F 92 H 89 25 H 10/31/20 15:00 95 H 33 H 10/31/20 14:59 87 24 10/31/20 14:00 95 H 32 H 10/31/20 13:00 93 H 29 H 10/31/20 12:00 97.8 F 88 88 29 H 10/31/20 11:08 170 H 10/31/20 11:01 170 H 33 H 10/31/20 10:00 106 H 33 H 10/31/20 09:00 105 H 34 H 10/31/20 08:01 113 H 28 H 10/31/20 08:00 98.3 F 82 104 H 24 10/31/20 07:48 10/31/20 07:47 98 H 32 H BP Pulse Ox 11/01/20 04:00 11/01/20 03:30 11/01/20 03:00 104/51 100 11/01/20 02:46 101/52 100 11/01/20 02:00 93/48 100 11/01/20 01:00 84/45 100 11/01/20 00:43 11/01/20 00:00 92 10/31/20 23:00 99/43 100 10/31/20 22:00 98/51 100 10/31/20 21:00 111/65 100 10/31/20 20:09 10/31/20 20:01 106/83 99 10/31/20 20:00 10/31/20 19:45 109/58 100 10/31/20 19:44 94 10/31/20 19:09 10/31/20 19:03 106/58 63 L 10/31/20 19:00 106/58 86 10/31/20 18:01 115/69 99 10/31/20 17:01 122/68 87 10/31/20 16:00 119/63 96 10/31/20 15:00 119/59 99 10/31/20 14:59 115/70 100 10/31/20 14:00 123/58 100 10/31/20 13:00 116/61 100 10/31/20 12:00 115/70 100 10/31/20 11:08 127/70 10/31/20 11:01 127/70 95 10/31/20 10:00 135/64 100 10/31/20 09:00 131/73 100 10/31/20 08:01 104/81 100 10/31/20 08:00 100 10/31/20 07:48 100 10/31/20 07:47 - Labs and Meds CBC 10/31/20 Range/Units 10:21 WBC 19.4 H (4.5-11.0) K/mm3 RBC 3.32 L (3.65-5.03) M/mm3 Hgb 9.9 L D (11.8-15.2) gm/dl Hct 30.5 L D (35.5-45.6) % Plt Count 412 (140-440) K/mm3 Comprehensive Metabolic Panel 10/31/20 Range/Units 10:21 Sodium 134 L (137-145) mmol/L Potassium 3.9 (3.6-5.0) mmol/L Chloride 103.0 (98-107) mmol/L Carbon Dioxide 23 (22-30) mmol/L BUN 20 (9-20) mg/dL Creatinine 2.0 H (0.8-1.3) mg/dL Glucose 109 H (75-100) mg/dL Calcium 9.2 (8.4-10.2) mg/dL
[2020-10-31 10:42] LABS: Hematocrit 30.5 % (35.5-45.6); Hemoglobin 9.9 gm/dl (11.8-15.2); Mean Corpuscular HGB Conc 33 % (32-34); Mean Corpuscular Volume 92 fl (84-94); Platelet Count 412 K/mm3 (140-440); Red Blood Count 3.32 M/mm3 (3.65-5.03); Red Cell Distribution Width 17.5 % (13.2-15.2)
[2020-10-31 10:59] LABS: Calcium 9.2 mg/dL (8.4-10.2)
[2020-10-31] MEDS: METOPROLOL TARTRATE 5 MG/5 ML INJ IV PRN (11:08)
[2020-10-31 11:41] LABS: Basophils % (Manual) 0 % (0.0-1.8); Eosinophils % (Manual) 0 % (0.0-4.3); Total Cells Counted 100
[2020-10-31 11:43] LABS: Anisocytosis 1+; Burr Cells 1+; Poikilocytosis 1+; Tear Drop Cells Few
[2020-10-31 11:44] LABS: Platelet Estimate Consistent w Auto
--- NOTE | 2020-10-31 12:45 | Progress Note ---
Assessment and Plan Patient weak, sleepy and lethergic, and resting on vapotherm, FIO2 30%. O2 saturation 100%.Patient has slight increase in work of breathing. BIPAP 18/5, rate 20, FIO2 35% standby in the room. ABG on above BIPAP settings. ABG pH 7.23 (7.320-7.450) L 10/29/20 17:49 POC ABG pCO2 53.5 mmHg (32.0-48.0) H 10/29/20 17:49 ABG pCO2 61.0 mm Hg 10/27/20 20:35 POC ABG pO2 86.1 mmHg (83-108) 10/29/20 17:49 ABG pO2 129.2 mm Hg (80.0-90.0) H 10/27/20 20:35 POC ABG HCO3 21.9 10/29/20 17:49 ABG O2 Saturation 98.0 % (95.0-99.0) 10/27/20 20:35 Patient afebrile . Patient has leukocytosis. Chest xray done to day 10/29/20 reported Lungs are again hyperinflated. There appear to be minimal bilateral pleural effusions. No definite acute pulmonary disease. Patient is on levaquin and Brovanna/Budesonide aerosol treatments q 12 hours. Patient is on protonix. Recommend SCDs Continue tube feeding. I spent critical care time of 37 minutes on this patient reviewing the chart, examining the patient, review labs, talking to the respiratory therapy and nu rsing staff and work out plan of treatment in this critically ill patient. - Patient Problems (1) Acute exacerbation of chronic obstructive airways disease Current Visit: Yes Status: Acute Plan to address problem: Patient is on vapotherm FIO2 30%. BIPAP 18/5, rate 20, FIO2 35% standby in the room. Brovanna/Budesonide aerosol treatments q 12 hours. Continue Levaquine. Continue Protonix. SCDs (2) Bronchitis, acute Current Visit: No Status: Acute Qualifiers: Bronchitis organism: unspecified organism Qualified Code(s): J20.9 - Acute bronchitis, unspecified Plan to address problem: Patient is on Levaquin. (3) Cellulitis of left lower extremity Current Visit: Yes Status: Acute Plan to address problem: Patient is on Levaquine. Management as per primary care and infectious diseases. (4) Femoral-popliteal bypass graft occlusion, left Current Visit: Yes Status: Acute Plan to address problem: Management as per vascular surgery. (5) GI bleed requiring more than 4 units of blood in 24 hours, ICU, or surgery Current Visit: Yes Status: Acute Plan to address problem: Management as per primary care and gastro enterology. (6) JOSHUA (acute kidney injury) Current Visit: Yes Status: Acute Plan to address problem: Management as per nephrology. (7) HTN (hypertension) Current Visit: No Status: Chronic Qualifiers: Hypertension type: essential hypertension Qualified Code(s): I10 - Essential (primary) hypertension Plan to address problem: Management as per primary care. (8) Tobacco abuse counseling Current Visit: No Status: Chronic Plan to address problem: Will housing counselor to stop smoking when patient more awake and oriented. Subjective Date of service: 10/31/20 Principal diagnosis: AE-COPD; Acute G.I. Bleed; Cellulitis; HTN Interval history: Patient weak, sleepy and lethergic, and resting on vapotherm, FIO2 30%. O2 saturation 100%.Patient has slight increase in work of breathing. BIPAP 18/5, rate 20, FIO2 35% standby in the room. ABG on above BIPAP settings. ABG pH 7.23 (7.320-7.450) L 10/29/20 17:49 POC ABG pCO2 53.5 mmHg (32.0-48.0) H 10/29/20 17:49 ABG pCO2 61.0 mm Hg 10/27/20 20:35 POC ABG pO2 86.1 mmHg (83-108) 10/29/20 17:49 ABG pO2 129.2 mm Hg (80.0-90.0) H 10/27/20 20:35 POC ABG HCO3 21.9 10/29/20 17:49 ABG O2 Saturation 98.0 % (95.0-99.0) 10/27/20 20:35 Patient afebrile . Patient has leukocytosis. Chest xray done to day 10/29/20 reported Lungs are again hyperinflated. There appear to be minimal bilateral pleural effusions. No definite acute pulmonary disease. Patient is on levaquin and Brovanna/Budesonide aerosol treatments q 12 hours. Patient is on protonix. Recommend SCDs Continue tube feeding. Objective Vital Signs - 12hr 10/31/20 10/31/20 10/31/20 01:01 01:33 01:48 Temperature 97.4 F L 98 F Pulse Rate 92 H 97 H 95 H Pulse Rate [ Anterior Bilateral] Pulse Rate [ Apical] Pulse Rate [ From Monitor] Respiratory 15 19 22 Rate Respiratory Rate [Anterior Bilateral] Blood Pressure 122/86 116/70 121/52 O2 Sat by Pulse 82 L 99 91 Oximetry 10/31/20 10/31/20 10/31/20 02:01 02:02 02:18 Temperature 98.0 F Pulse Rate 103 H 107 H Pulse Rate [ Anterior Bilateral] Pulse Rate [ Apical] Pulse Rate [ From Monitor] Respiratory 22 22 22 Rate Respiratory Rate [Anterior Bilateral] Blood Pressure 203/169 125/45 O2 Sat by Pulse 90 94 Oximetry 10/31/20 10/31/20 10/31/20 02:48 03:01 03:18 Temperature 97.9 F 97.8 F Pulse Rate 86 97 H Pulse Rate [ Anterior Bilateral] Pulse Rate [ Apical] Pulse Rate [ From Monitor] Respiratory 21 14 22 Rate Respiratory Rate [Anterior Bilateral] Blood Pressure 98/46 125/45 107/48 O2 Sat by Pulse 99 85 100 Oximetry 10/31/20 10/31/20 10/31/20 03:48 04:00 04:01 Temperature 98.4 F 99.3 F Pulse Rate 80 81 82 Pulse Rate [ Anterior Bilateral] Pulse Rate [ 81 Apical] Pulse Rate [ From Monitor] Respiratory 16 21 13 Rate Respiratory Rate [Anterior Bilateral] Blood Pressure 109/58 109/58 O2 Sat by Pulse 100 100 Oximetry 10/31/20 10/31/20 10/31/20 04:18 04:48 04:57 Temperature 98.1 F 98.1 F 98.1 F Pulse Rate 80 81 83 Pulse Rate [ Anterior Bilateral] Pulse Rate [ Apical] Pulse Rate [ From Monitor] Respiratory 18 20 21 Rate Respiratory Rate [Anterior Bilateral] Blood Pressure 113/82 93/52 101/51 O2 Sat by Pulse 100 99 100 Oximetry 10/31/20 10/31/20 10/31/20 05:00 06:01 07:00 Temperature Pulse Rate 88 83 83 Pulse Rate [ Anterior Bilateral] Pulse Rate [ Apical] Pulse Rate [ From Monitor] Respiratory 13 18 24 Rate Respiratory Rate [Anterior Bilateral] Blood Pressure 101/51 93/43 107/54 O2 Sat by Pulse 97 100 100 Oximetry 10/31/20 10/31/20 10/31/20 07:47 07:48 08:00 Temperature 98.3 F Pulse Rate 82 Pulse Rate [ 98 H Anterior Bilateral] Pulse Rate [ Apical] Pulse Rate [ 82 From Monitor] Respiratory 24 Rate Respiratory 32 H Rate [Anterior Bilateral] Blood Pressure O2 Sat by Pulse 100 100 Oximetry 10/31/20 10/31/20 10/31/20 08:01 09:00 10:00 Temperature Pulse Rate 113 H 105 H 106 H Pulse Rate [ Anterior Bilateral] Pulse Rate [ Apical] Pulse Rate [ From Monitor] Respiratory 28 H 34 H 33 H Rate Respiratory Rate [Anterior Bilateral] Blood Pressure 104/81 131/73 135/64 O2 Sat by Pulse 100 100 100 Oximetry 10/31/20 10/31/20 10/31/20 11:01 11:08 12:00 Temperature Pulse Rate 170 H 170 H 87 Pulse Rate [ Anterior Bilateral] Pulse Rate [ Apical] Pulse Rate [ From Monitor] Respiratory 33 H 24 Rate Respiratory Rate [Anterior Bilateral] Blood Pressure 127/70 127/70 115/70 O2 Sat by Pulse 95 100 Oximetry Constitutional: no acute distress, lethargic, other (elderly chronically ill looking male with mildly increased respiratory effort at rest) Eyes: non-icteric ENT: oropharynx moist Neck: supple, no lymphadenopathy, no JVD Effort: mildly labored Ascultation: Bilateral: diminished breath sounds, rhonchi, other (prolonged expiratory phase) Percussion: Bilateral: not dull Cardiovascular: regular rate and rhythm Gastrointestinal: normoactive bowel sounds, soft, non-tender, non-distended Integumentary: cellulitis (L. lower extremity) Extremities: no cyanosis, no edema, no ischemia or petechiae, other (weak pulses) Neurologic: non-focal exam, pupils equal and round, CN II-XII normal Psychiatric: other (Patient sleepy and lethergic.) CBC and BMP: 10/31/20 10:21 10/31/20 10:21 ABG, PT/INR, D-dimer: ABG ABG pH 7.23 (7.320-7.450) L 10/29/20 17:49 POC ABG pCO2 53.5 mmHg (32.0-48.0) H 10/29/20 17:49 ABG pCO2 61.0 mm Hg 10/27/20 20:35 POC ABG pO2 86.1 mmHg (83-108) 10/29/20 17:49 ABG pO2 129.2 mm Hg (80.0-90.0) H 10/27/20 20:35 POC ABG HCO3 21.9 10/29/20 17:49 ABG O2 Saturation 98.0 % (95.0-99.0) 10/27/20 20:35 PT/INR, D-dimer PT 14.0 Sec. (12.2-14.9) 10/22/20 09:04 INR 1.10 (0.87-1.13) 10/22/20 09:04 Abnormal lab findings: Abnormal Labs 10/22/20 10/22/20 10/22/20 09:04 09:04 09:04 WBC 12.0 H RBC Hgb 11.7 L Hct 35.0 L RDW 15.5 H Lymph % (Auto) 7.6 L [place] % (Auto) 7.5 H Lymph # (Auto) 0.9 L [place] # (Auto) 0.9 H Seg Neutrophils % 82.7 H Seg Neuts % (Manual) Lymphocytes % (Manual) Nucleated RBC % Seg Neutrophils # 9.9 H Seg Neutrophils # Man Lymphocytes # (Manual) Fibrinogen 708 H Heparin Anti-Xa Level ABG pH POC ABG pCO2 POC ABG pO2 ABG pO2 ABG Base Excess ABG Hemoglobin ABG Chloride ABG Glucose Sodium Chloride Carbon Dioxide BUN 29 H Creatinine 2.2 H Glucose 114 H POC Glucose Calcium 10.4 H ALT Total Protein Albumin Arterial Blood Glucose Arterial Blood Ionized Calcium Crossmatch 10/22/20 10/23/20 10/23/20 18:54 04:18 04:18 WBC 14.8 H RBC 3.20 L Hgb 9.4 L Hct 28.7 L D RDW 15.3 H Lymph % (Auto) 7.0 L [place] % (Auto) 7.8 H Lymph # (Auto) 1.0 L [place] # (Auto) 1.2 H Seg Neutrophils % 83.1 H Seg Neuts % (Manual) Lymphocytes % (Manual) Nucleated RBC % Seg Neutrophils # 12.3 H Seg Neutrophils # Man Lymphocytes # (Manual) Fibrinogen Heparin Anti-Xa Level 2.00 H ABG pH POC ABG pCO2 POC ABG pO2 ABG pO2 ABG Base Excess ABG Hemoglobin ABG Chloride ABG Glucose Sodium Chloride Carbon Dioxide BUN 34 H Creatinine 1.7 H Glucose POC Glucose Calcium ALT Total Protein Albumin Arterial Blood Glucose Arterial Blood Ionized Calcium Crossmatch 10/23/20 10/23/20 10/24/20 08:44 08:44 05:21 WBC 14.8 H 16.0 H RBC 2.71 L 2.13 L Hgb 7.9 L 6.2 L Hct 24.4 L 19.1 L* RDW Lymph % (Auto) 6.1 L 7.0 L [place] % (Auto) 7.5 H Lymph # (Auto) 0.9 L 1.1 L [place] # (Auto) 1.2 H Seg Neutrophils % 87.6 H 85.0 H Seg Neuts % (Manual) Lymphocytes % (Manual) Nucleated RBC % Seg Neutrophils # 13.0 H 13.6 H Seg Neutrophils # Man Lymphocytes # (Manual) Fibrinogen Heparin Anti-Xa Level ABG pH POC ABG pCO2 POC ABG pO2 ABG pO2 ABG Base Excess ABG Hemoglobin ABG Chloride ABG Glucose Sodium Chloride 108.0 H Carbon Dioxide BUN 33 H Creatinine 1.5 H Glucose 123 H POC Glucose Calcium ALT 6 L Total Protein 5.9 L Albumin 2.7 L Arterial Blood Glucose Arterial Blood Ionized Calcium Crossmatch 10/24/20 10/24/20 10/24/20 05:21 07:02 18:26 WBC RBC Hgb 7.8 L Hct 23.6 L RDW Lymph % (Auto) [place] % (Auto) Lymph # (Auto) [place] # (Auto) Seg Neutrophils % Seg Neuts % (Manual) Lymphocytes % (Manual) Nucleated RBC % Seg Neutrophils # Seg Neutrophils # Man Lymphocytes # (Manual) Fibrinogen Heparin Anti-Xa Level ABG pH POC ABG pCO2 POC ABG pO2 ABG pO2 ABG Base Excess ABG Hemoglobin ABG Chloride ABG Glucose Sodium 146 H Chloride 111.7 H Carbon Dioxide BUN 28 H Creatinine Glucose POC Glucose Calcium ALT Total Protein Albumin Arterial Blood Glucose Arterial Blood Ionized Calcium Crossmatch See Detail 10/25/20 10/25/20 10/26/20 08:44 08:44 07:02 WBC 16.9 H 16.2 H RBC 2.72 L 2.76 L Hgb 7.8 L 7.7 L Hct 24.2 L 24.2 L RDW 17.0 H 16.8 H Lymph % (Auto) 3.2 L 4.5 L [place] % (Auto) 8.1 H 9.2 H Lymph # (Auto) 0.5 L 0.7 L [place] # (Auto) 1.4 H 1.5 H Seg Neutrophils % 88.0 H 85.1 H Seg Neuts % (Manual) Lymphocytes % (Manual) Nucleated RBC % Seg Neutrophils # 14.8 H 13.8 H Seg Neutrophils # Man Lymphocytes # (Manual) Fibrinogen Heparin Anti-Xa Level ABG pH POC ABG pCO2 POC ABG pO2 ABG pO2 ABG Base Excess ABG Hemoglobin ABG Chloride ABG Glucose Sodium 148 H Chloride 114.4 H Carbon Dioxide BUN Creatinine Glucose POC Glucose Calcium ALT Total Protein Albumin Arterial Blood Glucose Arterial Blood Ionized Calcium Crossmatch 10/26/20 10/27/20 10/27/20 07:02 05:09 05:09 WBC 16.4 H RBC 2.57 L Hgb 7.3 L Hct 22.7 L RDW 16.9 H Lymph % (Auto) 4.2 L [place] % (Auto) 7.7 H Lymph # (Auto) 0.7 L [place] # (Auto) 1.3 H Seg Neutrophils % 87.6 H Seg Neuts % (Manual) Lymphocytes % (Manual) Nucleated RBC % Seg Neutrophils # 14.4 H Seg Neutrophils # Man Lymphocytes # (Manual) Fibrinogen Heparin Anti-Xa Level ABG pH POC ABG pCO2 POC ABG pO2 ABG pO2 ABG Base Excess ABG Hemoglobin ABG Chloride ABG Glucose Sodium 147 H Chloride 116.7 H 113.5 H Carbon Dioxide 19 L BUN Creatinine Glucose 120 H 114 H POC Glucose Calcium ALT Total Protein Albumin Arterial Blood Glucose Arterial Blood Ionized Calcium Crossmatch 10/27/20 10/28/20 10/28/20 20:35 14:24 14:24 WBC 17.6 H RBC 2.62 L Hgb 7.5 L Hct 23.6 L RDW 17.0 H Lymph % (Auto) [place] % (Auto) Lymph # (Auto) [place] # (Auto) Seg Neutrophils % Seg Neuts % (Manual) 95.0 H Lymphocytes % (Manual) 2.0 L Nucleated RBC % 1.0 H Seg Neutrophils # Seg Neutrophils # Man 16.7 H Lymphocytes # (Manual) 0.4 L Fibrinogen Heparin Anti-Xa Level ABG pH 7.189 L* POC ABG pCO2 POC ABG pO2 ABG pO2 129.2 H ABG Base Excess -5.3 L ABG Hemoglobin 7.4 L ABG Chloride ABG Glucose Sodium Chloride 112.2 H Carbon Dioxide 19 L BUN Creatinine Glucose 133 H POC Glucose Calcium ALT Total Protein 5.7 L Albumin 2.7 L Arterial Blood Glucose Arterial Blood Ionized Calcium Crossmatch 10/29/20 10/29/20 10/29/20 06:44 06:44 12:19 WBC 19.6 H RBC 2.41 L Hgb 7.2 L Hct 21.5 L RDW 17.0 H Lymph % (Auto) [place] % (Auto) Lymph # (Auto) [place] # (Auto) Seg Neutrophils % Seg Neuts % (Manual) 98.0 H Lymphocytes % (Manual) 0 L Nucleated RBC % Seg Neutrophils # Seg Neutrophils # Man 19.2 H Lymphocytes # (Manual) 0.0 L Fibrinogen Heparin Anti-Xa Level ABG pH 7.009 L POC ABG pCO2 94.4 H POC ABG pO2 141.3 H ABG pO2 ABG Base Excess ABG Hemoglobin 8.5 L ABG Chloride 109.0 H ABG Glucose 151 H Sodium Chloride 110.6 H Carbon Dioxide BUN Creatinine Glucose 120 H POC Glucose Calcium ALT Total Protein Albumin Arterial Blood Glucose 151 H Arterial Blood Ionized Calcium 5.5 H Crossmatch 10/29/20 10/30/20 10/30/20 17:49 05:27 05:27 WBC RBC Hgb 6.5 L Hct 20.2 L RDW Lymph % (Auto) [place] % (Auto) Lymph # (Auto) [place] # (Auto) Seg Neutrophils % Seg Neuts % (Manual) Lymphocytes % (Manual) Nucleated RBC % Seg Neutrophils # Seg Neutrophils # Man Lymphocytes # (Manual) Fibrinogen Heparin Anti-Xa Level ABG pH 7.23 L POC ABG pCO2 53.5 H POC ABG pO2 ABG pO2 ABG Base Excess ABG Hemoglobin 8.5 L ABG Chloride 110.0 H ABG Glucose 112 H Sodium Chloride 107.3 H Carbon Dioxide BUN Creatinine 1.8 H Glucose POC Glucose Calcium ALT Total Protein Albumin Arterial Blood Glucose 112 H Arterial Blood Ionized Calcium Crossmatch 10/30/20 10/30/20 10/30/20 15:56 17:20 17:39 WBC RBC Hgb Hct RDW Lymph % (Auto) [place] % (Auto) Lymph # (Auto) [place] # (Auto) Seg Neutrophils % Seg Neuts % (Manual) Lymphocytes % (Manual) Nucleated RBC % Seg Neutrophils # Seg Neutrophils # Man Lymphocytes # (Manual) Fibrinogen Heparin Anti-Xa Level ABG pH POC ABG pCO2 POC ABG pO2 ABG pO2 ABG Base Excess ABG Hemoglobin ABG Chloride ABG Glucose Sodium Chloride Carbon Dioxide BUN Creatinine Glucose POC Glucose 25 L 49 L Calcium ALT Total Protein Albumin Arterial Blood Glucose Arterial Blood Ionized Calcium Crossmatch See Detail 10/31/20 10/31/20 10:21 10:21 WBC 19.4 H RBC 3.32 L Hgb 9.9 L D Hct 30.5 L D RDW 17.5 H Lymph % (Auto) [place] % (Auto) Lymph # (Auto) [place] # (Auto) Seg Neutrophils % Seg Neuts % (Manual) 96.0 H Lymphocytes % (Manual) 0 L Nucleated RBC % 1.0 H Seg Neutrophils # Seg Neutrophils # Man 18.6 H Lymphocytes # (Manual) 0.0 L Fibrinogen Heparin Anti-Xa Level ABG pH POC ABG pCO2 POC ABG pO2 ABG pO2 ABG Base Excess ABG Hemoglobin ABG Chloride ABG Glucose Sodium 134 L Chloride Carbon Dioxide BUN Creatinine 2.0 H Glucose 109 H POC Glucose Calcium ALT Total Protein Albumin Arterial Blood Glucose Arterial Blood Ionized Calcium Crossmatch Allied health notes reviewed: nursing
[2020-10-31 15:56] LABS: Hyaline Casts,Urine 3 /LPF; Mucus,Urine FEW /HPF
[2020-10-31 16:04] LABS: Color,Urine Yellow (Yellow)
[2020-10-31 16:06] LABS: Urobilinogen,Urine < 2.0 mg/dL (<2.0)
[2020-10-31 16:10] LABS: Ictotest,Urine Negative (Negative)
--- NOTE | 2020-10-31 19:26 | Progress Note ---
Assessment and Plan --Acute on Chronic respiratory failure on 2L home O2, due to COPD and severe anemia placed back on Bipap continue supplemental O2 as needed and nebulizer breathing treatment as needed --Acute metabolic encephalopathy, ordered CT head but patient is too unstable to get the test done Likely due to profound hypoxia, continue to monitor clinically -- GI bleed due to gastric ulcer started on PPI, GI consulted, follow h/h. s/p EGD x2 EGD 10/23: 1. Fresh appearing blood with clots in gastric body. Abnormal mucosa in the body with overlying blood clots, unable to be cleared with water irrigation. No active bleeding seen at the time of procedure. EGD 10/24: 1. Gastric body (lesser curvature) ulcer with visible vessel s/p epinephrine injection and gold probe. No active bleeding at end of procedure however vessel was unable to be obliterated with gold probe. --SVT, metoprolol iv q6 as needed s/p amio drip, preserved EF on 2d echo, consulted cardiology --Atrial fibrillation, noted on telemetry Continue beta-frederic to control heart rate, cardiology on board Not a candidate for anticoagulation due to recent severe GI bleed -- Cellulitis of left lower extremity On Daptomycin and levaquin Vascular surgery consulted, ID also following --Sepsis with cellulitis cont abx, follow Cx -- JOSHUA (acute kidney injury) IV fluids for now, follow daily labs likely vasomotor nephropathy --Severe anemia due to acute GI bleed s/p 2 units packed RBC transfusion, follow H&H, continue PPI -- HTN (hypertension), now hypotensive Cont to hold antihypertensives if SBP less than 100 --hypernatremia, cont iv fluid -- Tobacco abuse counseling Counselled On Nicotine patch -- COPD (chronic obstructive pulmonary disease) place on Duoonebs scheduled, bipap as needed -- PAD (peripheral artery disease) Defer to Vascular/IR Initially placed on Heparin drip - off now for GI bleed need angioplasty/angiogram --hypoglycemia, recurrent As needed d50, started on D5Ns iv --Severe protein calorie malnutrition consulted dietary, start on tube feeding as patient is too unstable to eat --DVT Px, scd --DNR CODE STATUS Brief History: 75-year-old man past medical history COPD, hypertension, peripheral vascular disease had a left lower extremity cellulitis and ulceration and this has been painful for the past 2 weeks admitted to the hospital by vascular surgery for thrombolysis of the left lower extremity. Patient has a history of 2 bypasses at [facility]. On presentation he was found to have a leukocytosis as well as an JOSHUA. Patient started on iv abx, iv heparin drip, ID consulted -admitted for further mx. He then developed bloody BM - heparin discontinued, GI consulted for EGD, PPI started. 10/23: PLANNED TO Continue daptomycin for now, if improvement noted plan to discharge with Bactrim. follow cx and monitor renal function. Hemoglobin declined on heparin drip from 11.7-7.9 with history of black diarrhea this morning. GI consulted, planned for EGD today. follow vascular recommendation. 10/24: s/p repeat EGD today. following EGD he bacame lethargic with respiratory distress , called code med- placed on bipap. Hb 6.7 -ordered PRBC. BG noted at 60s - D50 given and started on D5Ns drip and transferred to IMCU. 10/25: patient noted to have HR of 160s this am which improved after iv metoprolol and now placed on amio drip, ordered 2d echo, consult cardiology. off Bipap since this am, repeat h/h stable. He is tolerating clear liquid diet. cont to monitor h/h. 10/26: clinically improved, off bipap, off amioderone. getting 2d echo at bedside. cont supportive care. h/h stable. f/u with vascular for possible angiogram. monitor cbc/bmp 10/27 patient remains intubated NG tube in place. No new changes overnight. Prognosis remains extremely poor. 10/28 patient remains intubated no new recommendations per neurology. Unable to wean patient at this time. Currently on tube feedings prognosis remains extremely poor. 10/29; became lathergic thia am, placed on bipap, abg obtained, discussed with pulmonary, cxr no infiltrates, tele showed atrial fib but not a candidate for AC for recent GI bleed, cont rate control for now. supportive care, CT head ordered. 10/30: Hb 6.5 -transfuse one unit of PRBC. patient remains on BIPAP. BG dropping even with D10W, ordered for dobhoff and TF 10/31: discussed with family by phone and also with sister at bedside who is his POA. explained patient's poor prognosis and sister wished for a DNR for the patient. Patient remains on Bipap, paroxysmal atrial fib. tolerating TF for now. cont to monitor, cbc, bmp in the am Subjective Date of service: 10/31/20 Principal diagnosis: AE-COPD; Acute G.I. Bleed; Cellulitis; HTN Interval history: Patient seen and examined. Medical records and medication list reviewed. Remains on Bipap, h/h stable after transfusion Patient noted lethargic with severe respiratory distress Discussed plan of care with with RN at bedside Called family today and also discussed with sister at the bedside Objective - Exam Narrative Exam: GENERAL: Elderly malnourished male lying on bed appeared to be in moderate discomfort. HEENT: Normocephalic. Atraumatic. No conjunctival congestion or icterus. Patient has moist mucous membranes. NECK: Supple. Trachea midline. CHEST/LUNGS: diminished BS auscultated bilaterally, breathing labored. on BiPAP HEART/CARDIOVASCULAR: Tachycardic with irregular rhythm. S1 and S2 positive. ABDOMEN: Abdomen is soft, nontender. Patient has normal bowel sounds. SKIN: There is no rash. Warm and dry. NEURO: No focal motor deficit. Follows command MUSCULOSKELETAL: No joint effusion or tenderness. EXTRIMITY: No edema, Left lower extremity with wound dressing PSYCH: cooperative but lethargic - Constitutional Vitals: Vital Signs - 12hr 10/31/20 10/31/20 10/31/20 07:47 07:48 08:00 Temperature 98.3 F Pulse Rate 82 Pulse Rate [ 98 H Anterior Bilateral] Pulse Rate [ 104 H From Monitor] Respiratory 24 Rate Respiratory 32 H Rate [Anterior Bilateral] Blood Pressure O2 Sat by Pulse 100 100 Oximetry 10/31/20 10/31/20 10/31/20 08:01 09:00 10:00 Temperature Pulse Rate 113 H 105 H 106 H Pulse Rate [ Anterior Bilateral] Pulse Rate [ From Monitor] Respiratory 28 H 34 H 33 H Rate Respiratory Rate [Anterior Bilateral] Blood Pressure 104/81 131/73 135/64 O2 Sat by Pulse 100 100 100 Oximetry 10/31/20 10/31/20 10/31/20 11:01 11:08 12:00 Temperature 97.8 F Pulse Rate 170 H 170 H 88 Pulse Rate [ Anterior Bilateral] Pulse Rate [ 88 From Monitor] Respiratory 33 H 29 H Rate Respiratory Rate [Anterior Bilateral] Blood Pressure 127/70 127/70 115/70 O2 Sat by Pulse 95 100 Oximetry 10/31/20 10/31/20 10/31/20 13:00 14:00 14:59 Temperature Pulse Rate 93 H 95 H 87 Pulse Rate [ Anterior Bilateral] Pulse Rate [ From Monitor] Respiratory 29 H 32 H 24 Rate Respiratory Rate [Anterior Bilateral] Blood Pressure 116/61 123/58 115/70 O2 Sat by Pulse 100 100 100 Oximetry 10/31/20 10/31/20 10/31/20 15:00 16:00 17:01 Temperature 97.8 F Pulse Rate 95 H 92 H 96 H Pulse Rate [ Anterior Bilateral] Pulse Rate [ 89 From Monitor] Respiratory 33 H 25 H 25 H Rate Respiratory Rate [Anterior Bilateral] Blood Pressure 119/59 119/63 122/68 O2 Sat by Pulse 99 96 87 Oximetry 10/31/20 10/31/20 18:01 19:00 Temperature Pulse Rate 105 H 104 H Pulse Rate [ Anterior Bilateral] Pulse Rate [ From Monitor] Respiratory 30 H 32 H Rate Respiratory Rate [Anterior Bilateral] Blood Pressure 115/69 106/58 O2 Sat by Pulse 99 86 Oximetry - Labs CBC & Chem 7: 11/01/20 12:17 11/01/20 12:17 Labs: Abnormal lab results 10/24/20 10/30/20 10/31/20 Range/Units 07:02 17:20 10:21 WBC 19.4 H (4.5-11.0) K/mm3 RBC 3.32 L (3.65-5.03) M/mm3 Hgb 9.9 L D (11.8-15.2) gm/dl Hct 30.5 L D (35.5-45.6) % RDW 17.5 H (13.2-15.2) % Seg Neuts % (Manual) 96.0 H (40.0-70.0) % Lymphocytes % (Manual) 0 L (13.4-35.0) % Nucleated RBC % 1.0 H (0.0-0.9) % Seg Neutrophils # Man 18.6 H (1.8-7.7) K/mm3 Lymphocytes # (Manual) 0.0 L (1.2-5.4) K/mm3 ABG pH (7.320-7.450) POC ABG pCO2 (32.0-48.0) mmHg ABG Hemoglobin (12.0-17.5) ABG Sodium (136.0-145.0) mmol/L ABG Glucose (65-95) mg/dL Sodium (137-145) mmol/L Creatinine (0.8-1.3) mg/dL Glucose (75-100) mg/dL POC Glucose (70-105) mg/dL Arterial Blood Glucose (65-95) mg/dL Urine WBC (Auto) (0.0-6.0) /HPF Crossmatch See Detail See Detail 10/31/20 10/31/20 10/31/20 Range/Units 10:21 17:28 17:57 WBC (4.5-11.0) K/mm3 RBC (3.65-5.03) M/mm3 Hgb (11.8-15.2) gm/dl Hct (35.5-45.6) % RDW (13.2-15.2) % Seg Neuts % (Manual) (40.0-70.0) % Lymphocytes % (Manual) (13.4-35.0) % Nucleated RBC % (0.0-0.9) % Seg Neutrophils # Man (1.8-7.7) K/mm3 Lymphocytes # (Manual) (1.2-5.4) K/mm3 ABG pH 7.135 L (7.320-7.450) POC ABG pCO2 66.6 H (32.0-48.0) mmHg ABG Hemoglobin 10.2 L (12.0-17.5) ABG Sodium 131.0 L (136.0-145.0) mmol/L ABG Glucose 98 H (65-95) mg/dL Sodium 134 L (137-145) mmol/L Creatinine 2.0 H (0.8-1.3) mg/dL Glucose 109 H (75-100) mg/dL POC Glucose 61 L (70-105) mg/dL Arterial Blood Glucose 98 H (65-95) mg/dL Urine WBC (Auto) (0.0-6.0) /HPF Crossmatch 10/31/20 Range/Units Unknown WBC (4.5-11.0) K/mm3 RBC (3.65-5.03) M/mm3 Hgb (11.8-15.2) gm/dl Hct (35.5-45.6) % RDW (13.2-15.2) % Seg Neuts % (Manual) (40.0-70.0) % Lymphocytes % (Manual) (13.4-35.0) % Nucleated RBC % (0.0-0.9) % Seg Neutrophils # Man (1.8-7.7) K/mm3 Lymphocytes # (Manual) (1.2-5.4) K/mm3 ABG pH (7.320-7.450) POC ABG pCO2 (32.0-48.0) mmHg ABG Hemoglobin (12.0-17.5) ABG Sodium (136.0-145.0) mmol/L ABG Glucose (65-95) mg/dL Sodium (137-145) mmol/L Creatinine (0.8-1.3) mg/dL Glucose (75-100) mg/dL POC Glucose (70-105) mg/dL Arterial Blood Glucose (65-95) mg/dL Urine WBC (Auto) 9.0 H (0.0-6.0) /HPF Crossmatch HEART Score - HEART Score EKG: Non-specific Risk factors: > 3 risk factors or hx of atherosclerotic disease Troponin: < normal limit - Critical Actions Critical Actions: 4-6 pts:12-16.6% risk of adverse cardiac event. Should be admitted
[2020-11-01] MEDS: DEXTROSE 50% IN WATER (25GM) 50 ML SYRINGE IV PRN (01:14)
[2020-11-01] MEDS: IPRATROPIUM/ALBUTEROL SULFATE 3 ML AMPUL.NEB IH SCH ×2 (09:30→20:41)
[2020-11-01] MEDS: MULTIVITAMINS 5 ML ORAL LIQUID PO SCH (09:31)
[2020-11-01] MEDS: DOCUSATE SODIUM 100 MG/10 ML ORAL LIQD FEEDTUBE SCH ×2 (09:31→22:22)
[2020-11-01] MEDS: PANTOPRAZOLE 40 MG INJ IV SCH ×2 (09:31→22:23)
[2020-11-01] MEDS: PENTOXIFYLLINE ER 400 MG TAB PO SCH ×2 (09:31→22:24)
[2020-11-01] MEDS: DEXTROSE 10% IN WATER 1,000 ML IV SCH ×2 (09:31→22:20)
[2020-11-01] MEDS: SENNOSIDES 8.6 MG TAB PO SCH ×2 (09:31→22:23)
[2020-11-01] MEDS: SODIUM HYPOCHLORITE, DAKIN'S 1/2 STRENGTH (0.25%) 473 ML TOPICAL SOLN TP SCH ×3 (09:32→22:22)
[2020-11-01] MEDS: MIDODRINE 5 MG TAB PO SCH ×2 (10:53→16:20)
[2020-11-01] MEDS ORDERED: SODIUM CHLORIDE 0.9% 500 ML 500 ML IV ONE (11:00)
--- NOTE | 2020-11-01 11:07 | Progress Note ---
Assessment and Plan Patient is doing very poorly. The patient was made DNR. No vascular interventions will change the patient's other underlying comorbidities. Subjective Date of service: 11/01/20 Principal diagnosis: AE-COPD; Acute G.I. Bleed; Cellulitis; HTN Interval history: Patient is doing very poorly at time of examination. He has history of peripheral vascular disease with a thrombosed left femoropopliteal bypass graft. Additionally, the patient has multiple other medical comorbidities. At time of examination, the patient is on BiPAP with systolic blood pressure in the 70s. The nurse was awaiting orders from pulmonology critical care. Patient is not currently on pressors. Objective - Constitutional Vitals: Vital Signs - 12hr 11/01/20 11/01/20 11/01/20 00:00 00:43 01:00 Temperature 99.1 F Pulse Rate 100 H 88 94 H Pulse Rate [ Anterior Bilateral] Respiratory 24 18 Rate Respiratory Rate [Anterior Bilateral] Respiratory Rate [Left Foot ] Blood Pressure 84/45 O2 Sat by Pulse 92 100 Oximetry 11/01/20 11/01/20 11/01/20 02:00 02:46 03:00 Temperature Pulse Rate 94 H 93 H 93 H Pulse Rate [ Anterior Bilateral] Respiratory 21 24 23 Rate Respiratory Rate [Anterior Bilateral] Respiratory Rate [Left Foot ] Blood Pressure 93/48 101/52 104/51 O2 Sat by Pulse 100 100 100 Oximetry 11/01/20 11/01/20 11/01/20 03:30 04:00 04:03 Temperature 98.2 F Pulse Rate 84 94 H Pulse Rate [ Anterior Bilateral] Respiratory 24 Rate Respiratory Rate [Anterior Bilateral] Respiratory 20 Rate [Left Foot ] Blood Pressure 93/52 O2 Sat by Pulse 100 Oximetry 11/01/20 11/01/20 11/01/20 05:00 06:00 07:00 Temperature Pulse Rate 91 H 93 H 116 H Pulse Rate [ Anterior Bilateral] Respiratory 23 19 28 H Rate Respiratory Rate [Anterior Bilateral] Respiratory Rate [Left Foot ] Blood Pressure 89/48 90/47 99/70 O2 Sat by Pulse 100 100 97 Oximetry 11/01/20 11/01/20 11/01/20 08:00 10:16 10:21 Temperature 98.3 F Pulse Rate 116 H Pulse Rate [ 93 H Anterior Bilateral] Respiratory 28 H Rate Respiratory 28 H Rate [Anterior Bilateral] Respiratory Rate [Left Foot ] Blood Pressure 60/42 O2 Sat by Pulse 97 97 Oximetry General appearance: Present: severe distress - EENT Eyes: EOM intact ENT: hearing intact - Respiratory Respiratory effort: labored - Breasts Breasts: deferred Extremities: abnormal - Gastrointestinal Rectal Exam: deferred - Genitourinary Male genitourinary: deferred - Labs CBC & Chem 7: 10/31/20 10:21 10/31/20 10:21 Labs: Abnormal lab results 10/31/20 10/31/20 10/31/20 Range/Units 10:21 17:28 17:57 Seg Neuts % (Manual) 96.0 H (40.0-70.0) % Lymphocytes % (Manual) 0 L (13.4-35.0) % Nucleated RBC % 1.0 H (0.0-0.9) % Seg Neutrophils # Man 18.6 H (1.8-7.7) K/mm3 Lymphocytes # (Manual) 0.0 L (1.2-5.4) K/mm3 ABG pH 7.135 L (7.320-7.450) POC ABG pCO2 66.6 H (32.0-48.0) mmHg POC ABG pO2 (83-108) mmHg ABG Hemoglobin 10.2 L (12.0-17.5) ABG Sodium 131.0 L (136.0-145.0) mmol/L ABG Glucose 98 H (65-95) mg/dL POC Glucose 61 L (70-105) mg/dL Arterial Blood Glucose 98 H (65-95) mg/dL Urine WBC (Auto) (0.0-6.0) /HPF 10/31/20 10/31/20 10/31/20 Range/Units 20:18 23:46 Unknown Seg Neuts % (Manual) (40.0-70.0) % Lymphocytes % (Manual) (13.4-35.0) % Nucleated RBC % (0.0-0.9) % Seg Neutrophils # Man (1.8-7.7) K/mm3 Lymphocytes # (Manual) (1.2-5.4) K/mm3 ABG pH 7.159 L (7.320-7.450) POC ABG pCO2 62.0 H (32.0-48.0) mmHg POC ABG pO2 (83-108) mmHg ABG Hemoglobin (12.0-17.5) ABG Sodium 131.8 L (136.0-145.0) mmol/L ABG Glucose 167 H (65-95) mg/dL POC Glucose 63 L (70-105) mg/dL Arterial Blood Glucose 167 H (65-95) mg/dL Urine WBC (Auto) 9.0 H (0.0-6.0) /HPF 11/01/20 11/01/20 Range/Units 03:14 03:20 Seg Neuts % (Manual) (40.0-70.0) % Lymphocytes % (Manual) (13.4-35.0) % Nucleated RBC % (0.0-0.9) % Seg Neutrophils # Man (1.8-7.7) K/mm3 Lymphocytes # (Manual) (1.2-5.4) K/mm3 ABG pH 7.201 L (7.320-7.450) POC ABG pCO2 50.4 H (32.0-48.0) mmHg POC ABG pO2 161.5 H (83-108) mmHg ABG Hemoglobin 17.7 H (12.0-17.5) ABG Sodium 130.7 L (136.0-145.0) mmol/L ABG Glucose 192 H (65-95) mg/dL POC Glucose 167 H (70-105) mg/dL Arterial Blood Glucose 192 H (65-95) mg/dL Urine WBC (Auto) (0.0-6.0) /HPF Medications & Allergies - Medications Allergies/Adverse Reactions: Allergies No Known Allergies Allergy (Verified 10/22/20 08:47) Home Medications: Home Medications Medication Instructions Recorded Confirmed Last Taken Type Albuterol Mdi (or & Nicu Only) 2 puff IH QID PRN #1 inhalation 08/08/15 10/22/20 Unknown Rx [ProAir HFA Inhaler] Ciprofloxacin [Ciprofloxacin ORAL 500 mg PO Q12H #14 ml 08/08/15 10/22/20 10/21/20 Rx LIQ] 1 tab Amoxicillin/Potassium Clav 1 each PO BID 10/22/20 10/22/20 10/21/20 History [Amox-Clav 250-125 mg Tablet] 1 tab Aspirin [Aspirin BABY CHEW TAB] 81 mg PO QDAY 10/22/20 10/22/20 10/21/20 History 1 tab AtorvaSTATin [Lipitor] 20 mg PO QHS 10/22/20 10/22/20 10/21/20 History 1 tab Clopidogrel [Plavix] 75 mg PO QDAY 10/22/20 10/22/20 10/21/20 History 1 tab Metoprolol Xl [Metoprolol 25 mg PO QDAY 10/22/20 10/22/20 10/21/20 History SUCCINATE ER TAB] 1 tab Multivit-Min/FA/Lycopen/Lutein 1 each PO DAILY 10/22/20 10/22/20 10/21/20 History [Centrum Silver Tablet] 1 tab Oxycodon-Acetaminophen 2.5-325 5 - 325 mg PO Q6HR PRN 10/22/20 10/22/20 Unknown History Pentoxifylline 400 mg PO BID 10/22/20 10/22/20 10/21/20 History 1 tab Active Medications: Generic Name Dose Route Start Last Admin Trade Name Freq PRN Reason Stop Dose Admin Acetaminophen 650 mg 10/22/20 10:30 10/28/20 21:07 Tylenol PO 650 mg Q4H PRN Administration Pain MILD(1-3)/Fever >100.5/RUANO Albuterol 2.5 mg 10/22/20 10:30 10/29/20 04:34 Proventil IH 2.5 mg Q4HRT PRN Administration Shortness Of Breath Albuterol/Ipratropium 1 ampul 10/26/20 20:00 10/31/20 20:09 Duoneb *Not For Prn Use* IH 1 ampul BIDRT SONYA Administration Lipase/Protease/Amylase 1 each 10/30/20 17:50 Liliya Yang 10,500 Unit FEEDTUBE PRN PRN For Clogged Feeding Tube Arformoterol Tartrate 15 mcg 10/26/20 20:00 10/31/20 20:34 Brovana Nebu IH 15 mcg Q12HRT SONYA Administration Budesonide 0.5 mg 10/26/20 20:00 10/31/20 20:09 Pulmicort IH 0.5 mg Q12HRT SONYA Administration Dextrose 0 ml 10/30/20 13:00 11/01/20 01:14 D50w (25gm) Syringe IV 15 ml Q30MIN PRN Administration Hypoglycemia Protocol Docusate Sodium 100 mg 10/31/20 10:00 11/01/20 09:31 Colace FEEDTUBE 100 mg BID SONYA Administration Hydromorphone HCl 0.5 mg 10/23/20 08:17 10/30/20 10:52 Dilaudid IV 0.5 mg Q3H PRN Administration Pain , Severe (7-10) Levofloxacin/Dextrose 750 mg in 150 mls @ 100 mls/hr 10/29/20 15:00 10/31/20 16:05 Levaquin 750mg/150ml IV 11/03/20 14:59 100 mls/hr Q48H SONYA Administration Protocol Dextrose 1,000 mls @ 100 mls/hr 10/30/20 13:00 11/01/20 09:31 D10w IV 100 mls/hr DIRECT SONYA Administration Sodium Chloride 500 mls @ 999 mls/hr 11/01/20 11:00 11/01/20 10:46 Nacl 0.9% 500 Ml IV 11/01/20 11:30 999 mls/hr ONCE ONE Administration Metoclopramide HCl 5 mg 10/23/20 08:17 Reglan IV Q6H PRN Nausea And Vomiting Metoprolol Tartrate 5 mg 10/30/20 12:00 10/31/20 11:08 Metoprolol IV 5 mg Q6HR PRN Administration HEART RATE >120 Midodrine 10 mg 11/01/20 11:00 11/01/20 10:53 Midodrine 5 Mg Tab PO 10 mg TID@0800,1200,1600 SONYA Administration Morphine Sulfate 2 mg 10/30/20 16:00 Morphine IV Q4H PRN Pain , Severe (7-10) Multivitamins 5 ml 10/31/20 10:00 11/01/20 09:31 Centrum Liq PO 5 ml QDAY SONYA Administration Ondansetron HCl 4 mg 10/23/20 08:17 Zofran IV Q8H PRN Nausea And Vomiting Oxycodone/Acetaminophen 1 tab 10/22/20 11:32 10/31/20 02:02 Percocet 5/325 PO 1 tab Q4H PRN Administration Pain, Moderate (4-6) Pantoprazole Sodium 40 mg 10/26/20 12:00 11/01/20 09:31 Protonix IV 40 mg BID SONYA Administration Pentoxifylline 400 mg 10/22/20 11:00 11/01/20 09:31 Trental PO 400 mg BID SONYA Administration Senna 8.6 mg 10/22/20 11:00 11/01/20 09:31 Senokot PO 8.6 mg Q12HR SONYA Administration Simple Syrup 15 ml 10/30/20 17:50 Simple Syrup FEEDTUBE PRN PRN Hypoglycemia Simple Syrup 30 ml 10/30/20 17:50 Simple Syrup FEEDTUBE PRN PRN Hypoglycemia Sodium Bicarbonate 325 mg 10/30/20 17:50 Sodium Bicarbonate FEEDTUBE PRN PRN For Clogged Feeding Tube Sodium Chloride 10 ml 10/22/20 11:00 11/01/20 09:32 Sodium Chloride Flush Syringe 10 Ml IV 10 ml BID SONYA Administration Sodium Chloride 10 ml 10/22/20 10:30 Sodium Chloride Flush Syringe 10 Ml IV PRN PRN LINE FLUSH Sodium Hypochlorite 1 applic 10/30/20 10:00 11/01/20 09:32 Dakin's Half Strength TP 1 applicatio BID SONYA Administration HEART Score - HEART Score EKG: Non-specific Risk factors: > 3 risk factors or hx of atherosclerotic disease Troponin: < normal limit - Critical Actions Critical Actions: 4-6 pts:12-16.6% risk of adverse cardiac event. Should be admitted
--- NOTE | 2020-11-01 12:07 | Progress Note ---
<[email or web address] - Last Filed: 11/01/20 12:05> Assessment and Plan Transient atrial fibrillation currently in sinus rhythm; metoprolol as needed patient is considered not a candidate for oral anticoagulation due to acute GI bleed and severe anemia. normal LVEF 60-65% by echo TSH of 1.4 PVD with cellulitis of the left lower extremity, and recent left lower extremity fem-pop occlusion. Acute GI bleed with severe anemia s/p transfusion of PRBCs Respiratory failure Hx of COPD on home oxygen Cachexia DNR status Conservative cardiac management. Subjective Date of service: 11/01/20 Principal diagnosis: AE-COPD; Acute G.I. Bleed; Cellulitis; HTN Interval history: Patient is currently on Bipap. Now DNR status. Objective Vital Signs Temp Pulse Pulse Pulse Resp Resp Resp 11/01/20 10:21 116 H 28 H 11/01/20 10:16 93 H 28 H 11/01/20 08:00 98.3 F 11/01/20 07:00 116 H 28 H 11/01/20 06:00 93 H 19 11/01/20 05:00 91 H 23 11/01/20 04:03 94 H 11/01/20 04:00 98.2 F 84 24 11/01/20 03:30 20 11/01/20 03:00 93 H 23 11/01/20 02:46 93 H 24 11/01/20 02:00 94 H 21 11/01/20 01:00 94 H 18 11/01/20 00:43 88 11/01/20 00:00 99.1 F 100 H 24 10/31/20 23:00 92 H 18 10/31/20 22:00 88 24 10/31/20 21:00 100 H 22 10/31/20 20:09 94 H 31 H 10/31/20 20:01 99 H 30 H 10/31/20 20:00 97.9 F 10/31/20 19:45 100 H 34 H 10/31/20 19:44 10/31/20 19:09 109 H 10/31/20 19:03 103 H 37 H 10/31/20 19:00 104 H 32 H 10/31/20 18:01 105 H 30 H 10/31/20 17:01 96 H 25 H 10/31/20 16:00 97.8 F 92 H 89 25 H 10/31/20 15:00 95 H 33 H 10/31/20 14:59 87 24 10/31/20 14:00 95 H 32 H 10/31/20 13:00 93 H 29 H BP Pulse Ox 11/01/20 10:21 60/42 97 11/01/20 10:16 97 11/01/20 08:00 11/01/20 07:00 99/70 97 11/01/20 06:00 90/47 100 11/01/20 05:00 89/48 100 11/01/20 04:03 11/01/20 04:00 93/52 100 11/01/20 03:30 11/01/20 03:00 104/51 100 11/01/20 02:46 101/52 100 11/01/20 02:00 93/48 100 11/01/20 01:00 84/45 100 11/01/20 00:43 11/01/20 00:00 92 10/31/20 23:00 99/43 100 10/31/20 22:00 98/51 100 10/31/20 21:00 111/65 100 10/31/20 20:09 10/31/20 20:01 106/83 99 10/31/20 20:00 10/31/20 19:45 109/58 100 10/31/20 19:44 94 10/31/20 19:09 10/31/20 19:03 106/58 63 L 10/31/20 19:00 106/58 86 10/31/20 18:01 115/69 99 10/31/20 17:01 122/68 87 10/31/20 16:00 119/63 96 10/31/20 15:00 119/59 99 10/31/20 14:59 115/70 100 10/31/20 14:00 123/58 100 10/31/20 13:00 116/61 100 - Physical Examination General: Cachectic, Other (mild distress on Bipap) Cardiac: Positive: Reg Rate and Rhythm - Allied health notes Allied health notes reviewed: nursing <ANNY DEXTER Last Filed: 11/02/20 12:42> Assessment and Plan - Patient Problems (1) Paroxysmal SVT (supraventricular tachycardia) Current Visit: Yes Status: Acute Subjective Interval history: I SAW THIS PT & AGREE WITH THE Dx & Tx PLAN. Objective Vital Signs Temp Pulse Pulse Pulse Resp Resp BP 11/02/20 08:08 93 H 92 H 33 H 32 H 113/93 11/02/20 08:01 92 H 34 H 191/154 11/02/20 08:00 91 H 91 H 11/02/20 07:01 91 H 35 H 116/62 11/02/20 06:01 90 31 H 95/71 11/02/20 05:00 90 33 H 95/71 11/02/20 04:35 87 35 H 116/40 11/02/20 04:01 88 34 H 113/80 11/02/20 04:00 99.0 F 95 H 95 H 31 H 11/02/20 03:01 87 33 H 109/52 11/02/20 02:00 85 27 H 110/73 11/02/20 01:00 85 31 H 119/83 11/02/20 00:35 107 H 34 H 177/156 11/02/20 00:05 151 H 124/49 11/02/20 00:00 100.5 F H 141 H 136 H 33 H 124/49 11/01/20 23:00 151 H 34 H 148/56 11/01/20 22:00 149 H 36 H 114/36 11/01/20 21:00 146 H 33 H 104/56 11/01/20 20:42 144 H 32 H 11/01/20 20:00 100.8 F H 143 H 24 93/55 11/01/20 19:08 142 H 32 H 104/56 11/01/20 19:00 138 H 32 H 99/77 11/01/20 18:04 152 H 16 99/77 11/01/20 18:00 166 H 26 H 120/100 11/01/20 17:00 101 H 25 H 121/55 11/01/20 16:00 100.0 F H 99 H 100 H 21 109/55 11/01/20 15:08 104 H 26 H 92/52 11/01/20 15:00 99 H 26 H 102/51 11/01/20 14:00 95 H 24 107/48 11/01/20 13:50 99 H 25 H 103/52 11/01/20 13:40 98 H 25 H 90/49 11/01/20 13:30 111 H 26 H 131/102 12/10/20 13:20 97 H 26 H 131/102 11/01/20 13:10 99 H 24 131/102 11/01/20 13:00 100 H 26 H 106/75 11/01/20 12:50 98 H 24 106/75 Pulse Ox 11/02/20 08:08 96 11/02/20 08:01 92 11/02/20 08:00 11/02/20 07:01 94 11/02/20 06:01 91 11/02/20 05:00 91 11/02/20 04:35 93 11/02/20 04:01 88 11/02/20 04:00 98 11/02/20 03:01 93 11/02/20 02:00 88 11/02/20 01:00 92 11/02/20 00:35 92 11/02/20 00:05 11/02/20 00:00 92 11/01/20 23:00 90 11/01/20 22:00 97 11/01/20 21:00 99 11/01/20 20:42 11/01/20 20:00 89 11/01/20 19:08 93 11/01/20 19:00 97 11/01/20 18:04 96 11/01/20 18:00 96 11/01/20 17:00 100 11/01/20 16:00 96 11/01/20 15:08 96 11/01/20 15:00 97 11/01/20 14:00 98 11/01/20 13:50 99 11/01/20 13:40 96 11/01/20 13:30 98 11/01/20 13:20 99 11/01/20 13:10 96 11/01/20 13:00 96 11/01/20 12:50 99 - Labs and Meds CBC 11/02/20 Range/Units 10:45 WBC 24.5 H (4.5-11.0) K/mm3 RBC 3.02 L (3.65-5.03) M/mm3 Hgb 8.8 L (11.8-15.2) gm/dl Hct 27.6 L (35.5-45.6) % Plt Count 347 (140-440) K/mm3 Comprehensive Metabolic Panel 11/01/20 11/02/20 Range/Units 12:17 10:45 Sodium 128 L 124 L (137-145) mmol/L Potassium 4.2 5.2 H D (3.6-5.0) mmol/L Chloride 99.7 94.5 L (98-107) mmol/L Carbon Dioxide 18 L 21 L (22-30) mmol/L BUN 28 H 32 H (9-20) mg/dL Creatinine 2.5 H 2.5 H (0.8-1.3) mg/dL Glucose 123 H 129 H (75-100) mg/dL Calcium 8.2 L 8.5 (8.4-10.2) mg/dL
[2020-11-01 12:41] LABS: Hematocrit 25.7 % (35.5-45.6); Hemoglobin 8.1 gm/dl (11.8-15.2); Mean Corpuscular HGB Conc 32 % (32-34); Mean Corpuscular Volume 94 fl (84-94); Platelet Count 336 K/mm3 (140-440); Red Blood Count 2.72 M/mm3 (3.65-5.03); Red Cell Distribution Width 17.9 % (13.2-15.2)
[2020-11-01 13:02] LABS: Calcium 8.2 mg/dL (8.4-10.2)
--- NOTE | 2020-11-01 15:56 | Progress Note ---
Assessment and Plan --Acute on Chronic respiratory failure on 2L home O2, due to COPD and severe anemia placed back on Bipap continue supplemental O2 as needed and nebulizer breathing treatment as needed --Acute metabolic encephalopathy, ordered CT head but patient is too unstable to get the test done Likely due to profound hypoxia, continue to monitor clinically -- GI bleed due to gastric ulcer started on PPI, GI consulted, follow h/h. s/p EGD x2 EGD 10/23: 1. Fresh appearing blood with clots in gastric body. Abnormal mucosa in the body with overlying blood clots, unable to be cleared with water irrigation. No active bleeding seen at the time of procedure. EGD 10/24: 1. Gastric body (lesser curvature) ulcer with visible vessel s/p epinephrine injection and gold probe. No active bleeding at end of procedure however vessel was unable to be obliterated with gold probe. --SVT, metoprolol iv q6 as needed s/p amio drip, preserved EF on 2d echo, consulted cardiology --Atrial fibrillation, noted on telemetry Continue beta-frederic to control heart rate, cardiology on board Not a candidate for anticoagulation due to recent severe GI bleed -- Cellulitis of left lower extremity On Daptomycin and levaquin Vascular surgery consulted, ID also following --Sepsis with cellulitis cont abx, follow Cx -- JOSHUA (acute kidney injury) IV fluids for now, follow daily labs likely vasomotor nephropathy --Severe anemia due to acute GI bleed s/p 2 units packed RBC transfusion, follow H&H, continue PPI -- HTN (hypertension), now hypotensive Cont to hold antihypertensives if SBP less than 100 --hypernatremia, cont iv fluid -- Tobacco abuse counseling Counselled On Nicotine patch -- COPD (chronic obstructive pulmonary disease) place on Duoonebs scheduled, bipap as needed -- PAD (peripheral artery disease) Defer to Vascular/IR Initially placed on Heparin drip - off now for GI bleed need angioplasty/angiogram --hypoglycemia, recurrent As needed d50, started on D5Ns iv --Severe protein calorie malnutrition consulted dietary, start on tube feeding as patient is too unstable to eat --DVT Px, scd --DNR CODE STATUS Brief History: 75-year-old man past medical history COPD, hypertension, peripheral vascular disease had a left lower extremity cellulitis and ulceration and this has been painful for the past 2 weeks admitted to the hospital by vascular surgery for thrombolysis of the left lower extremity. Patient has a history of 2 bypasses at [facility]. On presentation he was found to have a leukocytosis as well as an JOSHUA. Patient started on iv abx, iv heparin drip, ID consulted -admitted for further mx. He then developed bloody BM - heparin discontinued, GI consulted for EGD, PPI started. 10/23: PLANNED TO Continue daptomycin for now, if improvement noted plan to discharge with Bactrim. follow cx and monitor renal function. Hemoglobin declined on heparin drip from 11.7-7.9 with history of black diarrhea this morning. GI consulted, planned for EGD today. follow vascular recommendation. 10/24: s/p repeat EGD today. following EGD he bacame lethargic with respiratory distress , called code med- placed on bipap. Hb 6.7 -ordered PRBC. BG noted at 60s - D50 given and started on D5Ns drip and transferred to IMCU. 10/25: patient noted to have HR of 160s this am which improved after iv metoprolol and now placed on amio drip, ordered 2d echo, consult cardiology. off Bipap since this am, repeat h/h stable. He is tolerating clear liquid diet. cont to monitor h/h. 10/26: clinically improved, off bipap, off amioderone. getting 2d echo at bedside. cont supportive care. h/h stable. f/u with vascular for possible angiogram. monitor cbc/bmp 10/27 patient remains intubated NG tube in place. No new changes overnight. Prognosis remains extremely poor. 10/28 patient remains intubated no new recommendations per neurology. Unable to wean patient at this time. Currently on tube feedings prognosis remains extremely poor. 10/29; became lathergic thia am, placed on bipap, abg obtained, discussed with pulmonary, cxr no infiltrates, tele showed atrial fib but not a candidate for AC for recent GI bleed, cont rate control for now. supportive care, CT head ordered. 10/30: Hb 6.5 -transfuse one unit of PRBC. patient remains on BIPAP. BG dropping even with D10W, ordered for dobhoff and TF 10/31: discussed with family by phone and also with sister at bedside who is his POA. explained patient's poor prognosis and sister wished for a DNR for the patient. Patient remains on Bipap, paroxysmal atrial fib. tolerating TF for now. cont to monitor, cbc, bmp in the am 11/01: Patient noted to be hypotensive on monitor, started on midodrine. Remains critically sick with multiple comorbidities. Continue to provide supportive care, continue BiPAP. Patient tolerating tube feeding. Blood sugar still intermittently declining with tube feeding and with D10W. Continue to monitor BMP and blood glucose every 4 hour. Extremely poor prognosis. Subjective Date of service: 11/01/20 Principal diagnosis: AE-COPD; Acute G.I. Bleed; Cellulitis; HTN Interval history: Patient seen and examined. Medical records and medication list reviewed. Remains on Bipap, h/h stable after transfusion Patient noted lethargic with severe respiratory distress Discussed plan of care with with RN at bedside BP hypotensive this am - hold all BP meds Objective - Exam Narrative Exam: GENERAL: Elderly malnourished male lying on bed appeared to be in moderate discomfort. HEENT: Normocephalic. Atraumatic. No conjunctival congestion or icterus. Patient has moist mucous membranes. NECK: Supple. Trachea midline. CHEST/LUNGS: diminished BS auscultated bilaterally, breathing labored. on BiPAP HEART/CARDIOVASCULAR: Tachycardic with irregular rhythm. S1 and S2 positive. ABDOMEN: Abdomen is soft, nontender. Patient has normal bowel sounds. SKIN: There is no rash. Warm and dry. NEURO: No focal motor deficit. Follows command MUSCULOSKELETAL: No joint effusion or tenderness. EXTRIMITY: No edema, Left lower extremity with wound dressing PSYCH: cooperative but lethargic - Constitutional Vitals: Vital Signs - 12hr 11/01/20 11/01/20 11/01/20 04:00 04:03 05:00 Temperature 98.2 F Pulse Rate 84 94 H 91 H Pulse Rate [ Anterior Bilateral] Pulse Rate [ From Monitor] Respiratory 24 23 Rate Respiratory Rate [Anterior Bilateral] Blood Pressure 93/52 89/48 O2 Sat by Pulse 100 100 Oximetry 11/01/20 11/01/20 11/01/20 06:00 07:00 07:20 Temperature Pulse Rate 93 H 116 H 119 H Pulse Rate [ Anterior Bilateral] Pulse Rate [ From Monitor] Respiratory 19 28 H 22 Rate Respiratory Rate [Anterior Bilateral] Blood Pressure 90/47 99/70 81/34 O2 Sat by Pulse 100 97 99 Oximetry 11/01/20 11/01/20 11/01/20 07:30 07:40 07:50 Temperature Pulse Rate 114 H 117 H 116 H Pulse Rate [ Anterior Bilateral] Pulse Rate [ From Monitor] Respiratory 35 H 38 H 34 H Rate Respiratory Rate [Anterior Bilateral] Blood Pressure 81/34 130/43 130/43 O2 Sat by Pulse 100 100 100 Oximetry 11/01/20 11/01/20 11/01/20 08:00 08:10 08:20 Temperature 98.3 F Pulse Rate 114 H 112 H 116 H Pulse Rate [ Anterior Bilateral] Pulse Rate [ 112 H From Monitor] Respiratory 29 H 29 H 34 H Rate Respiratory Rate [Anterior Bilateral] Blood Pressure 130/43 105/82 105/82 O2 Sat by Pulse 100 100 97 Oximetry 11/01/20 11/01/20 11/01/20 08:30 08:40 08:50 Temperature Pulse Rate 112 H 111 H 109 H Pulse Rate [ Anterior Bilateral] Pulse Rate [ From Monitor] Respiratory 36 H 28 H 32 H Rate Respiratory Rate [Anterior Bilateral] Blood Pressure 105/82 117/54 117/54 O2 Sat by Pulse 99 96 98 Oximetry 11/01/20 11/01/20 11/01/20 09:00 09:10 09:20 Temperature Pulse Rate 109 H 104 H 105 H Pulse Rate [ Anterior Bilateral] Pulse Rate [ From Monitor] Respiratory 30 H 36 H 28 H Rate Respiratory Rate [Anterior Bilateral] Blood Pressure 117/54 110/51 110/51 O2 Sat by Pulse 93 94 92 Oximetry 11/01/20 11/01/20 11/01/20 09:30 09:40 09:50 Temperature Pulse Rate 103 H 103 H 103 H Pulse Rate [ Anterior Bilateral] Pulse Rate [ From Monitor] Respiratory 29 H 30 H 27 H Rate Respiratory Rate [Anterior Bilateral] Blood Pressure 88/70 88/70 88/70 O2 Sat by Pulse 98 93 96 Oximetry 11/01/20 11/01/20 11/01/20 10:00 10:10 10:16 Temperature Pulse Rate 102 H 100 H Pulse Rate [ 93 H Anterior Bilateral] Pulse Rate [ From Monitor] Respiratory 29 H 22 Rate Respiratory 28 H Rate [Anterior Bilateral] Blood Pressure 88/70 60/42 O2 Sat by Pulse 93 96 97 Oximetry 11/01/20 11/01/20 11/01/20 10:20 10:21 10:30 Temperature Pulse Rate 94 H 116 H 99 H Pulse Rate [ Anterior Bilateral] Pulse Rate [ From Monitor] Respiratory 24 28 H 21 Rate Respiratory Rate [Anterior Bilateral] Blood Pressure 60/42 60/42 74/29 O2 Sat by Pulse 96 97 95 Oximetry 11/01/20 11/01/20 11/01/20 10:40 10:50 11:00 Temperature Pulse Rate 95 H 100 H 101 H Pulse Rate [ Anterior Bilateral] Pulse Rate [ From Monitor] Respiratory 20 26 H 24 Rate Respiratory Rate [Anterior Bilateral] Blood Pressure 74/29 74/29 149/86 O2 Sat by Pulse 96 95 98 Oximetry 11/01/20 11/01/20 11/01/20 11:10 11:20 11:30 Temperature Pulse Rate 102 H 104 H 105 H Pulse Rate [ Anterior Bilateral] Pulse Rate [ From Monitor] Respiratory 24 26 H 25 H Rate Respiratory Rate [Anterior Bilateral] Blood Pressure 149/86 149/86 149/86 O2 Sat by Pulse 94 100 98 Oximetry 11/01/20 11/01/20 11/01/20 11:40 11:50 12:00 Temperature 99.0 F Pulse Rate 116 H 108 H 105 H Pulse Rate [ Anterior Bilateral] Pulse Rate [ 99 H From Monitor] Respiratory 29 H 28 H 29 H Rate Respiratory Rate [Anterior Bilateral] Blood Pressure 158/77 158/77 167/146 O2 Sat by Pulse 100 94 98 Oximetry 11/01/20 11/01/20 11/01/20 12:10 12:20 12:30 Temperature Pulse Rate 108 H 104 H 104 H Pulse Rate [ Anterior Bilateral] Pulse Rate [ From Monitor] Respiratory 28 H 24 27 H Rate Respiratory Rate [Anterior Bilateral] Blood Pressure 104/54 104/54 104/54 O2 Sat by Pulse 95 98 96 Oximetry 11/01/20 11/01/20 11/01/20 12:40 12:50 13:00 Temperature Pulse Rate 101 H 98 H 100 H Pulse Rate [ Anterior Bilateral] Pulse Rate [ From Monitor] Respiratory 21 24 26 H Rate Respiratory Rate [Anterior Bilateral] Blood Pressure 106/75 106/75 106/75 O2 Sat by Pulse 98 99 96 Oximetry 11/01/20 11/01/20 11/01/20 13:10 13:20 13:30 Temperature Pulse Rate 99 H 97 H 111 H Pulse Rate [ Anterior Bilateral] Pulse Rate [ From Monitor] Respiratory 24 26 H 26 H Rate Respiratory Rate [Anterior Bilateral] Blood Pressure 131/102 131/102 131/102 O2 Sat by Pulse 96 99 98 Oximetry 11/01/20 11/01/20 11/01/20 13:40 13:50 14:00 Temperature Pulse Rate 98 H 99 H 95 H Pulse Rate [ Anterior Bilateral] Pulse Rate [ From Monitor] Respiratory 25 H 25 H 24 Rate Respiratory Rate [Anterior Bilateral] Blood Pressure 90/49 103/52 107/48 O2 Sat by Pulse 96 99 98 Oximetry 11/01/20 11/01/20 15:00 15:08 Temperature Pulse Rate 99 H 104 H Pulse Rate [ Anterior Bilateral] Pulse Rate [ From Monitor] Respiratory 26 H 26 H Rate Respiratory Rate [Anterior Bilateral] Blood Pressure 102/51 92/52 O2 Sat by Pulse 97 96 Oximetry - Labs CBC & Chem 7: 11/02/20 10:45 11/02/20 10:45 Labs: Abnormal lab results 10/31/20 10/31/20 10/31/20 Range/Units 17:28 17:57 20:18 WBC (4.5-11.0) K/mm3 RBC (3.65-5.03) M/mm3 Hgb (11.8-15.2) gm/dl Hct (35.5-45.6) % RDW (13.2-15.2) % ABG pH 7.135 L 7.159 L (7.320-7.450) POC ABG pCO2 66.6 H 62.0 H (32.0-48.0) mmHg POC ABG pO2 (83-108) mmHg ABG Hemoglobin 10.2 L (12.0-17.5) ABG Sodium 131.0 L 131.8 L (136.0-145.0) mmol/L ABG Glucose 98 H 167 H (65-95) mg/dL Sodium (137-145) mmol/L Carbon Dioxide (22-30) mmol/L BUN (9-20) mg/dL Creatinine (0.8-1.3) mg/dL Glucose (75-100) mg/dL POC Glucose 61 L (70-105) mg/dL Calcium (8.4-10.2) mg/dL Arterial Blood Glucose 98 H 167 H (65-95) mg/dL Urine WBC (Auto) (0.0-6.0) /HPF 10/31/20 10/31/20 11/01/20 Range/Units 23:46 Unknown 03:14 WBC (4.5-11.0) K/mm3 RBC (3.65-5.03) M/mm3 Hgb (11.8-15.2) gm/dl Hct (35.5-45.6) % RDW (13.2-15.2) % ABG pH 7.201 L (7.320-7.450) POC ABG pCO2 50.4 H (32.0-48.0) mmHg POC ABG pO2 161.5 H (83-108) mmHg ABG Hemoglobin 17.7 H (12.0-17.5) ABG Sodium 130.7 L (136.0-145.0) mmol/L ABG Glucose 192 H (65-95) mg/dL Sodium (137-145) mmol/L Carbon Dioxide (22-30) mmol/L BUN (9-20) mg/dL Creatinine (0.8-1.3) mg/dL Glucose (75-100) mg/dL POC Glucose 63 L (70-105) mg/dL Calcium (8.4-10.2) mg/dL Arterial Blood Glucose 192 H (65-95) mg/dL Urine WBC (Auto) 9.0 H (0.0-6.0) /HPF 11/01/20 11/01/20 11/01/20 Range/Units 03:20 12:17 12:17 WBC 18.2 H (4.5-11.0) K/mm3 RBC 2.72 L (3.65-5.03) M/mm3 Hgb 8.1 L (11.8-15.2) gm/dl Hct 25.7 L (35.5-45.6) % RDW 17.9 H (13.2-15.2) % ABG pH (7.320-7.450) POC ABG pCO2 (32.0-48.0) mmHg POC ABG pO2 (83-108) mmHg ABG Hemoglobin (12.0-17.5) ABG Sodium (136.0-145.0) mmol/L ABG Glucose (65-95) mg/dL Sodium 128 L (137-145) mmol/L Carbon Dioxide 18 L (22-30) mmol/L BUN 28 H (9-20) mg/dL Creatinine 2.5 H (0.8-1.3) mg/dL Glucose 123 H (75-100) mg/dL POC Glucose 167 H (70-105) mg/dL Calcium 8.2 L (8.4-10.2) mg/dL Arterial Blood Glucose (65-95) mg/dL Urine WBC (Auto) (0.0-6.0) /HPF HEART Score - HEART Score EKG: Non-specific Risk factors: > 3 risk factors or hx of atherosclerotic disease Troponin: < normal limit - Critical Actions Critical Actions: 4-6 pts:12-16.6% risk of adverse cardiac event. Should be ad mitted
--- NOTE | 2020-11-01 17:27 | Progress Note ---
Assessment and Plan Acute possibly on chronic hypoxemic respiratory failure. Acute chronic obstructive pulmonary disease exacerbation. Acute G.I. Bleed Left lower extremity cellulitis. Peripheral vascular disease. History of tobacco abuse. Acute kidney injury. Anemia that is normocytic. [id number] protein-calorie malnutrition. Adult failure to thrive. Leukocytosis Hyponatremia Will trial Haloperidol to help with agitation management He has been on continuous BIPAP Patient would have benefited for intubation and mechanical ventilatory support to optimize care. However he is DNAR/DNI and we will continue aggressive care ABG in am, will adjust BIPAP pressures for better gas exchange Place NGT/SBFT to optimize enteric nutritional support Midodrine fro blood pressure support Conservative fluid management as tolerated by renal function and blood pressure Monitor hemodynamics closely Supportive transfusions to keep HgB >7g/dL - continue to wean supplemental oxygen to keep O2 sats > 88-90% acutely (restrictive oxygen therapy) - continue Bronchodilators ([place] & LABA) with pulmonary hygiene per RT - continue systemic steroids with slow taper - continue inhaled corticosteroids - avoid nephrotoxins, renally dose all medications - continue antiplatelet therapy per vascular team - mobility protocol, off loading for pressure ulcer prevention - Wound care per RN/WCT - prn analgesia per pain score - accuchecks with glycemic control per SSI for target blood glucose < 180 mg/dL - VTE prophylaxis - continue other care per attending / other consultants CONDITION: CRITICAL PROGNOSIS: GUARDED CODE STATUS: DNAR Subjective Date of service: 11/01/20 Principal diagnosis: AE-COPD; Acute G.I. Bleed; Cellulitis; HTN Interval history: Patient is seen today for: Acute possibly on chronic hypoxemic respiratory failure; AE-COPD; Acuite G.I. Bleed; L. lower extremity cellulitis; PVD; JOSHUA; Anemia Seen and examined at bedside; 24hour events reviewed; nursing and respiratory care staff consulted; no adverse overnight events reported to me;minimally responsive with increased work of breathing on BIPAP, FFM. Restless, with labile blood pressure. Tossing and turning in the bed. Res piratory acidosis on ABG. No N/V/F/C Objective Vital Signs - 12hr 11/01/20 11/01/20 11/01/20 06:00 07:00 07:20 Temperature Pulse Rate 93 H 116 H 119 H Pulse Rate [ Anterior Bilateral] Pulse Rate [ From Monitor] Respiratory 19 28 H 22 Rate Respiratory Rate [Anterior Bilateral] Blood Pressure 90/47 99/70 81/34 O2 Sat by Pulse 100 97 99 Oximetry 11/01/20 11/01/20 11/01/20 07:30 07:40 07:50 Temperature Pulse Rate 114 H 117 H 116 H Pulse Rate [ Anterior Bilateral] Pulse Rate [ From Monitor] Respiratory 35 H 38 H 34 H Rate Respiratory Rate [Anterior Bilateral] Blood Pressure 81/34 130/43 130/43 O2 Sat by Pulse 100 100 100 Oximetry 11/01/20 11/01/20 11/01/20 08:00 08:10 08:20 Temperature 98.3 F Pulse Rate 114 H 112 H 116 H Pulse Rate [ Anterior Bilateral] Pulse Rate [ 112 H From Monitor] Respiratory 29 H 29 H 34 H Rate Respiratory Rate [Anterior Bilateral] Blood Pressure 130/43 105/82 105/82 O2 Sat by Pulse 100 100 97 Oximetry 11/01/20 11/01/20 11/01/20 08:30 08:40 08:50 Temperature Pulse Rate 112 H 111 H 109 H Pulse Rate [ Anterior Bilateral] Pulse Rate [ From Monitor] Respiratory 36 H 28 H 32 H Rate Respiratory Rate [Anterior Bilateral] Blood Pressure 105/82 117/54 117/54 O2 Sat by Pulse 99 96 98 Oximetry 11/01/20 11/01/20 11/01/20 09:00 09:10 09:20 Temperature Pulse Rate 109 H 104 H 105 H Pulse Rate [ Anterior Bilateral] Pulse Rate [ From Monitor] Respiratory 30 H 36 H 28 H Rate Respiratory Rate [Anterior Bilateral] Blood Pressure 117/54 110/51 110/51 O2 Sat by Pulse 93 94 92 Oximetry 11/01/20 11/01/20 11/01/20 09:30 09:40 09:50 Temperature Pulse Rate 103 H 103 H 103 H Pulse Rate [ Anterior Bilateral] Pulse Rate [ From Monitor] Respiratory 29 H 30 H 27 H Rate Respiratory Rate [Anterior Bilateral] Blood Pressure 88/70 88/70 88/70 O2 Sat by Pulse 98 93 96 Oximetry 11/01/20 11/01/20 11/01/20 10:00 10:10 10:16 Temperature Pulse Rate 102 H 100 H Pulse Rate [ 93 H Anterior Bilateral] Pulse Rate [ From Monitor] Respiratory 29 H 22 Rate Respiratory 28 H Rate [Anterior Bilateral] Blood Pressure 88/70 60/42 O2 Sat by Pulse 93 96 97 Oximetry 11/01/20 11/01/20 11/01/20 10:20 10:21 10:30 Temperature Pulse Rate 94 H 116 H 99 H Pulse Rate [ Anterior Bilateral] Pulse Rate [ From Monitor] Respiratory 24 28 H 21 Rate Respiratory Rate [Anterior Bilateral] Blood Pressure 60/42 60/42 74/29 O2 Sat by Pulse 96 97 95 Oximetry 11/01/20 11/01/20 11/01/20 10:40 10:50 11:00 Temperature Pulse Rate 95 H 100 H 101 H Pulse Rate [ Anterior Bilateral] Pulse Rate [ From Monitor] Respiratory 20 26 H 24 Rate Respiratory Rate [Anterior Bilateral] Blood Pressure 74/29 74/29 149/86 O2 Sat by Pulse 96 95 98 Oximetry 11/01/20 11/01/20 11/01/20 11:10 11:20 11:30 Temperature Pulse Rate 102 H 104 H 105 H Pulse Rate [ Anterior Bilateral] Pulse Rate [ From Monitor] Respiratory 24 26 H 25 H Rate Respiratory Rate [Anterior Bilateral] Blood Pressure 149/86 149/86 149/86 O2 Sat by Pulse 94 100 98 Oximetry 11/01/20 11/01/20 11/01/20 11:40 11:50 12:00 Temperature 99.0 F Pulse Rate 116 H 108 H 105 H Pulse Rate [ Anterior Bilateral] Pulse Rate [ 99 H From Monitor] Respiratory 29 H 28 H 29 H Rate Respiratory Rate [Anterior Bilateral] Blood Pressure 158/77 158/77 167/146 O2 Sat by Pulse 100 94 98 Oximetry 11/01/20 11/01/20 11/01/20 12:10 12:20 12:30 Temperature Pulse Rate 108 H 104 H 104 H Pulse Rate [ Anterior Bilateral] Pulse Rate [ From Monitor] Respiratory 28 H 24 27 H Rate Respiratory Rate [Anterior Bilateral] Blood Pressure 104/54 104/54 104/54 O2 Sat by Pulse 95 98 96 Oximetry 11/01/20 11/01/20 11/01/20 12:40 12:50 13:00 Temperature Pulse Rate 101 H 98 H 100 H Pulse Rate [ Anterior Bilateral] Pulse Rate [ From Monitor] Respiratory 21 24 26 H Rate Respiratory Rate [Anterior Bilateral] Blood Pressure 106/75 106/75 106/75 O2 Sat by Pulse 98 99 96 Oximetry 11/01/20 11/01/20 11/01/20 13:10 13:20 13:30 Temperature Pulse Rate 99 H 97 H 111 H Pulse Rate [ Anterior Bilateral] Pulse Rate [ From Monitor] Respiratory 24 26 H 26 H Rate Respiratory Rate [Anterior Bilateral] Blood Pressure 131/102 131/102 131/102 O2 Sat by Pulse 96 99 98 Oximetry 11/01/20 11/01/20 11/01/20 13:40 13:50 14:00 Temperature Pulse Rate 98 H 99 H 95 H Pulse Rate [ Anterior Bilateral] Pulse Rate [ From Monitor] Respiratory 25 H 25 H 24 Rate Respiratory Rate [Anterior Bilateral] Blood Pressure 90/49 103/52 107/48 O2 Sat by Pulse 96 99 98 Oximetry 11/01/20 11/01/20 11/01/20 15:00 15:08 16:00 Temperature 100.0 F H Pulse Rate 99 H 104 H Pulse Rate [ Anterior Bilateral] Pulse Rate [ From Monitor] Respiratory 26 H 26 H Rate Respiratory Rate [Anterior Bilateral] Blood Pressure 102/51 92/52 O2 Sat by Pulse 97 96 Oximetry Constitutional: no acute distress, lethargic, appears uncomfortable, other (elderly chronically ill looking male with mildly increased respiratory effort at rest, on BIPAP) Eyes: non-icteric ENT: oropharynx moist Neck: supple, no lymphadenopathy, no JVD Effort: mildly labored Ascultation: Bilateral: diminished breath sounds, rhonchi, other (prolonged expiratory phase) Percussion: Bilateral: not dull Cardiovascular: regular rate and rhythm, other (S1,S2) Gastrointestinal: normoactive bowel sounds, soft, non-tender, non-distended Integumentary: cellulitis (L. lower extremity) Extremities: no cyanosis, no edema, no ischemia or petechiae, other (weak pulses) Neurologic: non-focal exam, pupils equal and round Psychiatric: other (Patient sleepy and lethergic.) CBC and BMP: 11/02/20 10:45 11/02/20 10:45 ABG, PT/INR, D-dimer: ABG ABG pH 7.201 (7.320-7.450) L 11/01/20 03:14 POC ABG pCO2 50.4 mmHg (32.0-48.0) H 11/01/20 03:14 ABG pCO2 61.0 mm Hg 10/27/20 20:35 POC ABG pO2 161.5 mmHg (83-108) H 11/01/20 03:14 ABG pO2 129.2 mm Hg (80.0-90.0) H 10/27/20 20:35 POC ABG HCO3 19.3 11/01/20 03:14 ABG O2 Saturation 98.0 % (95.0-99.0) 10/27/20 20:35 PT/INR, D-dimer PT 14.0 Sec. (12.2-14.9) 10/22/20 09:04 INR 1.10 (0.87-1.13) 10/22/20 09:04 Abnormal lab findings: Abnormal Labs 10/22/20 10/22/20 10/22/20 09:04 09:04 09:04 WBC 12.0 H RBC Hgb 11.7 L Hct 35.0 L RDW 15.5 H Lymph % (Auto) 7.6 L [place] % (Auto) 7.5 H Lymph # (Auto) 0.9 L [place] # (Auto) 0.9 H Seg Neutrophils % 82.7 H Seg Neuts % (Manual) Lymphocytes % (Manual) Nucleated RBC % Seg Neutrophils # 9.9 H Seg Neutrophils # Man Lymphocytes # (Manual) Fibrinogen 708 H Heparin Anti-Xa Level ABG pH POC ABG pCO2 POC ABG pO2 ABG pO2 ABG Base Excess ABG Hemoglobin ABG Sodium ABG Chloride ABG Glucose Sodium Chloride Carbon Dioxide BUN 29 H Creatinine 2.2 H Glucose 114 H POC Glucose Calcium 10.4 H ALT Total Protein Albumin Arterial Blood Glucose Arterial Blood Ionized Calcium Urine WBC (Auto) Crossmatch 10/22/20 10/23/20 10/23/20 18:54 04:18 04:18 WBC 14.8 H RBC 3.20 L Hgb 9.4 L Hct 28.7 L D RDW 15.3 H Lymph % (Auto) 7.0 L [place] % (Auto) 7.8 H Lymph # (Auto) 1.0 L [place] # (Auto) 1.2 H Seg Neutrophils % 83.1 H Seg Neuts % (Manual) Lymphocytes % (Manual) Nucleated RBC % Seg Neutrophils # 12.3 H Seg Neutrophils # Man Lymphocytes # (Manual) Fibrinogen Heparin Anti-Xa Level 2.00 H ABG pH POC ABG pCO2 POC ABG pO2 ABG pO2 ABG Base Excess ABG Hemoglobin ABG Sodium ABG Chloride ABG Glucose Sodium Chloride Carbon Dioxide BUN 34 H Creatinine 1.7 H Glucose POC Glucose Calcium ALT Total Protein Albumin Arterial Blood Glucose Arterial Blood Ionized Calcium Urine WBC (Auto) Crossmatch 10/23/20 10/23/20 10/24/20 08:44 08:44 05:21 WBC 14.8 H 16.0 H RBC 2.71 L 2.13 L Hgb 7.9 L 6.2 L Hct 24.4 L 19.1 L* RDW Lymph % (Auto) 6.1 L 7.0 L [place] % (Auto) 7.5 H Lymph # (Auto) 0.9 L 1.1 L [place] # (Auto) 1.2 H Seg Neutrophils % 87.6 H 85.0 H Seg Neuts % (Manual) Lymphocytes % (Manual) Nucleated RBC % Seg Neutrophils # 13.0 H 13.6 H Seg Neutrophils # Man Lymphocytes # (Manual) Fibrinogen Heparin Anti-Xa Level ABG pH POC ABG pCO2 POC ABG pO2 ABG pO2 ABG Base Excess ABG Hemoglobin ABG Sodium ABG Chloride ABG Glucose Sodium Chloride 108.0 H Carbon Dioxide BUN 33 H Creatinine 1.5 H Glucose 123 H POC Glucose Calcium ALT 6 L Total Protein 5.9 L Albumin 2.7 L Arterial Blood Glucose Arterial Blood Ionized Calcium Urine WBC (Auto) Crossmatch 10/24/20 10/24/20 10/24/20 05:21 07:02 18:26 WBC RBC Hgb 7.8 L Hct 23.6 L RDW Lymph % (Auto) [place] % (Auto) Lymph # (Auto) [place] # (Auto) Seg Neutrophils % Seg Neuts % (Manual) Lymphocytes % (Manual) Nucleated RBC % Seg Neutrophils # Seg Neutrophils # Man Lymphocytes # (Manual) Fibrinogen Heparin Anti-Xa Level ABG pH POC ABG pCO2 POC ABG pO2 ABG pO2 ABG Base Excess ABG Hemoglobin ABG Sodium ABG Chloride ABG Glucose Sodium 146 H Chloride 111.7 H Carbon Dioxide BUN 28 H Creatinine Glucose POC Glucose Calcium ALT Total Protein Albumin Arterial Blood Glucose Arterial Blood Ionized Calcium Urine WBC (Auto) Crossmatch See Detail 10/25/20 10/25/20 10/26/20 08:44 08:44 07:02 WBC 16.9 H 16.2 H RBC 2.72 L 2.76 L Hgb 7.8 L 7.7 L Hct 24.2 L 24.2 L RDW 17.0 H 16.8 H Lymph % (Auto) 3.2 L 4.5 L [place] % (Auto) 8.1 H 9.2 H Lymph # (Auto) 0.5 L 0.7 L [place] # (Auto) 1.4 H 1.5 H Seg Neutrophils % 88.0 H 85.1 H Seg Neuts % (Manual) Lymphocytes % (Manual) Nucleated RBC % Seg Neutrophils # 14.8 H 13.8 H Seg Neutrophils # Man Lymphocytes # (Manual) Fibrinogen Heparin Anti-Xa Level ABG pH POC ABG pCO2 POC ABG pO2 ABG pO2 ABG Base Excess ABG Hemoglobin ABG Sodium ABG Chloride ABG Glucose Sodium 148 H Chloride 114.4 H Carbon Dioxide BUN Creatinine Glucose POC Glucose Calcium ALT Total Protein Albumin Arterial Blood Glucose Arterial Blood Ionized Calcium Urine WBC (Auto) Crossmatch 10/26/20 10/27/20 10/27/20 07:02 05:09 05:09 WBC 16.4 H RBC 2.57 L Hgb 7.3 L Hct 22.7 L RDW 16.9 H Lymph % (Auto) 4.2 L [place] % (Auto) 7.7 H Lymph # (Auto) 0.7 L [place] # (Auto) 1.3 H Seg Neutrophils % 87.6 H Seg Neuts % (Manual) Lymphocytes % (Manual) Nucleated RBC % Seg Neutrophils # 14.4 H Seg Neutrophils # Man Lymphocytes # (Manual) Fibrinogen Heparin Anti-Xa Level ABG pH POC ABG pCO2 POC ABG pO2 ABG pO2 ABG Base Excess ABG Hemoglobin ABG Sodium ABG Chloride ABG Glucose Sodium 147 H Chloride 116.7 H 113.5 H Carbon Dioxide 19 L BUN Creatinine Glucose 120 H 114 H POC Glucose Calcium ALT Total Protein Albumin Arterial Blood Glucose Arterial Blood Ionized Calcium Urine WBC (Auto) Crossmatch 10/27/20 10/28/20 10/28/20 20:35 14:24 14:24 WBC 17.6 H RBC 2.62 L Hgb 7.5 L Hct 23.6 L RDW 17.0 H Lymph % (Auto) [place] % (Auto) Lymph # (Auto) [place] # (Auto) Seg Neutrophils % Seg Neuts % (Manual) 95.0 H Lymphocytes % (Manual) 2.0 L Nucleated RBC % 1.0 H Seg Neutrophils # Seg Neutrophils # Man 16.7 H Lymphocytes # (Manual) 0.4 L Fibrinogen Heparin Anti-Xa Level ABG pH 7.189 L* POC ABG pCO2 POC ABG pO2 ABG pO2 129.2 H ABG Base Excess -5.3 L ABG Hemoglobin 7.4 L ABG Sodium ABG Chloride ABG Glucose Sodium Chloride 112.2 H Carbon Dioxide 19 L BUN Creatinine Glucose 133 H POC Glucose Calcium ALT Total Protein 5.7 L Albumin 2.7 L Arterial Blood Glucose Arterial Blood Ionized Calcium Urine WBC (Auto) Crossmatch 10/29/20 10/29/20 10/29/20 06:44 06:44 12:19 WBC 19.6 H RBC 2.41 L Hgb 7.2 L Hct 21.5 L RDW 17.0 H Lymph % (Auto) [place] % (Auto) Lymph # (Auto) [place] # (Auto) Seg Neutrophils % Seg Neuts % (Manual) 98.0 H Lymphocytes % (Manual) 0 L Nucleated RBC % Seg Neutrophils # Seg Neutrophils # Man 19.2 H Lymphocytes # (Manual) 0.0 L Fibrinogen Heparin Anti-Xa Level ABG pH 7.009 L POC ABG pCO2 94.4 H POC ABG pO2 141.3 H ABG pO2 ABG Base Excess ABG Hemoglobin 8.5 L ABG Sodium ABG Chloride 109.0 H ABG Glucose 151 H Sodium Chloride 110.6 H Carbon Dioxide BUN Creatinine Glucose 120 H POC Glucose Calcium ALT Total Protein Albumin Arterial Blood Glucose 151 H Arterial Blood Ionized Calcium 5.5 H Urine WBC (Auto) Crossmatch 10/29/20 10/30/20 10/30/20 17:49 05:27 05:27 WBC RBC Hgb 6.5 L Hct 20.2 L RDW Lymph % (Auto) [place] % (Auto) Lymph # (Auto) [place] # (Auto) Seg Neutrophils % Seg Neuts % (Manual) Lymphocytes % (Manual) Nucleated RBC % Seg Neutrophils # Seg Neutrophils # Man Lymphocytes # (Manual) Fibrinogen Heparin Anti-Xa Level ABG pH 7.23 L POC ABG pCO2 53.5 H POC ABG pO2 ABG pO2 ABG Base Excess ABG Hemoglobin 8.5 L ABG Sodium ABG Chloride 110.0 H ABG Glucose 112 H Sodium Chloride 107.3 H Carbon Dioxide BUN Creatinine 1.8 H Glucose POC Glucose Calcium ALT Total Protein Albumin Arterial Blood Glucose 112 H Arterial Blood Ionized Calcium Urine WBC (Auto) Crossmatch 10/30/20 10/30/20 10/30/20 15:56 17:20 17:39 WBC RBC Hgb Hct RDW Lymph % (Auto) [place] % (Auto) Lymph # (Auto) [place] # (Auto) Seg Neutrophils % Seg Neuts % (Manual) Lymphocytes % (Manual) Nucleated RBC % Seg Neutrophils # Seg Neutrophils # Man Lymphocytes # (Manual) Fibrinogen Heparin Anti-Xa Level ABG pH POC ABG pCO2 POC ABG pO2 ABG pO2 ABG Base Excess ABG Hemoglobin ABG Sodium ABG Chloride ABG Glucose Sodium Chloride Carbon Dioxide BUN Creatinine Glucose POC Glucose 25 L 49 L Calcium ALT Total Protein Albumin Arterial Blood Glucose Arterial Blood Ionized Calcium Urine WBC (Auto) Crossmatch See Detail 10/31/20 10/31/20 10/31/20 10:21 10:21 17:28 WBC 19.4 H RBC 3.32 L Hgb 9.9 L D Hct 30.5 L D RDW 17.5 H Lymph % (Auto) [place] % (Auto) Lymph # (Auto) [place] # (Auto) Seg Neutrophils % Seg Neuts % (Manual) 96.0 H Lymphocytes % (Manual) 0 L Nucleated RBC % 1.0 H Seg Neutrophils # Seg Neutrophils # Man 18.6 H Lymphocytes # (Manual) 0.0 L Fibrinogen Heparin Anti-Xa Level ABG pH 7.135 L POC ABG pCO2 66.6 H POC ABG pO2 ABG pO2 ABG Base Excess ABG Hemoglobin 10.2 L ABG Sodium 131.0 L ABG Chloride ABG Glucose 98 H Sodium 134 L Chloride Carbon Dioxide BUN Creatinine 2.0 H Glucose 109 H POC Glucose Calcium ALT Total Protein Albumin Arterial Blood Glucose 98 H Arterial Blood Ionized Calcium Urine WBC (Auto) Crossmatch 10/31/20 10/31/20 10/31/20 17:57 20:18 23:46 WBC RBC Hgb Hct RDW Lymph % (Auto) [place] % (Auto) Lymph # (Auto) [place] # (Auto) Seg Neutrophils % Seg Neuts % (Manual) Lymphocytes % (Manual) Nucleated RBC % Seg Neutrophils # Seg Neutrophils # Man Lymphocytes # (Manual) Fibrinogen Heparin Anti-Xa Level ABG pH 7.159 L POC ABG pCO2 62.0 H POC ABG pO2 ABG pO2 ABG Base Excess ABG Hemoglobin ABG Sodium 131.8 L ABG Chloride ABG Glucose 167 H Sodium Chloride Carbon Dioxide BUN Creatinine Glucose POC Glucose 61 L 63 L Calcium ALT Total Protein Albumin Arterial Blood Glucose 167 H Arterial Blood Ionized Calcium Urine WBC (Auto) Crossmatch 10/31/20 11/01/20 11/01/20 Unknown 03:14 03:20 WBC RBC Hgb Hct RDW Lymph % (Auto) [place] % (Auto) Lymph # (Auto) [place] # (Auto) Seg Neutrophils % Seg Neuts % (Manual) Lymphocytes % (Manual) Nucleated RBC % Seg Neutrophils # Seg Neutrophils # Man Lymphocytes # (Manual) Fibrinogen Heparin Anti-Xa Level ABG pH 7.201 L POC ABG pCO2 50.4 H POC ABG pO2 161.5 H ABG pO2 ABG Base Excess ABG Hemoglobin 17.7 H ABG Sodium 130.7 L ABG Chloride ABG Glucose 192 H Sodium Chloride Carbon Dioxide BUN Creatinine Glucose POC Glucose 167 H Calcium ALT Total Protein Albumin Arterial Blood Glucose 192 H Arterial Blood Ionized Calcium Urine WBC (Auto) 9.0 H Crossmatch 11/01/20 11/01/20 12:17 12:17 WBC 18.2 H RBC 2.72 L Hgb 8.1 L Hct 25.7 L RDW 17.9 H Lymph % (Auto) [place] % (Auto) Lymph # (Auto) [place] # (Auto) Seg Neutrophils % Seg Neuts % (Manual) Lymphocytes % (Manual) Nucleated RBC % Seg Neutrophils # Seg Neutrophils # Man Lymphocytes # (Manual) Fibrinogen Heparin Anti-Xa Level ABG pH POC ABG pCO2 POC ABG pO2 ABG pO2 ABG Base Excess ABG Hemoglobin ABG Sodium ABG Chloride ABG Glucose Sodium 128 L Chloride Carbon Dioxide 18 L BUN 28 H Creatinine 2.5 H Glucose 123 H POC Glucose Calcium 8.2 L ALT Total Protein Albumin Arterial Blood Glucose Arterial Blood Ionized Calcium Urine WBC (Auto) Crossmatch Allied health notes reviewed: RT
[2020-11-01] MEDS: METOPROLOL TARTRATE 5 MG/5 ML INJ IV PRN (18:00)
[2020-11-01] MEDS ORDERED: HALOPERIDOL LACTATE 5 MG/1 ML INJ IM ONE (18:44)
[2020-11-01] MEDS: ARFORMOTEROL 15 MCG/2 ML NEBU IH SCH ×2 (20:40→20:41)
[2020-11-01] MEDS: BUDESONIDE 0.5 MG/2 ML NEBU IH SCH ×2 (20:40→20:42)
[2020-11-01] MEDS: ACETAMINOPHEN 325 MG TAB PO PRN (22:24)
[2020-11-02] MEDS: METOPROLOL TARTRATE 5 MG/5 ML INJ IV PRN ×2 (00:05→17:15)
[2020-11-02] MEDS: SODIUM HYPOCHLORITE, DAKIN'S 1/2 STRENGTH (0.25%) 473 ML TOPICAL SOLN TP SCH ×2 (07:27→09:30)
[2020-11-02] MEDS: BUDESONIDE 0.5 MG/2 ML NEBU IH SCH (08:08)
[2020-11-02] MEDS: IPRATROPIUM/ALBUTEROL SULFATE 3 ML AMPUL.NEB IH SCH (08:08)
[2020-11-02] MEDS: ARFORMOTEROL 15 MCG/2 ML NEBU IH SCH (08:08)
[2020-11-02] MEDS: DEXTROSE 10% IN WATER 1,000 ML IV SCH (09:28)
[2020-11-02] MEDS: MULTIVITAMINS 5 ML ORAL LIQUID PO SCH (09:29)
[2020-11-02] MEDS: SENNOSIDES 8.6 MG TAB PO SCH (09:29)
[2020-11-02] MEDS: DOCUSATE SODIUM 100 MG/10 ML ORAL LIQD FEEDTUBE SCH (09:29)
[2020-11-02] MEDS: MIDODRINE 5 MG TAB PO SCH ×3 (09:30→15:15)
[2020-11-02] MEDS: PENTOXIFYLLINE ER 400 MG TAB PO SCH (09:30)
[2020-11-02] MEDS ORDERED: LANSOPRAZOLE 30 MG SOLUTAB FEEDTUBE SCH (10:00)
--- NOTE | 2020-11-02 10:10 | Progress Note ---
<BRIDGETTEWARREN - Last Filed: 11/02/20 10:08> Assessment and Plan Transient atrial fibrillation currently in sinus rhythm; on as needed metoprolol patient is considered not a candidate for oral anticoagulation due to acute GI bleed and severe anemia. normal LVEF 60-65% by echo TSH of 1.4 Hypotension - on midodrine PVD with cellulitis of the left lower extremity, and recent left lower extremity fem-pop occlusion. Acute GI bleed with severe anemia s/p transfusion of PRBCs Respiratory failure Hx of COPD on home oxygen Cachexia DNR status Conservative cardiac management. Subjective Date of service: 11/02/20 Principal diagnosis: AE-COPD; Acute G.I. Bleed; Cellulitis; HTN Interval history: Mild sinus tachycardia on telemetry. Objective Vital Signs Temp Pulse Pulse Pulse Resp Resp BP 11/02/20 08:08 93 H 92 H 33 H 32 H 113/93 11/02/20 08:01 92 H 34 H 191/154 11/02/20 08:00 91 H 91 H 11/02/20 07:01 91 H 35 H 116/62 11/02/20 06:01 90 31 H 95/71 11/02/20 05:00 90 33 H 95/71 11/02/20 04:35 87 35 H 116/40 11/02/20 04:01 88 34 H 113/80 11/02/20 04:00 99.0 F 95 H 95 H 31 H 11/02/20 03:01 87 33 H 109/52 11/02/20 02:00 85 27 H 110/73 11/02/20 01:00 85 31 H 119/83 11/02/20 00:35 107 H 34 H 177/156 11/02/20 00:05 151 H 124/49 11/02/20 00:00 100.5 F H 141 H 136 H 33 H 124/49 11/01/20 23:00 151 H 34 H 148/56 11/01/20 22:00 149 H 36 H 114/36 11/01/20 21:00 146 H 33 H 104/56 11/01/20 20:42 144 H 32 H 11/01/20 20:00 100.8 F H 143 H 24 93/55 11/01/20 19:08 142 H 32 H 104/56 11/01/20 19:00 138 H 32 H 99/77 12/10/20 18:04 152 H 16 99/77 11/01/20 18:00 166 H 26 H 120/100 11/01/20 17:00 101 H 25 H 121/55 11/01/20 16:00 100.0 F H 99 H 100 H 21 109/55 11/01/20 15:08 104 H 26 H 92/52 11/01/20 15:00 99 H 26 H 102/51 11/01/20 14:00 95 H 24 107/48 11/01/20 13:50 99 H 25 H 103/52 11/01/20 13:40 98 H 25 H 90/49 11/01/20 13:30 111 H 26 H 131/102 11/01/20 13:20 97 H 26 H 131/102 11/01/20 13:10 99 H 24 131/102 11/01/20 13:00 100 H 26 H 106/75 11/01/20 12:50 98 H 24 106/75 11/01/20 12:40 101 H 21 106/75 11/01/20 12:30 104 H 27 H 104/54 11/01/20 12:20 104 H 24 104/54 11/01/20 12:10 108 H 28 H 104/54 11/01/20 12:00 99.0 F 105 H 99 H 29 H 167/146 11/01/20 11:50 108 H 28 H 158/77 11/01/20 11:40 116 H 29 H 158/77 11/01/20 11:30 105 H 25 H 149/86 11/01/20 11:20 104 H 26 H 149/86 11/01/20 11:10 102 H 24 149/86 11/01/20 11:00 101 H 24 149/86 11/01/20 10:50 100 H 26 H 74/29 11/01/20 10:40 95 H 20 74/29 11/01/20 10:30 99 H 21 74/29 11/01/20 10:21 116 H 28 H 60/42 11/01/20 10:20 94 H 24 60/42 11/01/20 10:16 93 H 28 H 11/01/20 10:10 100 H 22 60/42 Pulse Ox 11/02/20 08:08 96 11/02/20 08:01 92 11/02/20 08:00 11/02/20 07:01 94 11/02/20 06:01 91 11/02/20 05:00 91 11/02/20 04:35 93 11/02/20 04:01 88 11/02/20 04:00 98 11/02/20 03:01 93 11/02/20 02:00 88 11/02/20 01:00 92 11/02/20 00:35 92 11/02/20 00:05 11/02/20 00:00 92 11/01/20 23:00 90 11/01/20 22:00 97 11/01/20 21:00 99 11/01/20 20:42 11/01/20 20:00 89 11/01/20 19:08 93 11/01/20 19:00 97 11/01/20 18:04 96 11/01/20 18:00 96 11/01/20 17:00 100 11/01/20 16:00 96 11/01/20 15:08 96 11/01/20 15:00 97 11/01/20 14:00 98 11/01/20 13:50 99 11/01/20 13:40 96 11/01/20 13:30 98 11/01/20 13:20 99 11/01/20 13:10 96 11/01/20 13:00 96 11/01/20 12:50 99 11/01/20 12:40 98 11/01/20 12:30 96 11/01/20 12:20 98 11/01/20 12:10 95 11/01/20 12:00 98 11/01/20 11:50 94 11/01/20 11:40 100 11/01/20 11:30 98 11/01/20 11:20 100 11/01/20 11:10 94 11/01/20 11:00 98 11/01/20 10:50 95 11/01/20 10:40 96 11/01/20 10:30 95 11/01/20 10:21 97 11/01/20 10:20 96 11/01/20 10:16 97 11/01/20 10:10 96 - Physical Examination General: Cachectic, Other (mild distress on high flow oxygen) Cardiac: Positive: Tachycardia Extremities: Present: edema ( cellulitis of the left lower extremity) - Labs and Meds CBC 11/01/20 Range/Units 12:17 WBC 18.2 H (4.5-11.0) K/mm3 RBC 2.72 L (3.65-5.03) M/mm3 Hgb 8.1 L (11.8-15.2) gm/dl Hct 25.7 L (35.5-45.6) % Plt Count 336 (140-440) K/mm3 Comprehensive Metabolic Panel 11/01/20 Range/Units 12:17 Sodium 128 L (137-145) mmol/L Potassium 4.2 (3.6-5.0) mmol/L Chloride 99.7 (98-107) mmol/L Carbon Dioxide 18 L (22-30) mmol/L BUN 28 H (9-20) mg/dL Creatinine 2.5 H (0.8-1.3) mg/dL Glucose 123 H (75-100) mg/dL Calcium 8.2 L (8.4-10.2) mg/dL - Allied health notes Allied health notes reviewed: RT <ANNY DEXTER - Last Filed: 11/02/20 12:38> Assessment and Plan - Patient Problems (1) Paroxysmal SVT (supraventricular tachycardia) Current Visit: Yes Status: Acute Subjective Interval history: I SAW THIS PT & AGREE WITH THE Dx & Tx PLAN. Objective Vital Signs Temp Pulse Pulse Pulse Resp Resp BP 11/02/20 08:08 93 H 92 H 33 H 32 H 113/93 11/02/20 08:01 92 H 34 H 191/154 11/02/20 08:00 91 H 91 H 11/02/20 07:01 91 H 35 H 116/62 11/02/20 06:01 90 31 H 95/71 11/02/20 05:00 90 33 H 95/71 11/02/20 04:35 87 35 H 116/40 11/02/20 04:01 88 34 H 113/80 11/02/20 04:00 99.0 F 95 H 95 H 31 H 11/02/20 03:01 87 33 H 109/52 11/02/20 02:00 85 27 H 110/73 11/02/20 01:00 85 31 H 119/83 11/02/20 00:35 107 H 34 H 177/156 12/11/20 00:05 151 H 124/49 11/02/20 00:00 100.5 F H 141 H 136 H 33 H 124/49 11/01/20 23:00 151 H 34 H 148/56 11/01/20 22:00 149 H 36 H 114/36 11/01/20 21:00 146 H 33 H 104/56 11/01/20 20:42 144 H 32 H 11/01/20 20:00 100.8 F H 143 H 24 93/55 11/01/20 19:08 142 H 32 H 104/56 11/01/20 19:00 138 H 32 H 99/77 11/01/20 18:04 152 H 16 99/77 11/01/20 18:00 166 H 26 H 120/100 11/01/20 17:00 101 H 25 H 121/55 11/01/20 16:00 100.0 F H 99 H 100 H 21 109/55 11/01/20 15:08 104 H 26 H 92/52 11/01/20 15:00 99 H 26 H 102/51 11/01/20 14:00 95 H 24 107/48 11/01/20 13:50 99 H 25 H 103/52 11/01/20 13:40 98 H 25 H 90/49 11/01/20 13:30 111 H 26 H 131/102 11/01/20 13:20 97 H 26 H 131/102 11/01/20 13:10 99 H 24 131/102 11/01/20 13:00 100 H 26 H 106/75 11/01/20 12:50 98 H 24 106/75 11/01/20 12:40 101 H 21 106/75 Pulse Ox 11/02/20 08:08 96 11/02/20 08:01 92 11/02/20 08:00 11/02/20 07:01 94 11/02/20 06:01 91 11/02/20 05:00 91 11/02/20 04:35 93 11/02/20 04:01 88 11/02/20 04:00 98 11/02/20 03:01 93 11/02/20 02:00 88 11/02/20 01:00 92 11/02/20 00:35 92 11/02/20 00:05 11/02/20 00:00 92 11/01/20 23:00 90 11/01/20 22:00 97 11/01/20 21:00 99 11/01/20 20:42 11/01/20 20:00 89 11/01/20 19:08 93 11/01/20 19:00 97 11/01/20 18:04 96 11/01/20 18:00 96 11/01/20 17:00 100 11/01/20 16:00 96 11/01/20 15:08 96 11/01/20 15:00 97 11/01/20 14:00 98 11/01/20 13:50 99 11/01/20 13:40 96 11/01/20 13:30 98 11/01/20 13:20 99 11/01/20 13:10 96 11/01/20 13:00 96 11/01/20 12:50 99 11/01/20 12:40 98 - Labs and Meds CBC 11/01/20 11/02/20 Range/Units 12:17 10:45 WBC 18.2 H 24.5 H (4.5-11.0) K/mm3 RBC 2.72 L 3.02 L (3.65-5.03) M/mm3 Hgb 8.1 L 8.8 L (11.8-15.2) gm/dl Hct 25.7 L 27.6 L (35.5-45.6) % Plt Count 336 347 (140-440) K/mm3 Comprehensive Metabolic Panel 11/01/20 11/02/20 Range/Units 12:17 10:45 Sodium 128 L 124 L (137-145) mmol/L Potassium 4.2 5.2 H D (3.6-5.0) mmol/L Chloride 99.7 94.5 L (98-107) mmol/L Carbon Dioxide 18 L 21 L (22-30) mmol/L BUN 28 H 32 H (9-20) mg/dL Creatinine 2.5 H 2.5 H (0.8-1.3) mg/dL Glucose 123 H 129 H (75-100) mg/dL Calcium 8.2 L 8.5 (8.4-10.2) mg/dL
[2020-11-02 11:28] LABS: Hematocrit 27.6 % (35.5-45.6); Hemoglobin 8.8 gm/dl (11.8-15.2); Mean Corpuscular HGB Conc 32 % (32-34); Mean Corpuscular Volume 91 fl (84-94); Platelet Count 347 K/mm3 (140-440); Red Blood Count 3.02 M/mm3 (3.65-5.03); Red Cell Distribution Width 17.5 % (13.2-15.2)
[2020-11-02] MEDS ORDERED: MORPHINE 2 MG/1 ML INJ IV SCH (11:30)
[2020-11-02 11:42] LABS: Calcium 8.5 mg/dL (8.4-10.2)
--- NOTE | 2020-11-02 12:08 | Progress Note ---
Assessment and Plan Cultures: Wound culture 10/22/2020 Pseudomonas intermediate to independent, sensitive to Levaquin Blood culture 10/31/2020 no growth today Urine culture 10/31/2020 pending A/P: 75-year-old man past medical history COPD, hypertension, peripheral vascular disease, found to have cellulitis #SIRS: With new fever and worsening leukocytosis ? Unclear etiology ? Mild UTI #Left lower extremity cellulitis/skin sloughing: Per wound care evaluation on 10/23/2020 ulcer measures 22 x 18 x 0.1 cm circumferential, with a black eschar #Malnutrition #JOSHUA: creat up #Peripheral vascular disease: thrombosed left lower extremity femoropopliteal bypass ? vascular considering endovascular reconstruction #Anemia: s/p Transfusion, worsening #GI bleed s/p epinephrine injection and gold probe. #Acute hypoxemic resp failure: Chest x-ray with emphysema and pulmonary edema, now with desaturation down to 88%, now on BIPAP. unclear etiology #PVD #UTI Recs: -Stat chest x-ray -no breath sounds on exam -continue levaquin day 9 of 10 -Follow-up blood cultures and urine cultures -Continue wound care -close monitoring due to worsening respiratory failure, guarded prognosis Dr. Trujillo is rounding this weekend will follow Sloane Gonzalez MD [facility] ([facility]) Office [phone] Subjective Date of service: 11/02/20 Principal diagnosis: AE-COPD; Acute G.I. Bleed; Cellulitis; HTN Interval history: Patient remains anxious, tachypneic, on high flow, noted low-grade fever Objective - Exam Narrative Exam: General appearance: Alert in mild shortness of breath on high flow nasal cannula Eyes: anicteric sclerae, moist conjunctivae; no lid-lag; PERRLA HENT: Normocephalic, Atraumatic; normal external ears, nares open, oropharynx limited NG tube in place Neck: supple, tracheal midline, no JVD Lungs: Diminished breath sound bilaterally CV: Tachycardic Abdomen: Soft, non-tender; no masses or hepatosplenomegaly Extremities: no edema, no cyanosis Skin: + Left leg covered with dressing Psych: Anxious Neuro: Alert, confused - Constitutional Vitals: Vital Signs Temp Pulse Resp BP Pulse Ox 99.0 F 92 H 32 H 113/93 98 11/02/20 04:00 11/02/20 08:08 11/02/20 08:08 11/02/20 08:08 11/02/20 08:08 Temperature -Last 24 Hours Temperature 99.0 F Temperature 100.5 F Temperature 100.8 F Temperature 100.0 F - Labs CBC & Chem 7: 11/02/20 10:45 11/02/20 10:45 Labs: Abnormal lab results 11/01/20 11/01/20 11/01/20 Range/Units 12:17 12:17 16:00 WBC 18.2 H (4.5-11.0) K/mm3 RBC 2.72 L (3.65-5.03) M/mm3 Hgb 8.1 L (11.8-15.2) gm/dl Hct 25.7 L (35.5-45.6) % RDW 17.9 H (13.2-15.2) % ABG pH 7.239 L (7.320-7.450) POC ABG pO2 189.2 H (83-108) mmHg ABG Hemoglobin 9.2 L (12.0-17.5) ABG Sodium 125.3 L (136.0-145.0) mmol/L ABG Glucose 167 H (65-95) mg/dL Sodium 128 L (137-145) mmol/L Potassium (3.6-5.0) mmol/L Chloride (98-107) mmol/L Carbon Dioxide 18 L (22-30) mmol/L BUN 28 H (9-20) mg/dL Creatinine 2.5 H (0.8-1.3) mg/dL Glucose 123 H (75-100) mg/dL POC Glucose (70-105) mg/dL Calcium 8.2 L (8.4-10.2) mg/dL Arterial Blood Glucose 167 H (65-95) mg/dL 11/01/20 11/02/20 11/02/20 Range/Units 23:19 05:28 10:45 WBC 24.5 H (4.5-11.0) K/mm3 RBC 3.02 L (3.65-5.03) M/mm3 Hgb 8.8 L (11.8-15.2) gm/dl Hct 27.6 L (35.5-45.6) % RDW 17.5 H (13.2-15.2) % ABG pH (7.320-7.450) POC ABG pO2 (83-108) mmHg ABG Hemoglobin (12.0-17.5) ABG Sodium (136.0-145.0) mmol/L ABG Glucose (65-95) mg/dL Sodium (137-145) mmol/L Potassium (3.6-5.0) mmol/L Chloride (98-107) mmol/L Carbon Dioxide (22-30) mmol/L BUN (9-20) mg/dL Creatinine (0.8-1.3) mg/dL Glucose (75-100) mg/dL POC Glucose 113 H 127 H (70-105) mg/dL Calcium (8.4-10.2) mg/dL Arterial Blood Glucose (65-95) mg/dL 11/02/20 Range/Units 10:45 WBC (4.5-11.0) K/mm3 RBC (3.65-5.03) M/mm3 Hgb (11.8-15.2) gm/dl Hct (35.5-45.6) % RDW (13.2-15.2) % ABG pH (7.320-7.450) POC ABG pO2 (83-108) mmHg ABG Hemoglobin (12.0-17.5) ABG Sodium (136.0-145.0) mmol/L ABG Glucose (65-95) mg/dL Sodium 124 L (137-145) mmol/L Potassium 5.2 H D (3.6-5.0) mmol/L Chloride 94.5 L (98-107) mmol/L Carbon Dioxide 21 L (22-30) mmol/L BUN 32 H (9-20) mg/dL Creatinine 2.5 H (0.8-1.3) mg/dL Glucose 129 H (75-100) mg/dL POC Glucose (70-105) mg/dL Calcium (8.4-10.2) mg/dL Arterial Blood Glucose (65-95) mg/dL
--- NOTE | 2020-11-02 13:16 | XRay Report ---
CHEST 1 VIEW INDICATION: no air exchange heard on auscultation. COMPARISON: 10/29/20 FINDINGS: SUPPORT DEVICES: Dobbhoff tube projects below the [id number]. HEART: Within normal limits. LUNGS/PLEURA: No acute air space or interstitial disease. ADDITIONAL FINDINGS: None. IMPRESSION: 1. No acute findings. Signer Name: Dwayne Vásquez MD Signed: 11/02/2020 1:11 PM Workstation Name: [id number]
--- NOTE | 2020-11-02 13:30 | Progress Note ---
Assessment and Plan Acute possibly on chronic hypoxemic-hypercapnic respiratory failure Acute chronic obstructive pulmonary disease exacerbation Acute toxic-metabolic encephalopathy Acute G.I. Bleed Left lower extremity cellulitis Peripheral vascular disease History of tobacco abuse Acute kidney injury Anemia that is normocytic Gdog-ma-yfsikmzd protein-calorie malnutrition Adult failure to thrive Leukocytosis Hyponatremia IV Morphine 1mg x1, now and monitor response He has been on continuous BIPAP, currently tolerating Vapotherm ABG in am NGT- enteric nutritional support and medications. Midodrine for blood pressure support Conservative fluid management as tolerated by renal function and blood pressure Monitor hemodynamics closely Supportive transfusions to keep HgB >7g/dL - continue to wean supplemental oxygen to keep O2 sats > 88-90% acutely (restrictive oxygen therapy) - continue Bronchodilators ([place] & LABA) with pulmonary hygiene per RT - continue systemic steroids with slow taper - continue inhaled corticosteroids - avoid nephrotoxins, renally dose all medications - continue antiplatelet therapy per vascular team - mobility protocol, off loading for pressure ulcer prevention - Wound care per RN/WCT - prn analgesia per pain score - accuchecks with glycemic control per SSI for target blood glucose < 180 mg/dL - VTE prophylaxis - continue other care per attending / other consultants CONDITION: CRITICAL PROGNOSIS: GUARDED CODE STATUS: DNAR Subjective Date of service: 11/02/20 Principal diagnosis: AE-COPD; Acute G.I. Bleed; Cellulitis; HTN Interval history: Patient is seen today for: Acute possibly on chronic hypoxemic-hypercapnic respiratory failure; AE-COPD; Acute G.I. Bleed; L. lower extremity cellulitis; PVD; JOSHUA; Anemia Seen and examined at bedside; 24hour events reviewed; nursing and respiratory care staff consulted; no adverse overnight events reported to me;minimally responsive with increased work of breathing on HFOT-Vapotherm 30L 40%, remains restless with increased work of breathing. Mental status changes persist BIPAP qhs and prn /8, back up rate 24 FIO2 30% NGT placed, KUB reviewed- in position Objective Vital Signs - 12hr 11/02/20 11/02/20 11/02/20 02:00 03:01 04:00 Temperature 99.0 F Pulse Rate 85 87 95 H Pulse Rate [ Anterior Bilateral] Pulse Rate [ 95 H From Monitor] Respiratory 27 H 33 H 31 H Rate Respiratory Rate [Anterior Bilateral] Blood Pressure 110/73 109/52 O2 Sat by Pulse 88 93 98 Oximetry 11/02/20 11/02/20 11/02/20 04:01 04:35 05:00 Temperature Pulse Rate 88 87 90 Pulse Rate [ Anterior Bilateral] Pulse Rate [ From Monitor] Respiratory 34 H 35 H 33 H Rate Respiratory Rate [Anterior Bilateral] Blood Pressure 113/80 116/40 95/71 O2 Sat by Pulse 88 93 91 Oximetry 11/02/20 11/02/20 11/02/20 06:01 07:01 08:00 Temperature Pulse Rate 90 91 H 91 H Pulse Rate [ Anterior Bilateral] Pulse Rate [ 91 H From Monitor] Respiratory 31 H 35 H Rate Respiratory Rate [Anterior Bilateral] Blood Pressure 95/71 116/62 O2 Sat by Pulse 91 94 Oximetry 11/02/20 11/02/20 08:01 08:08 Temperature Pulse Rate 92 H 93 H Pulse Rate [ 92 H Anterior Bilateral] Pulse Rate [ From Monitor] Respiratory 34 H 33 H Rate Respiratory 32 H Rate [Anterior Bilateral] Blood Pressure 191/154 113/93 O2 Sat by Pulse 92 96 Oximetry Constitutional: no acute distress, lethargic, other (elderly chronically ill looking male with moderately increased respiratory effort at rest, on Vapotherm) Eyes: non-icteric ENT: oropharynx moist Neck: supple, no lymphadenopathy, no JVD Effort: mildly labored Ascultation: Bilateral: diminished breath sounds, rhonchi Percussion: Bilateral: not dull Cardiovascular: regular rate and rhythm, other (S1,S2) Gastrointestinal: normoactive bowel sounds, soft, non-tender, non-distended Integumentary: cellulitis (L. lower extremity) Extremities: no cyanosis, no edema, no ischemia or petechiae, other (weak pulses) Neurologic: non-focal exam (moves extremities), pupils equal and round, unable to assess Psychiatric: other (Unable to assess secondary to mental status) CBC and BMP: 11/02/20 10:45 11/02/20 10:45 ABG, PT/INR, D-dimer: ABG ABG pH 7.239 (7.320-7.450) L 11/01/20 16:00 POC ABG pCO2 45.9 mmHg (32.0-48.0) 11/01/20 16:00 ABG pCO2 61.0 mm Hg 10/27/20 20:35 POC ABG pO2 189.2 mmHg (83-108) H 11/01/20 16:00 ABG pO2 129.2 mm Hg (80.0-90.0) H 10/27/20 20:35 POC ABG HCO3 19.2 11/01/20 16:00 ABG O2 Saturation 98.0 % (95.0-99.0) 10/27/20 20:35 PT/INR, D-dimer PT 14.0 Sec. (12.2-14.9) 10/22/20 09:04 INR 1.10 (0.87-1.13) 10/22/20 09:04 Abnormal lab findings: Abnormal Labs 10/22/20 10/22/20 10/22/20 09:04 09:04 09:04 WBC 12.0 H RBC Hgb 11.7 L Hct 35.0 L RDW 15.5 H Lymph % (Auto) 7.6 L Floyd % (Auto) 7.5 H Lymph # (Auto) 0.9 L [place] # (Auto) 0.9 H Seg Neutrophils % 82.7 H Seg Neuts % (Manual) Lymphocytes % (Manual) Nucleated RBC % Seg Neutrophils # 9.9 H Seg Neutrophils # Man Lymphocytes # (Manual) Fibrinogen 708 H Heparin Anti-Xa Level ABG pH POC ABG pCO2 POC ABG pO2 ABG pO2 ABG Base Excess ABG Hemoglobin ABG Sodium ABG Chloride ABG Glucose Sodium Potassium Chloride Carbon Dioxide BUN 29 H Creatinine 2.2 H Glucose 114 H POC Glucose Calcium 10.4 H ALT Total Protein Albumin Arterial Blood Glucose Arterial Blood Ionized Calcium Urine WBC (Auto) Crossmatch 10/22/20 10/23/20 10/23/20 18:54 04:18 04:18 WBC 14.8 H RBC 3.20 L Hgb 9.4 L Hct 28.7 L D RDW 15.3 H Lymph % (Auto) 7.0 L [place] % (Auto) 7.8 H Lymph # (Auto) 1.0 L [place] # (Auto) 1.2 H Seg Neutrophils % 83.1 H Seg Neuts % (Manual) Lymphocytes % (Manual) Nucleated RBC % Seg Neutrophils # 12.3 H Seg Neutrophils # Man Lymphocytes # (Manual) Fibrinogen Heparin Anti-Xa Level 2.00 H ABG pH POC ABG pCO2 POC ABG pO2 ABG pO2 ABG Base Excess ABG Hemoglobin ABG Sodium ABG Chloride ABG Glucose Sodium Potassium Chloride Carbon Dioxide BUN 34 H Creatinine 1.7 H Glucose POC Glucose Calcium ALT Total Protein Albumin Arterial Blood Glucose Arterial Blood Ionized Calcium Urine WBC (Auto) Crossmatch 10/23/20 10/23/20 10/24/20 08:44 08:44 05:21 WBC 14.8 H 16.0 H RBC 2.71 L 2.13 L Hgb 7.9 L 6.2 L Hct 24.4 L 19.1 L* RDW Lymph % (Auto) 6.1 L 7.0 L Floyd % (Auto) 7.5 H Lymph # (Auto) 0.9 L 1.1 L [place] # (Auto) 1.2 H Seg Neutrophils % 87.6 H 85.0 H Seg Neuts % (Manual) Lymphocytes % (Manual) Nucleated RBC % Seg Neutrophils # 13.0 H 13.6 H Seg Neutrophils # Man Lymphocytes # (Manual) Fibrinogen Heparin Anti-Xa Level ABG pH POC ABG pCO2 POC ABG pO2 ABG pO2 ABG Base Excess ABG Hemoglobin ABG Sodium ABG Chloride ABG Glucose Sodium Potassium Chloride 108.0 H Carbon Dioxide BUN 33 H Creatinine 1.5 H Glucose 123 H POC Glucose Calcium ALT 6 L Total Protein 5.9 L Albumin 2.7 L Arterial Blood Glucose Arterial Blood Ionized Calcium Urine WBC (Auto) Crossmatch 10/24/20 10/24/20 10/24/20 05:21 07:02 18:26 WBC RBC Hgb 7.8 L Hct 23.6 L RDW Lymph % (Auto) Floyd % (Auto) Lymph # (Auto) [place] # (Auto) Seg Neutrophils % Seg Neuts % (Manual) Lymphocytes % (Manual) Nucleated RBC % Seg Neutrophils # Seg Neutrophils # Man Lymphocytes # (Manual) Fibrinogen Heparin Anti-Xa Level ABG pH POC ABG pCO2 POC ABG pO2 ABG pO2 ABG Base Excess ABG Hemoglobin ABG Sodium ABG Chloride ABG Glucose Sodium 146 H Potassium Chloride 111.7 H Carbon Dioxide BUN 28 H Creatinine Glucose POC Glucose Calcium ALT Total Protein Albumin Arterial Blood Glucose Arterial Blood Ionized Calcium Urine WBC (Auto) Crossmatch See Detail 10/25/20 10/25/20 10/26/20 08:44 08:44 07:02 WBC 16.9 H 16.2 H RBC 2.72 L 2.76 L Hgb 7.8 L 7.7 L Hct 24.2 L 24.2 L RDW 17.0 H 16.8 H Lymph % (Auto) 3.2 L 4.5 L Floyd % (Auto) 8.1 H 9.2 H Lymph # (Auto) 0.5 L 0.7 L [place] # (Auto) 1.4 H 1.5 H Seg Neutrophils % 88.0 H 85.1 H Seg Neuts % (Manual) Lymphocytes % (Manual) Nucleated RBC % Seg Neutrophils # 14.8 H 13.8 H Seg Neutrophils # Man Lymphocytes # (Manual) Fibrinogen Heparin Anti-Xa Level ABG pH POC ABG pCO2 POC ABG pO2 ABG pO2 ABG Base Excess ABG Hemoglobin ABG Sodium ABG Chloride ABG Glucose Sodium 148 H Potassium Chloride 114.4 H Carbon Dioxide BUN Creatinine Glucose POC Glucose Calcium ALT Total Protein Albumin Arterial Blood Glucose Arterial Blood Ionized Calcium Urine WBC (Auto) Crossmatch 10/26/20 10/27/20 10/27/20 07:02 05:09 05:09 WBC 16.4 H RBC 2.57 L Hgb 7.3 L Hct 22.7 L RDW 16.9 H Lymph % (Auto) 4.2 L [place] % (Auto) 7.7 H Lymph # (Auto) 0.7 L [place] # (Auto) 1.3 H Seg Neutrophils % 87.6 H Seg Neuts % (Manual) Lymphocytes % (Manual) Nucleated RBC % Seg Neutrophils # 14.4 H Seg Neutrophils # Man Lymphocytes # (Manual) Fibrinogen Heparin Anti-Xa Level ABG pH POC ABG pCO2 POC ABG pO2 ABG pO2 ABG Base Excess ABG Hemoglobin ABG Sodium ABG Chloride ABG Glucose Sodium 147 H Potassium Chloride 116.7 H 113.5 H Carbon Dioxide 19 L BUN Creatinine Glucose 120 H 114 H POC Glucose Calcium ALT Total Protein Albumin Arterial Blood Glucose Arterial Blood Ionized Calcium Urine WBC (Auto) Crossmatch 10/27/20 10/28/20 10/28/20 20:35 14:24 14:24 WBC 17.6 H RBC 2.62 L Hgb 7.5 L Hct 23.6 L RDW 17.0 H Lymph % (Auto) [place] % (Auto) Lymph # (Auto) [place] # (Auto) Seg Neutrophils % Seg Neuts % (Manual) 95.0 H Lymphocytes % (Manual) 2.0 L Nucleated RBC % 1.0 H Seg Neutrophils # Seg Neutrophils # Man 16.7 H Lymphocytes # (Manual) 0.4 L Fibrinogen Heparin Anti-Xa Level ABG pH 7.189 L* POC ABG pCO2 POC ABG pO2 ABG pO2 129.2 H ABG Base Excess -5.3 L ABG Hemoglobin 7.4 L ABG Sodium ABG Chloride ABG Glucose Sodium Potassium Chloride 112.2 H Carbon Dioxide 19 L BUN Creatinine Glucose 133 H POC Glucose Calcium ALT Total Protein 5.7 L Albumin 2.7 L Arterial Blood Glucose Arterial Blood Ionized Calcium Urine WBC (Auto) Crossmatch 10/29/20 10/29/20 10/29/20 06:44 06:44 12:19 WBC 19.6 H RBC 2.41 L Hgb 7.2 L Hct 21.5 L RDW 17.0 H Lymph % (Auto) [place] % (Auto) Lymph # (Auto) [place] # (Auto) Seg Neutrophils % Seg Neuts % (Manual) 98.0 H Lymphocytes % (Manual) 0 L Nucleated RBC % Seg Neutrophils # Seg Neutrophils # Man 19.2 H Lymphocytes # (Manual) 0.0 L Fibrinogen Heparin Anti-Xa Level ABG pH 7.009 L POC ABG pCO2 94.4 H POC ABG pO2 141.3 H ABG pO2 ABG Base Excess ABG Hemoglobin 8.5 L ABG Sodium ABG Chloride 109.0 H ABG Glucose 151 H Sodium Potassium Chloride 110.6 H Carbon Dioxide BUN Creatinine Glucose 120 H POC Glucose Calcium ALT Total Protein Albumin Arterial Blood Glucose 151 H Arterial Blood Ionized Calcium 5.5 H Urine WBC (Auto) Crossmatch 10/29/20 10/30/20 10/30/20 17:49 05:27 05:27 WBC RBC Hgb 6.5 L Hct 20.2 L RDW Lymph % (Auto) Floyd % (Auto) Lymph # (Auto) [place] # (Auto) Seg Neutrophils % Seg Neuts % (Manual) Lymphocytes % (Manual) Nucleated RBC % Seg Neutrophils # Seg Neutrophils # Man Lymphocytes # (Manual) Fibrinogen Heparin Anti-Xa Level ABG pH 7.23 L POC ABG pCO2 53.5 H POC ABG pO2 ABG pO2 ABG Base Excess ABG Hemoglobin 8.5 L ABG Sodium ABG Chloride 110.0 H ABG Glucose 112 H Sodium Potassium Chloride 107.3 H Carbon Dioxide BUN Creatinine 1.8 H Glucose POC Glucose Calcium ALT Total Protein Albumin Arterial Blood Glucose 112 H Arterial Blood Ionized Calcium Urine WBC (Auto) Crossmatch 10/30/20 10/30/20 10/30/20 15:56 17:20 17:39 WBC RBC Hgb Hct RDW Lymph % (Auto) [place] % (Auto) Lymph # (Auto) [place] # (Auto) Seg Neutrophils % Seg Neuts % (Manual) Lymphocytes % (Manual) Nucleated RBC % Seg Neutrophils # Seg Neutrophils # Man Lymphocytes # (Manual) Fibrinogen Heparin Anti-Xa Level ABG pH POC ABG pCO2 POC ABG pO2 ABG pO2 ABG Base Excess ABG Hemoglobin ABG Sodium ABG Chloride ABG Glucose Sodium Potassium Chloride Carbon Dioxide BUN Creatinine Glucose POC Glucose 25 L 49 L Calcium ALT Total Protein Albumin Arterial Blood Glucose Arterial Blood Ionized Calcium Urine WBC (Auto) Crossmatch See Detail 10/31/20 10/31/20 10/31/20 10:21 10:21 17:28 WBC 19.4 H RBC 3.32 L Hgb 9.9 L D Hct 30.5 L D RDW 17.5 H Lymph % (Auto) [place] % (Auto) Lymph # (Auto) [place] # (Auto) Seg Neutrophils % Seg Neuts % (Manual) 96.0 H Lymphocytes % (Manual) 0 L Nucleated RBC % 1.0 H Seg Neutrophils # Seg Neutrophils # Man 18.6 H Lymphocytes # (Manual) 0.0 L Fibrinogen Heparin Anti-Xa Level ABG pH 7.135 L POC ABG pCO2 66.6 H POC ABG pO2 ABG pO2 ABG Base Excess ABG Hemoglobin 10.2 L ABG Sodium 131.0 L ABG Chloride ABG Glucose 98 H Sodium 134 L Potassium Chloride Carbon Dioxide BUN Creatinine 2.0 H Glucose 109 H POC Glucose Calcium ALT Total Protein Albumin Arterial Blood Glucose 98 H Arterial Blood Ionized Calcium Urine WBC (Auto) Crossmatch 10/31/20 10/31/20 10/31/20 17:57 20:18 23:46 WBC RBC Hgb Hct RDW Lymph % (Auto) [place] % (Auto) Lymph # (Auto) [place] # (Auto) Seg Neutrophils % Seg Neuts % (Manual) Lymphocytes % (Manual) Nucleated RBC % Seg Neutrophils # Seg Neutrophils # Man Lymphocytes # (Manual) Fibrinogen Heparin Anti-Xa Level ABG pH 7.159 L POC ABG pCO2 62.0 H POC ABG pO2 ABG pO2 ABG Base Excess ABG Hemoglobin ABG Sodium 131.8 L ABG Chloride ABG Glucose 167 H Sodium Potassium Chloride Carbon Dioxide BUN Creatinine Glucose POC Glucose 61 L 63 L Calcium ALT Total Protein Albumin Arterial Blood Glucose 167 H Arterial Blood Ionized Calcium Urine WBC (Auto) Crossmatch 10/31/20 11/01/20 11/01/20 Unknown 03:14 03:20 WBC RBC Hgb Hct RDW Lymph % (Auto) [place] % (Auto) Lymph # (Auto) [place] # (Auto) Seg Neutrophils % Seg Neuts % (Manual) Lymphocytes % (Manual) Nucleated RBC % Seg Neutrophils # Seg Neutrophils # Man Lymphocytes # (Manual) Fibrinogen Heparin Anti-Xa Level ABG pH 7.201 L POC ABG pCO2 50.4 H POC ABG pO2 161.5 H ABG pO2 ABG Base Excess ABG Hemoglobin 17.7 H ABG Sodium 130.7 L ABG Chloride ABG Glucose 192 H Sodium Potassium Chloride Carbon Dioxide BUN Creatinine Glucose POC Glucose 167 H Calcium ALT Total Protein Albumin Arterial Blood Glucose 192 H Arterial Blood Ionized Calcium Urine WBC (Auto) 9.0 H Crossmatch 11/01/20 11/01/20 11/01/20 12:17 12:17 16:00 WBC 18.2 H RBC 2.72 L Hgb 8.1 L Hct 25.7 L RDW 17.9 H Lymph % (Auto) [place] % (Auto) Lymph # (Auto) [place] # (Auto) Seg Neutrophils % Seg Neuts % (Manual) Lymphocytes % (Manual) Nucleated RBC % Seg Neutrophils # Seg Neutrophils # Man Lymphocytes # (Manual) Fibrinogen Heparin Anti-Xa Level ABG pH 7.239 L POC ABG pCO2 POC ABG pO2 189.2 H ABG pO2 ABG Base Excess ABG Hemoglobin 9.2 L ABG Sodium 125.3 L ABG Chloride ABG Glucose 167 H Sodium 128 L Potassium Chloride Carbon Dioxide 18 L BUN 28 H Creatinine 2.5 H Glucose 123 H POC Glucose Calcium 8.2 L ALT Total Protein Albumin Arterial Blood Glucose 167 H Arterial Blood Ionized Calcium Urine WBC (Auto) Crossmatch 11/01/20 11/02/20 11/02/20 23:19 05:28 10:45 WBC 24.5 H RBC 3.02 L Hgb 8.8 L Hct 27.6 L RDW 17.5 H Lymph % (Auto) [place] % (Auto) Lymph # (Auto) [place] # (Auto) Seg Neutrophils % Seg Neuts % (Manual) Lymphocytes % (Manual) Nucleated RBC % Seg Neutrophils # Seg Neutrophils # Man Lymphocytes # (Manual) Fibrinogen Heparin Anti-Xa Level ABG pH POC ABG pCO2 POC ABG pO2 ABG pO2 ABG Base Excess ABG Hemoglobin ABG Sodium ABG Chloride ABG Glucose Sodium Potassium Chloride Carbon Dioxide BUN Creatinine Glucose POC Glucose 113 H 127 H Calcium ALT Total Protein Albumin Arterial Blood Glucose Arterial Blood Ionized Calcium Urine WBC (Auto) Crossmatch 11/02/20 11/02/20 10:45 12:28 WBC RBC Hgb Hct RDW Lymph % (Auto) [place] % (Auto) Lymph # (Auto) [place] # (Auto) Seg Neutrophils % Seg Neuts % (Manual) Lymphocytes % (Manual) Nucleated RBC % Seg Neutrophils # Seg Neutrophils # Man Lymphocytes # (Manual) Fibrinogen Heparin Anti-Xa Level ABG pH POC ABG pCO2 POC ABG pO2 ABG pO2 ABG Base Excess ABG Hemoglobin ABG Sodium ABG Chloride ABG Glucose Sodium 124 L Potassium 5.2 H D Chloride 94.5 L Carbon Dioxide 21 L BUN 32 H Creatinine 2.5 H Glucose 129 H POC Glucose 59 L Calcium ALT Total Protein Albumin Arterial Blood Glucose Arterial Blood Ionized Calcium Urine WBC (Auto) Crossmatch Allied health notes reviewed: RT
--- NOTE | 2020-11-02 16:42 | Progress Note ---
Assessment and Plan --Acute on Chronic respiratory failure on 2L home O2, due to COPD and severe anemia s/p Bipap , today on high flow O2 continue supplemental O2 as needed and nebulizer breathing treatment as needed --Acute metabolic encephalopathy, ordered CT head but patient is too unstable to get the test done Likely due to profound hypoxia, continue to monitor clinically -- GI bleed due to gastric ulcer started on PPI, GI consulted, follow h/h. s/p EGD x2 EGD 10/23: 1. Fresh appearing blood with clots in gastric body. Abnormal mucosa in the yin dy with overlying blood clots, unable to be cleared with water irrigation. No active bleeding seen at the time of procedure. EGD 10/24: 1. Gastric body (lesser curvature) ulcer with visible vessel s/p epinephrine injection and gold probe. No active bleeding at end of procedure however vessel was unable to be obliterated with gold probe. --SVT, metoprolol iv q6 as needed s/p amio drip, preserved EF on 2d echo, consulted cardiology --Atrial fibrillation, noted on telemetry as needed beta-frederic to control heart rate, cardiology on board Not a candidate for anticoagulation due to recent severe GI bleed -- Cellulitis of left lower extremity abx per ID - now on levaquin Vascular surgery consulted, ID also following --Sepsis with cellulitis cont abx, follow Cx -- JOSHUA (acute kidney injury) IV fluids for now, follow daily labs likely vasomotor nephropathy --Severe anemia due to acute GI bleed s/p 2 units packed RBC transfusion, follow H&H, continue PPI -- HTN (hypertension), now hypotensive Cont to hold antihypertensives if SBP less than 100 --hypernatremia, resolved with hypotonic iv fluid --hyponatremia, cont D5NS for now, monitor BMP -- Tobacco abuse counseling Counselled On Nicotine patch -- COPD (chronic obstructive pulmonary disease) place on Duoonebs scheduled, bipap as needed -- PAD (peripheral artery disease) Defer to Vascular/IR Initially placed on Heparin drip - off now for GI bleed need angioplasty/angiogram --hypoglycemia, recurrent As needed d50, on D5Ns iv, s/p D10 --Severe protein calorie malnutrition consulted dietary, started on tube feeding as patient is too unstable to eat --DVT Px, scd --DNR CODE STATUS Brief History: 75-year-old man past medical history COPD, hypertension, peripheral vascular disease had a left lower extremity cellulitis and ulceration and this has been painful for the past 2 weeks admitted to the hospital by vascular surgery for thrombolysis of the left lower extremity. Patient has a history of 2 bypasses at [facility]. On presentation he was found to have a leukocytosis as well as an JOSHUA. Patient started on iv abx, iv heparin drip, ID consulted - admitted for further mx. He then developed bloody BM - heparin discontinued, GI consulted for EGD, PPI started. 10/23: PLANNED TO Continue daptomycin for now, if improvement noted plan to discharge with Bactrim. follow cx and monitor renal function. Hemoglobin declined on heparin drip from 11.7-7.9 with history of black diarrhea this morning. GI consulted, planned for EGD today. follow vascular recommendation. 10/24: s/p repeat EGD today. following EGD he bacame lethargic with respiratory distress , called code med- placed on bipap. Hb 6.7 -ordered PRBC. BG noted at 60s - D50 given and started on D5Ns drip and transferred to IMCU. 10/25: patient noted to have HR of 160s this am which improved after iv metoprol ol and now placed on amio drip, ordered 2d echo, consult cardiology. off Bipap since this am, repeat h/h stable. He is tolerating clear liquid diet. cont to monitor h/h. 10/26: clinically improved, off bipap, off amioderone. getting 2d echo at bedside. cont supportive care. h/h stable. f/u with vascular for possible angiogram. monitor cbc/bmp 10/27 patient remains intubated NG tube in place. No new changes overnight. Prognosis remains extremely poor. 10/28 patient remains intubated no new recommendations per neurology. Unable to wean patient at this time. Currently on tube feedings prognosis remains extremely poor. 10/29; became lathergic thia am, placed on bipap, abg obtained, discussed with pulmonary, cxr no infiltrates, tele showed atrial fib but not a candidate for AC for recent GI bleed, cont rate control for now. supportive care, CT head ordered. 10/30: Hb 6.5 -transfuse one unit of PRBC. patient remains on BIPAP. BG dropping even with D10W, ordered for dobhoff and TF 10/31: discussed with family by phone and also with sister at bedside who is his POA. explained patient's poor prognosis and sister wished for a DNR for the patient. Patient remains on Bipap, paroxysmal atrial fib. tolerating TF for now. cont to monitor, cbc, bmp in the am 11/01: Patient noted to be hypotensive on monitor, started on midodrine. Remains critically sick with multiple comorbidities. Continue to provide supportive care, continue BiPAP. Patient tolerating tube feeding. Blood sugar still intermittently declining with tube feeding and with D10W. Continue to monitor BMP and blood glucose every 4 hour. Extremely poor prognosis. 11/02: on high flow 40L O2 today, very lathergic. change iv fluid to D5NS for hyponatremia, monitor BMP. Very poor prognosis. Subjective Date of service: 11/02/20 Principal diagnosis: AE-COPD; Acute G.I. Bleed; Cellulitis; HTN Interval history: Patient seen and examined. Medical records and medication list reviewed. today on high flow O2, h/h stable after transfusion Patient noted more lethargic with respiratory distress Discussed plan of care with with RN at bedside BP remains hypotensive - hold all BP meds Objective - Exam Narrative Exam: GENERAL: Elderly malnourished male lying on bed appeared to be in moderate discomfort. HEENT: Normocephalic. Atraumatic. No conjunctival congestion or icterus. Patient has moist mucous membranes. NECK: Supple. Trachea midline. CHEST/LUNGS: diminished BS auscultated bilaterally, breathing labored. on BiPAP HEART/CARDIOVASCULAR: Tachycardic with irregular rhythm. S1 and S2 positive. ABDOMEN: Abdomen is soft, nontender. Patient has normal bowel sounds. SKIN: There is no rash. Warm and dry. NEURO: No focal motor deficit. unable to Follow command MUSCULOSKELETAL: No joint effusion or tenderness. EXTRIMITY: No edema, Left lower extremity with wound dressing PSYCH: cooperative but lethargic - Constitutional Vitals: Vital Signs - 12hr 11/02/20 11/02/20 11/02/20 05:00 06:01 07:01 Temperature Pulse Rate 90 90 91 H Pulse Rate [ Anterior Bilateral] Pulse Rate [ From Monitor] Respiratory 33 H 31 H 35 H Rate Respiratory Rate [Anterior Bilateral] Blood Pressure 95/71 95/71 116/62 O2 Sat by Pulse 91 91 94 Oximetry 11/02/20 11/02/20 11/02/20 08:00 08:01 08:08 Temperature Pulse Rate 91 H 92 H 93 H Pulse Rate [ 92 H Anterior Bilateral] Pulse Rate [ 91 H From Monitor] Respiratory 34 H 33 H Rate Respiratory 32 H Rate [Anterior Bilateral] Blood Pressure 191/154 113/93 O2 Sat by Pulse 92 96 Oximetry 11/02/20 11/02/20 11/02/20 09:00 10:01 11:00 Temperature Pulse Rate 94 H 103 H 104 H Pulse Rate [ Anterior Bilateral] Pulse Rate [ From Monitor] Respiratory 33 H 21 29 H Rate Respiratory Rate [Anterior Bilateral] Blood Pressure 123/64 95/39 130/48 O2 Sat by Pulse 98 100 100 Oximetry 11/02/20 11/02/20 11/02/20 12:00 13:00 14:01 Temperature 98.1 F Pulse Rate 102 H 102 H 104 H Pulse Rate [ Anterior Bilateral] Pulse Rate [ 102 H From Monitor] Respiratory 34 H 25 H 32 H Rate Respiratory Rate [Anterior Bilateral] Blood Pressure 128/52 122/64 136/61 O2 Sat by Pulse 100 99 98 Oximetry - Labs CBC & Chem 7: 11/02/20 10:45 11/02/20 10:45 Labs: Abnormal lab results 11/01/20 11/01/20 11/02/20 Range/Units 16:00 23:19 05:28 WBC (4.5-11.0) K/mm3 RBC (3.65-5.03) M/mm3 Hgb (11.8-15.2) gm/dl Hct (35.5-45.6) % RDW (13.2-15.2) % ABG pH 7.239 L (7.320-7.450) POC ABG pO2 189.2 H (83-108) mmHg ABG Hemoglobin 9.2 L (12.0-17.5) ABG Sodium 125.3 L (136.0-145.0) mmol/L ABG Glucose 167 H (65-95) mg/dL Sodium (137-145) mmol/L Potassium (3.6-5.0) mmol/L Chloride (98-107) mmol/L Carbon Dioxide (22-30) mmol/L BUN (9-20) mg/dL Creatinine (0.8-1.3) mg/dL Glucose (75-100) mg/dL POC Glucose 113 H 127 H (70-105) mg/dL Arterial Blood Glucose 167 H (65-95) mg/dL 11/02/20 11/02/20 11/02/20 Range/Units 10:45 10:45 12:28 WBC 24.5 H (4.5-11.0) K/mm3 RBC 3.02 L (3.65-5.03) M/mm3 Hgb 8.8 L (11.8-15.2) gm/dl Hct 27.6 L (35.5-45.6) % RDW 17.5 H (13.2-15.2) % ABG pH (7.320-7.450) POC ABG pO2 (83-108) mmHg ABG Hemoglobin (12.0-17.5) ABG Sodium (136.0-145.0) mmol/L ABG Glucose (65-95) mg/dL Sodium 124 L (137-145) mmol/L Potassium 5.2 H D (3.6-5.0) mmol/L Chloride 94.5 L (98-107) mmol/L Carbon Dioxide 21 L (22-30) mmol/L BUN 32 H (9-20) mg/dL Creatinine 2.5 H (0.8-1.3) mg/dL Glucose 129 H (75-100) mg/dL POC Glucose 59 L (70-105) mg/dL Arterial Blood Glucose (65-95) mg/dL HEART Score - HEART Score EKG: Non-specific Risk factors: > 3 risk factors or hx of atherosclerotic disease Troponin: < normal limit - Critical Actions Critical Actions: 4-6 pts:12-16.6% risk of adverse cardiac event. Should be admitted
[2020-11-02] MEDS ORDERED: D5W/0.9% NACL 1,000 ML IV SCH (17:00)
[2020-11-02] MEDS: DEXTROSE 50% IN WATER (25GM) 50 ML SYRINGE IV PRN (17:30)
[2020-11-02 20:41] VITALS: BP 80/44
--- NOTE | 2020-11-03 11:57 | Death Summary ---
Summary - Providers Date of service: 11/02/20 Consults: 10/22/20 10:30 Consult to Physician [CONS] Routine Comment: Consulting Provider: WOODROW VITALE Physician Instructions: Reason For Exam: LLE celullitis 10/22/20 10:46 Consult to Wound/ET Nurse [CONS] Routine Reason For Exam: wound eval LLE 10/23/20 12:21 Consult to Physician [CONS] Routine Comment: Consulting Provider: CONG KEENAN Physician Instructions: Reason For Exam: melena 10/25/20 12:11 Consult to Physician [CONS] Routine Comment: Consulting Provider: DEYA GOLDBERG Physician Instructions: Reason For Exam: Acute respiratory failure 10/25/20 16:35 Consult to Physician [CONS] Routine Comment: Consulting Provider: DALLAS BOWDEN Physician Instructions: Reason For Exam: SVT 10/30/20 17:50 Consult to Dietitian/Nutrition [CONS] Routine Physician Instructions: Assess nutrtn needs, initiate, modify, manage TF Reason For Exam: Reason for Consult: Write/Manage Tube Feeding Reason for Consult: Write/Manage Tube Feeding Attending: GAYLA MALDONADO - summary Date of admission: 10/22/20 10:30 Date of : 11/02/20 Significant findings: Cause of : Cardiopulmonary arrest with acute on chronic respiratory failure due to severe COPD, severe septic shock with LLE cellulitis, cardiac arrythmia with SVT and atrial fib, severe anemia, electrolytes imbalance, renal failure, severe PCM and severe PVD Time of : Dr. Ishaan vazquez. time of @ 2014.
== END 2020-11-02 22:30 | DRG 871 ==
LOC: CATHLABREC 08:11 → 4A 10:30 → 3A 19:20 → IMCU 10-24 17:53
PROVIDERS: ADMIT Internal Medicine; ATTEND Internal Medicine
PROC: 0DJ08ZZ Inspection of Upper Intestinal Tract, Via Natural or Artificial Opening Endoscopic (ICD-10-PCS; 2020-10-23)
PROC: 3E0G8GC Introduction of Other Therapeutic Substance into Upper GI, Via Natural or Artificial Opening Endoscopic (ICD-10-PCS; 2020-10-24)
PROC: 5A09357 Assistance with Respiratory Ventilation, Less than 24 Consecutive Hours, Continuous Positive Airway Pressure (ICD-10-PCS; 2020-10-24)
PROC: 5A09357 Assistance with Respiratory Ventilation, Less than 24 Consecutive Hours, Continuous Positive Airway Pressure (ICD-10-PCS; 2020-10-25)
PROC: 5A09357 Assistance with Respiratory Ventilation, Less than 24 Consecutive Hours, Continuous Positive Airway Pressure (ICD-10-PCS; 2020-10-27)
PROC: 4A033R1 Measurement of Arterial Saturation, Peripheral, Percutaneous Approach (ICD-10-PCS; 2020-10-27)
PROC: 02HV33Z Insertion of Infusion Device into Superior Vena Cava, Percutaneous Approach (ICD-10-PCS; 2020-10-27)
PROC: 5A09357 Assistance with Respiratory Ventilation, Less than 24 Consecutive Hours, Continuous Positive Airway Pressure (ICD-10-PCS; 2020-10-28)
PROC: 5A09357 Assistance with Respiratory Ventilation, Less than 24 Consecutive Hours, Continuous Positive Airway Pressure (ICD-10-PCS; 2020-10-29)
PROC: 5A09357 Assistance with Respiratory Ventilation, Less than 24 Consecutive Hours, Continuous Positive Airway Pressure (ICD-10-PCS; 2020-10-30)
PROC: 30233N1 Transfusion of Nonautologous Red Blood Cells into Peripheral Vein, Percutaneous Approach (ICD-10-PCS; principal; 2020-10-31)
PROC: 5A09357 Assistance with Respiratory Ventilation, Less than 24 Consecutive Hours, Continuous Positive Airway Pressure (ICD-10-PCS; 2020-10-31)
PROC: 5A09357 Assistance with Respiratory Ventilation, Less than 24 Consecutive Hours, Continuous Positive Airway Pressure (ICD-10-PCS; 2020-11-01)
PROC: 5A09357 Assistance with Respiratory Ventilation, Less than 24 Consecutive Hours, Continuous Positive Airway Pressure (ICD-10-PCS; 2020-11-02)
DX: A41.9 Sepsis, unspecified organism (principal); G93.41 Metabolic encephalopathy; K25.4 Chronic or unspecified gastric ulcer with hemorrhage; E43 Unspecified severe protein-calorie malnutrition; J96.21 Acute and chronic respiratory failure with hypoxia; N17.0 Acute kidney failure with tubular necrosis; R65.21 Severe sepsis with septic shock; L03.116 Cellulitis of left lower limb; I47.1 Supraventricular tachycardia; J45.901 Unspecified asthma with (acute) exacerbation; E87.2 Acidosis; E87.0 Hyperosmolality and hypernatremia; Z66 Do not resuscitate; I95.9 Hypotension, unspecified; E16.2 Hypoglycemia, unspecified; F17.200 Nicotine dependence, unspecified, uncomplicated; J44.9 Chronic obstructive pulmonary disease, unspecified; I10 Essential (primary) hypertension; D72.829 Elevated white blood cell count, unspecified; E86.0 Dehydration; I77.1 Stricture of artery; J20.9 Acute bronchitis, unspecified; E87.8 Other disorders of electrolyte and fluid balance, not elsewhere classified; D64.9 Anemia, unspecified; I73.9 Peripheral vascular disease, unspecified; I48.91 Unspecified atrial fibrillation; Z82.49 Family history of ischemic heart disease and other diseases of the circulatory system; Z79.899 Other long term (current) drug therapy; Z79.891 Long term (current) use of opiate analgesic; Z71.6 Tobacco abuse counseling; Z79.01 Long term (current) use of anticoagulants; Z79.82 Long term (current) use of aspirin; Z68.20 Body mass index [BMI] 20.0-20.9, adult
CPT/HCPCS: 36415; 36600; 71045; 74018; 80048; 80053; 81001; 82803; 82805; 82962; 83036; 83735; 84439; 84443; 85007; 85014; 85018; 85025; 85027; 85049; 85384; 85520; 85610; 85730; 86850; 86900; 86901; 86920; 87040; 87076; 87086; 87116; 87186; 93005; 93306; 94640; 94660; 94760; 96360; 96361; 96365; 96367; 96374; G0378; A6260; C9113; J0171; J0295; J0878; J1170; J1630; J1644; J1940; J1956; J2060; J2250; J2270; J2704; J2765; J3010; J3490; J7030; J7040; J7042; P9016